=== PATIENT | male | born 1960 | race Caucasian/White ===

== ENCOUNTER → 2022-06-22 13:51 | Outpatient (BNVA) | payer MEDICARE, SELFPAY | PROVIDERS: Visit Provider Physician Assistant | DX: G95.89 Other specified diseases of spinal cord (principal) | CPT/HCPCS: 99212; Q3014 ==

== ENCOUNTER 2024-06-12 12:44 | Outpatient (AMB) | payer MEDICARE, SELFPAY ==
--- NOTE | 2024-06-12 12:54 | A.SPINEOV_ITS ---
Vital Signs 06/12/24 13:06 Height 5 ft 7 in Weight 160 lb BMI 25.1 Intake Visit Reasons: possible herniated disc Intake Note: Mr. Hermosillo is here today c/o possible disc herniation. Communications Assistant Required: No Allergies No Known Allergies Allergy (Verified 06/12/24 13:06) Physical Exam Vital Signs: BMI result Body Mass Index 25.1 Assessment & Plan Assessment & Plan (1) Lumbar disc herniation: Code(s): M51.26 - Other intervertebral disc displacement, lumbar region Category: Medical Plan Mr Hermosillo came in to the office to see us today in follow-up. He is a gentleman known to us from anterior cervical fusion as well as L3-4, L4-[address] decomp[address] done back at [facility] few years back. He had excellent results from the surgery and was otherwise doing okay until March of this year when he awoke we had spontaneous onset of severe left back pain radiating into the anterior thigh region into his knee. The pain was crippling and incapacitating. He saw his primary doctor was placed on steroid pack, reassured that it should go away with time but unfortunately nothing helped. The pain has been agonizing and he has been slowly getting worse. He ultimately bags for an MRI from an orthopedic doctor that he was seeing and was able to get a study done at [facility] showing a large left L3-4 disc herniation. He came back in to see us because of his previous connection. He does report numbness of the leg as well as weakness. He reports a sense of feeling like he is going to fall when he stands up. He is unable to sleep, constantly tossing and turning in bed. He has been taking ibuprofen/leave despite being on Eliquis for AFib because he just can not take the pain anymore. He also tried Tylenol as well as [id number] medications etc.. He has not yet done any physical therapy. He was tentatively planned to have a cortisone shot at some point but the consultation is until the end of the month but he feels like he just can not wait any longer. No cauda equina symptoms. On my exam, he is awake alert oriented but very uncomfortable, he has an antalgic gait, positive straight leg raise at 15 degrees. I was almost unable to examine his leg because he is so uncomfortable. He has weakness of his left quadriceps which I would rate as 3/5. Also has a diminished patellar reflex and Achilles reflex on the left side. Strength on the right side is full, reflexes are normal. His imaging done at [facility] shows that he has a hyperintense T2 fluid-filled piece of disc material which appears to be floating upwards from the disc space compressing the descending L3 nerve root. It is almost completely obliterated by the piece of disc herniation. I am concerned given the weakness, numbness in the feeling of his leg giving out on him is a sign that he is having real nerve damage here from this disc herniation. I am going to submit for surgery for left L3-4 diskectomy. I will review the case with Dr. Couch to confirm the plan but I think we should try to move this along. I understand he has not done physical therapy and or injections, but the loss of neurological function I believe over rides this need for further conservative management. Pt was given risk and benefits of surgery including but not limited to infection, hematoma , nerve injury,durotomy, weakness,bowel/bladder injury, persistent pain, recurrent disc hernia as well as the option to continue with conservative treatment and patient wishes to proceed with surgery. Pt is aware they should stop their motrin, 7 days prior to surgery, and he will stop his Eliquis 3 days prior to surgery. He recently saw his curer acid drum in February for his atrial fibrillation and was told everything looks okay and he is stable without shortness breath or chest pain. He understands there is a slight risk of stroke coming off the Eliquis but given the amount of pain he is in he is arturo ling to accept this risk.. All questions were answered to the best of our ability. If there is anything about this patients medical history that we have overlooked or concerns you have about us proceeding with surgery we would appreciate any input you can offer. Total amount of time spent in this visit was 20 minutes in discussion of symptoms, lumbar imaging results and subsequent plan of care Sergio Couch MD,PhD [facility] Coding Level of Care Code Est Pt Level 3 (47562) Diagnoses Lumbar disc herniation M51.26
[2024-06-12 13:06] VITALS: BMI 25.1
--- OUTSIDE RECORDS SUMMARY | 2024-06-12 14:35 | XMS_ITS | Encounter Summary ---
Author Organization [facility] Address [address] [place] [address] Care Team Providers Care Instructor Psychiatric Aide Name Role Phone Carlton De Jesus MD Primary Care Provider [phone] Riaz Seals MD Primary Care Provider [phone] Neri Fonseca MD Primary Care Provider Riaz Seals MD Primary Care Provider Encounter Details Date Type Department Care Team (Late st Contact Info) Description 04/11/2016 Orders Only 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 Not on file Not on file Not on file documented as of this encounter Plan of Treatment Upcoming Encounters Date Type Department Care Team (Latest Contact Info) Description 07/08/2024 8:20 AM EDT Consult (Initial) [facility] Orthopedic Surgery [address] [facility] [address] [place] [phone] Ann Mcarthur MD [address] [place] [address] lumbar spinal stenosis 07/13/2024 8:45 AM EDT Consult (Initial) [facility] Orthopedic Surgery Suite [facility] [address] [phone] Riaz Mendiola MD [address] [place] [address] lumbar spinal stenosis 07/17/2024 9:15 AM EDT Consult (Initial) [facility] Orthopedic Surgery Suite [facility] [address] [phone] David Ji MD [address] [place] [address] lumbar spinal stenosis documented as of this encounter Procedures * Due to [place] law, this organization might not be sharing negative HIV tests. Procedure Name Priority Date/Time Associated Diagnosis Comments ALANINE AMINOTRANSFERASE (ALT), SERUM Routine 04/11/2016 4:01 PM EST High cholesterol ASPARTATE AMINOTRANSFERASE (AST), SERUM Routine 04/11/2016 4:01 PM EST High cholesterol LIPID PANEL WITH REFLEX TO DIRECT LDL Routine 04/11/2016 4:01 PM EST High cholesterol BASIC METABOLIC PANEL WITH (GFR) Routine 04/11/2016 4:01 PM EST Elevated blood sugar documented in this encounter Results * Due to [place] law, this organization might not be sharing negative HIV tests. * ASPARTATE AMINOTRANSFERASE (AST), SERUM (04/11/2016 4:01 PM EST) AST (SGOT) 25 <45 U/L [facility] 04/11/2016 4:01 PM EST 04/11/2016 4:01 PM EST Narrative [facility] - 04/11/2016 5:32 PM EST not fasting Patient's primary care provider is: ??N/A Testing performed at: [facility], [address] [place] [address], [id number], Stock Unloader: Marlin Son M.D. Carlton De Jesus MD LAB SAME DAY RESULT Final Resu lt Performing Organization Address [facility] de Phone Number [address] [address] DIRECTOR MARLIN SON M.D. * ALANINE AMINOTRANSFERASE (ALT), SERUM (04/11/2016 4:01 PM EST) ALT (SGPT) 28 <67 U/L [facility] 04/11/2016 4:01 PM EST 04/11/2016 4:01 PM EST Narrative [facility] - 04/11/2016 5:32 PM EST not fasting Patient's primary care provider is: ??N/A Testing performed at: [facility], [address] [place] [address], [id number], Stock Unloader: Marlin Son M.D. Carlton De Jesus MD LAB SAME DAY RESULT Final Resu lt Performing Organization Address [facility] de Phone Number [address] [address] DIRECTOR MARLIN SON M.D. * (ABNORMAL) LIPID PANEL WITH REFLEX TO DIRECT LDL (04/11/2016 4:01 PM EST) Cholesterol 249(H) <200 mg/dL [facility] Triglyceride 87 <150 mg/dL [facility] HDL Cholesterol 101 >40 mg/dL [facility] Comment: NCEP GUIDELINES Desireable >60 mg/dL Borderline 40-59 mg/dL ?? Undesirable <40 mg/dL LDL Cholesterol 131(H) <130 mg/dL [facility] CHOL/HDL Ratio 2 0 - 5 CALC [facility] 04/11/2016 4:01 PM EST 04/11/2016 4:01 PM EST Narrative [facility] - 04/11/2016 5:32 PM EST not fasting Patient's primary care provider is: ??N/A Testing performed at: [facility], [address] [place] [address], [id number], Stock Unloader: Marlin Son M.D. Carlton De Jesus MD LABORATORY Final Result [address] [address] DIRECTOR MARLIN SON M.D. * BASIC METABOLIC PANEL WITH (GFR) (04/11/2016 4:01 PM EST) Glucose 96 65 - 99 mg/dl [facility] Urea Nitrogen Blood (BUN) 16 7 - 25 mg/dL [facility] Creatinine 0.86 0.50 - 1.20 mg/dL [facility] Sodium 142 136 - 145 mmo/L [facility] Potassium 4.3 3.5 - 5.3 mmol/L [facility] Chloride 102 98 - 107 mmo/L [facility] Carbon dioxide 28 23 - 33 mmol/L [facility] Calcium 9.7 8.5 - 10.4 mg/dL [facility] GFR 97 >60 ml/min [facility] Comment:If the patient is Af rican Barbadian, please multiply result by 1.210 04/11/2016 4:01 PM EST 04/11/2016 4:01 PM EST Narrative [facility] - 04/11/2016 5:32 PM EST not fasting Patient's primary care provider is: ??N/A Testing performed at: [facility], [address] [place] [address], [id number], Stock Unloader: Marlin Son M.D. Carlton De Jesus MD LABORATORY Final Result [facility] [address] [place] [address] DIRECTOR MARLIN SON M.D. documented in this encounter Visit Diagnoses Diagnosis Elevated blood sugar Other abnormal glucose High cholesterol Pure hypercholesterolemia documented in this encounter Additional Health Concerns Infection Onset Date Last Indicated Resolved Time COVID-19 Rule-Out 08/23/2020 08/23/2020 08/23/2020 9:26 PM EDT COVID-19 Rule-Out 10/25/2020 10/25/2020 10/25/2020 11:43 PM EDT documented as of this encounter Care Teams Instructor Psychiatric Aide Relationship Specialty Start Date End Date Carlton De Jesus MD PCP - General 02/26/14 11/08/16 Riaz Seals MD [address] [place] [phone] PCP - General Internal Medicine 11/09/16 04/10/19 Neri Fonseca MD [address] [place] [address] PCP - General Internal Medicine 04/11/19 07/13/19 Riaz Seals MD [address] [place] [phone] PCP - General Internal Medicine 07/14/19 documented as of this encounter
--- OUTSIDE RECORDS SUMMARY | 2024-06-12 14:35 | XMS_ITS | Encounter Summary ---
Author Organization [facility] Address [address] [place] [address] Care Team Providers Care Lasting Machine Operator Bed Name Role Phone Carlton De Jesus MD Primary Care Provider [phone] Riaz Seals MD Primary Care Provider Neri Fonseca MD Primary Care Provider Riaz Seals MD Primary Care Provider Encounter Details Date Type Department Care Team (Late st Contact Info) Description 11/18/2015 Orders Only [facility] Adult Medicine [address] [place] [phone] Carlton De Jesus MD [address] [phone] Social History Tobacco Use Types Packs/Day Years [...] 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 Not on file Not on file Not on file documented as of this encounter Plan of Treatment Upcoming Encounters Date Type Department Care Team (Latest Contact Info) Description 07/08/2024 8:20 AM EDT Consult (Initial) [facility] Orthopedic Surgery [address] [facility] [address] [place] [phone] Ann Mcarthur MD [address] [place] [address] lumbar spinal stenosis 07/13/2024 8:45 AM EDT Consult (Initial) [facility] Orthopedic Surgery [address] [phone] Riaz Mendiola MD [address] [place] [address] lumbar spinal stenosis 07/17/2024 9:15 AM EDT Consult (Initial) [facility] Orthopedic Surgery [address] [place] [phone] David Ji MD [address] [place] [address] lumbar spinal stenosis documented as of this encounter Results * Due to [place] state law, this organization might not be sharing negative HIV tests. * (ABNORMAL) BASIC METABOLIC PANEL WITH (GFR) (12/01/2015 9:39 AM EDT) Glucose 111(H) 65 - 99 mg/dl [facility] Urea Nitrogen Blood (BUN) 13 7 - 25 mg/dL [facility] Creatinine 0.86 0.50 - 1.20 mg/dL [facility] Sodium 141 136 - 145 mmo/L [facility] Potassium 4.7 3.5 - 5.3 mmol/L [facility] Chloride 103 98 - 107 mmo/L [facility] Carbon dioxide 24 23 - 33 mmol/L [facility] Calcium 9.4 8.5 - 10.4 mg/dL [facility] GFR 97 >60 ml/min [facility] Comment:If the patient is Af rican Congolese, please multiply result by 1.210 12/01/2015 9:39 AM EDT 12/01/2015 9:39 AM EDT [facility] - 12/01/2015 3:35 PM EDT fasting Patient's primary care provider is: ??N/A Testing performed at: [facility], [address] [place] [address], [id number], Theater Set Production Designer: Marlin Son M.D. Carlton De Jesus MD LABORATORY Final Result Performing Organization Address [facility] Co de Phone Number [address] [address] DIRECTOR MARLIN SON M.D. * VITAMIN D, 25-HYDROXY, TOTAL, IMMUNOASSAY (12/01/2015 9:39 AM EDT) VIT D, 25-OH, TOTAL 37 >29 ng/mL [facility] Comment: Vitamin D Status ??25-OH Vitamin D: Deficiency: ? <20 ng/mL Insufficiency: ? 20-29 ng/mL Optimal: ?> or = 30 ng/mL 12/01/2015 9:39 AM EDT 12/01/2015 9:39 AM EDT [facility] - 12/01/2015 3:35 PM EDT fasting Patient's primary care provider is: ??N/A Testing performed at: [facility], [address] [place] [address], [phone], Theater Set Production Designer: Marlin Son M.D. Carlton De Jesus MD LABORATORY Final Result Performing Organization Address [facility] Co de Phone Number [address] [address] DIRECTOR MARLIN SON M.D. * (ABNORMAL) LIPID PANEL WITH REFLEX TO DIRECT LDL (12/01/2015 9:39 AM EDT) Cholesterol 277(H) <200 mg/dL [facility] Triglyceride 77 <150 mg/dL [facility] HDL Cholesterol 85 >40 mg/dL [facility] Comment: NCEP GUIDELINES Desireable >60 mg/dL Borderline 40-59 mg/dL ?? Undesirable <40 mg/dL LDL Cholesterol 177(H) <130 mg/dL [facility] CHOL/HDL Ratio 3 0 - 5 CALC [facility] 12/01/2015 9:39 AM EDT 12/01/2015 9:39 AM EDT Narrative [facility] - 12/01/2015 3:35 PM EDT fasting Patient's primary care provider is: ??N/A Testing performed at: [facility], [address] [place] [address], [phone], Theater Set Production Designer: Marlin Son M.D. Carlton De Jesus MD LABORATORY Final Result Performing Organization Address [facility] de Phone Number [address] [address] DIRECTOR MARLIN SON M.D. * ALANINE AMINOTRANSFERASE (ALT), SERUM (12/01/2015 9:39 AM EDT) ALT (SGPT) 41 <67 U/L [facility] 12/01/2015 9:39 AM EDT 12/01/2015 9:39 AM EDT Narrative [facility] - 12/01/2015 3:35 PM EDT fasting Patient's primary care provider is: ??N/A Testing performed at: [facility], [address] [place] [address], [phone], Theater Set Production Designer: Marlin Son M.D. Carlton De Jesus MD LAB SAME DAY RESULT Final Resu lt Performing Organization Address [facility] Co de Phone Number [address] [address] DIRECTOR MARLIN SON M.D. * ASPARTATE AMINOTRANSFERASE (AST), SERUM (12/01/2015 9:39 AM EDT) AST (SGOT) 36 <45 U/L [facility] 12/01/2015 9:39 AM EDT 12/01/2015 9:39 AM EDT Narrative [facility] - 12/01/2015 3:35 PM EDT fasting Patient's primary care provider is: ??N/A Testing performed at: [facility], [address] [place] [address], [phone], Theater Set Production Designer: Marlin Son M.D. us Carlton De Jesus MD LAB SAME DAY RESULT Final Resu lt [address] [address] DIRECTOR MARLIN SON M.D. * CBC (H/H, RBC, INDICES,WBC, PLT) (12/01/2015 9:39 AM EDT) WBC 7.0 3.8 - 10.8 K/uL [facility] RBC 4.89 4.20 - 5.80 M/uL [facility] Hemoglobin 16.0 13.2 - 17.1 g/dL [facility] Hematocrit 47.9 38.5 - 50.0 % [facility] MCV 98.0 80.0 - 100.0 fl [facility] MCH 32.7 27.0 - 33.0 pg [facility] MCHC 33.4 32.0 - 36.0 g/dL [facility] RDW 13.4 11.0 - 15.0 % [facility] PLT 308 140 - 400 K/uL [facility] 12/01/2015 9:39 AM EDT 12/01/2015 9:39 AM EDT Narrative [facility] - 12/01/2015 10:34 AM EDT fasting Patient's primary care provider is: ??N/A Testing performed at: [facility], [address] [place] [address], [id number], Theater Set Production Designer: Marlin Son M.D. Carlton De Jesus MD LAB SAME DAY RESULT Final Resu lt [address] [address] DIRECTOR MARLIN SON M.D. documented in this encounter Visit Diagnoses Diagnosis Encounter for vitamin deficiency screening- Primary Screening for other and unspecified endocrine, nutritional, metabolic, and immunity disorders Elevated BP Elevated blood pressure reading without diagnosis of hypertension Screening for cholesterol level Screening for lipoid disorders Encounter for vitamin deficiency screening- Primary Screening for other and unspecified endocrine, nutritional, metabolic, and immunity disorders Elevated BP Elevated blood pressure reading without diagnosis of hypertension Screening for cholesterol level Screening for lipoid disorders Elevated blood sugar Other abnormal glucose documented in this encounter Additional Health Concerns Infection Onset Date Last Indicated Resolved Time COVID-19 Rule-Out 08/23/2020 08/23/2020 08/23/2020 9:26 PM EDT COVID-19 Rule-Out 10/25/2020 10/25/2020 10/25/2020 11:43 PM EDT documented as of this encounter Care Teams Lasting Machine Operator Bed Relationship Specialty Start Date End Date Carlton De Jesus MD PCP - General 02/26/14 11/08/16 Riaz Seals MD [address] [place] [phone] PCP - General Internal Medicine 11/09/16 04/10/19 Neri Fonseca MD [address] [place] [phone] PCP - General Internal Medicine 04/11/19 07/13/19 Riaz Seals MD [address] [place] [phone] PCP - General Internal Medicine 07/14/19 documented as of this encounter
--- OUTSIDE RECORDS SUMMARY | 2024-06-12 14:35 | XMS_ITS | Encounter Summary ---
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 Orthopedic Surgery [address] [facility] [address] [place] [phone] Ann Mcarthur MD [address] [place] [address] lumbar spinal stenosis 07/13/2024 8:45 AM EDT Consult (Initial) [facility] Orthopedic Surgery [address] [place] [phone] Riaz Mendiola MD [address] [place] [address] lumbar spinal stenosis 07/17/2024 9:15 AM EDT Consult (Initial) [facility] Orthopedic Surgery [address] [place] [phone] David Ji MD [address] [place] [address] lumbar spinal stenosis documented as of this encounter Procedures * Due to [employer] [place] [employer] law, this organization might not be sharing negative HIV tests. Procedure Name Priority Date/Time Associated Diagnosis Comments PAIN MANAGEMENT PROFILE, URINE (PAINM2) Routine 04/11/2016 4:00 PM EST Chronic right shoulder pain Back pain, unspecified back location, unspecified back pain laterality, unspecified chronicity Neck pain HEPATITIS C AB WITH REFLEX TO RNA PCR, SERUM Routine 04/11/2016 4:00 PM EST Need for hepatitis C screening test documented in this encounter Results * Due to [place] [employer] law, this organization might not be sharing negative HIV tests. * PAIN MANAGEMENT PROFILE, URINE (PAINM2) (04/11/2016 4:00 PM EST) Creatinine (Urine) 107.5 > or = 20.0 mg/dL [facility] pH (Urine) 6.9 4.5 - 9.0 [facility] OXIDANT NEGATIVE <200 mcg/mL [facility] Amphetamines (Screen) NEGATIVE <500 ng/mL [facility] Barbiturates (Urine) NEGATIVE <300 ng/mL [facility] Benzodiazepine And Metabolites, Urine NEGATIVE <100 ng/mL [facility] Buprenorphine (Suboxone) (Urine) NEGATIVE <5 ng/mL [facility] Benzoylecgonine (Cocaine Metabolite) (Urine) NEGATIVE <150 ng/mL [facility] 6-Monoacetylmorphine (Heroin Metabolite) (Urine) NEGATIVE <10 ng/mL [facility] Tetrahydrocannabinol (Urine) NEGATIVE <20 ng/mL [facility] MDMA/MDA NEGATIVE <500 ng/mL [facility] EDDP ( Methadone Metabolite) NEGATIVE <100 ng/mL [facility] Opiates (Urine) NEGATIVE <100 ng/mL [facility] Oxycodone (Urine) NEGATIVE <100 ng/mL [facility] Phencyclidine (Urine) NEGATIVE <25 ng/mL [facility] 04/11/2016 4:0 0 PM EST 04/11/2016 11:59 PM EST Narrative Resulting Agency Comment [id number] Carlton De Jesus MD LABORATORY Final Result [facility] [address] [place] [address] * HEPATITIS C AB WITH REFLEX TO RNA PCR, SERUM (04/11/2016 4:00 PM EST) Hepatitis C virus Ab NON-REACTI VE NON-REACT GALEN [facility] Hepatitis C virus Ab Signal/Cutoff 0.01 <1.00 [facility] 04/11/2016 4:00 PM EST 04/11/2016 11:59 PM EST Narrative Resulting Agency Comment [id number] Carlton De Jesus MD LABORATORY Final Result [facility] [address] [place] [address] documented in this encounter Visit Diagnoses Diagnosis Need for hepatitis C screening test Special screening examination for other specified viral diseases Chronic right shoulder pain Pain in joint, shoulder region Back pain, unspecified back location, unspecified back pain laterality, unspecified chronicity Neck pain Cervicalgia documented in this encounter Additional Health Concerns Infection Onset Date Last Indicated Resolved Time COVID-19 Rule-Out 08/23/2020 08/23/2020 08/23/2020 9:26 PM EDT COVID-19 Rule-Out 10/25/2020 10/25/2020 10/25/2020 11:43 PM EDT documented as of this encounter Care Teams Asset Management Analyst Relationship Specialty Start Date End Date Carlton De Jesus MD PCP - General 02/26/14 11/08/16 Riaz Seals MD [address] [place] [address] PCP - General Internal Medicine 11/09/16 04/10/19 Neri Fonseca MD [address] [place] [address] PCP - General Internal Medicine 04/11/19 07/13/19 Riaz Seals MD [address] [place] [address] PCP - General Internal Medicine 07/14/19 documented as of this encounter
--- OUTSIDE RECORDS SUMMARY | 2024-06-12 14:35 | XMS_ITS | Encounter Summary ---
Author Organization [facility] Address [address] [place] [address] Care Team Providers Care Perl Developer Name Role Phone Carlton De Jesus MD Primary Care Provider [phone] Riaz Seals MD Primary Care Provider Neri Fonseac MD Primary Care Provider Riaz Seals MD Primary Care Provider Encounter Details Date Type Department Care Team (Late st Contact Info) Description 12/02/2015 Orders Only [facility] Adult Medicine [address] [place] [phone] Carlton De Jesus MD [address] [phone] Social History Tobacco Use Types Packs/Day Years [...] 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 Not on file Not on file Not on file documented as of this encounter Plan of Treatment Upcoming Encounters Date Type Department Care Team (Latest Contact Info) Description 07/08/2024 8:20 AM EDT Consult (Initial) [facility] Orthopedic Surgery [address] [facility] [address] [place] [phone] Ann Mcarthur MD [address] [place] [address] lumbar spinal stenosis 07/13/2024 8:45 AM EDT Consult (Initial) [facility] Orthopedic Surgery [address] [facility] [address] [place] [phone] Riaz Mendiola MD [address] [place] [address] lumbar spinal stenosis 07/17/2024 9:15 AM EDT Consult (Initial) [facility] Orthopedic Surgery [address] [place] [phone] David Ji MD [address] [place] [address] lumbar spinal stenosis documented as of this encounter Procedures * Due to [facility] law, this organization might not be sharing negative HIV tests. Procedure Name Priority Date/Time Associated Diagnosis Comments HEMOGLOBIN A1C Routine 12/01/2015 9:39 AM EDT Elevated blood sugar documented in this encounter Results * Due to [facility] law, this organization might not be sharing negative HIV tests. * HEMOGLOBIN A1C (12/01/2015 9:39 AM EDT) Hemoglobin A1C 5.5 <5.7 % Total [facility] Comment: For diagnostic purposes: <5.7 ?Decreased risk of diabetes 5.7 - 6.4 ?Increased risk of diabetes >6.5 ? Consistent with diabetes Diagnosis of diabetes should be confirmed by repeat testing. 12/01/2015 9:39 AM EDT 12/01/2015 9:39 AM EDT Narrative [facility] - 12/02/2015 2:20 PM EDT fasting Lab test HA1C added on by Provider Dr. Carlton De Jesus on 12/02/2015 1:13 PM by LISSETTE Patient's primary care provider is: ??N/A Testing performed at: [facility], [address] [place] [address], [id number], Manager Rail: Marlin Son M.D. Carlton De Jesus MD LABORATORY Final Result [address] [address] DIRECTOR MARLIN SON M.D. documented in this encounter Visit Diagnoses Diagnosis Elevated blood sugar Other abnormal glucose documented in this encounter Additional Health Concerns Infection Onset Date Last Indicated Resolved Time COVID-19 Rule-Out 08/23/2020 08/23/2020 08/23/2020 9:26 PM EDT COVID-19 Rule-Out 10/25/2020 10/25/2020 10/25/2020 11:43 PM EDT documented as of this encounter Care Teams Perl Developer Relationship Specialty Start Date End Date Carlton De Jesus MD PCP - General 02/26/14 11/08/16 Riaz Seals MD [address] [place] [phone] PCP - General Internal Medicine 11/09/16 04/10/19 Neri Fonseca MD [address] [place] [address] PCP - General Internal Medicine 04/11/19 07/13/19 Riaz Seals MD [address] [place] [phone] PCP - General Internal Medicine 07/14/19 documented as of this encounter
--- OUTSIDE RECORDS SUMMARY | 2024-06-12 14:36 | XMS_ITS | Encounter Summary ---
Author Organization [facility] Address [address] [place] [address] [address] Care Team Providers Care Head Greenskeeper Name Role Phone Junito De Jesus Md Primary Care Provider [phone] Junito De Jesus Md Unavailable [phone] Reason for Visit * Reason Comments RX Renewal [facility] Encounter Details Date Type Department Care Team (Late st Contact Info) Description 07/05/2014 Telephone [facility] Adult Medicine [address] [place] [phone] Junito De Jesus MD [facility] 24 [facility] [address] [place] [address] RX RENEWAL Social History Tobacco Use Types Packs/Day Years Used Date Smoking Tobacco: Never Smokeless Tobacco: Never Alcohol Use Standard Drinks/Week Comments Yes 0 (1 standard drink = 0.6 oz pur e alcohol) soc Sex and Gender Information Value Date Recorded Sex Assigned at Not on file Legal Sex Male 12:18 AM EDT Gender Identity Not on file Sexual Orientation Not on file 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 Last refilled: ofloxacin 0.3 % Otic Drops 10 mL 0 02/06/2013 02/16/2013 -- Sig - Route: Place 10 drops into affected ear once daily for 7 days; warm bottle in hand for 1-2 minutes before instillation - Otic Class: Normal Last PCP Visit with JUNITO DE JESUS MD: 08/25/2013 Future Physical Appointments Date Time Provider Department Center 08/26/2014 1:00 PM [id number] DE JESUS MD [facility] * Telephone Encounter - Jess Wiggins - 07/05/2014 3:08 PM EDT [facility] Ofloxacin 0.3% ear drops Medication not on reorder list documented in this encounter Plan of Treatment Not on file documented as of this encounter Visit Diagnoses Not on filedocumented in this encounter Care Teams Head Greenskeeper Relationship Specialty Start Date End Date Junito De Jesus MD PCP - General Internal Medicine 05/07/13 Junito De Jesus MD PCP - Payer 05/29/13 documented as of this encounter
--- OUTSIDE RECORDS SUMMARY | 2024-06-12 14:36 | XMS_ITS | Encounter Summary ---
Author Organization [facility] Address [address] [place] [address] Care Team Providers Care Machine Tool Operator Name Role Phone Riaz Seals MD Primary Care Provider [phone] Reason for Visit * Reason Comments Return Call Encounter Details Date Type Department Care Team (Late st Contact Info) Description 07/05/2022 Telephone [facility] Orthopedic Surgery [address] [facility] [address] [place] [phone] Bertin Lima MD 123 [facility] [address] [place] [phone] Return Call Social History Tobacco Use Types Packs/Day Years Used Date Smoking Tobacco: Never Smokeless Tobacco: Never Alcohol Use Standard Drinks/Week Comments Yes 0 (1 standard drink = 0.6 oz pur e alcohol) soc PHQ-2 Answer Date Recorded PHQ-2 Score 0 12/06/2018 Sex and Gender Information Value Date Recorded Sex Assigned at Not on file Legal Sex Male 4:35 AM EDT Gender Identity Not on file Sexual Orientation Not on file 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 please assist callback is [phone] documented in this encounter Plan of Treatment Upcoming Encounters Date Type Department Care Team (Latest Contact Info) Description 07/08/2024 8:20 AM EDT Consult (Initial) [facility] Orthopedic Surgery [address] [phone] Ann Mcarthur MD [address] [place] [address] lumbar spinal stenosis 07/13/2024 8:45 AM EDT Consult (Initial) [facility] Orthopedic Surgery Suite [facility][note 2] [address] [phone] Riaz Mendiola MD [address] [place] [address] lumbar spinal stenosis 07/17/2024 9:15 AM EDT Consult (Initial) [facility] Orthopedic Surgery Suite [facility][note 2] [address] [phone] David Ji MD [address] [place] [address] lumbar spinal stenosis documented as of this encounter Goals Goal Patient Goal Type Associated Problems Recent Progress Patient-Stated? Author Blood Pressure < 140/90 Blood Pressure 138/70(2024 11:24 AM EDT) Ramon Li Note: Above is your goal for blood pressure control. You may be able to prevent, reduce or eliminate the medication required for your blood pressure by regular measurement of your blood pressure at home, since home readings are often more reliable than measurements at the doctor? s office. You can also improve your blood pressure by getting regular exercise, keeping a normal weight, reducing your sodium/salt intake to 2000 mg/day, reducing caffeine and by limiting your alcohol intake. Men should limit consumption to no more than 2 drinks per day (beer, wine, or mixed drinks) and women should limit to one drink per day. Follow the DASH diet, a diet low in fat, cholesterol, red meat, and sweets. It emphasizes fruits, vegetables, and low-fat dairy foods. The DASH diet also includes whole-grain products, fish, poultry, and nuts. documented as of this encounter Visit Diagnoses Not on filedocumented in this encounter Care Teams Machine Tool Operator Relationship Specialty Start Date End Date Riaz Seals MD [address] [place] [address] PCP - General Internal Medicine 07/14/19 documented as of this encounter
--- OUTSIDE RECORDS SUMMARY | 2024-06-12 14:36 | XMS_ITS | Encounter Summary ---
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 No / Unsure 07/04/2019 12:30 PM EDT documented as of this encounter Miscellaneous Notes * Telephone Encounter - Laila Diane - 07/20/2019 3:24 PM EDT Spoke with Aaron to reschedule his surgery with Dr. Tavarez for R myringotomy with tube. He stateshe does not want to be tested for COVID prior to surgery and is declining to reschedule at this time. Sending as an FYI. documented in this encounter Plan of Treatment Upcoming Encounters Date Type Department Care Team (Latest Contact Info) Description 07/08/2024 8:20 AM EDT Consult (Initial) [facility] Orthopedic Surgery [address] [phone] Ann Mcarthur MD [address] [place] [address] lumbar spinal stenosis 07/13/2024 8:45 AM EDT Consult (Initial) [facility] Orthopedic Surgery Suite [facility] [address] [phone] Riaz Mendiola MD [address] [place] [address] lumbar spinal stenosis 07/17/2024 9:15 AM EDT Consult (Initial) [facility] Orthopedic Surgery [address] [phone] David Ji MD [address] [place] [address] lumbar spinal stenosis documented as of this [...] Diagnoses Not on filedocumented in this encounter Additional Health Concerns Infection Onset Date Last Indicated Resolved Time COVID-19 Rule-Out 08/23/2020 08/23/2020 08/23/2020 9:26 PM EDT COVID-19 Rule-Out 10/25/2020 10/25/2020 10/25/2020 11:43 PM EDT documented as of this encounter Care Teams Business Solutions Consultant Relationship Specialty Start Date End Date Riaz Seals MD [address] [place] [address] PCP - General Internal Medicine 07/14/19 documented as of this encounter
--- OUTSIDE RECORDS SUMMARY | 2024-06-12 14:36 | XMS_ITS | Encounter Summary ---
Author Organization [facility] Address [address] [place] [address] Care Team Providers Care [facility] Consultant Name Role Phone Riaz Seals MD Primary Care Provider [phone] Encounter Details Date Type Department Care Team ( Contact Info) Description 06/25/2022 Orders Only 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 Orthopedic Surgery [address] [facility] [address] [place] [address] Ann Mcarthur MD [address] [place], [place] [phone] lumbar spinal stenosis 07/13/2024 8:45 AM EDT Consult (Initial) [facility] Orthopedic Surgery [address] [phone] Riaz Mendiola MD [address] [place] [address] lumbar spinal stenosis 07/17/2024 9:15 AM EDT Consult (Initial) [facility] Orthopedic Surgery [address] [address] David Ji MD [address] [place] [address] lumbar spinal stenosis documented as of this [...] and nuts. documented as of this encounter Results * Due to [place] state law, this organization might not be sharing negative HIV tests. * CBC INCLUDES DIFFERENTIAL AND PLATELET COUNT (06/27/2022 4:07 PM EDT) WBC 6.5 3.8 - 10.8 K/uL [facility] Neutrophils # 3.7 1.5 - 7.8 K/uL [facility] Lymphocytes # 1.6 0.9 - 3.9 K/uL [facility] Monocytes # 0.8 0.2 - 1.0 K/uL [facility] Eosinophils # 0.3 0.0 - 0.5 K/uL [facility] Basophils # 0.0 0.0 - 0.2 K/uL [facility] Immature Granulocytes # 0.0 0.0 - 0.1 K/uL [facility] Neutrophils % 56.6 % [facility] Lymphocytes % 24.9 % [facility] Monocytes % 12.6 % [facility] Eosinophils % 5.1 % [facility] Basophils % 0.6 % [facility] Immature Granulocytes % 0.20 % [facility] RBC 4.87 4.20 - 5.80 M/uL [facility] Hemoglobin 15.9 13.2 - 17.1 g/dL [facility] Hematocrit 48.2 38.5 - 50.0 % [facility] MCV 99.0 80.0 - 100.0 fl [facility] MCH 32.6 27.0 - 33.0 pg [facility] MCHC 33.0 32.0 - 36.0 g/dL [facility] RDW 12.8 11.0 - 15.0 % [facility] PLT 258 140 - 400 K/uL [facility] 06/27/2022 4:07 PM EDT 06/27/2022 4:07 PM EDT Narrative [facility] - 06/27/2022 4:38 PM EDT Patient's primary care provider is: ??N/A Testing performed at: [facility], [address] [place] [address], [id number], Seismograph Chief: Sergio Le MD us Katiuska Berg HAND FORMER LAB SAME DAY RESULT Final Resul t [address] [address] DIRECTOR Sergio Le MD documented in this encounter Visit Diagnoses Diagnosis Preoperative examination Preoperative examination, unspecified Primary osteoarthritis of left hip Primary localized osteoarthrosis, pelvic region and thigh Essential hypertension Preoperative examination Preoperative examination, unspecified Primary osteoarthritis of left hip Primary localized osteoarthrosis, pelvic region and thigh Essential hypertension documented in this encounter Care Teams Healthcare Network Consultant Relationship Specialty Start Date End Date Riaz Seals MD [address] [place] [address] PCP - General Internal Medicine 07/14/19 documented as of this encounter
--- OUTSIDE RECORDS SUMMARY | 2024-06-12 14:36 | XMS_ITS | Encounter Summary ---
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 [employer] message sent. documented in this encounter Plan of Treatment Upcoming Encounters Date Type Department Care Team (Latest Contact Info) Description 07/08/2024 8:20 AM EDT Consult (Initial) [facility] Orthopedic Surgery [address] [address] Ann Mcarthur MD [address] [place] [address] lumbar spinal stenosis 07/13/2024 8:45 AM EDT Consult (Initial) [facility] Orthopedic Surgery [address] [place] [phone] Riaz Mendiola MD [address] [place] [address] lumbar spinal stenosis 07/17/2024 9:15 AM EDT Consult (Initial) [facility] Orthopedic Surgery [address] [address] David Ji MD [address] [place] [address] lumbar spinal stenosis documented as of this [...] and nuts. documented as of this encounter Procedures * Due to [facility] law, this organization might not be sharing negative HIV tests. Procedure Name Priority Date/Time Associated Diagnosis Comments PROSTATE SPECIFIC ANTIGEN (PSA) TOTAL, SERUM Routine 10/09/2022 12:00 PM EDT Screening for prostate cancer LIPID PANEL WITH REFLEX TO DIRECT LDL Routine 10/09/2022 12:00 PM EDT Hyperlipidemia LDL goal <100 documented in this encounter Results * Due to [place] [employer] law, this organization might not be sharing negative HIV tests. * (ABNORMAL) LIPID PANEL WITH REFLEX TO DIRECT LDL (10/09/2022 12:00 PM EDT) Cholesterol 194 <200 mg/dL [facility] Triglyceride 163(H) <150 mg/dL [facility] HDL Cholesterol 53 >40 mg/dL [facility] Comment: NCEP GUIDELINES Desirable >60 mg/dL Borderline 40-59 mg/dL ?? Undesirable <40 mg/dL LDL Cholesterol 109 <130 mg/dL [facility] CHOL/HDL Ratio 4 0 - 5 [facility] 10/09/2022 12:0 0 PM EDT 10/09/2022 12:00 PM EDT Narrative [facility] - 10/09/2022 1:49 PM EDT Patient's primary care provider is: ??N/A Testing performed at: [facility], [address] [place] [address], [id number], Pipe Line Repairer: Sergio Le MD us Riaz Seals MD LABORATORY Final Result [address] [address] DIRECTOR Sergio Le MD * PROSTATE SPECIFIC ANTIGEN (PSA) TOTAL, SERUM (10/09/2022 12:00 PM EDT) PSA 1.54 0.00 - 4.00 ng/mL [facility] Comment: PSA was performed using the Kailyn Jace Immunoassay method. Values obtained from different assay methods cannot be used interchangeably. PSA levels, regardless of value, should not be interpreted as absolute evidence of the presence or absence of disease. 10/09/2022 12:0 0 PM EDT 10/09/2022 12:00 PM EDT Narrative [facility] - 10/09/2022 1:49 PM EDT Patient's primary care provider is: ??N/A Testing performed at: [facility], [address] [place] [address], [id number], Pipe Line Repairer: Sergio Le MD Riaz Seals MD LABORATORY Final Result [address] [address] DIRECTOR Sergio Le MD documented in this encounter Visit Diagnoses Diagnosis Screening for prostate cancer Special screening for malignant neoplasm of prostate Hyperlipidemia LDL goal <100 Other and unspecified hyperlipidemia documented in this encounter Care Teams Waterproofing Mixer Relationship Specialty Start Date End Date Riaz Seals MD [address] [place] [phone] PCP - General Internal Medicine 07/14/19 documented as of this encounter
--- OUTSIDE RECORDS SUMMARY | 2024-06-12 14:36 | XMS_ITS | Clinical Summary ---
Author Organization [facility] Address [address] [place] [address] Care Team Providers Care Seasoning Mixer Name Role Phone Riaz Seals MD Primary Care Provider [phone] Allergies Active Allergy Reactions Criticality Noted Date Comments Cat Dander Anaphylaxis High 07/05/2022 Medications budesonide-form oteroL (SYMBICORT) 80-4.5 mcg inhaler Inhale 2 puffs by mouth 2 times a day. Active apixaban (ELIQUIS) 5 mg tablet Take 1 tablet (5 mg total) by mouth every 12 hours. 60 tablet 2 3 Active metoprolol succinate XL (TOPROL XL) 50 mg tablet Take 1 tablet (50 mg total) by mouth once a day. 90 tablet 3 3 Active furosemide (LASIX) 20 mg tablet Take 20 mg by mouth daily. 3 Active losartan (COZAAR) 25 mg tablet Take 25 mg by mouth daily. 4 Active ibuprofen (MOTRIN) 800 mg tablet SMARTSI Tablet(s) By Mouth 3 Times Daily PRN 4 Active polyethylene glycol (GoLYTELY) solutionIndicat ions:Screen for colon cancer Take according to instructions provided by physician. 4000 mL 5 Active Active Problems Problem Noted Date Diagnosed Date HFrEF (heart failure with reduced ejection fract ion) 10/25/2022 Assessment & Plan (10/25/2022 2:10 PM EDT): Patient presented with acute HFrEF, TTE shows EF 35% Cardiomyopathy 10/23/2022 Assessment & Plan (10/26/2022 2:44 PM EDT): A-fib 10/21/2022 Assessment & Plan (10/26/2022 3:31 PM EDT): No known history of arrhythmia. Found to be in Afib with RVR in ED after ambulating. HR with fair response to diltiazem. Asymptomatic from Afib so unclear if this was occurring outpatient. Hemodynamically stable, electrolytes WNL, TSH normal. This may be due to cardiac stress from underlying infection, but unknown if he has any structural heart disease. BNP elevated at 285 and possible small effusions but not volume overloaded on exam. CHADS2-VASc 1 for hypertension Overnight 10/22-10/23, remained in A-fib with RVR despite increasing doses of Lopressor, up to 50mg TID. Patient reported dizziness and anxiety while on Lopressor and therefore opted not to continue with medication. At that time, decision was made to transition to diltiazem. TTE returned with reduced ejection fraction at 35% concerning for tachycardia mediated cardiomyopathy. Cardiology recommended diltiazem drip with initial bolus for rate control at this time and potential cardioversion tomorrow. Patient started on Eliquis 5 mg twice daily with co-pay $10 Plan was for ALBERTO cardioversion today however unable to pass probe iso stricture CT A-fib without clot burden Will undergo Cardioverion, plan for d.c thereafter Toprol 50mg daily Eliquis 5mg BID Lasix 20mg daily Losartan 25mg daily Follow up cardiology s.p discharge, referral sent Atrial fibrillation 10/21/2022 Assessment & Plan (10/26/2022 2:44 PM EDT): Cervical disc disorder with myelopathy of mid-cervical region 04/06/2020 Resolved Problems Problem Noted Date Diagnosed Date Resolved Date Recurrent otitis media of right ear 10/21/2022 10/26/2022 Assessment & Plan (10/22/2022 3:30 PM EDT): Recurrent right-sided otitis media since cleft palate surgery in 2014. Requires nearly monthly antibiotic courses. Symptoms of right ear congestion on admission with ear exam consistent with OM. Received a dose of amoxicillin in ED. -Change amoxicillin to Augmentin for at least 5 days -No clear indication for inpatient ENT involvement but consider based on clinical course Subacute cough 10/21/2022 10/26/2022 Assessment & Plan (10/23/2022 11:25 AM EDT): Presenting symptom is subacute cough with minimal sputum production with associated dyspnea. CXR with subtle LLL infiltrate vs. Atypical edema. Given the duration of symptoms and radiographic finding, we will treat for CAP. -Azithromycin x3 days and Augmentin (chosen given otitis media) for at least 5 days -Standing Tessalon Pearls and prn Robitussin for cough Encounters Date Type Department Care Team Description 05/19/2024 Refill CC [facility] [address] [place] [address] Mckinley Tan MD Screen for colon cancer (Primary Dx) from Last 3 Months Family History Medical History Relation Name Comments Lung cancer Brother Melanoma Father COPD Mother Relation Name Status Comments Brother Father Mother Social History Tobacco Use Types Packs/Day Years Used Date Smoking Tobacco: Never Smokeless Tobacco: Never Tobacco Cessation:Counseling Given: Not Answered Alcohol Use Standard Drinks/Week Comments Never 0 (1 standard drink = 0.6 oz pur e alcohol) Sex and Gender Information Value Date Recorded Sex Assigned at Male 01/24/2023 5:25 PM EST Legal Sex Male 9:13 AM EDT Gender Identity Male 01/24/2023 5:25 PM EST Sexual Orientation Straight 01/24/2023 5: 25 PM EST Last Filed Vital Signs Vital Sign Reading Time Taken Comments Blood Pressure 161/99 03/10/2024 4:18 PM EST Pulse 73 03/10/2024 4:18 PM EST Temperature 36.3 ??C (97.3 ??F) 10/26/2022 3:35 PM ED T Respiratory Rate 18 03/10/2024 4:18 PM EST Oxygen Saturation 97% 03/10/2024 4:18 PM EST Inhaled Oxygen Concentration - - Weight 79 kg (174 lb 2.6 oz) 03/10/2024 4:18 PM EST Height 170.2 cm (5' 7 ) 03/10/2024 4:18 PM EST Body Mass Index 27.28 03/10/2024 4:18 PM EST Plan of Treatment Upcoming Encounters Date Type Department Care Team (Latest Contact Info) Description 08/19/2024 12:15 PM EDT Hospital Encounter [facility] Endoscopy [address] [place] [address] Mckinley Tan MD [address] [place] [address] 08/19/2024 12:15 PM EDT - 08/19/2024 12:45 PM EDT Surgery [facility] Endoscopy [address] [place] [address] Mckinley Tan MD [address] [place] [address] COLONOSCOPY SCREENING, LOW RISK WITH POSSIBLE MODERATE SEDATION 09/02/2024 1:00 PM EDT Appointment [facility] Cardiac Ultrasound [address] [place] [address] Leandro Kent MD [address] [place] [address] 09/02/2024 2:00 PM EDT Follow-Up [facility] 4th floor Cardiology Medicine [address] [place] [address] Reference Test Clerk: Leandro Spear MD [address] [place] [address] Scheduled Procedures Name Priority Associated Diagnoses Date/Ti me COLONOSCOPY SCREENING, LOW RISK WITH POSSIBLE MODERATE SEDATION Screen for colon cancer 08/19/2024 12:15 PM EDT Health Maintenance Due Date Last Done Comments Pneumococcal Vaccine: 50+ Years (1 of 1 - PCV) 2008 Colonoscopy 06/18/2017 06/18/2012 RSV Vaccine (60+ years old and patients) (1 - Risk 60-74 years 1-dose series) 2018 COVID-19 Vaccine ( - season) 2023 Alcohol/Substance Use Screening 03/11/2024 Depression Screening and Follow-Up 03/11/2024 Health Care Proxy Review 03/11/2024 Social Drivers of Health Annual Screening 03/11/2024 Influenza Vaccine (Season Ended) 2024 11/22/2018, 11/22/2018, 12/06/2017, Additional history exists DTaP,Tdap,and Td Vaccines (3 - Td or Tdap) 02/27/2031 02/27/2021, 08/15/2010, 03/11/2000 Zoster Vaccines Completed 02/12/2019, 12/03/2018 Hepatitis C Screening Completed 10/21/2022 Hepatitis B Vaccines Aged Out No long er eligible based on patient's age to complete this topic Procedures * Due to [place] [employer] law, this organization might not be sharing negative HIV tests. Procedure Name Priority Date/Time Associated Diagnosis Comments HEPATITIS C ANTIBODY W/REFLEX TO HCV RNA, QUANTITATIVE PCR STAT 10/21/2022 4:15 PM EDT COLONOSCOPY 06/18/2012 11:38 AM EDT from Last 3 Months or Most Recently Relevant to Health Maintenance Results * Due to [place] [employer] law, this organization might not be sharing negative HIV tests. * Hepatitis C Antibody w/Reflex to HCV RNA, Quantitative PCR (10/21/2022 4:15 PM EDT) Hepatitis C Antibody NON-REACT GALEN NON-REACT GALEN 10/22/2022 7:53 PM EDT [employer] [facility] Comment: HCV antibody was non-reactive. There is no laboratory evidence of HCV infection. In most cases, no further action is required. However, if recent HCV exposure is suspected, a test for HCV RNA (test code 58395) is suggested. For additional information please refer to http://education.[employer]/faq/XCP82g6 (This link is being provided for informational/ educational purposes only.) Blood Structure of peripheral vein / Unknown Venipuncture / Unknown 10/21/2022 4:15 PM EDT 10/21/2022 4:28 PM EDT Narrative [facility] - 10/22/2022 7:53 PM EDT [facility] Received Date:[id number] Yary Palmer MD LAB BLOOD ORDERABLES Final Result [facility] [address] [facility] 3rd Floor, [place] [address], [employer] [facility] [address], [place] [address], * COLONOSCOPY (06/18/2012 11:38 AM EDT) Narrative Procedure Note Mckinley Tan - 06/18/2012 11:38 AM EDT Patient Name: Aaron Hermosillo Procedure Date: 06/18/2012 11:38 AM Date of : 1960 Admit Type: Outpatient Age: 52 Room: [place] room 3 Gender: Male Note Status: Finalized Attending MD: Mckinley Tan MD Procedure: Colonoscopy Indications: Screening for colorectal malignant neoplasm, This is the patient'sfirst colonoscopy Providers: Mckinley Tan MD Referring MD: Kaitlin Franklin MD (Referring MD) Requesting Provider: Medicines: Fentanyl IV 75 mcgs, Versed IV 3 mgs Complications: No immediate complications. Procedure: After I obtained informed consent, the scope was passed under direct vision. Throughout the procedure, the patient's blood pressure, pulse, and oxygen saturations were monitored continuously. The Colonoscope was introduced through the anus and advanced to the cecum, identified by appendiceal orifice & ileocecal valve.The colonoscopy was performed without difficulty. Thepatient tolerated the procedure well. The quality of the bowel preparation was good. Findings: The perianal and digital rectal examinations were normal. A sessile polyp was found in the cecum. The polyp was 7 mm in size.The polyp was removed with a hot snare. Resection and retrieval were complete. Estimated blood loss was minimal. Multiple small and large-mouthed diverticula were found in the entire colon. Non-bleeding internal hemorrhoids were found during retroflexion and were medium-sized. Impression: - One 7 mm polyp in the cecum. Resected andretrieved. - Diverticulosis in the entire examined colon. - Non-bleeding internal hemorrhoids. Recommendation: - Use fiber, for example Citrucel, Fibercon, Konsyl or Metamucil. - Repeat colonoscopy in 5-10 years for surveillancebased on pathology results. - Repeat colonoscopy in 5 years if there is adenomatous tissue and in 10 if the polyp is hyperplastic. Mckinley Tan MD 06/18/2012 12:26:26 PM This report has been signed electronically. Number of Addenda: 0 Note Initiated On: 06/18/2012 11:38 AM Mckinley Tan MD PROVATION PROCEDURES Final Result from Last 3 Months or Most Recently Relevant to Health Maintenance Insurance [employer] [facility] Advance Directives * Full Code (Latest Code Status on File) Date Activated Date Inactivated Comments 10/26/2022 4:30 PM 10/26/2022 9:50 PM * Full Code Date Activated Date Inactivated Comments 10/21/2022 6:44 PM 10/26/2022 4:30 PM Healthcare Agents on File Name Relationship Healthcare Agent Relationship Communication Nancy Jaimee Spouse Alternate Health Care Agent Raj Jaimee Brother Health Care Agent Care Teams Seasoning Mixer Relationship Specialty Start Date End Date Riaz Seals MD PCP - General Internal Medicine 02/12/20
--- OUTSIDE RECORDS SUMMARY | 2024-06-12 14:36 | XMS_ITS | Encounter Summary ---
Author Organization [facility] Address [address] [place] [address] Care Team Providers Care Fitting Room Operator Name Role Phone Riaz Seals MD Primary Care Provider [phone] Encounter Details Date Type Department Care Team (Late st Contact Info) Description 11/05/2022 Orders Only [facility] Nuclear Medicine [address] [place], [place] [phone] Maxim Horn MD [address] [place], [place] [phone] Social History Tobacco Use Types Packs/Day Years Used Date Smoking Tobacco: Never Smokeless Tobacco: Never Alcohol Use Standard Drinks/Week Comments Never 0 (1 standard drink = 0.6 oz pur e alcohol) Sex and Gender Information Value Date Recorded Sex Assigned at Male 01/24/2023 5:25 PM EST Legal Sex Male 9:13 AM EDT Gender Identity Male 01/24/2023 5:25 PM EST Sexual Orientation Straight 01/24/2023 5: 25 PM EST documented as of this encounter Plan of Treatment Upcoming Encounters Date Type Department Care Team (Latest Contact Info) Description 08/19/2024 12:15 PM EDT Hospital Encounter [facility] Endoscopy [address] [place] [address] Mckinley Tan MD [address] [place] [address] 08/19/2024 12:15 PM EDT - 08/19/2024 12:45 PM EDT Surgery [facility] Endoscopy [address] [place] [address] Mckinley Tan MD [address] [place] [address] COLONOSCOPY SCREENING, LOW RISK WITH POSSIBLE MODERATE SEDATION 09/02/2024 1:00 PM EDT Appointment [facility] Cardiac Ultrasound [address] [place] [address] Leandro Kent MD [address] [place] [address] 09/02/2024 2:00 PM EDT Follow-Up [facility] 4th floor Cardiology Medicine [address] [place] [address] General Dentist: Leandro Spear MD [address] [place] [address] Scheduled Procedures Name Priority Associated Diagnoses Date/Ti me COLONOSCOPY SCREENING, LOW RISK WITH POSSIBLE MODERATE SEDATION Screen for colon cancer 08/19/2024 12:15 PM EDT documented as of this encounter Visit Diagnoses Not on filedocumented in this encounter Care Teams Fitting Room Operator Relationship Specialty Start Date End Date Riaz Seals MD PCP - General Internal Medicine 02/12/20 documented as of this encounter
--- OUTSIDE RECORDS SUMMARY | 2024-06-12 14:36 | XMS_ITS | Encounter Summary ---
Author Organization [facility] Address [address] [place] [address] Care Team Providers Care Rock Contractor Name Role Phone Carlton De Jesus MD Primary Care Provider [phone] Riaz Seals MD Primary Care Provider [phone] Neri Fonseca MD Primary Care Provider [phone] Riaz Seals MD Primary Care Provider Encounter Details Date Type Department Care Team (Late st Contact Info) Description 12/27/2015 Orders Only [facility] Otolaryngology [address] [address] Laureano Tavarez MD [address] [place] [address] Social History Tobacco Use Types Packs/Day Years [...] 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 Not on file Not on file Not on file documented as of this encounter Plan of Treatment Upcoming Encounters Date Type Department Care Team (Latest Contact Info) Description 07/08/2024 8:20 AM EDT Consult (Initial) [facility] Orthopedic Surgery [address] [facility] [address] [place] [phone] Ann Mcarthur MD [address] [place] [address] lumbar spinal stenosis 07/13/2024 8:45 AM EDT Consult (Initial) [facility] Orthopedic Surgery [address] [facility] [address] [place] [phone] Riaz Mendiola MD [address] [place] [address] lumbar spinal stenosis 07/17/2024 9:15 AM EDT Consult (Initial) [facility] Orthopedic Surgery [address] [phone] David Ji MD [address] [place] [address] lumbar spinal stenosis documented as of this encounter Procedures * Due to [place] [employer] law, this organization might not be sharing negative HIV tests. 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 * EAR CULTURE (RIGHT) (12/27/2015 11:27 AM EDT) Bacteria identified (Ear) SEE NOTE [facility] Comment: {CULTURE, EAR, EXTERNAL, RIGHT {[id number]) ??CULTURE, EAR, EXTERNAL, RIGHT ??MICRO NUMBER: ?[id number] ??TEST STATUS: ? FINAL ??SPECIMEN SOURCE: ?RIGHT EAR ??SPECIMEN QUALITY: ??ADEQUATE ??RESULT: ?Heavy growth of ? Yeast isolated. Please contact the laboratory ? within 3 days if further identification is ? desired. ??COMMENT: ? Skin gavi also present. 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 documented in this encounter Additional Health Concerns Infection Onset Date Last Indicated Resolved Time COVID-19 Rule-Out 08/23/2020 08/23/2020 08/23/2020 9:26 PM EDT COVID-19 Rule-Out 10/25/2020 10/25/2020 10/25/2020 11:43 PM EDT documented as of this encounter Care Teams Rock Contractor Relationship Specialty Start Date End Date Carlton De Jesus MD PCP - General 02/26/14 11/08/16 Riaz Seals MD [address] [place] [phone] PCP - General Internal Medicine 11/09/16 04/10/19 Neri Fonseca MD [address] [place] [address] PCP - General Internal Medicine 04/11/19 07/13/19 Riaz Seals MD [address] [place] [address] PCP - General Internal Medicine 07/14/19 documented as of this encounter
--- OUTSIDE RECORDS SUMMARY | 2024-06-12 14:36 | XMS_ITS | Encounter Summary ---
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 file Not on file Not on file documented as of this encounter Plan of Treatment Upcoming Encounters Date Type Department Care Team (Latest Contact Info) Description 07/08/2024 8:20 AM EDT Consult (Initial) [facility] Orthopedic Surgery [address] [phone] Ann Mcarthur MD [address] [place] [address] lumbar spinal stenosis 07/13/2024 8:45 AM EDT Consult (Initial) [facility] Orthopedic Surgery [address] [phone] Riaz Mendiola MD [address] [place] [address] lumbar spinal stenosis 07/17/2024 9:15 AM EDT Consult (Initial) [facility] Orthopedic Surgery [address] [address] David Ji MD [address] [place] [address] lumbar spinal stenosis documented as of this [...] of this encounter Results * Due to [place] state law, this organization might not be sharing negative HIV tests. * XRAY SHOULDER COMPLETE MIN 2 VWS - LEFT (DX: SHOULDER PAIN *NO INJURY* M25.512/ 719.41) FC (03/09/2021 2:35 PM EST) Anatomical Region Laterality Modality UPPER EXTREMITY Radiographic Cira ging 03/09/2021 5:20 PM EST Narrative 03/09/2021 5:20 PM EST CONTRAST: 5 views left shoulder Comparison: None Findings: No acute fracture or dislocation. Mild joint space narrowing of glenohumeral joint and acromioclavicular joint. ?? No erosion. Increased periarticular density of the left AC joint. Normal visualized left chest. Soft tissue is unremarkable. Impression: 1. No acute finding. 2. ??Mild degenerative changes of the left shoulder. 3. ??Small joint effusion or capsular thickening of the left AC joint. Procedure Note Gilda Maxwell MD - 03/09/2021 CONTRAST: 5 views left shoulder Comparison: None Findings: No acute fracture or dislocation. Mild joint space narrowing of glenohumeral joint and acromioclavicularjoint. No erosion. Increased periarticular density of the left AC joint. Normal visualized left chest. Soft tissue is unremarkable. Impression: 1. No acute finding. 2. Mild degenerative changes of the left shoulder. 3. Small joint effusion or capsular thickening of the left AC joint. Raul Reynolds MD IMG XRAY NO CONTRAST ORDERABLES Final Result documented in this encounter Visit Diagnoses Not on filedocumented in this encounter Additional Health Concerns Infection Onset Date Last Indicated Resolved Time COVID-19 Rule-Out 08/23/2020 08/23/2020 08/23/2020 9:26 PM EDT COVID-19 Rule-Out 10/25/2020 10/25/2020 10/25/2020 11:43 PM EDT documented as of this encounter Care Teams Liquid Loader Relationship Specialty Start Date End Date Neri Fonseca MD [address] [place] [id number] PCP - General Internal Medicine 04/11/19 07/13/19 Riaz Seals MD [address] [place] [address] PCP - General Internal Medicine 07/14/19 documented as of this encounter
--- OUTSIDE RECORDS SUMMARY | 2024-06-12 14:36 | XMS_ITS | Encounter Summary ---
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 Not on file Not on file Not on file documented as of this encounter Plan of Treatment Upcoming Encounters Date Type Department Care Team (Latest Contact Info) Description 07/08/2024 8:20 AM EDT Consult (Initial) [facility] Orthopedic Surgery [address] [facility] [address] [place] [address] Ann Mcarthur MD [address] [place] [address] lumbar spinal stenosis 07/13/2024 8:45 AM EDT Consult (Initial) [facility] Orthopedic Surgery [address] [phone] Riaz Mendiola MD [address] [place] [address] lumbar spinal stenosis 07/17/2024 9:15 AM EDT Consult (Initial) [facility] Orthopedic Surgery [address] [phone] David iJ MD [address] [place] [address] lumbar spinal stenosis documented as of this [...] documented as of this encounter Visit Diagnoses Diagnosis Primary osteoarthritis of left hip Primary localized osteoarthrosis, pelvic region and thigh documented in this encounter Care Teams A P Manager Relationship Specialty Start Date End Date Riaz Seals MD [address] [place] [phone] PCP - General Internal Medicine 07/14/19 documented as of this encounter
--- OUTSIDE RECORDS SUMMARY | 2024-06-12 14:36 | XMS_ITS | Encounter Summary ---
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 Not on file Not on file documented as of this encounter Plan of Treatment Upcoming Encounters Date Type Department Care Team (Latest Contact Info) Description 07/08/2024 8:20 AM EDT Consult (Initial) [facility] Orthopedic Surgery [address] [facility] [address] [place] [phone] Ann Mcarthur MD [address] [place] [address] lumbar spinal stenosis 07/13/2024 8:45 AM EDT Consult (Initial) [facility] Orthopedic Surgery [address] [phone] Riaz Mendiola MD [address] [place] [address] lumbar spinal stenosis 07/17/2024 9:15 AM EDT Consult (Initial) [facility] Orthopedic Surgery [address] [phone] David Ji MD [address] [place] [address] lumbar spinal stenosis documented as of this [...] on filedocumented in this encounter Care Teams Partner Marketing Intern Relationship Specialty Start Date End Date Riaz Seals MD [address] [place] [address] PCP - General Internal Medicine 07/14/19 documented as of this encounter
--- OUTSIDE RECORDS SUMMARY | 2024-06-12 14:36 | XMS_ITS | Encounter Summary ---
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 Not on file Not on file Not on file documented as of this encounter Miscellaneous Notes * Result Encounter Note - Katiuska Berg NP - 07/03/2022 10:12 AM EDT Reviewed and result sent to OR documented in this encounter Plan of Treatment Upcoming Encounters Date Type Department Care Team (Latest Contact Info) Description 07/08/2024 8:20 AM EDT Consult (Initial) [facility] Orthopedic Surgery [address] [phone] Ann Mcarthur MD [address] [place] [address] lumbar spinal stenosis 07/13/2024 8:45 AM EDT Consult (Initial) [facility] Orthopedic Surgery [address] [address] Riaz Mendiola MD [address] [place] [address] lumbar spinal stenosis 07/17/2024 9:15 AM EDT Consult (Initial) [facility] Orthopedic Surgery [address] [place] [phone] David Ji MD [address] [place] [address] lumbar spinal stenosis documented as of this [...] of this encounter Procedures * Due to [place] [employer] law, this organization might not be sharing negative HIV tests. Procedure Name Priority Date/Time Associated Diagnosis Comments EKG-TO BE READ & BILLED BY ADULT OR PEDIATRIC CARDIOLOGY Same Day Results 07/03/2022 10:46 AM EDT Essential hypertension Gastroesophageal reflux disease without esophagitis Primary osteoarthritis of left hip Hyperlipidemia LDL goal <100 documented in this encounter Results * Due to [place] [employer] law, this organization might not be sharing negative HIV tests. * EKG-TO BE READ & BILLED BY ADULT OR PEDIATRIC CARDIOLOGY (07/03/2022 10:46 AM EDT) VENTRICULAR RATE 76 BPM MUS E EKG SYSTEM ATRIAL RATE 76 BPM MUSE EKG SYSTEM P-R INTERVAL 146 ms MUSE EK G SYSTEM QRS DURATION 100 ms MUSE EK G SYSTEM QT 382 ms MUSE EKG SYSTEM QTC 429 ms MUSE EKG SYSTEM P AXIS 62 degrees MUSE EKG SYSTEM R AXIS 23 degrees MUSE EKG SYSTEM T AXIS 17 degrees MUSE EKG SYSTEM EKG INTERPRETATION Normal sinus rhythm Normal ECG When compared with ECG of 13-JUL-2021 10:20, No significant change was found Confirmed by LUCIANO MENDOSA ([id number]), assistant editor LENIN FUNK ([id number]) on 07/04/2022 9:52:14 AM MUSE EKG SYSTEM 07/03/2022 10:4 6 AM EDT 07/04/2022 9:52 AM EDT us Katiuska Berg TEST CASE DEVELOPER CARDIOVASCULAR-WITH INBSKT RTG Final Result MUSE EKG SYSTEM documented in this encounter Visit Diagnoses Diagnosis Essential hypertension Preoperative examination Preoperative examination, unspecified Gastroesophageal reflux disease without esophagitis Esophageal reflux Primary osteoarthritis of left hip Primary localized osteoarthrosis, pelvic region and thigh Hyperlipidemia LDL goal <100 Other and unspecified hyperlipidemia documented in this encounter Care Teams Power Switchboard Operator Relationship Specialty Start Date End Date Riaz Seals MD [address] [place] [address] PCP - General Internal Medicine 07/14/19 documented as of this encounter
--- OUTSIDE RECORDS SUMMARY | 2024-06-12 14:36 | XMS_ITS | Encounter Summary ---
Author Organization [facility] Address [address] [place] [address] Care Team Providers Care Magistrate Assistant Name Role Phone Riaz Seals MD Primary Care Provider [phone] Neri Fonseca MD Primary Care Provider [phone] Riaz Seals MD Primary Care Provider [phone] Reason for Visit * Reason Comments E-prescribing Refill Request Encounter Details Date Type Department Care Team (Late st Contact Info) Description 09/17/2017 Refill [facility] Adult Medicine [address] [place] [phone] Riaz Seals MD [address] [place] [phone] E-prescribing Refill Request Social History Tobacco Use Types Packs/Day Years [...] 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 Medication was last filled on Disp Refills Start End Ibuprofen 800 MG Tab 90 Tab 05/1105/22/2017 Sig: TAKE 1 TABLET BY MOUTH 3 TIMES A DAY AFTER MEALS NEEDED Order: [id number] . Faxed/E-prescribed medication renewal request(s) for Aaron Hermosillo 57 y.o. male received from pharmacy. Verified and Confirmed pharmacy for patient. Last CPE with this specialty: 02/14/2017 Last OV with this specialty: 07/26/2017 Next OV: Future Appointments Date Time Provider Department Phone 10/01/17 11:30 AM Laureano Tavarez MD [facility] Otolaryngology [phone] 10/16/17 9:00 AM David Ji MD [facility] Orthopedic Surgery [phone] 03/18/18 10:00 AM Laureano Tavarez MD [facility] Otolaryngology [phone] Pertinent lab results: No labs suggested for any medication orders signed or pended in this encounter. Refresh if any orders changed. Allergies: Cat; Environmental; and Maple flavor BP Readings from Last 1 Encounters: 08/22/17 131/77 Patient Active Problem List Diagnosis Date Noted ??? Spinal stenosis in cervical region 07/25/2010 Priority: High ??? Back pain 02/14/2009 Priority: High ??? Colon polyp, hyperplastic 07/08/2012 Priority: Medium ??? Hearing loss on left Priority: Medium left ear ??? Cleft palate Priority: Medium ??? Gastroesophageal reflux disease without esophagitis 08/22/2017 ??? Facet arthritis of lumbar region (HCC) 06/21/2017 ??? Chronic right shoulder pain 04/11/2016 ??? Complete rotator cuff tear of left shoulder 04/11/2016 ??? Neck pain 04/11/2016 ??? Mastoid disorder 01/11/2015 Left side at 11 years old and CHOB ??? Chronic seromucinous otitis media of right ear 01/11/2015 Current Outpatient Prescriptions on File Prior to Visit Medication Sig Dispense Refill ??? Chlorthalidone 25 MG Tab TAKE HALF TABLET BY MOUTH DAILY 45 Tab 3 ??? Ibuprofen 800 MG Tab TAKE 1 TABLET BY MOUTH 3 TIMES A DAY AFTER MEALS NEEDED 90 Tab 3 ??? FLUTICASONE PROPIONATE, NASAL, 50 MCG/ACT Suspension USE 2 SPRAYS EACH NOSTRIL DAILY 1 Bottle 11 ??? Gabapentin 100 MG Cap TAKE 3 CAPSULES BY MOUTH AT BEDTIME 270 Cap 3 documented in this encounter Plan of Treatment Upcoming Encounters Date Type Department Care Team (Latest Contact Info) Description 07/08/2024 8:20 AM EDT Consult (Initial) [facility] Orthopedic Surgery [address] [place] [phone] Ann Mcarthur MD [address] [place] [address] lumbar spinal stenosis 07/13/2024 8:45 AM EDT Consult (Initial) [facility] Orthopedic Surgery [address] [place] [phone] Riaz Mendiola MD [address] [place] [address] lumbar spinal stenosis 07/17/2024 9:15 AM EDT Consult (Initial) [facility] Orthopedic Surgery [address] [place] [phone] David Ji MD [address] [place] [address] lumbar spinal stenosis documented as of this encounter Visit Diagnoses Not on filedocumented in this encounter Additional Health Concerns Infection Onset Date Last Indicated Resolved Time COVID-19 Rule-Out 08/23/2020 08/23/2020 08/23/2020 9:26 PM EDT COVID-19 Rule-Out 10/25/2020 10/25/2020 10/25/2020 11:43 PM EDT documented as of this encounter Care Teams Magistrate Assistant Relationship Specialty Start Date End Date Riaz Seals MD [address] [place] [phone] PCP - General Internal Medicine 11/09/16 04/10/19 Neri Fonseca MD [address] [place] [address] PCP - General Internal Medicine 04/11/19 07/13/19 Riaz Seals MD [address] [place] [address] PCP - General Internal Medicine 07/14/19 documented as of this encounter
--- OUTSIDE RECORDS SUMMARY | 2024-06-12 14:36 | XMS_ITS | Encounter Summary ---
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 file Not on file Not on file documented as of this encounter Plan of Treatment Upcoming Encounters Date Type Department Care Team (Latest Contact Info) Description 07/08/2024 8:20 AM EDT Consult (Initial) [facility] Orthopedic Surgery [address] [place] [address] [address] [place] [address] Ann Mcarthur MD [address] [place] [address] lumbar spinal stenosis 07/13/2024 8:45 AM EDT Consult (Initial) [facility] Orthopedic Surgery [address] [place] [phone] Riaz Mendiola MD [address] [place] [address] lumbar spinal stenosis 07/17/2024 9:15 AM EDT Consult (Initial) [facility] Orthopedic Surgery [address] [place] [phone] David Ji MD [address] [place] [address] lumbar spinal stenosis documented as of this [...] on filedocumented in this encounter Care Teams Temporary Data Entry Clerk Relationship Specialty Start Date End Date Riaz Seals MD [address] [place] [address] PCP - General Internal Medicine 07/14/19 documented as of this encounter
--- OUTSIDE RECORDS SUMMARY | 2024-06-12 14:36 | XMS_ITS | Encounter Summary ---
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 Reviewed Bactroban, asked him to apply for 5 days leading up to surgery, twice a day, including the morning of surgery. documented in this encounter Plan of Treatment Upcoming Encounters Date Type Department Care Team (Latest Contact Info) Description 07/08/2024 8:20 AM EDT Consult (Initial) [facility] Orthopedic Surgery [address] [place] [phone] Ann Mcarthur MD [address] [place] [phone] lumbar spinal stenosis 07/13/2024 8:45 AM EDT Consult (Initial) [facility] Orthopedic Surgery [address] [place] [phone] Riaz Mendiola MD [address] [place] [address] lumbar spinal stenosis 07/17/2024 9:15 AM EDT Consult (Initial) [facility] Orthopedic Surgery [address] [place] [phone] David Ji MD [address] [place] [address] lumbar spinal stenosis documented as of this [...] of this encounter Procedures * Due to [place] S[place] law, this organization might not be sharing negative HIV tests. Procedure Name Priority Date/Time Associated Diagnosis Comments ACTIVATED PARTIAL THROMBOPLASTIN TIME (APTT), PLASMA Routine 06/22/2022 11:42 AM EDT Preoperative examination Primary osteoarthritis of left hip Essential hypertension Hyperlipidemia LDL goal <100 Gastroesophageal reflux disease without esophagitis Chronic bilateral low back pain with sciatica, sciatica laterality unspecified Myelomalacia Cervical disc disorder with myelopathy of mid-cervical region Disorder of mastoid, unspecified laterality Chronic seromucinous otitis media of right ear PROTHROMBIN TIME (PT) (INR), BLOOD Routine 06/22/2022 11:42 AM EDT Preoperative examination Primary osteoarthritis of left hip Essential hypertension Hyperlipidemia LDL goal <100 Gastroesophageal reflux disease without esophagitis Chronic bilateral low back pain with sciatica, sciatica laterality unspecified Myelomalacia Cervical disc disorder with myelopathy of mid-cervical region Disorder of mastoid, unspecified laterality Chronic seromucinous otitis media of right ear COMPREHENSIVE METABOLIC PANEL WITH GFR Routine 06/22/2022 11:42 AM EDT Preoperative examination Primary osteoarthritis of left hip Essential hypertension Hyperlipidemia LDL goal <100 Gastroesophageal reflux disease without esophagitis Chronic bilateral low back pain with sciatica, sciatica laterality unspecified Myelomalacia Cervical disc disorder with myelopathy of mid-cervical region Disorder of mastoid, unspecified laterality Chronic seromucinous otitis media of right ear MRSA CULTURE SCREEN, NASAL ONLY Routine 06/22/2022 11:26 AM EDT Preoperative examination documented in this encounter Results * Due to [place] law, this organization might not be sharing negative HIV tests. * PROTHROMBIN TIME (PT) (INR), BLOOD (06/22/2022 11:42 AM EDT) INR 1.0 [facility] Comment: Reference Range ? 0.9-1.1 Moderate-intensity Warfarin Therapy 2.0-3.0 Higher-intensity Warfarin Therapy ?? 3.0-4.0 PT 9.8 9.0 - 11.5 sec [facility] Comment: For additional information, please refer to http://MobSmith.[employer]faq/OGY096 (This link is being provided for informational/ educational purposes only.) 06/22/2022 11:4 2 AM EDT 06/22/2022 4:39 PM EDT Narrative Resulting Agency Comment [id number] Katiuska Berg NP LAB SAME DAY RESULT Final Resul t Performing Organization Address [facility] de Phone Number [facility] [address] [place] [address] * ACTIVATED PARTIAL THROMBOPLASTIN TIME (APTT), PLASMA (06/22/2022 11:42 AM EDT) Thromboplastin Time 25 23 - 32 sec [facility] Comment: This test has not been validated for monitoring unfractionated heparin therapy. For testing that is validated for this type of therapy, please refer to the Heparin Anti-Xa assay (test code 79351). For additional information, please refer to http://MobSmith.Fleksy/faq/QXJ109 (This link is being provided for informational/educational purposes only.) 06/22/2022 11:4 2 AM EDT 06/22/2022 4:39 PM EDT Narrative Resulting Agency Comment [id number] Katiuska Berg NP LAB SAME DAY RESULT Final Resul t Performing Organization Address [facility] de Phone Number [facility] [address] [place] [address] * (ABNORMAL) COMPREHENSIVE METABOLIC PANEL WITH GFR (06/22/2022 11:42 AM EDT) Pathologist [facility] Glucose 109(H) 65 - 99 mg/dL [facility] Comment: ? Fasting reference interval For someone without known diabetes, a glucose value between 100 and 125 mg/dL is consistent with prediabetes and should be confirmed with a follow-up test. Urea Nitrogen Blood (BUN) 12 7 - 25 mg/dL [facility] Creatinine 0.83 0.70 - 1.35 mg/dL [facility] EGFR 98 > OR = 60 mL/min/1 .73m2 [facility] Comment: The eGFR is based on the CKD-EPI 2020 equation. To calculate the new eGFR from a previous Creatinine or Cystatin C result, go to https://www.kidney.org/professionals/ kdoqi/gfr%5Fcalculator BUN/Creatinine Ratio NOT APPLICABLE 6 - 22 (calc) [facility] Sodium 135 135 - 146 mmol/L [facility] Potassium 4.2 3.5 - 5.3 mmol/L [facility] Chloride 102 98 - 110 mmol/L [facility] Carbon dioxide 24 20 - 32 mmol/L [facility] Calcium 9.8 8.6 - 10.3 mg/dL [facility] Protein Total (Serum) 7.2 6.1 - 8.1 g/dL [facility] Albumin 4.3 3.6 - 5.1 g/dL [facility] Globulin 2.9 1.9 - 3.7 g/dL (calc) [facility] Albumin/Globuli n 1.5 1.0 - 2.5 (calc) [facility] Bilirubin Total 0.9 0.2 - 1.2 mg/dL [facility] Alkaline phosphatase 84 35 - 144 U/L [facility] AST (SGOT) 30 10 - 35 U/L [facility] ALT (SGPT) 52(H) 9 - 46 U/L [facility] 06/22/2022 11:4 2 AM EDT 06/22/2022 4:39 PM EDT Narrative [facility] - 06/22/2022 7:43 PM EDT Please note that this estimated GFR does not include an adjustment for the patient's height or weight, and can therefore, be viewed as reliable only for patients with heights between 60 and 72 . More precise quantification using a 24-hour urine sample or height-based algorithm is recommended for patients outside of this range of height and for those individuals with more precise needs for GFR calculation. Resulting Agency Comment [id number] Katiuska Berg NP LABORATORY Final Result [facility] [address] [place] [address] * (ABNORMAL) MRSA CULTURE SCREEN, NASAL ONLY (06/22/2022 11:26 AM EDT) Methicillin Resistant Staphylococcus Aureus Screen SEE NOTE(A) [facility] Comment: ??MRSA CULTURE SCREEN ??Micro Number: ?[id number] ??Test Status: ? Final ??Specimen Source: ?? Not given ??Specimen Quality: ??Adequate ??Result: ?Methicillin resistant Staphylococcus aureus (MRSA) ? isolated. ?MRSA ?INT ?? MAGALI ?? CIPROFLOXACIN ?S ? <=0.5 ?? CLINDAMYCIN ?S ? <=0.25 ?? ERYTHROMYCIN ? S ? <=0.25 ?? GENTAMICIN ? S ? <=0.5 ?? LEVOFLOXACIN ? S ? 0.25 ?? OXACILLIN ?R ? >=4 ?? TETRACYCLINE ? S ? <=1 ?? TRIMETHOPRIM/SULFA ? S ? <=10 ?? VANCOMYCIN ? S ? <=0.5 S=Susceptible ??I=Intermediate ??R=Resistant ??* = Not Tested NR = Not Reported ??NN = See Therapy Comments 06/22/2022 11:2 6 AM EDT 06/22/2022 9:18 PM EDT Narrative Resulting Agency Comment [id number] Katiuska Berg NP LABORATORY Final Result Performing Organization Address City/State/[facility] Co de Phone Number [facility] [address] [place] [address] documented in this encounter Visit Diagnoses Diagnosis Preoperative examination Preoperative examination, unspecified Primary osteoarthritis of left hip Primary localized osteoarthrosis, pelvic region and thigh Essential hypertension Hyperlipidemia LDL goal <100 Other and unspecified hyperlipidemia Gastroesophageal reflux disease without esophagitis Esophageal reflux Chronic bilateral low back pain with sciatica, sciatica laterality unspecified Myelomalacia (HCC) Other myelopathy 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
--- OUTSIDE RECORDS SUMMARY | 2024-06-12 14:36 | XMS_ITS | Encounter Summary ---
Author Organization [facility] Address [address] [place] [address] Care Team Providers Care Front Desk Administrator Name Role Phone Carlton De Jesus MD Primary Care Provider Riaz Seals MD Primary Care Provider [phone] Neri Fonseca MD Primary Care Provider Riaz Seals MD Primary Care Provider Reason for Visit * Reason Comments E-prescribing Refill Request Encounter Details Date Type Department Care Team (Late st Contact Info) Description 07/09/[address] 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 none Medication was last filled on Gabapentin 100 MG Cap (Discontinued) 90 Cap 2/2 04/11/2016 05/03/2016 ?? Sig - Route: 3 at bedtime - Oral ?? Order: [id number] ?? E-Prescribing Status: Receipt confirmed by pharmacy (04/11/2016 ??3:49 PM EST) Faxed/E-prescribed medication renewal request(s) for Aaron Hermosillo 56 y.o. male received from pharmacy. Last CPE with this specialty: 08/26/2014 Last OV with this specialty: 05/18/2016 Next OV: Future Appointments Date Time Provider Department Center 07/31/2016 8:45 AM Laureano Tavarez MD [facility] Pertinent lab results: No labs suggested for any medication orders signed or pended in this encounter. Refresh if any orders changed. Allergies: Cat BP Readings from Last 1 Encounters: 05/18/16 (!) 140/78 Patient Active Problem List Diagnosis Date Noted ??? Spinal stenosis in cervical region 07/25/2010 Priority: High ??? Back pain 02/14/2009 Priority: High ??? Colon polyp, hyperplastic 07/08/2012 Priority: Medium ??? Hearing loss on left Priority: Medium left ear ??? Cleft palate Priority: Medium ??? Chronic right shoulder pain 04/11/2016 ??? Complete rotator cuff tear of left shoulder 04/11/2016 ??? Neck pain 04/11/2016 ??? Mastoid disorder 01/11/2015 ??? Chronic seromucinous otitis media of right ear 01/11/2015 Current Outpatient Prescriptions on File Prior to Visit Medication Sig Dispense Refill ??? PredniSONE 20 MG Tab 2 by mouth daily for 5 days 10 Tab 0 ??? Doxycycline Hyclate 100 MG Cap 1 by mouth twice a day for 10 days 20 Cap 0 ??? Ibuprofen 800 MG Tab TAKE 1 TABLET BY MOUTH 3 TIMES A DAY AFTER MEALS NEEDED 90 Tab 1 ??? FLUTICASONE PROPIONATE, NASAL, (FLONASE) 50 MCG/ACT Suspension 2 sprays each nostril daily 1 Inhaler 11 ??? OFLOXACIN, OPHTH, 0.3 % Solution APPLY 5 DROPS TWICE A DAY FOR 5 DAYS DIRECTED 0 documented in this encounter Plan of Treatment Upcoming Encounters Date Type Department Care Team (Latest Contact Info) Description 07/08/2024 8:20 AM EDT Consult (Initial) [facility] Orthopedic Surgery [address] [place] [phone] Ann Mcarthur MD [address] [place] [phone] lumbar spinal stenosis 07/13/2024 8:45 AM EDT Consult (Initial) [facility] Orthopedic Surgery [address] [place] [phone] Riaz Mendiola MD [address] [place] [phone] lumbar spinal stenosis 07/17/2024 9:15 AM EDT Consult (Initial) [facility] Orthopedic Surgery [address] [place] [phone] David Ji MD [address] [place] [address] lumbar spinal stenosis documented as of this encounter Visit Diagnoses Diagnosis Back pain, unspecified back location, unspecified back pain laterality, unspecified chronicity Neck pain Cervicalgia documented in this encounter Additional Health Concerns Infection Onset Date Last Indicated Resolved Time COVID-19 Rule-Out 08/23/2020 08/23/2020 08/23/2020 9:26 PM EDT COVID-19 Rule-Out 10/25/2020 10/25/2020 10/25/2020 11:43 PM EDT documented as of this encounter Care Teams Front Desk Administrator Relationship Specialty Start Date End Date Carlton De Jesus MD PCP - General 02/26/14 11/08/16 Riaz Seals MD [address] [place] [address] PCP - General Internal Medicine 11/09/16 04/10/19 Neri Fonseca MD [address] [place] [address] PCP - General Internal Medicine 04/11/19 07/13/19 Riaz Seals MD [address] [place] [address] PCP - General Internal Medicine 07/14/19 documented as of this encounter
--- OUTSIDE RECORDS SUMMARY | 2024-06-12 14:36 | XMS_ITS | Encounter Summary ---
Author Organization [facility] Address [address] [place] [address] Care Team Providers Care Public Health Outreach Worker Name Role Phone Riaz Seals MD Primary Care Provider [phone] Encounter Details Date Type Department Care Team (Late st Contact Info) Description 10/25/2020 Orders Only [facility] Lab [address] [place] [address] Riaz Seals MD [address] [place] [address] Pre-procedure lab exam (Primary Dx) Social History Tobacco Use Types Packs/Day Years Used Date Smoking Tobacco: Never Assessed Sex and Gender Information Value Date Recorded Sex Assigned at Male 01/24/2023 5:25 PM EST Legal Sex Male 9:13 AM EDT Gender Identity Male 01/24/2023 5:25 PM EST Sexual Orientation Straight 01/24/2023 5: 25 PM EST documented as of this encounter Plan of Treatment Upcoming Encounters Date Type Department Care Team (Latest Contact Info) Description 08/19/2024 12:15 PM EDT Hospital Encounter [facility] Endoscopy [address] [place] [address] Mckinley Tan MD [address] [place] [address] 08/19/2024 12:15 PM EDT - 08/19/2024 12:[address] [facility] Endoscopy [address] [place] [address] Mckinley Tan MD [address] [place] [address] COLONOSCOPY SCREENING, LOW RISK WITH POSSIBLE MODERATE SEDATION 09/02/2024 1:00 PM EDT Appointment [facility] Cardiac Ultrasound [address] [place] [address] Leandro Kent MD [address] [place] [address] 09/02/2024 2:00 PM EDT Follow-Up [facility] 4th floor Cardiology Medicine [address] [place] [address] Steam Plant Operator: Leandro Spear MD [address] [place] [address] Scheduled Procedures Name Priority Associated Diagnoses Date/Ti me COLONOSCOPY SCREENING, LOW RISK WITH POSSIBLE MODERATE SEDATION Screen for colon cancer 08/19/2024 12:15 PM EDT documented as of this encounter Results * Due to [place] state law, this organization might not be sharing negative HIV tests. * COVID-19 PCR, Pre-Procedure (Asymptomatic), DRAPERY MAKER/OP/Saliva (10/25/2020 10:05 AM EDT) SARS CoV 2 RNA, RT PCR Not Detected Not Detected DAVE CRUZ STUDIO 10/25/2020 11:43 PM EDT [facility] Comment:A Not Detected (Nega tive) test result is indicative of the absence of SARS-CoV-2 RNA at the level of LoD (Limit of Detection). A negative result does not rule out the possibility of COVID-19 and should not be used as the sole basis for treatment or patient management decisions. If COVID-19 is still suspected, based on exposure history together with other clinical findings, re-testing should be considered. Saliva Mouth region structure / Unknown Non-Blood Collection / Unknown 10/25/2020 10:05 AM EDT 10/25/2020 10:05 AM EDT Narrative [facility] - 10/25/2020 11:43 PM EDT These tests were developed, validated, and their performance characteristics determined by the [facility] Laboratory at [facility] under CLIA [id number]. They have not been cleared or approved by the U.S. Food and Drug Administration (FDA). FDA Policy for Diagnostic Tests for Coronavirus Disease-2019 during the Public Health Emergency issued May 25, 2019, is followed. us Riaz Seals MD LAB BODY FLUIDS AND STOOLS ORDER DODIE Final Result [facility] [address] [place] [address], documented in this encounter Visit Diagnoses Diagnosis Pre-procedure lab exam- Primary Pre-procedural laboratory examination Screen for colon cancer Special screening for malignant neoplasms, colon documented in this encounter Additional Health Concerns Infection Onset Date Last Indicated Resolved Time COVID-19 - Suspected infection 10/21/2022 10/21/2022 10/21/2022 12:21 PM EDT documented as of this encounter Care Teams Public Health Outreach Worker Relationship Specialty Start Date End Date Riaz Seals MD PCP - General Internal Medicine 02/12/20 documented as of this encounter
--- OUTSIDE RECORDS SUMMARY | 2024-06-12 14:36 | XMS_ITS | Encounter Summary ---
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 I booked an appointment that opened up for this afternoon. PSS when he calls back ask him if he wants appointment, cancel if he does not. Future Appointments Date Time Provider Department Phone 08/21/19 4:40 PM Adalgisa Lemus NP [facility] Adult Medicine [phone] * Telephone Encounter - Carine Avendano - 08/21/2019 1:47 PM EDT Pt calling to follow up on this * Telephone Encounter - Ana Hernandez - 08/21/2019 11:20 AM EDT Pt states that he does not want to use the ear drops States they do not work States inner ear issue States pain down to his jaw States that Dr. Tavarez wants to put tubes in his ear - states has been postponed due to COVID-[address] Seals Pt's eardrum is very unique Last 3 ear infections given drops Wants pt to try drops Wants pt to follow up with Dr. Tavarez Spoke with pt again States drops are not working States that he has gotten oral ABX last 3 times Seen here in OV - 07/04/2019, Advised pt to call Dr. Tavarez - states he will do the same thing Pt is upset - states last few times he Dr. Seals was not happy with the result Pt was requesting OV with another provider Did offer [facility] Please advise Perhaps a call from PCP would be more encouraging for pt * Telephone Encounter - Riaz Seals MD - 08/21/2019 10:54 AM EDT Ast antibiotics were Ciprodex drops. I would suggest trying them again and then following with ENT? * Telephone Encounter - Ana Hernandez - 08/21/2019 10:45 AM EDT Plan/disposition: Pt seen on 08/10/2019 Ear is worse Pt requesting ABX for the ear pain Please advise Chief complaint: Patient, Aaron Hermosillo male 59 y.o. calling with complaint of ear pain. Onset: 2 day(s) ago . Associated symptoms/ROS: right, ear pain- Mild (does not interfere with normal activities) and ear drainage- pale yellow. Fever: not elevated. Pertinent history: recurrent ear infections. Allergies: Cat; Environmental; and Maple flavor Current home treatment: use ear drops . * Telephone Encounter - Nichole Conley - 08/21/2019 10:11 AM EDT Pt c/o right ear pain x 4 days documented in this encounter Plan of Treatment Upcoming Encounters Date Type Department Care Team (Latest Contact Info) Description 07/08/2024 8:20 AM EDT Consult (Initial) [facility] Orthopedic Surgery [address] [place] [phone] Ann Mcarthur MD [address] [place] [phone] lumbar spinal stenosis 07/13/2024 8:45 AM EDT Consult (Initial) [facility] Orthopedic Surgery [address] [place] [phone] Riaz Mendiola MD [address] [place] [address] lumbar spinal stenosis 07/17/2024 9:15 AM EDT Consult (Initial) [facility] Orthopedic Surgery [address] [facility] [address] [place] [address] David Ji MD [address] [place] [address] lumbar spinal stenosis documented as of this [...] documented as of this encounter Care Teams Rivet Spinner Relationship Specialty Start Date End Date Riaz Seals MD [address] [place] [phone] PCP - General Internal Medicine 07/14/19 documented as of this encounter
--- OUTSIDE RECORDS SUMMARY | 2024-06-12 14:36 | XMS_ITS | Referral Summary ---
Author Organization [facility] Address [address] [place] [address] Care Team Providers Care Real Estate Lawyer Name Role Phone Riaz Seals MD Primary Care Provider [phone] Encounters Date Type Department Care Team Description 05/19/2024 Refill CC [facility] [address] [place] [address] Mckinley Tan MD Screen for colon cancer (Primary Dx) from Last 3 Months Allergies Active Allergy Reactions Criticality Noted Date [...] to instructions provided by physician. 4000 mL 03/11/202 5 Active Active Problems Problem Noted Date [...] Tessalon Pearls and prn Robitussin for cough Social History Tobacco Use Types Packs/Day Years [...] Description 08/19/2024 12:15 PM EDT Hospital Encounter [facility] [address] [place] [address] Mckinley Tan MD [address] [place] [address] 08/19/2024 12:15 PM EDT - 08/19/2024 12:45 PM EDT Surgery [facility] [address] [place] [address] Mckinley Tan MD [address] [place] [address] COLONOSCOPY SCREENING, LOW RISK WITH POSSIBLE MODERATE SEDATION 09/02/2024 1:00 PM EDT Appointment [facility] Cardiac Ultrasound [address] [place] [address] Leandor Kent MD [address] [place] [address] 09/02/2024 2:00 PM EDT Follow-Up [facility] 4th floor Cardiology Medicine [address] [place] [address] Auto Radiator Mechanic: Leandro Spear MD [address] [place] [address] Scheduled Procedures Name Priority Associated Diagnoses Date/Ti me COLONOSCOPY SCREENING, LOW RISK WITH POSSIBLE MODERATE SEDATION Screen for colon cancer 08/19/2024 12:15 PM EDT Procedures * Due to [place] state law, this organization might not be sharing negative HIV tests. Procedure Name Priority Date/Time Associated Diagnosis Comments HEPATITIS C ANTIBODY W/REFLEX TO HCV RNA, QUANTITATIVE PCR STAT 10/21/2022 4:15 PM EDT COLONOSCOPY 06/18/2012 11:38 AM EDT from Last 3 Months or Most Recently Relevant to Health Maintenance Results * Due to [place] state law, this organization might not be sharing negative HIV tests. * Hepatitis C Antibody w/Reflex to HCV RNA, Quantitative PCR (10/21/2022 4:15 PM EDT) Hepatitis C Antibody NON-REACT GALEN NON-REACT GALEN 10/22/2022 7:53 PM EDT [place] Comment: HCV antibody was non-reactive. There is no laboratory evidence of HCV infection. In most cases, no further action is required. However, if recent HCV exposure is suspected, a test for HCV RNA (test code 94268) is suggested. For additional information please refer to http://education.[employer]/faq/JMQ43u3 (This link is being provided for informational/ educational purposes only.) Blood Structure of peripheral vein / Unknown Venipuncture / Unknown 10/21/2022 4:15 PM EDT 10/21/2022 4:28 PM EDT Narrative [facility] - 10/22/2022 7:53 PM EDT [facility] Received Date:[id number] Yary Palmer MD LAB BLOOD ORDERABLES Final Result Performing Organization Address City/State/[facility] Co de Phone Number [facility] [address] [facility] [address], [place] [address], [place] [phone] [facility] [address] [facility] [address], [place] [address], [place] [phone] * COLONOSCOPY (06/18/2012 11:38 AM EDT) Narrative Procedure Note Mckinley Tan - 06/18/2012 11:38 AM EDT Patient Name: Aaron Hermosillo Procedure Date: 06/18/2012 11:38 AM Date of : 1960 Admit Type: Outpatient Age: 52 Room: [place] room 3 Gender: Male Note Status: Finalized [...] Relevant to Health Maintenance Insurance [employer] Advance Directives * Full Code (Latest Code Status on File) Date Activated Date Inactivated Comments 10/26/2022 4:30 PM 10/26/2022 9:50 PM * Full Code Date Activated Date Inactivated Comments 10/21/2022 6:44 PM 10/26/2022 4:30 PM Healthcare Agents on File Name Relationship Healthcare Agent Relationship Communication Nancy Hermosillo Spouse Alternate Health Care Agent Raj Hermosillo Brother Health Care Agent Care Teams Real Estate Lawyer Relationship Specialty Start Date End Date Riaz Seals MD PCP - General Internal Medicine 02/12/20
--- OUTSIDE RECORDS SUMMARY | 2024-06-12 14:36 | XMS_ITS | Clinical Summary ---
Author Organization [facility] Address [address] [place] [address] Care Team Providers Care Professor Of Astronomy Name Role Phone Carlton De Jesus Md Primary Care Provider [phone] Carlton De Jesus Md Unavailable [phone] Allergies Active Allergy Reactions Criticality Noted Date Comments Cats 07/24/2012 Medications No known medications Active Problems Problem Noted Date Diagnosed Date Colon polyp, hyperplastic 07/08/2012 Spinal stenosis in cervical region 07/25/2010 Back pain 02/14/2009 Cleft palate Hearing loss Overview (12/12/2005): left ear Immunizations Name Administration Dates Next Due Influenza H1N1 Vaccine IM 12/09/2009 Influenza Vaccine (Unspecified Formulation) 12/09,03/21/2007 TD Vaccine (Adult) 03/11/2000 TdaP 08/15/2010 Surgical History Surgery Date Site/Laterality Comments ANESTH,CLEFT PALATE REPAIR MASTOIDECTOMY left COLONOSCOPY 4.10.13 Dr Tan right perforated eardrum repair 05/2013 deviated septum 03/2013 Medical History Medical History Date Comments Cleft palate Hearing loss left ear Family History Medical History Relation Comments Cancer Brother LUNG Cancer Father melanoma Cancer Mother lung Relation Status Comments Brother Father (Age 79) Mother (Age 65) Social History Tobacco Use Types Packs/Day Years [...] 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 Not on file Not on file Not on file Obstetrics History Last Filed Vital Signs Vital Sign Reading Time Taken Comments Blood Pressure 143/83 07/05/2014 2:35 PM EDT Pulse 86 07/05/2014 2:35 PM EDT Temperature 36.8 ??C (98.2 ??F) 03/02/2014 11:[address] Respiratory Rate 16 08/25/2013 7:56 PM EDT Oxygen Saturation - - Inhaled Oxygen Concentration - - Weight 72.2 kg (159 lb 3.2 oz) 07/05/2014 2:35 P M EDT Height 167.6 cm (5' 6 ) 05/27/2012 1:26 PM EDT Body Mass Index 25.7 05/27/2012 1:26 PM EDT Plan of Treatment Health Maintenance Due Date Last Done Comments HEP B INITIAL SCREENING 1976 PSA SCREEN DECISION: UPDATE W EDIT MODIFIERS 1978 HEP C SCREENING 1994 ZOSTER VACCINE (1 of 2) 2008 * GLUCOSE OR A1C SCREENING - Q3YR 03/21/2010 03/21/2007, 09/17/2006, 08/02/2004 PERIODIC HEALTH REVIEW 08/16/2011 08/15/2010 LIPID SCREENING 03/21/2012 03/21/2007, 11/26/2005 DTAP/TDAP/TD VACCINE (2 - Td or Tdap) 08/15/2020 08/15/2010, 03/11/2000 COLORECTAL SCREENING : COLONOSCOPY 10 YEAR 06/18/2022 06/18/2012 COMPLETE EYE EXAM (65+YRS) 05/06/202307/24, 06/06/2010, 06/06/2010, Additional history exists PNEUMOCOCCAL VACCINE(S) 50+ (1 of 1 - PCV) 2023 COVID-19 Vaccine (1 - 2023- season) 2023 FLU SEASONAL (#1) 11/10/2023 12/22/2012, 8 HAEMOPHILUS INFLUENZA VACCINE Aged Out No longer eligible based on patient's age to complete this topic HEPATITIS A VACCINE Aged Out No longe r eligible based on patient's age to complete this topic HEPATITIS B VACCINE Aged Out No longe r eligible based on patient's age to complete this topic POLIO VACCINE Aged Out No longer elig ible based on patient's age to complete this topic RSV Vaccine Infant//toddler Aged Out No longer eligible based on patient's age to complete this topic Procedures Procedure Name Priority Date/Time Associated Diagnosis Comments COMPREHENSIVE METABOLIC PROFILE Routine 09/17/2006 3:43 PM EDT from Last 3 Months or Most Recently Relevant to Health Maintenance Results * COMPREHENSIVE METABOLIC PANEL (09/17/2006 3:43 PM EDT) GLUCOSE FASTING 97 65 - 99 mg/dL [facility] BUN 15 7 - 25 MG/DL [facility] CREATININE 1.0 0.5 - 1.2 MG/DL [facility] BUN/CREATININE RATIO 15 6 - 25 RATIO [facility] SODIUM 142 135 - 146 MEQ/L [facility] POTASSIUM 4.9 3.5 - 5.3 MEQ/L [facility] CHLORIDE 104 98 - 110 MEQ/L [facility] CALCIUM 9.5 8.5 - 10.4 MG/DL [facility] TOTAL PROTEIN SERUM 7.1 6.0 - 8.3 G/DL [facility] ALBUMIN 3.9 3.5 - 4.9 G/DL [facility] GLOBULIN 3 2 - 4 G/DL [facility] A/G RATIO (PREL) 1.2 0.8 - 2.0 (CALC) [facility] BILIRUBIN TOTAL 0.7 0.2 - 1.5 MG/DL [facility] ALKALINE PHOSPHATASE 74 20 - 125 U/L [facility] SGOT (AST) 42 3 - 50 U/L [facility] CARBON DIOXIDE 27 21 - 33 MEQ/L [facility] SGPT (ALT) 48 3 - 60 U/L [facility] 09/17/2006 3:43 PM EDT 09/17/2006 3:43 PM EDT [facility] Final Result [facility] [address] [place] [address] from Last 3 Months or Most Recently Relevant to Health Maintenance Care Teams Professor Of Astronomy Relationship Specialty Start Date End Date Carlton De Jesus MD PCP - General Internal Medicine 05/07/13 Carlton De Jesus MD PCP - Payer 05/29/13
--- OUTSIDE RECORDS SUMMARY | 2024-06-12 14:36 | XMS_ITS | Encounter Summary ---
Author Organization [facility] Address [address] [place] [address] [address] [place] [address] Care Team Providers Care Brush Finisher Name Role Phone Carlton De Jesus Md Primary Care Provider [phone] Carlton De Jesus Md Unavailable [phone] Reason for Visit * Reason Comments RX Renewal [facility] Encounter Details Date Type Department Care Team (Late st Contact Info) Description 07/06/2014 Telephone [facility] Adult Medicine [address] [place] [phone] Carlton De Jesus MD [facility] [address] [facility] [address] [place] [address] RX RENEWAL Social History Tobacco [...] encounter Miscellaneous Notes * Telephone Encounter - Eva Merida NP - 07/07/2014 7:39 AM EDT I did not refill because he needs to see the ENT who did his surgery to determine the problem * Telephone Encounter - Ashia Nelson RN - 07/06/2014 4:57 PM EDT Eva, please advise. Should pt be using med, or should it come from ENT? * Telephone Encounter - Jenny Bolden RN - 07/06/2014 4:54 PM EDT Please call [facility] who requested, pt has not used these since 02/06/13. * Telephone Encounter - Jess Wiggins - 07/06/2014 4:30 PM EDT [facility] Ofloxacin 0.3% ear drops documented in this encounter Plan of Treatment Not on file documented as of this encounter Visit Diagnoses Not on filedocumented in this encounter Care Teams Brush Finisher Relationship Specialty Start Date End Date Carlton De Jesus MD PCP - General Internal Medicine 05/07/13 Carlton De Jesus MD PCP - Payer 05/29/13 documented as of this encounter
--- OUTSIDE RECORDS SUMMARY | 2024-06-12 14:36 | XMS_ITS | Encounter Summary ---
Author Organization [facility] Address [address] [place] [address] Care Team Providers Care Machine Operator Hop Picker Name Role Phone Riaz Seals MD Primary Care Provider [phone] Neri Fonseca MD Primary Care Provider [phone] Riaz Seals MD Primary Care Provider [phone] Encounter Details Date Type Department Care Team (Late st Contact Info) Description 01/28/2019 Orders Only [facility] [address] [place] [phone] Claudia Armando MD MPH Social History Tobacco Use Types Packs/Day Years [...] 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 Seems he may need additional cardiac eval. Also, I do not see that he has scheduled f/u appt w Claudia Muhammad documented in this encounter Plan of Treatment Upcoming Encounters Date Type Department Care Team (Latest Contact Info) Description 07/08/2024 8:20 AM EDT Consult (Initial) [facility] Orthopedic Surgery [address] [address] Ann Mcarthur MD [address] [place] [address] lumbar spinal stenosis 07/13/2024 8:45 AM EDT Consult (Initial) [facility] Orthopedic Surgery [address] [place] [address] Riaz Mendiola MD [address] [place] [address] lumbar spinal stenosis 07/17/2024 9:15 AM EDT Consult (Initial) [facility] Orthopedic Surgery [address] [place] [phone] David Ji MD [address] [place] [address] lumbar spinal stenosis documented as of this [...] of this encounter Procedures * Due to [place] [employer] law, this organization might not be sharing negative HIV tests. Procedure Name Priority Date/Time Associated Diagnosis Comments EKG-TO BE READ & BILLED BY ADULT OR PEDIATRIC CARDIOLOGY Routine 01/28/2019 7:26 PM EST Hypertension, unspecified type documented in this encounter Results * Due to [place] [employer] law, this organization might not be sharing negative HIV tests. * EKG-TO BE READ & BILLED BY ADULT OR PEDIATRIC CARDIOLOGY (01/28/2019 7:26 PM EST) VENTRICULAR RATE 78 BPM MUS E EKG SYSTEM ATRIAL RATE 78 BPM MUSE EKG SYSTEM P-R INTERVAL 134 ms MUSE EK G SYSTEM QRS DURATION 84 ms MUSE EK G SYSTEM QT 366 ms MUSE EKG SYSTEM QTC 417 ms MUSE EKG SYSTEM P AXIS 55 degrees MUSE EKG SYSTEM R AXIS 4 degrees MUSE EKG SYSTEM T AXIS 19 degrees MUSE EKG SYSTEM EKG INTERPRETATION Normal sinus rhythm Possible Inferior infarct , age undetermined Poor R wave progression Abnormal ECG When compared with ECG of 03-21-2007 Q waves in lead III and aVf are present Confirmed by Carla Mcginnis ([id number]), editor index ANABELLE ARZATE ([id number]) on 02/03/2019 8:19:42 AM MUSE EKG SYSTEM 01/28/2019 7:26 PM EST 02/03/2019 8:19 AM EST us Claudia Armando MD MPH CARDIOVASCULAR-WITH INBSKT RTG Final Result MUSE EKG SYSTEM documented in this encounter Visit Diagnoses Diagnosis Hypertension, unspecified type documented in this encounter Additional Health Concerns Infection Onset Date Last Indicated Resolved Time COVID-19 Rule-Out 08/23/2020 08/23/2020 08/23/2020 9:26 PM EDT COVID-19 Rule-Out 10/25/2020 10/25/2020 10/25/2020 11:43 PM EDT documented as of this encounter Care Teams Machine Operator Hop Picker Relationship Specialty Start Date End Date Riaz Seals MD [address] [place] [address] PCP - General Internal Medicine 11/09/16 04/10/19 Neri Fonseca MD [address] [place] [address] PCP - General Internal Medicine 04/11/19 07/13/19 Riaz Seals MD [address] [place] [address] PCP - General Internal Medicine 07/14/19 documented as of this encounter
--- OUTSIDE RECORDS SUMMARY | 2024-06-12 14:36 | XMS_ITS | Encounter Summary ---
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 Not on file Not on file Not on file documented as of this encounter Plan of Treatment Upcoming Encounters Date Type Department Care Team (Latest Contact Info) Description 07/08/2024 8:20 AM EDT Consult (Initial) [facility] Orthopedic Surgery [address] [phone] Ann Mcarthur MD [address] [place] [address] lumbar spinal stenosis 07/13/2024 8:45 AM EDT Consult (Initial) [facility] Orthopedic Surgery [address] [address] Riaz Mendiola MD [address] [place] [address] lumbar spinal stenosis 07/17/2024 9:15 AM EDT Consult (Initial) [facility] Orthopedic Surgery [address] [place] [phone] David Ji MD [address] [place] [address] lumbar spinal stenosis documented as of this [...] SHOULDER PAIN *NO INJURY* M25.512/ 719.41) FC (07/26/2022 12:41 PM EDT) Anatomical Region Laterality Modality UPPER EXTREMITY Radiographic Cira ging 07/26/2022 1:08 PM EDT Narrative 07/26/2022 1:08 PM EDT CONTRAST: 4 views left shoulder Comparison: CR/WA - XRAY SHOULDER COMPLETE MIN 2 VWS - LEFT (DX: SHOULDER PAIN *NO I - 03/09/2021 02:45 PM EST Findings: No acute fracture or dislocation. Small osteophytes and mild joint space narrowing of glenohumeral joint and acromioclavicular joint. Mild AC joint space narrowing. No erosion. Normal visualized left chest. Soft tissue is unremarkable. Impression: 1. No acute finding. 2. ??Mild degenerative changes of the left shoulder. Procedure Note Gilda Maxwell MD - 07/26/2022 CONTRAST: 4 views left shoulder Comparison: CR/WA - XRAY SHOULDER COMPLETE MIN 2 VWS - LEFT (DX: SHOULDERPAIN *NO I - 03/09/2021 02:45 PM EST Findings: No acute fracture or dislocation. Small osteophytes and mild joint space narrowing of glenohumeral joint and acromioclavicular joint. Mild AC joint space narrowing. No erosion. Normal visualized left chest. Soft tissue is unremarkable. Impression: 1. No acute finding. 2. Mild degenerative changes of the left shoulder. Jarad Jane MD IMG XRAY NO CONTRAST ORDERABLES Final Result documented in this encounter Visit Diagnoses Diagnosis Left shoulder pain, unspecified chronicity Left shoulder pain, unspecified chronicity documented in this encounter Care Teams Clinical Sociologist Relationship Specialty Start Date End Date Riaz Seals MD [address] [place] [address] PCP - General Internal Medicine 07/14/19 documented as of this encounter
--- OUTSIDE RECORDS SUMMARY | 2024-06-12 14:36 | XMS_ITS | Encounter Summary ---
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 Not on file Not on file Not on file documented as of this encounter Plan of Treatment Upcoming Encounters Date Type Department Care Team (Latest Contact Info) Description 07/08/2024 8:20 AM EDT Consult (Initial) [facility] Orthopedic Surgery [address] [facility] [address] [place] [address] Ann Mcarthur MD [address] [place], [place] [phone] lumbar spinal stenosis 07/13/2024 8:45 AM EDT Consult (Initial) [facility] Orthopedic Surgery [address] [phone] Riaz Mendiola MD [address] [place] [address] lumbar spinal stenosis 07/17/2024 9:15 AM EDT Consult (Initial) [facility] Orthopedic Surgery [address] [address] David iJ MD [address] [place] [address] lumbar spinal stenosis documented as of this [...] this encounter Procedures * Due to [place] state law, this organization might not be sharing negative HIV tests. Procedure Name Priority Date/Time Associated Diagnosis Comments CBC INCLUDES DIFFERENTIAL AND PLATELET COUNT Routine 06/27/2022 4:07 PM EDT Preoperative examination Primary osteoarthritis of left hip Essential hypertension documented in this encounter Results * Due to [place] state law, this organization might not be [...] PM EDT 06/27/2022 4:07 PM EDT Narrative [facility] - 06/27/2022 4:38 PM EDT Patient's primary care provider is: ??N/A Testing performed at: [facility], [address] [place] [address], [address], Entry Level Lab Technician: Sergio Le MD us Katiuska Berg METAL ROASTER LAB SAME DAY RESULT Final Resul t [facility] [address] [place] [id number] DIRECTOR Sergio Le MD documented in this encounter Visit Diagnoses Diagnosis Preoperative examination Preoperative examination, unspecified Primary osteoarthritis of left hip Primary localized osteoarthrosis, pelvic region and thigh Essential hypertension documented in this encounter Care Teams Marine Cargo Specialist Relationship Specialty Start Date End Date Riaz Seals MD [address] [place] [phone] PCP - General Internal Medicine 07/14/19 documented as of this encounter
--- OUTSIDE RECORDS SUMMARY | 2024-06-12 14:36 | XMS_ITS | Clinical Summary ---
Author Organization [facility] Address [address] [place] [address] Phone Care Team Providers Care Pediatric Neuropsychologist Name Role Phone Riaz Seals MD Primary Care Provider [phone] Allergies No known active allergies Medications Medication Sig Dispensed Refills Start Date End Date Status GABAPENTIN ORAL Take by mouth. Activ e IBUPROFEN ORAL Take by mouth. Active fluticasone propionate (FLONASE) 50 mcg/actuation nasal spray 1 spray by Nasal route daily. Active ciprofloxacin-dexametha sone (CIPRODEX) otic suspension Place 4 drops into the right ear 2 (two) times a day. 7.5 mL 02/25/2019 Active Active Problems Problem Noted Date Diagnosed Date Chronic otitis media 02/08/2017 Uncoded rotator cuff repair 01/01/2009 Overview (05/01/2014): rotator cuff repair; Right; with Immunizations Name Administration Dates Next Due Influenza Trivalent Preservative Free IM 013 Family History Medical History Relation Comments Hearing loss Neg Hx Social History Tobacco Use Types Packs/Day Years Used Date Smoking Tobacco: Never Smokeless Tobacco: Never Alcohol Use Standard Drinks/Week Comments Yes 0 (1 standard drink = 0.6 oz pur e alcohol) Social Education Answer Date Recorded Are you interested in more education? Not on hemant e 07/22/2022 Are you concerned about learning? Not on file 07/22/2022 No 07/22/2022 No 07/22/2022 Digital Access Answer Date Recorded No 08/05/2022 No 08/05/2022 No 08/05/2022 Reliable internet access at home? Not on file 08/05/2022 Device with a working camera? Not on file Sex and Gender Information Value Date Recorded Sex Assigned at Not on file Gender Identity Not on file Sexual Orientation Not on file Last Filed Vital Signs Vital Sign Reading Time Taken Comments Blood Pressure - - Pulse - - Temperature - - Respiratory Rate - - Oxygen Saturation - - Inhaled Oxygen Concentration - - Weight 70.3 kg (155 lb) 02/08/2017 8:50 AM EST Height 172.7 cm (5' 8 ) 02/08/2017 8:50 AM EST Body Mass Index 23.57 02/08/2017 8:50 AM EST Plan of Treatment Health Maintenance Due Date Last Done Comments LIPID PANEL 1958 DEPRESSION SCREENING 1970 HEPATITIS C SCREENING 1976 COLOGUARD 2003 COLONOSCOPY 2003 COLORECTAL CANCER SCREENING 2003 FIT TEST 2003 FOBT 2003 SIGMOIDOSCOPY 2003 VIRTUAL COLONOSCOPY 2003 PNEUMOCOCCAL VACCINES (50+ years) (1 of 1 - PCV) 2008 INFLUENZA VACCINE (#1) 2023 9, 12/06/2017, 02/14/2017, Additional history exists COVID-19 VACCINE ( - season) 2023 Adult Td,Tdap Booster 02/27/2031 02/27/2021 , 08/15/2010, 03/11/2000 RSV VACCINE (1 - 1-dose 75+ series) 2033 ZOSTER VACCINES Completed 02/12/2019, 12/03/2018 SMOKING STATUS SCREENING (Once After 26 Yrs) Completed 02/25/2019 HEPATITIS A VACCINES Aged Out No long er eligible based on patient's age to complete this topic HIB VACCINES Aged Out No longer eligi ble based on patient's age to complete this topic MENINGOCOCCAL VACCINES (ACWY) Aged Out No longer eligible based on patient's age to complete this topic Medical Devices Not on file Aaron Hermosillo Personal/Family Self 1960 [phone] (Work) [address] [place] [address] Aaron Hermosillo Personal/Family Self 1960 [phone] (Work) [address] [place] [address] Aaron Hermosillo Personal/Family Self 1960 [phone] (Work) [address] [place] [address] Aaron Hermosillo Personal/Family Self 1960 [phone] (Work) [address] [place], [place] [phone] Aaron Hermosillo Personal/Family Self 1960 [phone] (Work) [address] [place] [address] Aaron Hermosillo Personal/Family Self 1960 [phone] (Work) [address] [place] [address] Aaron Hermosillo Personal/Family Self 1960 [phone] (Work) [address] [place] [address] Stanechewski, Aaron Personal/Family Self 1960 [address] [place] [address] Aaron Hermosillo Third Democrat Liability Self 1960 [address] [place] [address] Care Teams Pediatric Neuropsychologist Relationship Specialty Start Date End Date Riaz Seals MD [address] [place] [phone] PCP - General Internal Medicine 02/13/18 Additional Source Comments The information contained in this document represents components of the legal health record. It is not the complete legal health record.[facility]
--- OUTSIDE RECORDS SUMMARY | 2024-06-12 14:36 | XMS_ITS | Encounter Summary ---
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 Not on file Not on file documented as of this encounter Plan of Treatment Upcoming Encounters Date Type Department Care Team (Latest Contact Info) Description 07/08/2024 8:20 AM EDT Consult (Initial) [facility] Orthopedic Surgery [address] [facility] [address] [place] [address] Ann Mcarthur MD [address] [place] [address] lumbar spinal stenosis 07/13/2024 8:45 AM EDT Consult (Initial) [facility] Orthopedic Surgery [address] [phone] Riaz Mendiola MD [address] [place] [address] lumbar spinal stenosis 07/17/2024 9:15 AM EDT Consult (Initial) [facility] Orthopedic Surgery [address] [place] [phone] David Ji MD [address] [place] [address] lumbar spinal stenosis documented as of this [...] as of this encounter Visit Diagnoses Diagnosis Hyperlipidemia, unspecified hyperlipidemia type documented in this encounter Care Teams Stock Plan Administrator Relationship Specialty Start Date End Date Riaz Seals MD [address] [place] [address] PCP - General Internal Medicine 07/14/19 documented as of this encounter
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
--- OUTSIDE RECORDS SUMMARY | 2024-06-12 14:36 | XMS_ITS | Encounter Summary ---
Author Organization [facility] Address [address] [place] [address] Care Team Providers Care Drill Press Set Up Operator Radial Name Role Phone Riaz Seals MD Primary Care Provider [phone] Neri Fonseca MD Primary Care Provider Riaz Seals MD Primary Care Provider [phone] Encounter Details Date Type Department Care Team (Late st Contact Info) Description 12/29/2018 Orders Only [facility] Orthopedic Surgery [address] [place] [address] Chidi Kaufman, [address] [place] [address] Social History Tobacco Use Types Packs/Day Years [...] 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 Not on file Not on file Not on file documented as of this encounter Plan of Treatment Upcoming Encounters Date Type Department Care Team (Latest Contact Info) Description 07/08/2024 8:20 AM EDT Consult (Initial) [facility] Orthopedic Surgery [address] [facility] [address] [place] [phone] Ann Mcarthur MD [address] [place] [address] lumbar spinal stenosis 07/13/2024 8:45 AM EDT Consult (Initial) [facility] Orthopedic Surgery [address] [address] Riaz Mendiola MD [address] [place] [address] lumbar spinal stenosis 07/17/2024 9:15 AM EDT Consult (Initial) [facility] Orthopedic Surgery [address] [phone] David Ji MD [address] [place] [address] lumbar spinal stenosis Scheduled Orders Name Type Priority Associated Diagnoses Orde r Schedule XRAY SHOULDER COMPLETE MIN 2 VWS- BILAT (DX: SHOULDER PAIN *NO INJURY* M25.519/ 719.41) FC Imaging Routine Bilateral shoulder pain, unspecified chronicity Expected: 12/29/2018 (Approximate), Expires: 12/29/2021 documented as of this encounter Goals Goal [...] as of this encounter Visit Diagnoses Diagnosis Bilateral shoulder pain, unspecified chronicity documented in this encounter Additional Health Concerns Infection Onset Date Last Indicated Resolved Time COVID-19 Rule-Out 08/23/2020 08/23/2020 08/23/2020 9:26 PM EDT COVID-19 Rule-Out 10/25/2020 10/25/2020 10/25/2020 11:43 PM EDT documented as of this encounter Care Teams Drill Press Set Up Operator Radial Relationship Specialty Start Date End Date Riaz Seals MD [address] [place] [address] PCP - General Internal Medicine 11/09/16 04/10/19 Neri Fonseca MD [address] [place] [address] PCP - General Internal Medicine 04/11/19 07/13/19 Riaz Seals MD [address] [place] [address] PCP - General Internal Medicine 07/14/19 documented as of this encounter
--- OUTSIDE RECORDS SUMMARY | 2024-06-12 14:36 | XMS_ITS | Encounter Summary ---
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 * Telephone Encounter - Vidya Knox - 08/31/2019 12:59 PM EDT Any special requests or concerns? Medication was last filled on FLUTICASONE PROPIONATE, NASAL, (FLONASE) 50 MCG/ACT nasal spray 1 Bottle 0/0 07/31/2019 Sig - Route: Administer two sprays into each nostril 1 (one) time each day - Each Nostril Sent to pharmacy as: Fluticasone Propionate 50 MCG/ACT Nasal Suspension (FLONASE) Order: [id number] . Faxed/E-prescribed medication renewal request(s) for Aaron Tiny Hermosillo 59 y.o. male received from pharmacy. Verified and Confirmed pharmacy for patient. Last CPE with this specialty: 12/03/2018 Last OV with this specialty: 08/25/2019 Next OV: No future appointments. Pertinent lab results: No labs suggested for any medication orders signed or pended in this encounter. Refresh if any orders changed. Allergies: Cat; Environmental; and Maple flavor BP Readings from Last 1 Encounters: 08/25/19 (!) 137/91 Patient Active Problem List Diagnosis Date Noted [...] to Visit Medication Sig Dispense Refill ??? Ibuprofen (ADVIL,MOTRIN) 800 MG tablet Take one tablet (800 mg total) by mouth 3 (three) times a day if needed (after meals) 180 tablet 0 ??? FLUTICASONE PROPIONATE, NASAL, (FLONASE) 50 MCG/ACT nasal spray Administer two sprays into eachnostril 1 (one) time each day 1 Bottle 0 documented in this encounter Plan of Treatment Upcoming Encounters Date Type Department Care Team (Latest Contact Info) Description 07/08/2024 8:20 AM EDT Consult (Initial) [facility] Orthopedic Surgery [address] [address] Ann Mcarthur MD [address] [place] [address] lumbar spinal stenosis 07/13/2024 8:45 AM EDT Consult (Initial) [facility] Orthopedic Surgery [address] [address] Riaz Mendiola MD [address] [place] [address] lumbar spinal stenosis 07/17/2024 9:15 AM EDT Consult (Initial) [facility] Orthopedic Surgery [address] [facility] [address] [address] David Ji MD [address] [place] [address] lumbar spinal stenosis documented as of this [...] documented as of this encounter Care Teams Premises Technician Relationship Specialty Start Date End Date Riaz Seals MD [address] [place] [phone] PCP - General Internal Medicine 07/14/19 documented as of this encounter
--- OUTSIDE RECORDS SUMMARY | 2024-06-12 14:36 | XMS_ITS | Encounter Summary ---
Author Organization [facility] Address [address] [place] [address] Care Team Providers Care Monomer Recovery Operator Name Role Phone Riaz Seals MD Primary Care Provider [phone] Encounter Details Date Type Department Care Team (Late st Contact Info) Description 08/23/2020 Orders Only [facility] Lab [address] [place] [address] Riaz Seals MD [address] [place] [phone] Preop examination (Primary Dx) Social History Tobacco Use Types [...] Description 08/19/2024 12:15 PM EDT Hospital Encounter [facility] [address] [place] [address] Mckinley Tan MD [address] [place] [address] 08/19/2024 12:15 PM EDT - 08/19/2024 12:45 PM EDT Surgery [facility] [address] [place] [address] Mckinley Tan MD [address] [place] [address] COLONOSCOPY SCREENING, LOW RISK WITH POSSIBLE MODERATE SEDATION 09/02/2024 1:00 PM EDT Appointment [facility] Cardiac Ultrasound [address] [place] [address] Leandro Kent MD [address] [place], [place] [phone] 09/02/2024 2:00 PM EDT Follow-Up [facility] 4th floor Cardiology Medicine [address] [place] [address] Mergers And Acquisitions Manager: Leandro Spear MD [address] [place] [address] Scheduled Procedures Name Priority Associated Diagnoses Date/Ti me COLONOSCOPY SCREENING, LOW RISK WITH POSSIBLE MODERATE SEDATION Screen for colon cancer 08/19/2024 12:15 PM EDT documented as of this encounter Results * Due to [place] state law, this organization might not be sharing negative HIV tests. * COVID-19 PCR, Pre-Procedure (Asymptomatic), THREAD MILLING MACHINE SET UP OPERATOR/OP/Saliva (08/23/2020 12:32 PM EDT) SARS CoV 2 RNA, RT PCR Not Detected Not Detected LUC HER QUANT STUDIO 08/23/2020 9:25 PM EDT [facility] Comment:A Not Detected (Nega [...] structure / Unknown Non-Blood Collection / Unknown 08/23/2020 12:32 PM EDT 08/23/2020 12:32 PM EDT Narrative [facility] CLINICAL PATHOLOGY LABORATORY - 08/23/2020 9:25 PM EDT These tests were developed, validated, and their performance characteristics determined by the Molecular Virology Laboratory at [facility] under CLIA [id number]. They have not been cleared or approved by the U.S. Food and Drug Administration (FDA). FDA Policy for Diagnostic Tests for Coronavirus Disease-2019 during the Public Health Emergency issued May 25, 2019, is followed. us Riaz Seals MD LAB BODY FLUIDS AND STOOLS ORDER DODIE Final Result [facility] [address] [place] [address], documented in this encounter Visit Diagnoses Diagnosis Preop examination- Primary Unspecified pre-operative examination Screen for colon cancer Special screening for malignant neoplasms, colon documented in this encounter Additional Health Concerns Infection Onset Date Last Indicated Resolved Time COVID-19 - Suspected infection 10/21/2022 10/21/2022 10/21/2022 12:21 PM EDT documented as of this encounter Care Teams Monomer Recovery Operator Relationship Specialty Start Date End Date Riaz Seals MD PCP - General Internal Medicine 02/12/20 documented as of this encounter
--- OUTSIDE RECORDS SUMMARY | 2024-06-12 14:37 | XMS_ITS | Encounter Summary ---
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 Orthopedic Surgery [address] [phone] Ann Mcarthur MD [address] [place] [address] lumbar spinal stenosis 07/13/2024 8:45 AM EDT Consult (Initial) [facility] Orthopedic Surgery [address] [phone] Riaz Mendiola MD [address] [place] [address] lumbar spinal stenosis 07/17/2024 9:15 AM EDT Consult (Initial) [facility] Orthopedic Surgery [address] [phone] David Ji MD [address] [place] [address] lumbar spinal stenosis documented as of this encounter Procedures * Due to [place] [email or web address] law, this organization might not be sharing negative HIV tests. Procedure Name Priority Date/Time Associated Diagnosis Comments BASIC METABOLIC PANEL WITH (GFR) Routine 07/26/2017 9:08 AM EDT Essential hypertension documented in this encounter Results * Due to [place] [email or web address] law, this organization might not be sharing negative HIV tests. * (ABNORMAL) BASIC METABOLIC PANEL WITH (GFR) (07/26/2017 9:08 AM EDT) Glucose 113(H) 65 - 99 mg/dl [facility] Urea Nitrogen Blood (BUN) 13 7 - 25 mg/dL [facility] Creatinine 0.79 0.50 - 1.20 mg/dL [facility] Sodium 143 136 - 145 mmo/L [facility] Potassium 4.5 3.5 - 5.3 mmol/L [facility] Chloride 103 98 - 107 mmo/L [facility] Carbon dioxide 26 23 - 33 mmol/L [facility] Calcium 9.4 8.5 - 10.4 mg/dL [facility] GFR 107 >60 ml/min [facility] Comment:If the patient is Af rican Spanish, please multiply result by 1.210 07/26/2017 9:08 AM EDT 07/26/2017 9:08 AM EDT Narrative [facility] - 07/26/2017 10:31 AM EDT fasting Patient's primary care provider is: ??N/A Testing performed at: [facility], [address] [place] [address], [id number], Lavatory Attendant: Ama Walker, Ph.D Romy Banuelosarez MAIL PROCESSING MACHINE OPERATOR LABORATORY Final Result [address] [address] DIRECTOR Ama Walker, Ph.D documented in this encounter Visit Diagnoses Diagnosis Essential hypertension documented in this encounter Additional Health Concerns Infection Onset Date Last Indicated Resolved Time COVID-19 Rule-Out 08/23/2020 08/23/2020 08/23/2020 9:26 PM EDT COVID-19 Rule-Out 10/25/2020 10/25/2020 10/25/2020 11:43 PM EDT documented as of this encounter Care Teams Fiberglass Container Winding Operator Relationship Specialty Start Date End Date Riaz Seals MD [address] [place] [phone] PCP - General Internal Medicine 11/09/16 04/10/19 Neri Fonseca MD [address] [place] [phone] PCP - General Internal Medicine 04/11/19 07/13/19 Riaz Seals MD [address] [place] [phone] PCP - General Internal Medicine 07/14/19 documented as of this encounter
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
--- OUTSIDE RECORDS SUMMARY | 2024-06-12 14:37 | XMS_ITS | Encounter Summary ---
Author Organization [facility] Address [address] [place] [address] Care Team Providers Care Business Instructor Name Role Phone Riaz Seals MD Primary Care Provider [phone] Encounter Details Date Type Department Care Team (Late st Contact Info) Description 12/13/2023 Orders Only [facility] Adult Medicine [address] [place] [phone] Riaz Seals MD [address] [place] [phone] Social History Tobacco Use Types Packs/Day Years Used Date Smoking Tobacco: Never Smokeless Tobacco: Never Alcohol Use Standard Drinks/Week Comments Yes 0 (1 standard drink = 0.6 oz pur e alcohol) soc PHQ-2 Answer Date Recorded Patient Health Questionnaire-2 Score 0 12/13/2023 Intimate Partner Violence Answer Date R ecorded Fear of Current or Ex-Partner Not on file Emotionally Abused Not on file 10/21/2022 Physically Abused Not on file 10/21/2022 Sexually Abused Not on file 10/21/2022 Feel Safe at Home Not on file 10/21/2022 Sex and Gender Information Value Date Recorded Sex Assigned at Not on file Legal Sex Male 4:35 AM EDT Gender Identity Not on file Sexual Orientation Not on file 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 Informative message sent. documented in this encounter Plan of Treatment Upcoming Encounters Date Type Department Care Team (Latest Contact Info) Description 07/08/2024 8:20 AM EDT Consult (Initial) [facility] Orthopedic Surgery [address] [place] [phone] Ann Mcarthur MD [address] [place] [phone] lumbar spinal stenosis 07/13/2024 8:45 AM EDT Consult (Initial) [facility] Orthopedic Surgery [address] [place] [phone] Riaz Mendiola MD [address] [place] [phone] lumbar spinal stenosis 07/17/2024 9:15 AM EDT Consult (Initial) [facility] Orthopedic Surgery [address] [phone] David Ji MD [address] [place] [address] lumbar spinal stenosis documented as of this [...] this encounter Procedures * Due to [place] [employer] law, this organization might not be sharing negative HIV tests. Procedure Name Priority Date/Time Associated Diagnosis Comments PROSTATE SPECIFIC ANTIGEN (PSA) TOTAL, SERUM Routine 12/13/2023 1:52 PM EDT Screening for prostate cancer HEMOGLOBIN A1C Routine 12/13/2023 1:52 PM EDT Screening for endocrine disorder LIPID PANEL WITH REFLEX TO DIRECT LDL Routine 12/13/2023 1:52 PM EDT Hyperlipidemia LDL goal <100 BASIC METABOLIC PANEL WITH (GFR) Routine 12/13/2023 1:52 PM EDT Screening for endocrine disorder documented in this encounter Results * Due to [place] [employer] law, this organization might not be sharing negative HIV tests. * (ABNORMAL) LIPID PANEL WITH REFLEX TO DIRECT LDL (12/13/2023 1:52 PM EDT) Cholesterol 239(H) <200 mg/dL [facility] Triglyceride 183(H) <150 mg/dL [facility] HDL Cholesterol 67 >40 mg/dL [facility] Comment: NCEP GUIDELINES Desirable >60 mg/dL Borderline 40-59 mg/dL ?? Undesirable <40 mg/dL LDL Cholesterol 135(H) <130 mg/dL [facility] CHOL/HDL Ratio 4 0 - 5 CALC [facility] 12/13/2023 1:52 PM EDT 12/13/2023 1:52 PM EDT Narrative [facility] - 12/13/2023 3:25 PM EDT Patient's primary care provider is: ??N/A Testing performed at: [facility], [address] [place] [address], [id number], Photolithographic Stripper: Sergio Le MD Riaz Seals MD LABORATORY Final Result Performing Organization Address [facility] Co de Phone Number [address] [address] DIRECTOR Sergio Le MD * BASIC METABOLIC PANEL WITH (GFR) (12/13/2023 1:52 PM EDT) Glucose 84 65 - 99 mg/dl [facility] Urea Nitrogen Blood (BUN) 16 7 - 25 mg/dL [facility] Creatinine 0.92 0.50 - 1.20 mg/dL [facility] Sodium 141 135 - 146 mmo/L [facility] Potassium 4.4 3.5 - 5.3 mmol/L [facility] Chloride 102 98 - 107 mmo/L [facility] Carbon dioxide 29 23 - 33 mmol/L [facility] Calcium 9.7 8.5 - 10.4 mg/dL [facility] GFR 88 >60 ml/min [facility] 12/13/2023 1:52 PM EDT 12/13/2023 1:52 PM EDT Narrative [facility] - 12/13/2023 3:25 PM EDT Patient's primary care provider is: ??N/A Testing performed at: [facility], [address] [place] [address], [address], Photolithographic Stripper: Sergio Le MD Riaz Seals MD LABORATORY Final Result Performing Organization Address [facility] Co de Phone Number [address] [address] DIRECTOR Sergio Le MD * HEMOGLOBIN A1C (12/13/2023 1:52 PM EDT) Hemoglobin A1C 5.6 <5.7 % Total [facility] Comment: For diagnostic purposes: <5.7 ?Decreased risk of diabetes 5.7 - 6.4 ?Increased risk of diabetes >6.5 ? Consistent with diabetes Diagnosis of diabetes should be confirmed by repeat testing. Estimated Average Glucose 114 mg/dL(calc ) [facility] 12/13/2023 1:52 PM EDT 12/13/2023 1:52 PM EDT Narrative [facility] - 12/13/2023 2:46 PM EDT Patient's primary care provider is: ??N/A Testing performed at: [facility], [address] [place] [address], [address], Photolithographic Stripper: Sergio Le MD Riaz Seals MD LABORATORY Final Result Performing Organization Address [facility] de Phone Number [address] [address] DIRECTOR Sergio Le MD * PROSTATE SPECIFIC ANTIGEN (PSA) TOTAL, SERUM (12/13/2023 1:52 PM EDT) [facility] PSA 1.66 0.00 - 4.00 ng/mL [facility] Comment: PSA was performed using the Kailyn Jace Immunoassay method. Values obtained from different assay methods cannot be used interchangeably. PSA levels, regardless of value, should not be interpreted as absolute evidence of the presence or absence of disease. 12/13/2023 1:52 PM EDT 12/13/2023 1:52 PM EDT [facility] - 12/13/2023 3:25 PM EDT Patient's primary care provider is: ??N/A Testing performed at: [facility], [address] [place] [address], [address], Photolithographic Stripper: Sergio Le MD Riaz Seals MD LABORATORY Final Result [facility] [address] [place] [address] DIRECTOR Sergio Le MD documented in this encounter Visit Diagnoses Diagnosis Screening for prostate cancer Special screening for malignant neoplasm of prostate Screening for endocrine disorder Hyperlipidemia LDL goal <100 Other and unspecified hyperlipidemia documented in this encounter Care Teams Business Instructor Relationship Specialty Start Date End Date Riaz Seals MD [address] [place] [address] PCP - General Internal Medicine 07/14/19 documented as of this encounter
--- OUTSIDE RECORDS SUMMARY | 2024-06-12 14:37 | XMS_ITS | Encounter Summary ---
Author Organization [facility] Address [address] [place] [address] Care Team Providers Care Senior C Software Developer Name Role Phone Riaz Seals MD Primary Care Provider [phone] Neri Fonseca MD Primary Care Provider [phone] Riaz Seals MD Primary Care Provider Reason for Visit * Reason Onset Date Comments Referral Request 05/29/2017 Encounter Details Date Type Department Care Team (Late st Contact Info) Description 05/21/2017 Refill [facility] Adult Medicine [address] [place] [phone] Claudia Armando MD MPH Referral Request Social History Tobacco Use Types Packs/Day [...] 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 Medication was last filled on Disp Refills Start End Ibuprofen 800 MG Tab 90 Tab 0/0 04/15/2017 Sig: TAKE 1 TABLET BY MOUTH 3 TIMES A DAY AFTER MEALS NEEDED Order: [id number] . Faxed/E-prescribed medication renewal request(s) for Aaron Hermosillo 57 y.o. male received from pharmacy. Verified and Confirmed pharmacy for patient. Last CPE with this specialty: 02/14/2017 Last OV with this specialty: 05/13/2017 Next OV: Future Appointments Date Time Provider Department Phone 06/12/17 2:00 PM David Ji MD [facility] Orthopedic Surgery [phone] 07/30/17 8:30 AM Laureano Tavarez MD [facility] Otolaryngology [phone] Pertinent lab results: No labs suggested for any medication orders signed or pended in this encounter. Refresh if any orders changed. Allergies: Cat; Environmental; and Maple flavor BP Readings from Last 1 Encounters: 05/13/17 (!) 144/98 Patient Active Problem List Diagnosis Date Noted [...] Sig Dispense Refill ??? FLUTICASONE PROPIONATE, NASAL, 50 MCG/ACT Suspension USE 2 SPRAYS EACH NOSTRIL DAILY 1 Bottle 11 ??? Hydrocodone-Acetaminophen 5-325 MG Tab 1 every 6 hours as needed for moderate to severe pain 20Tab 0 ??? Ibuprofen 800 MG Tab TAKE 1 TABLET BY MOUTH 3 TIMES A DAY AFTER MEALS NEEDED 90 Tab 0 ??? Gabapentin 100 MG Cap TAKE 3 CAPSULES BY MOUTH AT BEDTIME 270 Cap 3 documented in this encounter Plan of Treatment Upcoming Encounters Date Type Department Care Team (Latest Contact Info) Description 07/08/2024 8:20 AM EDT Consult (Initial) [facility] Orthopedic Surgery [address] [facility] [address] [phone] Ann Mcarthur MD [address] [place] [address] lumbar spinal stenosis 07/13/2024 8:45 AM EDT Consult (Initial) [facility] Orthopedic Surgery [address] [facility] [address] [phone] Riaz Mendiola MD [address] [place] [address] lumbar spinal stenosis 07/17/2024 9:15 AM EDT Consult (Initial) [facility] Orthopedic Surgery [address] [facility] [address] [phone] David Ji MD [address] [place] [address] lumbar spinal stenosis documented as of this encounter Visit Diagnoses Not on filedocumented in this encounter Additional Health Concerns Infection Onset Date Last Indicated Resolved Time COVID-19 Rule-Out 08/23/2020 08/23/2020 08/23/2020 9:26 PM EDT COVID-19 Rule-Out 10/25/2020 10/25/2020 10/25/2020 11:43 PM EDT documented as of this encounter Care Teams Senior C Software Developer Relationship Specialty Start Date End Date Riaz Seals MD [address] [place] [phone] PCP - General Internal Medicine 11/09/16 04/10/19 Neri Fonseca MD [address] [place] [address] PCP - General Internal Medicine 04/11/19 07/13/19 Riaz Seals MD [address] [place] [phone] PCP - General Internal Medicine 07/14/19 documented as of this encounter
--- OUTSIDE RECORDS SUMMARY | 2024-06-12 14:37 | XMS_ITS | Encounter Summary ---
Author Organization [facility] Address [address] [place] [address] Care Team Providers Care Service Unit Operator Name Role Phone Riaz Seals MD Primary Care Provider [phone] Neri Fonseca MD Primary Care Provider [phone] Riaz Seals MD Primary Care Provider [phone] Reason for Visit * Reason Comments E-prescribing Refill Request Encounter Details Date Type Department Care Team (Late st Contact Info) Description 08/20/2017 Refill [facility] Adult Medicine [address] [place] [phone] Riaz Seals MD [address] [place] [address] [phone] E-prescribing Refill Request Social History Tobacco Use [...] 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 Medication was last filled on Disp Refills Start End Chlorthalidone 25 MG Tab 30 Tab 0/0 06/25/2017 08/24/2017 Sig - Route: Take half by mouth daily - Oral Order: [id number] . Faxed/E-prescribed medication renewal request(s) for Aaron Hermosillo 57 y.o. male received from pharmacy. Verified and Confirmed pharmacy for patient. Last CPE with this specialty: 02/14/2017 Last OV with this specialty: 07/26/2017 Next OV: Future Appointments Date Time Provider Department Phone 08/20/17 11:30 AM Krystyna Guy NP [facility] Pre-Admission Testing [address] 08/29/17 We will call Laureano Tavarez MD [facility] Otolaryngology [address] 10/01/17 11:30 AM Laureano Tavarez MD [facility] Otolaryngology [phone] Pertinent lab results: Lab Results Component Value Date SODIUM 143 07/26/2017 POTASSIUM 4.5 07/26/2017 CHLOR 103 07/26/2017 CO2 26 07/26/2017 BUN 13 07/26/2017 CREATININE 0.79 07/26/2017 GFR 107 07/26/2017 GLUCOSE 113 (H) 07/26/2017 NIMO 9.4 07/26/2017 An open order for Basic exists. Testing recommended a minimum of yearly for chronic therapy . Based on last lab testing intervals, 12 months supply suggested for potassium, diuretics, MAGY inhibitors, ARBs and bone density medications. Allergies: Cat; Environmental; and Maple flavor BP Readings from Last 1 Encounters: 08/10/17 120/82 Patient Active Problem List Diagnosis Date Noted ??? Spinal stenosis in cervical region 07/25/2010 Priority: High ??? Back pain 02/14/2009 Priority: High ??? Colon polyp, hyperplastic 07/08/2012 Priority: Medium ??? Hearing loss on left Priority: Medium left ear ??? Cleft palate Priority: Medium ??? Facet arthritis of lumbar region (HCC) 06/21/2017 ??? Chronic right shoulder pain 04/11/2016 ??? Complete rotator cuff tear of left shoulder 04/11/2016 ??? Neck pain 04/11/2016 ??? Mastoid disorder 01/11/2015 Left side at 11 years old and CHOB ??? Chronic seromucinous otitis media of right ear 01/11/2015 Current Outpatient Prescriptions on File Prior to Visit Medication Sig Dispense Refill ??? Hydrocodone-Acetaminophen 5-325 MG Tab 1 every 6 hours as needed for moderate to severe pain 30Tab 0 ??? Chlorthalidone 25 MG Tab Take half by mouth daily 30 Tab 0 ??? Ibuprofen 800 MG Tab TAKE [...] AM EDT Consult (Initial) [facility] Orthopedic Surgery [address] [place] [phone] Ann Mcarthur MD [address] [place] [address] lumbar spinal stenosis 07/13/2024 8:45 AM EDT Consult (Initial) [facility] Orthopedic Surgery [address] [place] [phone] Riaz Mendiola MD [address] [place] [phone] lumbar spinal stenosis 07/17/2024 9:15 AM EDT Consult (Initial) [facility] Orthopedic Surgery [address] [place] [phone] David Ji MD [address] [place] [address] lumbar spinal stenosis documented as of this encounter Visit Diagnoses Not on filedocumented in this encounter Additional Health Concerns Infection Onset Date Last Indicated Resolved Time COVID-19 Rule-Out 08/23/2020 08/23/2020 08/23/2020 9:26 PM EDT COVID-19 Rule-Out 10/25/2020 10/25/2020 10/25/2020 11:43 PM EDT documented as of this encounter Care Teams Service Unit Operator Relationship Specialty Start Date End Date Riaz Seals MD [address] [place] [phone] PCP - General Internal Medicine 11/09/16 04/10/19 Neri Fonseca MD [address] [place] [phone] PCP - General Internal Medicine 04/11/19 07/13/19 Riaz Seals MD [address] [place] [phone] PCP - General Internal Medicine 07/14/19 documented as of this encounter
--- OUTSIDE RECORDS SUMMARY | 2024-06-12 14:37 | XMS_ITS | Encounter Summary ---
Author Organization [facility] Address [address] [place] [address] Care Team Providers Care Teaching Associate Name Role Phone Riaz Seals MD Primary Care Provider [phone] Reason for Visit * Radiology Services (Routine) - ZZ Not Required Specialty Diagnoses / Procedures Referred By Oren dhaliwal Referred To Contact Magnetic Resonance Imaging Diagnoses Chronic pain of left lower extremity Procedures MRI LUMBAR SPINE W/O CONTRST(DX: BACK PAIN> 6 WKS, NO PRIOR LUMBAR SURGERY) (WITHIN 2 WKS) Bertin Lima MD [address] [place] [address] Phone: tel: fax: Referral ID Status Reason Start Date Expiration Date Visits Requested Visits Authorized [id number] ZZ Not Required Specialty Services Required 05/08/2024 08/04/2024 1 1 Encounter Details Date Type Department Care Team (Late st Contact Info) Description 06/09/2024 4:30 PM EDT Radiology [facility] Magnetic Resonance Imaging [address] [place] [phone] Chronic pain of left lower extremity Social History Tobacco Use Types Packs/Day Years [...] 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 Not on file Not on file Not on file documented as of this encounter Plan of Treatment Upcoming Encounters Date Type Department Care Team (Latest Contact Info) Description 07/08/2024 8:20 AM EDT Consult (Initial) [facility] Orthopedic Surgery [address] [phone] Ann Mcarthur MD [address] [place] [phone] lumbar spinal stenosis 07/13/2024 8:45 AM EDT Consult (Initial) [facility] Orthopedic Surgery [address] [phone] Riaz Mendiola MD [address] [place] [address] lumbar spinal stenosis 07/17/2024 9:15 AM EDT Consult (Initial) [facility] Orthopedic Surgery [address] [phone] David Ji MD [address] [place] [phone] lumbar spinal stenosis documented as of this [...] this encounter Procedures * Due to [place] [employer] law, this organization might not be sharing negative HIV tests. Procedure Name Priority Date/Time Associated Diagnosis Comments MRI LUMBAR SPINE W/O CONTRST(DX: BACK PAIN> 6 WKS, NO PRIOR LUMBAR SURGERY) (WITHIN 2 WKS) Routine 06/09/2024 5:12 PM EDT Chronic pain of left lower extremity documented in this encounter Results * Due to [place] [employer] law, this organization might not be sharing negative HIV tests. * MRI LUMBAR SPINE W/O CONTRST(DX: BACK PAIN> 6 WKS, NO PRIOR LUMBAR SURGERY) (WITHIN 2 WKS) (06/09/2024 5:12 PM EDT) Anatomical Region Laterality Modality Spine Magnetic Resonan ce Narrative 06/10/2024 11:11 AM EDT Patient History: Back pain, no lumbar surgery within 3 years CONTRAST: MR lumbar spine without gadolinium Comparison: ??MR/OT/MA - LUMBAR SPINE WO CONTRAST MRI - 02/10/20 17:18 EST ?? Findings: Lumbar alignment is normal. Vertebral heights are maintained. Marrow signal is normal. Spinal cord signal intensity is uniform. L1-L2: There is disc desiccation with nominal bulging. No significant stenosis. L2-L3: There is disc desiccation with disc height loss and flattening of the ventral margin of the thecal sac. There is facet hypertrophy. There is mzqadlft-il-oyowce spinal canal stenosis with pjpf-jy-swiwyilr left and mild right foraminal stenosis. L3-L4: Facet hypertrophy. There is some deficiency of the left lamina, question prior laminotomy. There is disc desiccation with disc bulging deforming the ventral thecal sac with tgcxdgpd-ay-czskvx spinal canal narrowing. There is a superimposed left subarticular disc extrusion which extends superiorly from the disc along the posterior margin of L3. This contributes to thecal sac effacement and mass effect upon the descending left L3. Severe left foraminal stenosis. Mild right foraminal stenosis. L4-L5: Facet hypertrophy. Disc desiccation with disc bulging eccentric to the right. Moderate to severe spinal canal stenosis. Severe right and hxnv-ww-uhnosiqs left foraminal stenosis. L5-S1: Facet hypertrophy. Disc desiccation with disc bulging eccentric towards the left. Partial effacement of the left lateral recess. Mild right and severe left foraminal stenosis. Paraspinal soft tissues are unremarkable. IMPRESSION: 1. L3-L4 left subarticular disc extrusion with superiorly migrating fragment causing thecal sac effacement and mass effect on the descending left L3 nerve root. 2. Multilevel degenerative changes with moderate to severe spinal canal stenosis at L2-L3, L3-L4, and L4-L5 levels. 3. Severe foraminal stenosis at multiple levels, on the left at L3-L4 and L5-S1 and on the right at L4-L5. 4. Overall the findings are similar to previous imaging although the disc extrusion at L3-L4 is new from prior exam. Procedure Note David Castelan MD - 06/10/2024 Patient History: Back pain, no lumbar surgery within 3 years CONTRAST: MR lumbar spine without gadolinium Comparison: MR/OT/MA - LUMBAR SPINE WO CONTRAST MRI - 02/10/20 17:18 EST Findings: Lumbar alignment is normal. Vertebral heights are maintained. Marrow signal is normal. Spinal cord signal intensity is uniform. L1-L2: There is disc desiccation with nominal bulging. No significantstenosis. L2-L3: There is disc desiccation with disc height loss and flattening ofthe ventral margin of the thecal sac. There is facet hypertrophy. There zywkvthfnd-gy-bpgpgu spinal canal stenosis with aeqf-xb-kyevsxya left andmild right foraminal stenosis. L3-L4: Facet hypertrophy. There is some deficiency of the left lamina,question prior laminotomy. There is disc desiccation with disc bulgingdeforming the ventral thecal sac with pqwzkjav-ft-nyiwgj spinal canalnarrowing. There is a superimposed left subarticular disc extrusion which extends superiorly from the disc alongthe posterior margin of L3. This contributes to thecal sac effacement andmass effect upon the descending left L3. Severe left foraminal stenosis.Mild right foraminal stenosis. L4-L5: Facet hypertrophy. Disc desiccation with disc bulging eccentric tothe right. Moderate to severe spinal canal stenosis. Severe right qwxnwgm-rf-vgrynekh left foraminal stenosis. L5-S1: Facet hypertrophy. Disc desiccation with disc bulging eccentrictowards the left. Partial effacement of the left lateral recess. Mildright and severe left foraminal stenosis. Paraspinal soft tissues are unremarkable. IMPRESSION: 1. L3-L4 left subarticular disc extrusion with superiorly migratingfragment causing thecal sac effacement and mass effect on the descendingleft L3 nerve root. 2. Multilevel degenerative changes with moderate to severe spinal canalstenosis at L2-L3, L3-L4, and L4-L5 levels. 3. Severe foraminal stenosis at multiple levels, on the left at L3-L4 andL5-S1 and on the right at L4-L5. 4. Overall the findings are similar to previous imaging although the discextrusion at L3-L4 is new from prior exam. Bertin Lima MD IMG MR NO CONTRAST ORDERABLES Final Result documented in this encounter Visit Diagnoses Diagnosis Chronic pain of left lower extremity documented in this encounter Care Teams Teaching Associate Relationship Specialty Start Date End Date Riaz Seals MD [address] [place] [phone] PCP - General Internal Medicine 07/14/19 documented as of this encounter
--- OUTSIDE RECORDS SUMMARY | 2024-06-12 14:37 | XMS_ITS | Encounter Summary ---
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 Not on file Not on file documented as of this encounter Plan of Treatment Upcoming Encounters Date Type Department Care Team (Latest Contact Info) Description 07/08/2024 8:20 AM EDT Consult (Initial) [facility] Orthopedic Surgery [address] [facility] [address] [place] [address] Ann Mcarthur MD [address] [place] [address] lumbar spinal stenosis 07/13/2024 8:45 AM EDT Consult (Initial) [facility] Orthopedic Surgery [address] [phone] Riaz Mendiola MD [address] [place] [address] lumbar spinal stenosis 07/17/2024 9:15 AM EDT Consult (Initial) [facility] Orthopedic Surgery [address] [phone] David Ji MD [address] [place] [address] lumbar spinal stenosis documented as of this [...] of this encounter Procedures * Due to [place] state law, this organization might not be sharing negative HIV tests. 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 Chronic seromucinous otitis media of right ear Hearing loss of left ear, unspecified hearing loss type VENIPUNCTURE Routine 07/13/2021 10:06 AM EDT Screening for endocrine disorder Preoperative examination Chronic right shoulder pain Complete tear of left rotator cuff, unspecified whether traumatic Essential hypertension Hyperlipidemia LDL goal <100 History of colon polyps Gastroesophageal reflux disease without esophagitis Chronic bilateral low back pain with sciatica, sciatica laterality unspecified Spinal stenosis in cervical region 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 * EKG-TO BE READ & BILLED BY ADULT OR PEDIATRIC CARDIOLOGY (07/13/2021 10:20 AM EDT) VENTRICULAR RATE 77 BPM MUS E EKG SYSTEM ATRIAL RATE 77 BPM MUSE EKG SYSTEM P-R INTERVAL 144 ms MUSE EK G SYSTEM QRS DURATION 88 ms MUSE EK G SYSTEM QT 370 ms MUSE EKG SYSTEM QTC 418 ms MUSE EKG SYSTEM P AXIS 58 degrees MUSE EKG SYSTEM R AXIS 8 degrees MUSE EKG SYSTEM T AXIS 11 degrees MUSE EKG SYSTEM EKG INTERPRETATION Sinus rhythm poor R wave progression When compared with ECG of 28-JAN-2019 19:26, No significant change was found Confirmed by LUCIANO MENDOSA ([id number]) on 07/13/2021 9:14:00 PM MUSE EKG SYSTEM 07/13/2021 10:2 0 AM EDT 07/13/2021 9:14 PM EDT Deyanira GIORDANO CARDIOVASCULAR-WITH INBSKT RTG Final Result Performing Organization Address City/[facility]/ZIP Co de Phone Number MUSE EKG SYSTEM * HEMOGLOBIN A1C (07/13/2021 10:06 AM EDT) Pathologist [facility] Hemoglobin A1C 5.4 <5.7 % of total Hgb [facility] Comment: For the purpose of screening for the presence of diabetes: <5.7% ? Consistent with the absence of diabetes 5.7-6.4% ?Consistent with increased risk for diabetes ?(prediabetes) > or =6.5% ??Consistent with diabetes This assay result is consistent with a decreased risk of diabetes. Currently, no consensus exists regarding use of hemoglobin A1c for diagnosis of diabetes in children. According to [place] Diabetes Association (ADA) guidelines, hemoglobin A1c <7.0% represents optimal control in non- diabetic patients. Different metrics may apply to specific patient populations. Standards of Medical Care in Diabetes(ADA). Estimated Average Glucose 115 mg/dL (calc) [facility] 07/13/2021 10:0 6 AM EDT 07/13/2021 10:48 PM EDT Narrative Resulting Agency Comment [id number] Deyanira GIORDANO [facility]ORAT[facility] Final Resul t Performing Organization Address City/[facility] Co de Phone Number [facility] [address] [place] [address] * (ABNORMAL) CBC INCLUDES DIFFERENTIAL AND PLATELET COUNT (07/13/2021 10:06 AM EDT) Pathologist [facility] WBC 5.4 3.8 - 10.8 Thousand/u L [facility] RBC 4.81 4.20 - 5.80 Million/uL [facility] Hemoglobin 16.2 13.2 - 17.1 g/dL [facility] Hematocrit 46.7 38.5 - 50.0 % [facility] MCV 97.1 80.0 - 100.0 fL [facility] MCH 33.7(H) 27.0 - 33.0 pg [facility] MCHC 34.7 32.0 - 36.0 g/dL [facility] RDW 12.6 11.0 - 15.0 % [facility] PLT 242 140 - 400 Thousand/u L [facility] MPV 11.0 7.5 - 12.5 fL [facility] Neutrophils # 3521 1500 - 7800 cells/uL [facility] Lymphocytes # 1058 850 - 3900 cells/uL [facility] Monocytes # 610 200 - 950 cells/uL [facility] Eosinophils # 151 15 - 500 cells/uL [facility] Basophils # 59 0 - 200 cells/uL [facility] Neutrophils % 65.2 % [facility] Lymphocytes % 19.6 % [facility] Monocytes % 11.3 % [facility] Eosinophils % 2.8 % [facility] Basophils % 1.1 % [facility] 07/13/2021 10:0 6 AM EDT 07/13/2021 10:48 PM EDT Narrative Resulting Agency Comment [id number] Deyanira GIORDANO LAB SAME DAY RESULT Final R esult Performing Organization Address City/State/[facility] Co de Phone Number [facility] [address] [place] [address] documented in this encounter Visit Diagnoses Diagnosis Screening for endocrine disorder Chronic right shoulder pain Pain in joint, shoulder region Complete tear of left rotator cuff, unspecified whether traumatic Essential hypertension Hyperlipidemia LDL goal <100 Other and unspecified hyperlipidemia History of colon polyps Personal history of colonic polyps Gastroesophageal reflux disease without esophagitis Esophageal reflux Chronic bilateral low back pain with sciatica, sciatica laterality unspecified Spinal stenosis in cervical region 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
--- OUTSIDE RECORDS SUMMARY | 2024-06-12 14:37 | XMS_ITS | Encounter Summary ---
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 documented in this encounter Plan of Treatment Upcoming Encounters Date Type Department Care Team (Latest Contact Info) Description 07/08/2024 8:20 AM EDT Consult (Initial) [facility] Orthopedic Surgery [address] [phone] Ann Mcarthur MD [address] [place] [address] lumbar spinal stenosis 07/13/2024 8:45 AM EDT Consult (Initial) [facility] Orthopedic Surgery [address] [place] [phone] Riaz Mendiola MD [address] [place] [address] lumbar spinal stenosis 07/17/2024 9:15 AM EDT Consult (Initial) [facility] Orthopedic Surgery [address] [phone] David Ji MD [address] [place] [address] lumbar spinal stenosis documented as of this [...] encounter Procedures * Due to [place] TNM Media law, this organization might not be sharing negative HIV tests. Procedure Name Priority Date/Time Associated Diagnosis Comments VENIPUNCTURE Routine 06/09/2021 10:36 AM EDT Hyperlipidemia LDL goal <100 BASIC METABOLIC PANEL WITH (GFR) Routine 06/09/2021 10:36 AM EDT Essential hypertension documented in this encounter Results * Due to [place] T[employer] Media law, this organization might not be sharing negative HIV tests. * (ABNORMAL) BASIC METABOLIC PANEL WITH (GFR) (06/09/2021 10:36 AM EDT) Glucose 127(H) 65 - 99 mg/dl [facility] Urea Nitrogen Blood (BUN) 16 7 - 25 mg/dL [facility] Creatinine 0.84 0.50 - 1.20 mg/dL [facility] Sodium 141 135 - 146 mmo/L [facility] Potassium 4.4 3.5 - 5.3 mmol/L [facility] Chloride 103 98 - 107 mmo/L [facility] Carbon dioxide 26 23 - 33 mmol/L [facility] Calcium 9.6 8.5 - 10.4 mg/dL [facility] GFR 98 >60 ml/min [facility] Comment:If the patient is Af rican [place], please multiply result by 1.210 06/09/2021 10:3 6 AM EDT 06/09/2021 10:36 AM EDT Narrative [facility] - 06/09/2021 12:32 PM EDT Patient's primary care provider is: ??N/A Testing performed at: [facility], [address] [place] [address], [id number], Beet Topper: Sergio Le MD us Riaz Seals MD LABORATORY Final Result [address] [address] DIRECTOR Sergio Le MD * (ABNORMAL) LIPID PANEL WITH REFLEX TO DIRECT LDL (06/09/2021 10:36 AM EDT) Cholesterol 274(H) <200 mg/dL [facility] Triglyceride 105 <150 mg/dL [facility] HDL Cholesterol 76 >40 mg/dL [facility] Comment: NCEP GUIDELINES Desirable >60 mg/dL Borderline 40-59 mg/dL ?? Undesirable <40 mg/dL LDL Cholesterol 177(H) <130 mg/dL [facility] CHOL/HDL Ratio 4 0 - 5 [facility] 06/09/2021 10:3 6 AM EDT 06/09/2021 10:36 AM EDT Narrative [facility] - 06/09/2021 12:32 PM EDT Patient's primary care provider is: ??N/A Testing performed at: [facility], [address] [place] [address], [id number], Beet Topper: Sergio Le MD Riaz Seals MD LABORATORY Final Result Performing Organization Address City/State/[facility] Co de Phone Number [address] [address] DIRECTOR Sergio Le MD documented in this encounter Visit Diagnoses Diagnosis Hyperlipidemia LDL goal <100 Other and unspecified hyperlipidemia Essential hypertension documented in this encounter Care Teams Relay Shop Supervisor Relationship Specialty Start Date End Date Riaz Seals MD [address] [place] [phone] PCP - General Internal Medicine 07/14/19 documented as of this encounter
--- OUTSIDE RECORDS SUMMARY | 2024-06-12 14:37 | XMS_ITS | Clinical Summary ---
Author Organization [facility] Address [address] [place] [address] Care Team Providers Care Adobe Maker Name Role Phone Unavailable Primary Care Provider Unavailabl e Social History Tobacco Use Types Packs/Day Years Used Date Smoking Tobacco: Never Assessed Sex and Gender Information Value Date Recorded Sex Assigned at Not on file Gender Identity Not on file Sexual Orientation Not on file Plan of Treatment Health Maintenance Due Date Last Done Comments Hepatitis C Screening 1960 COVID-19 Vaccine (#1) 1958 Depression Screening 1970 Preventative Health Evaluation 1976 Colon Cancer Screening (Colonoscopy) 2003 Shingrix-Zoster Vaccine (1 o f 2) 2008 DTap / Tdap / Td (2 - Td or Tdap) 08/15/2020 08/15/2010, 03/11/2000 Fall Risk Assessment 2023 Pneumococcal Vaccine (1 of 1 - PCV) 2023 Influenza Vaccine (#1) 2023 RSV Adult > 60+ Yrs or (1 - 1-dose 75+ series) 2033 Hepatitis B Vaccines Aged Out No long er eligible based on patient's age to complete this topic RSV Ped < 20 months Aged Out No longe r eligible based on patient's age to complete this topic
--- OUTSIDE RECORDS SUMMARY | 2024-06-12 14:37 | XMS_ITS | Encounter Summary ---
Author Organization [facility] Address [address] [place] [address] Care Team Providers Care Thermo Processor Name Role Phone Riaz Seals MD Primary Care Provider [phone] Encounter Details Date Type Department Care Team (Late st Contact Info) Description 04/06/2024 Orders Only [facility] Orthopedic Surgery [address] [facility] [address] [place] [address] Bertin Lima MD [address] [facility] [address] [place] [address] Social History Tobacco Use Types Packs/Day Years [...] 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 Not on file Not on file Not on file documented as of this encounter Plan of Treatment Upcoming Encounters Date Type Department Care Team (Latest Contact Info) Description 07/08/2024 8:20 AM EDT Consult (Initial) [facility] Orthopedic Surgery [address] [address] Ann Mcarthur MD [address] [place] [address] lumbar spinal stenosis 07/13/2024 8:45 AM EDT Consult (Initial) [facility] Orthopedic Surgery [address] [place] [phone] Riaz Mendiola MD [address] [place] [address] lumbar spinal stenosis 07/17/2024 9:15 AM EDT Consult (Initial) [facility] Orthopedic Surgery [address] [phone] David Ji MD [address] [place] [address] lumbar spinal stenosis documented as of this [...] of this encounter Procedures * Due to [place] [employer] law, this organization might not be sharing negative HIV tests. Procedure Name Priority Date/Time Associated Diagnosis Comments C-REACTIVE PROTEIN (CRP) - INFLAMMATION Routine 04/06/2024 8:59 AM EST Left hip pain ERYTHROCYTE SEDIMENTATION RATE (ESR) Routine 04/06/2024 8:59 AM EST Left hip pain documented in this encounter Results * Due to [place] state law, this organization might not be sharing negative HIV tests. * (ABNORMAL) ERYTHROCYTE SEDIMENTATION RATE (ESR) (04/06/2024 8:59 AM EST) Sedimentation Rate [place] (ESR) 33(H) < OR = 20 mm/h [facility] 04/06/2024 8:59 AM EST 04/06/2024 3:45 PM EST Narrative Resulting Agency Comment [id number] Bertin Lima MD LAB SAME DAY RESULT Final Res ult [facility] [address] [place] [address] * C-REACTIVE PROTEIN (CRP) - INFLAMMATION (04/06/2024 8:59 AM EST) C reactive protein 4.8 <8.0 mg/L [facility] 04/06/2024 8:59 AM EST 04/06/2024 3:45 PM EST Narrative Resulting Agency Comment [id number] Bertin Lima MD LABORATORY Final Result [facility] [address] [place] [address] documented in this encounter Visit Diagnoses Diagnosis Left hip pain Pain in joint, pelvic region and thigh documented in this encounter Care Teams Thermo Processor Relationship Specialty Start Date End Date Riaz Seals MD [address] [place] [address] PCP - General Internal Medicine 07/14/19 documented as of this encounter
--- OUTSIDE RECORDS SUMMARY | 2024-06-12 14:37 | XMS_ITS | Encounter Summary ---
Author Organization [facility] Address [address] [place] [address] Care Team Providers Care Boiler Water Tester Name Role Phone Riaz Seals MD Primary Care Provider [phone] Encounter Details Date Type Department Care Team (Late st Contact Info) Description 06/11/2024 11:40 AM EDT Office Visit [facility] Orthopedic Surgery [address] [facility] [address] [place] [phone] Bertin Lima MD [address] [facility] [address] [place] [address] Spinal stenosis of lumbar region, unspecified whether neurogenic claudication present (Primary Dx) Social History Tobacco Use Types [...] 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 This study shows areas of quite severe canal stenosis which likely explains his right lower extremity pain. He tells me that he is in quite severe pain. He recently completed a prednisone taper. He reports that while he was on the taper he felt quite good but since then the pain is returned. I have recommended that he see one of our enterprise project manager for consultation and possible lumbar spine injection. He has informed me that he has an appointment with Dr. Stephens's office (neurosurgery) in [place] tomorrow. It might be a few weeks before he can get into see one of our enterprise project manager. Potentially Dr. Stephens's office has access to a enterprise project manager that might be able to see him sooner. All questions were answered. Patient will followwith me as needed. documented in this encounter Plan of Treatment Upcoming Encounters Date Type Department Care Team (Latest Contact Info) Description 07/08/2024 8:20 AM EDT Consult (Initial) [facility] Orthopedic Surgery [address] [phone] Ann Mcarthur MD [address] [place] [address] lumbar spinal stenosis 07/13/2024 8:45 AM EDT Consult (Initial) [facility] Orthopedic Surgery [address] [phone] Riaz Mendiola MD [address] [place] [address] lumbar spinal stenosis 07/17/2024 9:15 AM EDT Consult (Initial) [facility] Orthopedic Surgery [address] [facility] [address] [place] [address] David Ji MD [address] [place] [address] lumbar spinal stenosis documented as of this [...] as of this encounter Visit Diagnoses Diagnosis Spinal stenosis of lumbar region, unspecified whether neurogenic claudication present- Primary documented in this encounter Care Teams Boiler Water Tester Relationship Specialty Start Date End Date Riaz Seals MD [address] [place] [phone] PCP - General Internal Medicine 07/14/19 documented as of this encounter
--- OUTSIDE RECORDS SUMMARY | 2024-06-12 14:37 | XMS_ITS | Continuity of Care Document ---
Author Organization [facility] Address [address] [facility] [address] [place] [address] Phone Care Team Providers Care Master Ocean Yacht Name Role Phone Jennifer Cheng Res Unavailable Unav ailable Allergies, Adverse Reactions, Alerts Substance Reaction Status Criticality No Known allergies Medications Medication Instructions Dosage Effective Dates (start - stop) Status Comments penicillin V potassium 500 mg tablet take 1 tablet (500MG) by oral route every 8 hours 500 MG - Active Tylenol-Codeine #3 300 mg-30 mg tablet take 1 tablet by oral route every 6 hours as needed - Active Procedures Procedure Date Resin-Based Composite-One Surface, Poste rior Resin-Based Composite-One Surface, Poste rior Resin-Based Composite-Three Surfaces, An terior Periodontal Probing Prophylaxis-Adult Periodic Oral Evaluation-Established Pat ient Intraoral-Complete Series (Including Bit ewings) NonSmoker Case Presentation, Detailed And Extensiv e Treatmen Periodic Oral Evaluation-Established Pat ient Comprehensive Periodontal Evaluation-New Or Establ Intraoral-Complete Series (Including Bit ewings) Prophylaxis-Adult Treatment Plan Complete Oral Hygiene Instructions MEDS LIST GIVEN Manuel-23-2018 NonSmoker Periodic Oral Evaluation-Established Pat ient Oral Hygiene Instructions Prophylaxis-Adult Treatment Plan Complete Maxillary Partial Denture-Resin Base (In cluding An MXACRYPARTIAL/TRY IN MXACRYLIC PARTIAL/WAX RIM/BITE 17 MX ACRYLPART/FINAL IMP & CUSTOM 017 MX ACRYPARTIAL IMP&DIAG CAST Resin-Based Composite-Four Or More Surfa sergo Or Inv Resin-Based Composite-Two Surfaces, Ante rior Resin-Based Composite-Three Surfaces, An terior Periodic Oral Evaluation-Established Pat ient Bitewings-Four Films Prophylaxis-Adult Oral Hygiene Instructions Periodontal Probing Resin-Based Composite-One Surface, Poste rior Resin-Based Composite-One Surface, Poste rior Resin-Based Composite-One Surface, Anter ior Resin-Based Composite-One Surface, Poste rior Resin-Based Composite-One Surface, Poste rior Resin-Based Composite-One Surface, Poste rior Resin-Based Composite-One Surface, Poste rior Resin-Based Composite-One Surface, Poste rior Resin-Based Composite-One Surface, Poste rior Resin-Based Composite-One Surface, Poste rior Resin-Based Composite-One Surface, Poste rior Periodontal Scaling And Root Planing-Fou r Or More Periodontal Scaling And Root Planing-Fou r Or More Oral Hygiene Instructions Periodontal Scaling And Root Planing-Fou r Or More Periodontal Scaling And Root Planing-Fou r Or More Oral Hygiene Instructions Comprehensive Oral Evaluation-New Or Est ablished P Intraoral-Complete Series (Including Bit ewings) Comprehensive Periodontal Evaluation-New Or Establ Extraction, Erupted Tooth Or Exposed Page t (Elevati Intraoral-Periapical First Film 013 Limited Oral Evaluation-Problem Focused Advance Directives Directive Yes / No Effective Date File Name No Information Encounters Encounter Description Practice Location Reason(s) For Visit Diagnoses Date Provider Providers Copied on Encounter [facility], [address] [place] [address],[address], [place], [place], [id number], tel:[phone] Encounter for dental exam and cleaning w/o abnormal findings 4 Annette Rodriguez. [address] [place], [address], [place]. tel:[phone] [facility], [address] [place] [address],[facility] [address], [place], [id number], tel:[phone] Encounter for dental exam and cleaning w/o abnormal findings 4 Abouali Kalarhrenate. [address] [place], [address], [place]. tel:[phone] [facility], [address] [place] [address],[address], [place], [place], [id number], [place] tel:[phone] [address] Encounter for dental exam and cleaning w/o abnormal findings 4 Yesenia Linn. [address] [place], [place], [id number], [place]. tel:[phone] [facility], [address] [place] [address],[address], [place], [id number], [place] tel:[phone] [address] Encounter for dental exam and cleaning w/o abnormal findings 4 Faisaluali Kalarhrenate. [address] [place], [address], [place]. tel:[phone] [facility], [address] [facility] [address], [place], [place], [id number], [place] tel:[phone] [address] [place] [facility] Encounter for dental exam and cleaning w/o abnormal findings 0 1- 9 Nannette Paul. [address] [place], [place], [id number]. tel:[phone] [facility], [address] [facility] [address], [place], [place], [id number], [place] tel:[phone] [address] [place] [facility] Encounter for dental exam and cleaning w/o abnormal findings 8 Nannette Paul. [address] [place], [place], [id number]. tel:[phone] [facility], [address] [facility],[address], [place], [place], [id number], [place] tel:[phone] [place] [facility] Encounter for dental exam and cleaning w/o abnormal findings 7 [facility] Sangeeta Villarreal. [address] [place], [place], [id number], [place]. tel:[phone] [facility], [address] [facility] [address], [place], [place], [id number], [place] tel:[phone] [address] [place] [facility] Encounter for dental exam and cleaning w/o abnormal findings 7 Peter Villarreal. [address] [place], [id number], [place]. tel:[phone] [facility], [address] [facility] [address], [place], [place], [id number], [place] tel:[phone] [address] [place] [facility] Encounter for dental exam and cleaning w/o abnormal findings 0- 7 Peter Villarreal. [address] [place], [place], [id number], [place]. tel:[phone] [facility], [address], [place], [place], [id number], [place] tel:[phone] [address] [place] [facility] Encounter for dental exam and cleaning w/o abnormal findings July-0 - 7 [facility] Villarreal. [address] [place], [place], [id number], [place]. tel:[phone] [facility], [address] [facility] [address], [place], [place], [id number], [place] tel:[phone] [address] [place] [facility] Encounter for dental exam and cleaning w/o abnormal findings Jun-2 7 [facility] Villarreal. [address] [place], [place], [id number], [place]. tel:[phone] [facility], [address] [place], [place] [address],[address], [place], [place], [id number], [place] tel:[phone] [address] [place] [facility] Encounter for dental exam and cleaning w/o abnormal findings Jun-03 13- 7 [facility] Villarreal. [address] [place], [place], [id number], [place]. tel:[phone] [facility], [address] [facility] [address], [place], [place], [id number], [place] tel:[phone] [address] [place] [facility] Encounter for dental exam and cleaning w/o abnormal findings Jun-03 12- 7 [facility] Villarreal. [address] [place], [place], [id number], [place]. tel:[phone] [facility], [address] [facility] [address], [place], [place], [id number], [place] tel:[phone] [address] [place] [facility] Encounter for dental exam and cleaning w/o abnormal findings Jun-0 - 7 [facility] Villarreal. [address] [place], [place], [id number], [place]. tel:[phone] [facility], [address] [facility] [address], [place], [place], [id number], [place] tel:[phone] [address] [place] [facility] Encounter for dental exam and cleaning w/o abnormal findings May-3 1-201 7 Aldarawcheh Firas. [address] [place], [place], [id number]. tel:[phone] [facility], [address] [facility] [address], [place], [place], [id number], [place] tel:[phone] [place] [facility] Dental examination July-2 0-201 4 No Information [facility], [address] [facility], [place], [place], [id number], [place] tel:[phone] [place] [facility] Dental examination Jun-0 9-201 4 No Information [facility], [address] [facility], [place], [place], [id number], [place] tel:[phone] [place] [facility] Dental examination May-0 4-201 4 No Information [facility], [address] [facility] [address], [place], [place], [id number], [place] tel:[phone] [place] [facility] Dental examination 2 2-201 4 No Information [facility], [address] [facility] [address], [place], [place], [id number], [place] tel:[phone] [place] [facility] Dental examination Nov-0 5-201 3 No Information [facility], [address] [facility] [address], [place], [place], [id number], [place] tel:[phone] [place] [facility] Dental examination Dec-0 2-201 3 Aldarawcheh Firas. [address] [place] , [place], [place], [id number]. tel:[phone] [facility], [address] [facility] [address], [place], [place], [id number], [place] tel:[phone] [place] [facility] Dental examination Dec-0 1-201 3 Aldarawcheh Firas. [address], [place], [place], [id number]. tel:[phone] [facility], [address] [facility] [address], [place], [place], [id number], [place] tel:[phone] [place] [facility] Dental examination Nov- 3 Nannette Paul. [address] [place], [place], [id number]. tel:[phone] [facility], [address] [facility], [place], [place], [id number], [place] tel:[phone] [place] [facility] Dental examination Nov- 3 No Information [facility], [address] [facility] [address], [place], [place], [id number], [place] tel:[phone] [place] [facility] Dental examination 3 No Information Family History Family Member Type Diagnosis Age At Onset No Information Payers Payer name Insurance type Covered libertarian ID Len thorpe(s) [facility] [id number] Social History Type Description Quantity Date Captured Comments Sex Male Smoking Status No Information Chief Complaint And Reason For Visit No Information Reason For Referral Reason For Referral No Information Plan Of Treatment Date Type Action Status Goal CT-Colonography. Due on due Goal FIT-DNA. Due on due Goal Unhealthy drug use screening . Due on due Goal Zoster vaccine (). Due on due Goal FOBT. Due on due Goal Hepatitis C Screening. Due o n due Goal Document SOGI Information. D ue on due Goal Zoster vaccine. Due on due Goal Diabetes Screening. Due on due Goal Td vaccine. Due on 19 due Goal Colonoscopy. Due on due Goal Tdap. Due on due Goal APE. Due on due Goal Influenza vaccine. Due on due Goal Lipid panel. Due on due Goal Lipid panel. Due on due Goal Td vaccine. Due on 14 due Goal Colonoscopy. Due on due Goal Influenza vaccine. Due on due Goal Tdap. Due on due Goal APE. Due on due Appointment Aaron Rosario BOOKED History Of Present Illness Encounter Date Complaint History Of Prese nt Illness No Information Functional Status Date Functional Assessmen t No Information Instructions Date Instruction Additional Infor mation No Information Assessments Type Assessment Date No Information Patient Care Teams Name Effective Dates (start - stop) Status Members No Information
--- OUTSIDE RECORDS SUMMARY | 2024-06-12 14:37 | XMS_ITS | Encounter Summary ---
Author Organization [facility] Address [address] [place] [address] Care Team Providers Care Supervisor Nuclear Medicine Name Role Phone Riaz Seals MD Primary Care Provider [phone] Neri Fonseca MD Primary Care Provider [phone] Riaz Seals MD Primary Care Provider Encounter Details Date Type Department Care Team (Late st Contact Info) Description 02/21/2017 Orders Only [facility] Orthopedic Surgery [address] [place] [address] Chidi Kaufman, [address] [place] [address] Social History Tobacco Use Types Packs/Day Years [...] 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 file Not on file Not on file documented as of this encounter Plan of Treatment Upcoming Encounters Date Type Department Care Team (Latest Contact Info) Description 07/08/2024 8:20 AM EDT Consult (Initial) [facility] Orthopedic Surgery [address] [place] [address] [place], [place] [phone] Ann Mcarthur MD [address] [place] [address] lumbar spinal stenosis 07/13/2024 8:45 AM EDT Consult (Initial) [facility] Orthopedic Surgery Suite [facility] [place] [address] [address] Riaz Mendiola MD [address] [place] [address] lumbar spinal stenosis 07/17/2024 9:15 AM EDT Consult (Initial) [facility] Orthopedic Surgery [address] [facility] [place] [place] [address] [address] David Ji MD [address] [place] [address] lumbar spinal stenosis documented as of this encounter Results * Due to [place] state law, this organization might not be sharing negative HIV tests. * XR KNEE ORTHO - LT (DX: KNEE PAIN *NO INJURY* M25.562/ 719.46)(AGE>=35, CAN WEIGHT-BEAR) (TODAY)FC (02/21/2017 8:31 AM EST) Anatomical Region Laterality Modality LOWER EXTREMITY Radiographic Cira ging 02/21/2017 9:37 AM EST Narrative 02/21/2017 9:37 AM EST EXAM: Bilateral knee radiographs. TECHNIQUE: Single standing frontal view of both knees. ??2 additional views of the left knee. COMPARISON: None FINDINGS: Left knee: Normal. ??Alignment is normal. ??No joint effusion. ??No fractures. ??No significant degenerative disease. Right knee: Unremarkable. IMPRESSION: Negative exam. Procedure Note Derek Weir MD - 02/21/2017 EXAM: Bilateral knee radiographs. TECHNIQUE: Single standing frontal view of both knees. 2 additional viewsof the left knee. COMPARISON: None FINDINGS: Left knee: Normal. Alignment is normal. No joint effusion. Nofractures. No significant degenerative disease. Right knee: Unremarkable. IMPRESSION: Negative exam. us Chidi Kaufman DO IMG XRAY NO CONTRAST ORDERAB LES Final Result documented in this encounter Visit Diagnoses Not on filedocumented in this encounter Additional Health Concerns Infection Onset Date Last Indicated Resolved Time COVID-19 Rule-Out 08/23/2020 08/23/2020 08/23/2020 9:26 PM EDT COVID-19 Rule-Out 10/25/2020 10/25/2020 10/25/2020 11:43 PM EDT documented as of this encounter Care Teams Supervisor Nuclear Medicine Relationship Specialty Start Date End Date Riaz Seals MD [address] [place] [address] PCP - General Internal Medicine 11/09/16 04/10/19 Neri Fonseca MD [address] [place] [address] PCP - General Internal Medicine 04/11/19 07/13/19 Riaz Seals MD [address] [place] [address] PCP - General Internal Medicine 07/14/19 documented as of this encounter
--- OUTSIDE RECORDS SUMMARY | 2024-06-12 14:37 | XMS_ITS | Encounter Summary ---
Author Organization [facility] Address [address] [place] [address] Care Team Providers Care Blend Technician Name Role Phone Riaz Seals MD Primary Care Provider [phone] Encounter Details Date Type Department Care Team (Late st Contact Info) Description 07/13/2021 Orders Only 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 file Not on file Not on file documented as of this encounter Plan of Treatment Upcoming Encounters Date Type Department Care Team (Latest Contact Info) Description 07/08/2024 8:20 AM EDT Consult (Initial) [facility] Orthopedic Surgery [address] [place] [address] [address] [place] [phone] Ann Mcarthur MD [address] [place] [address] lumbar spinal stenosis 07/13/2024 8:45 AM EDT Consult (Initial) [facility] Orthopedic Surgery [address] [address] Riaz Mendiola MD [address] [place] [address] lumbar spinal stenosis 07/17/2024 9:15 AM EDT Consult (Initial) [facility] Orthopedic Surgery [address] [place] [phone] David Ji MD [address] [place] [address] lumbar spinal stenosis documented as of this [...] on filedocumented in this encounter Care Teams Blend Technician Relationship Specialty Start Date End Date Riaz Seals MD [address] [place] [address] PCP - General Internal Medicine 07/14/19 documented as of this encounter
--- OUTSIDE RECORDS SUMMARY | 2024-06-12 14:38 | XMS_ITS | Encounter Summary ---
Author Organization [facility] Address [address] [place] [address] Care Team Providers Care Home Management Supervisor Name Role Phone Riaz Seals MD Primary Care Provider [phone] Reason for Visit * Reason Comments Labs/orders Encounter Details Date Type Department Care Team ([facility] st Contact Info) Description 04/08/2024 Telephone [facility] Orthopedic Surgery [address] 123 [facility] [address] [place] [phone] Bertin Lima MD 123 [facility] [address] [place] [address] Labs/orders Social History Tobacco Use Types Packs/Day Years [...] 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 * Telephone Encounter - Susi Riley - 04/08/2024 1:34 PM EST Pt requesting call back to discuss lab test results. Please assist documented in this encounter Plan of Treatment Upcoming Encounters Date Type Department Care Team (Latest Contact Info) Description 07/08/2024 8:20 AM EDT Consult (Initial) [facility] Orthopedic Surgery [address] [place] [phone] Ann Mcarthur MD [address] [place] [address] lumbar spinal stenosis 07/13/2024 8:45 AM EDT Consult (Initial) [facility] Orthopedic Surgery [address] [place] [phone] Riaz Mendiola MD [address] [place] [address] lumbar spinal stenosis 07/17/2024 9:15 AM EDT Consult (Initial) [facility] Orthopedic Surgery [address] [place] [phone] David Ji MD [address] [place] [address] lumbar spinal stenosis documented as of this [...] on filedocumented in this encounter Care Teams Home Management Supervisor Relationship Specialty Start Date End Date Riaz Seals MD [address] [place] [address] PCP - General Internal Medicine 07/14/19 documented as of this encounter
--- OUTSIDE RECORDS SUMMARY | 2024-06-12 14:38 | XMS_ITS | Encounter Summary ---
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 Not on file Not on file documented as of this encounter Plan of Treatment Upcoming Encounters Date Type Department Care Team (Latest Contact Info) Description 07/08/2024 8:20 AM EDT Consult (Initial) [facility] Orthopedic Surgery [address] [phone] Ann Mcarthur MD [address] [place] [address] lumbar spinal stenosis 07/13/2024 8:45 AM EDT Consult (Initial) [facility] Orthopedic Surgery [address] [phone] Riaz Mendiola MD [address] [place] [address] lumbar spinal stenosis 07/17/2024 9:15 AM EDT Consult (Initial) [facility] Orthopedic Surgery [address] [place] [phone] David Ji MD [address] [place] [address] lumbar spinal stenosis Scheduled Orders Name Type Priority Associated Diagnoses Orde r Schedule XRAY SHOULDER COMPLETE MIN 2 VWS - LEFT (DX: SHOULDER PAIN *NO INJURY* M25.512/ 719.41) FC Imaging Routine Left shoulder pain, unspecified chronicity Expected: 03/07/2021 (Approximate), Expires: 03/07/2024 documented as of this encounter Goals Goal [...] as of this encounter Visit Diagnoses Diagnosis Left shoulder pain, unspecified chronicity documented in this encounter Care Teams Hand Cell Tuber Relationship Specialty Start Date End Date Riaz Seals MD [address] [place] [address] PCP - General Internal Medicine 07/14/19 documented as of this encounter
--- OUTSIDE RECORDS SUMMARY | 2024-06-12 14:38 | XMS_ITS | Encounter Summary ---
Author Organization [facility] Address [address] [place] [address] Care Team Providers Care Trench Trimmer Fine Name Role Phone Riaz Seals MD Primary Care Provider [phone] Encounter Details Date Type Department Care Team (Late st Contact Info) Description 04/29/2023 Orders Only [facility] Orthopedic Surgery [address] [facility] [address] [place] [address] Bertin Lima MD [address] 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 Not on file Not on file documented as of this encounter Plan of Treatment Upcoming Encounters Date Type Department Care Team (Latest Contact Info) Description 07/08/2024 8:20 AM EDT Consult (Initial) [facility] Orthopedic Surgery [address] [phone] Ann Mcarthur MD [address] [place] [address] lumbar spinal stenosis 07/13/2024 8:45 AM EDT Consult (Initial) [facility] Orthopedic Surgery [address] [place] [phone] Riaz Mendiola MD [address] [place] [address] lumbar spinal stenosis 07/17/2024 9:15 AM EDT Consult (Initial) [facility] Orthopedic Surgery Suite [facility] [address] [phone] David Ji MD [address] [place] [address] lumbar spinal stenosis documented as of this [...] be sharing negative HIV tests. * XRAY HIP, UNILAT; COMPLETE, 2+ VIEWS - LEFT (DX: HIP PAIN *NO INJURY*) (04/29/2023 8:48 AM EST) Anatomical Region Laterality Modality LOWER EXTREMITY Radiographic Cira ging 04/30/2023 8:0 1 AM EST Narrative 04/30/2023 8:01 AM EST CONTRAST: 2 views left hip with AP pelvis Comparison: CR/MN - XRAY HIP UNILAT; COMPLETE 2+ VIEWS - LEFT (DX: HIP PAIN *NO INJU - 08/01/2022 10:13 AM EDT Findings: Pelvis: No pelvic fracture. ??Degenerative lumbosacral spinal changes are noted. Degenerative changes noted involving the right hip joint. Left hip: The left total hip arthroplasty is intact. No acute fracture or dislocation. There is spurring/enthesopathy in the region of the anterior inferior iliac spine. Findings are similar to the previous study. Impression: 1. Very similar to the previous study. ??No complication involving the left total hip arthroplasty. Procedure Note Michael Cruz MD - 04/30/2023 CONTRAST: 2 views left hip with AP pelvis Comparison: CR/MN - XRAY HIP UNILAT; COMPLETE 2+ VIEWS - LEFT (DX: HIPPAIN *NO INJU - 08/01/2022 10:13 AM EDT Findings: Pelvis: No pelvic fracture. Degenerative lumbosacral spinal changes arenoted. Degenerative changes noted involving the right hip joint. Left hip: The left total hip arthroplasty is intact. No acute fracture ordislocation. There is spurring/enthesopathy in the region of the anteriorinferior iliac spine. Findings are similar to the previous study. Impression: 1. Very similar to the previous study. No complication involving the lefttotal hip arthroplasty. us Bertin Lima MD IMG XRAY NO CONTRAST ORDERABL ES Final Result documented in this encounter Visit Diagnoses Diagnosis Hip pain, chronic, left Hip pain, chronic, left documented in this encounter Care Teams Trench Trimmer Fine Relationship Specialty Start Date End Date Riaz Seals MD [address] [place] [address] PCP - General Internal Medicine 07/14/19 documented as of this encounter
--- OUTSIDE RECORDS SUMMARY | 2024-06-12 14:38 | XMS_ITS | Encounter Summary ---
Author Organization [facility] Address [address] [place] [address] Care Team Providers Care Diamond Wheel Molder Name Role Phone Riaz Seals MD Primary Care Provider [phone] Encounter Details Date Type Department Care Team (Late st Contact Info) Description 06/18/[address] 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 Seals. * Telephone Encounter - Gilma Gomez - 06/18/2023 9:06 AM EDT This is to inform you that this patient cancelled his appointment. Your order was placed on April for a CT Scan to evaluate CT ABDOMEN AND PELVIS W & W/O CONTRAST We attempted to reschedule this appointment with him directly, but he states he is away at this time and will call back to reschedule when he returns. . We informed the patient to contact your officeif they like to have this exam performed at a later time. We will cancel your order in Epic on 08/10/2023 Please submit a new order if this exam is desired at a future date. Thank you The Radiology Scheduling Department documented in this encounter Plan of Treatment Upcoming Encounters Date Type Department Care Team (Latest Contact Info) Description 07/08/2024 8:20 AM EDT Consult (Initial) [facility] Orthopedic Surgery [address] [place] [phone] Ann Mcarthur MD [address] [place] [address] lumbar spinal stenosis 07/13/2024 8:45 AM EDT Consult (Initial) [facility] Orthopedic Surgery [address] [place] [phone] Riaz Mendiola MD [address] [place] [address] lumbar spinal stenosis 07/17/2024 9:15 AM EDT Consult (Initial) [facility] Orthopedic Surgery [address] [facility] [address] [place] [address] David Ji MD [address] [place] [address] lumbar spinal stenosis documented as of this [...] on filedocumented in this encounter Care Teams Diamond Wheel Molder Relationship Specialty Start Date End Date Riaz Seals MD [address] [place] [phone] PCP - General Internal Medicine 07/14/19 documented as of this encounter
--- OUTSIDE RECORDS SUMMARY | 2024-06-12 14:38 | XMS_ITS | Encounter Summary ---
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 file Not on file Not on file documented as of this encounter Plan of Treatment Upcoming Encounters Date Type Department Care Team (Latest Contact Info) Description 07/08/2024 8:20 AM EDT Consult (Initial) [facility] Orthopedic Surgery [address] [phone] Ann Mcarthur MD [address] [place] [address] lumbar spinal stenosis 07/13/2024 8:45 AM EDT Consult (Initial) [facility] Orthopedic Surgery [address] [phone] Riaz Mendiola MD [address] [place] [address] lumbar spinal stenosis 07/17/2024 9:15 AM EDT Consult (Initial) [facility] Orthopedic Surgery [address] [phone] David Ji MD [address] [place] [address] lumbar spinal stenosis documented as of this [...] of this encounter Procedures * Due to [place] [employer] law, this organization might not be sharing negative HIV tests. Procedure Name Priority Date/Time Associated Diagnosis Comments CULTURE, URINE, ROUTINE Routine 04/26/2023 10:01 AM EST URINALYSIS, COMPLETE INCLUDES DIPSTICK AND MICROSCOPIC Routine 04/26/2023 10:01 AM EST Hematuria, unspecified type CBC (H/H, RBC, INDICES,WBC, PLT) Routine 04/26/2023 9:45 AM EST Hematuria, unspecified type BASIC METABOLIC PANEL WITH (GFR) Routine 04/26/2023 9:45 AM EST Hematuria, unspecified type documented in this encounter Results * Due to [place] [employer] law, this organization might not be sharing negative HIV tests. * CULTURE, URINE, ROUTINE (04/26/2023 10:01 AM EST) Bacteria Identified (Urine) SEE NOTE [facility] Comment: ??CULTURE, URINE, ROUTINE Micro Number: ?[id number] Test Status: ? Final Specimen Source: ?? Urine Specimen Quality: ??Adequate ??Result: ?No Growth 04/26/2023 10:0 1 AM EST 04/26/2023 10:01 AM EST Narrative [facility] - 04/29/2023 10:11 AM EST Patient's primary care provider is: ??N/A Testing performed at: [email or web address], [address] [place] [address], [phone], Hydraulic Rock Drill Operator: BALWINDER BREEN MD us Ayesha Pina NP LABORATORY Final Resul t In [employer] [address] [place] [address] * (ABNORMAL) URINALYSIS, COMPLETE INCLUDES DIPSTICK AND MICROSCOPIC (04/26/2023 10:01 AM EST) Color (Urine) Yellow Yellow [facility] Clarity (Urine) Clear Clear [facility] Glucose (Urine) Negative Negative [facility] Bilirubin (Urine) Negative Negative [facility] Ketones (Urine) Negative Negative [facility] Specific gravity (Urine) 1.015 1.005 - 1.030 [facility] Erythrocytes (Urine) 3+(A) Negative [facility] pH (Urine) 7.0 5.0 - 8.0 [facility] Protein (Urine) Negative Negative [facility] Urobilinogen (Urine) 0.2 E.U./dL 0-1 E.U./dL [facility] Nitrite (Urine) Negative Negative [facility] Leukocyte esterase (Urine) Negative Negative [facility] WBC (Urine) NONE SEEN NONE SEEN /HPF [facility] RBC (Urine Sed) 30-40(A) NONE SEEN /HPF [facility] Epithelial cells (Urine sed) NONE SEEN NONE SEEN /LPF [facility] Casts (Urine sed) NONE SEEN NONE SEEN /LPF [facility] Crystals (Urine sed) NONE SEEN NONE SEEN /HPF [facility] Bacteria (Urine) NONE SEEN NONE SEEN /HPF [facility] 04/26/2023 10:0 1 AM EST 04/26/2023 10:01 AM EST Narrative [facility] - 04/26/2023 10:58 AM EST Patient's primary care provider is: ??N/A Testing performed at: [facility], [address] [place] [address], [id number], Hydraulic Rock Drill Operator: Sergio Le MD us Ayesha Pina NP LAB SAME DAY RESULT Final R esult [address] [address] DIRECTOR Sergio Le MD * (ABNORMAL) CBC (H/H, RBC, INDICES,WBC, PLT) (04/26/2023 9:45 AM EST) WBC 5.2 3.8 - 10.8 K/uL [facility] RBC 4.79 4.20 - 5.80 M/uL [facility] Hemoglobin 15.6 13.2 - 17.1 g/dL [facility] Hematocrit 48.4 38.5 - 50.0 % [facility] MCV 101.0(H) 80.0 - 100.0 fl [facility] MCH 32.6 27.0 - 33.0 pg [facility] MCHC 32.2 32.0 - 36.0 g/dL [facility] RDW 12.5 11.0 - 15.0 % [facility] PLT 197 140 - 400 K/uL [facility] 04/26/2023 9:45 AM EST 04/26/2023 9:45 AM EST Narrative [facility] - 04/26/2023 10:48 AM EST Patient's primary care provider is: ??N/A Testing performed at: [facility], [address] [place] [address], [id number], Hydraulic Rock Drill Operator: Sergio Le MD Ayesha Pina NP LAB SAME DAY RESULT Final R esult [address] [address] DIRECTOR Sergio Le MD * (ABNORMAL) BASIC METABOLIC PANEL WITH (GFR) (04/26/2023 9:45 AM EST) Glucose 144(H) 65 - 99 mg/dl [facility] Urea Nitrogen Blood (BUN) 14 7 - 25 mg/dL [facility] Creatinine 0.86 0.50 - 1.20 mg/dL [facility] Sodium 142 135 - 146 mmo/L [facility] Potassium 4.5 3.5 - 5.3 mmol/L [facility] Chloride 103 98 - 107 mmo/L [facility] Carbon dioxide 29 23 - 33 mmol/L [facility] Calcium 9.4 8.5 - 10.4 mg/dL [facility] GFR 95 >60 ml/min [facility] 04/26/2023 9:45 AM EST 04/26/2023 9:45 AM EST Narrative [facility] - 04/26/2023 11:49 AM EST Patient's primary care provider is: ??N/A Testing performed at: [facility], [address] [place] [address], [id number], Hydraulic Rock Drill Operator: Sergio Le MD Ayesha Pina OPTICAL SALES ASSOCIATE LABORATORY Final Resul t [address] [address] DIRECTOR Sergio Le MD documented in this encounter Visit Diagnoses Diagnosis Hematuria, unspecified type documented in this encounter Care Teams Rn Vascular Relationship Specialty Start Date End Date Riaz Seals MD [address] [place] [phone] PCP - General Internal Medicine 07/14/19 documented as of this encounter
--- OUTSIDE RECORDS SUMMARY | 2024-06-12 14:38 | XMS_ITS | Encounter Summary ---
Author Organization [facility] Address [address] [place] [address] Care Team Providers Care Accounting File Clerk Name Role Phone Riaz Seals MD Primary Care Provider [phone] Reason for Referral * CONSULT AND TREATMENT (Routine) - Authorized Specialty Diagnoses / Procedures Referred By Oren dhaliwal Referred To Contact Neurosurgery Diagnoses Bulging lumbar disc Riaz Seals MD [address] [place] [phone] Phone: tel: fax: Wisam Couch MD [address] [address] Phone: tel: fax: Referral ID Status Reason Start Date Expiration Date Visits Requested Visits Authorized [id number] Authorized Service Not Available at Clinic 06/11/2024 06/11/2025 6 6 Reason for Visit * Reason Comments Referral Request Encounter Details Date Type Department Care Team (Late st Contact Info) Description 06/11/2024 Telephone [facility] Adult Medicine [address] [place] [phone] Riaz Seals MD [address] [place] [phone] Referral Request Social History Tobacco Use Types [...] 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 male calling to request a referral. Have you seen your PCP for this problem/dx? N/A Have you seen a specialist for this problemdx? No Address and full name of specialist requesting to see: Dr. Cristiano Stephens, [address] [place] [address] [place] [address] Specialist Specialist Specialty: Neurosurgeon Diagnosis/medical reason for referral: Bulging disc Why patient/caller is requesting services outside of [facility]: patient request Date of appointment: 06/12/2024 Type of Insurance: Payor: [facility] / Plan: [facility] PREFERRED HMO / Product Type: HMO / Subscriber Number: [id number] Patient Informed: For Future Request- If you have not heard from us, please call us to check on the status of your referral before you go to the appointment. If the approval has not been confirmed before your appointment, you may be responsible for payment. documented in this encounter Plan of Treatment Upcoming Encounters Date Type Department Care Team (Latest Contact Info) Description 07/08/2024 8:20 AM EDT Consult (Initial) [facility] Orthopedic Surgery [address] [place] [phone] Ann Mcarthur MD [address] [place] [phone] lumbar spinal stenosis 07/13/2024 8:45 AM EDT Consult (Initial) [facility] Orth[facility] Surgery [address] [place] [phone] Riaz Mendiola MD [address] [place] [phone] lumbar spinal stenosis 07/17/2024 9:15 AM EDT Consult (Initial) [facility] Orth[facility] Surgery [address] [phone] David Ji MD [address] [place] [phone] lumbar spinal stenosis Scheduled Referrals Name Type Priority Associated Diagnoses Orde r Schedule CONSULT NEURO SURGERY Referral Routine (within 3 months) Bulging lumbar disc Ordered: 06/11/2024 documented as of this encounter Goals Goal [...] as of this encounter Visit Diagnoses Diagnosis Bulging lumbar disc Displacement of lumbar intervertebral disc without myelopathy documented in this encounter Care Teams Accounting File Clerk Relationship Specialty Start Date End Date Riaz Seals MD [address] [place] [phone] PCP - General Internal Medicine 07/14/19 documented as of this encounter
--- OUTSIDE RECORDS SUMMARY | 2024-06-12 14:38 | XMS_ITS | Encounter Summary ---
Author Organization [facility] Address [address] [place] [address] Care Team Providers Care Clinical Education Consultant Name Role Phone Riaz Seals MD Primary Care Provider [phone] Encounter Details Date Type Department Care Team (Late st Contact Info) Description 04/29/2023 Orders Only [facility] Orthopedic Surgery [address] [facility] [address] [place] [address] Bertin Lima MD [address] [facility] [address] [place] [address] Social History Tobacco Use Types Packs/Day Years [...] Description 07/08/2024 8:20 AM EDT Consult (Initial) [facility] Orthopedic Surgery [address] [facility] [address] [place] [phone] Ann Mcarthur MD [address] [place] [phone] lumbar spinal stenosis 07/13/2024 8:45 AM EDT Consult (Initial) [facility] Orthopedic Surgery [address] [place] [phone] Riaz Mendiola MD [address] [place] [phone] lumbar spinal stenosis 07/17/2024 9:15 AM EDT Consult (Initial) [facility] Orthopedic Surgery [address] [facility] [address] [phone] David Ji MD [address] [place] [phone] lumbar spinal stenosis Scheduled Orders Name Type Priority Associated Diagnoses Orde r Schedule XRAY HIP, UNILAT; COMPLETE, 2+ VIEWS - LEFT (DX: HIP PAIN *NO INJURY*) Imaging Routine Hip pain, chronic, left Expected: 04/29/2023 (Approximate), Expires: 04/28/2026 documented as of this encounter Goals Goal [...] as of this encounter Visit Diagnoses Diagnosis Hip pain, chronic, left documented in this encounter Care Teams Clinical Education Consultant Relationship Specialty Start Date End Date Riaz Seals MD [address] [place] [phone] PCP - General Internal Medicine 07/14/19 documented as of this encounter
--- OUTSIDE RECORDS SUMMARY | 2024-06-12 14:38 | XMS_ITS | Continuity of Care Document ---
Author Organization [facility] Address [address] [place] [address] Care Team Providers Care Pourer Metal Name Role Phone Riaz Seals MD Primary Care Provider [phone] Encounters Date Type Department Care Team Description 5 Telephone [facility] Adult Medicine [address] [place] [phone] Riaz Seals MD Referral Request 5 11:40 AM EDT Office Visit [facility] Orthopedic Surgery [address] [place] [phone] Bertin Lima MD Spinal stenosis of lumbar region, unspecified whether neurogenic claudication present (Primary Dx) 5 4:30 PM EDT Radiology [facility]. Magnetic Resonance Imaging [address] [place] [address] Chronic pain of left lower extremity 5 10:40 AM EDT Office Visit [facility] Adult Medicine [address] [place] [phone] Maria Guadalupe Prajapati NP Recurrent acute suppurative otitis media of right ear without spontaneous rupture of tympanic membrane (Primary Dx); Acute left-sided low back pain with left-sided sciatica 5 Telephone [facility] Orthopedic Surgery [address] [phone] Bertin Lima MD Patient Questions [address] [address] Riaz Seals MD Sciatica 5 Telephone [facility] [address] [place] [address] Bertin Lima MD Appointment 5 9:00 AM EST Radiology [facility] Xray 123 [facility] [address] [place] [address] Left hip pain 5 8:20 AM EST Office Visit [facility] Orthopedic Surgery [address] [address] Bertin Lima MD Left hip pain (Primary Dx); Chronic pain of left lower extremity [address] [address] Riaz Seals MD Med Change Request 5 Telephone [facility] Orthopedic Surgery [address] [address] Bertin Lima MD Appointment [address] [phone] Riaz Seals MD Pain 5 2:00 PM EST Office Visit [address] [address] Riaz Seals MD Left hip pain (Primary Dx); Essential hypertension; Dilated cardiomyopathy [address] [phone] Riaz Seals MD Muscle spasm; Back Pain 5 Telephone [facility] Orthopedic Surgery [address] [facility] [address] [place] [phone] Bertin Lima MD Labs/orders 5 Orders Only [facility] Orthopedic Surgery [address] [facility] [address] [place] [address] Bertin Lima MD 5 8:40 AM EST Consult (Initial) [facility] Orthopedic Surgery [address] [facility] [address] [place] [address] Bertin Lima MD Left hip pain (Primary Dx); H/O total hip arthroplasty, left [address] [address] Riaz Seals MD Refill Request 5 1:45 PM EST Radiology [facility] Xray [address] [place] [address] Pain of left hip 5 1:20 PM EST Consult (Initial) [facility] Orthopedic Surgery [address] [place] [address] Jarad Jane MD Pain of left hip (Primary Dx); Primary osteoarthritis of right hip; Status post left hip replacement [address] [address] Riaz Seals MD E-prescribing Refill Request 5 4:40 PM EST Office Visit [address] [phone] Riaz Seals MD Recurrent acute suppurative otitis media of right ear without spontaneous rupture of tympanic membrane (Primary Dx); Dilated cardiomyopathy; 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); Chronic seromucinous otitis media of right ear; Secondary hypercoagulable state (HHS); Myelomalacia; New onset atrial fibrillation; Chronic systolic CHF (congestive heart failure), NYHA class [address] [address] Riaz Seals MD Ear Problem (/) 4 Consult (Initial) [address] [address] Leandro Kent 4 Minor Procedure/Test [facility] [address] [place] [address] Leandro Kent [facility], Unknown Provider 4 2:15 PM EST Radiology [address] [address] Hip pain, chronic, right 4 1:30 PM EST Office Visit [address] [phone] Katie Kasper NP Hip pain, chronic, right (Primary Dx); Onychomycosis; Right otitis media, unspecified otitis media type; Essential hypertension [address] [phone] Riaz Seals MD Hip Pain [address] [address] Riaz Seals MD Referral Request (Referral to Dr. Leandro Kent, Cardiology, ) 4 Orders Only [address] [phone] Riaz Seals MD 4 1:00 PM EDT CPE - Comprehensive Physical Exam [address] [phone] Riaz Seals MD Routine general medical examination at a health care facility (Primary Dx); Screen for colon cancer; Screening for endocrine disorder; Screening for prostate cancer; Hyperlipidemia LDL goal <100; Chronic seromucinous otitis media of right ear; Dilated cardiomyopathy; Primary osteoarthritis of left hip; Chronic systolic CHF (congestive heart failure), NYHA class [address] [phone] Katie Kasper NP E-prescribing Refill Request [address] [phone] Riaz Seals MD E-prescribing Refill Request [address] [phone] Riaz Seals MD Letter/form Request (Clearance for dental form ) [address] [phone] Riaz Seals MD Refill Request [address] [phone] Riaz Seals MD E-prescribing Refill Request [address] [phone] Riaz Seals MD Referral Request [address] [facility] [address] Scan [address] [place] [address] Ayesha Pina NP 4 Consult (Initial) [facility] [address] [place] [address] Thi Blanco NP 4 Minor Procedure/Test [facility] [address] [place] [address] Thi Blanco NP [facility], Unknown Provider [address] [facility] [address] Scan [address] [place] [address] Ayesha Pina NP Labs/orders (Creatinine Order for Radiology with Contrast) [address] [phone] Ayesha Pina NP Hematuria (/) 4 E-Consult [facility] Urology [address] [facility] [address] [place] [address] Anegl Verdugo MD Gross hematuria 4 9:00 AM EST Radiology [facility] Xray 123 [facility] [address] [place] [address] Hip pain, chronic, left 4 Orders Only [facility] Orthopedic Surgery [address] [facility] [address] [place] [address] Bertin Lima MD 4 Orders Only [facility] Orthopedic Surgery [address] [facility] [address] [place] [address] Bertin Lima MD 4 8:20 AM EST Office Visit [facility] Orthopedic Surgery [address] [facility] [address] [place] [address] Bertin Lima MD Left hip pain (Primary Dx); H/O total hip arthroplasty, left [address] [phone] Ayesha Pina, MARQUES Hematuria 4 Orders Only [address] [phone] Ayesha Pina ASSISTANT CORPORATE SECRETARY 4 9:00 AM EST Office Visit [address] [phone] Ayesha Pina NP Hematuria, unspecified type (Primary Dx); Myelomalacia; Secondary hyperaldosteronism; New onset atrial fibrillation; Dilated cardiomyopathy; Chronic systolic CHF (congestive heart failure), NYHA class 1; Secondary hypercoagulable state (HCC) [address] [phone] Riaz Seals MD Urinary Problems (Discoloration) [address] [phone] Katie Kasper NP E-prescribing Refill Request [address] [address] Riaz Seals MD Refill Request [address] [phone] Riaz Seals MD Refill Request 3 Consult (Initial) [address] [address] Thi Blanco, ASSISTANT CORPORATE SECRETARY 3 Minor Procedure/Test [facility] [address] [place], [place] [phone] [place] [address], Unknown Provider [address] [phone] Riaz Seals MD Otitis Media (Right) 3 Minor Procedure/Test [address], Unknown Provider [address] [phone] Riaz Seals MD Prescription Assistance; Refill Request 3 1:40 PM EDT Office Visit [address] [phone] Riaz Seals MD New onset atrial fibrillation (Primary Dx); Chronic systolic CHF (congestive heart failure), NYHA class 1 [address] [phone] Riaz Seals MD Referral Request 3 Telephone [facility] [address] [place] [phone] Blanca Roman MA Care Coordination Communication ; Hospital F/U 3 Patient Outreach [facility] [address] [place] [phone] Blanca Roman MA Care Coordination Communication 3 Consult (Initial) [address] [address] Thi Blanco, MARQUES 3 Minor Procedure/Test [address] [address] Thi Blanco, ASSISTANT CORPORATE SECRETARY [facility], Unknown Provider 3 Hospital/Inpatient [facility] [address] [place] [address] [facility], Unknown Provider 3 Consult (Initial) [facility] [address] [place], [place] [phone] [place] [address], Unknown Provider 3 Consult (Initial) [facility] [address] [place], [place] [phone] [place] [address], Unknown Provider 3 Hospital/Inpatient [facility] [address] [place] [address] 3 ER [facility] [address] [place], [place] [phone] [place] [address], Unknown Provider 3 Orders Only [address] [phone] Riaz Seals MD 3 9:20 AM EDT Office Visit [address] [phone] Riaz Seals MD Hyperlipidemia LDL goal <100 (Primary Dx); Screening for prostate cancer; Olecranon bursitis of right elbow; Essential hypertension; Patient non adherence [address] [address] Riaz Seals MD Ear Problem 3 Orders Only [address] [phone] Katie Kasper NP Medications [address] [phone] Riaz Seals MD Ear Problem ; Cough 3 2:30 PM EDT Office Visit [address] [phone] Katie Kasper NP Recurrent acute suppurative otitis media of right ear without spontaneous rupture of tympanic membrane (Primary Dx) 3 10:20 AM EDT Radiology [facility] Xray 123 [facility] [address] [place] [address] S/P hip replacement, left 3 10:30 AM EDT Office Visit [facility] Orthopedic Surgery [address] [address] Bertin Lima MD Aftercare following left hip joint replacement surgery (Primary Dx) 3 10:45 AM EDT Minor Procedure/Test [address] [phone] Ai Richey, [employer] SENIOR SERGEANT Primary osteoarthritis of left hip PT (Primary Dx) 3 10:00 AM EDT Minor Procedure/Test [address] [address] Annia Morrison, PT Primary osteoarthritis of left hip PT (Primary Dx) 3 12:45 PM EDT Radiology [facility] Xray [address] [place] [address] Left shoulder pain, unspecified chronicity 3 Orders Only [facility] Orthopedic Surgery [address] [place] [address] Jarad Jane MD 3 1:00 PM EDT Office Visit [facility] Orthopedic Surgery [address] [place] [address] Jarad Jane MD Complete tear of left rotator cuff, unspecified whether traumatic (Primary Dx); Strain of long head of left biceps 3 Orders Only [facility] Orthopedic Surgery [address] [address] Bertin Lima MD 3 10:00 AM EDT Minor Procedure/Test [facility] [address] [place] [address] Ai Richey, [employer] SENIOR SERGEANT Primary osteoarthritis of left hip PT (Primary Dx) 3 10:00 AM EDT Minor Procedure/Test [address] [address] Ai Richey, [employer] SENIOR SERGEANT Primary osteoarthritis of left hip PT (Primary Dx) 3 Orders Only [address] [address] Annia Morrison, PT 3 10:45 AM EDT Minor Procedure/Test [address] [address] Anina Morrison, PT Primary osteoarthritis of left hip PT (Primary Dx) 3 10:00 AM EDT Consult (Initial) [address] [address] Annia Morrison, PT Primary osteoarthritis of left hip PT (Primary Dx) 3 10:45 AM EDT Office Visit [facility] Otolaryngology [address] [place] [address] Laureano Tavarez MD Disorder of left mastoid (Primary Dx); Bilateral hearing loss, unspecified hearing loss type 3 10:00 AM EDT Minor Procedure/Test [facility] Audiology [address] [place] [address] Sergio Farley, AuD CCCA Mixed conductive and sensorineural hearing loss of both ears (Primary Dx) 3 Telephone [facility] Adult Medicine [address] [place] [phone] Riaz Seals MD VNA Communication 3 Telephone [facility] Orthopedic Surgery [address] [place] [phone] Bertin Lima MD Return Call 3 Professional Billing [facility] Orthopedic Surgery [address] [place] [phone] Bertin Lima MD Primary osteoarthritis of left hip 3 Minor Procedure/Test [facility] Bertin Lima MD 3 Orders Only [facility] Orthopedic Surgery [address] [place] [phone] Laureano Rocha PA Medications 3 Telephone [facility] Pre-Admission Testing [address] [address] Katiuska Berg NP Follow Up 3 Orders Only [facility] [address] 123 [facility] [address] [place] [address] Brandon Bates DO 3 Orders Only NON FC [facility] [address] [place] [address] Bertin Lima MD 3 Orders Only [facility] Pre-Admission Testing [address] [address] Katiuska Berg NP 3 Telephone [facility] Pre[facility]Admission Testing [address] [address] Katiuska Berg NP Follow Up 3 Telephone [facility] Pre-Admission Testing [address] [address] Katiuska Berg NP Follow Up 3 Orders Only [facility] Pre-Admission Testing [address] [address] Katiuska Berg NP Medications 3 3:20 PM EDT Office Visit [facility] Adult Medicine [address] [place] [phone] Riaz Seals MD Spinal stenosis in cervical region (Primary Dx); Complete tear of left rotator cuff, unspecified whether traumatic; Disorder of mastoid, unspecified laterality; Chronic right shoulder pain PT; Chronic seromucinous otitis media of right ear 3 Telephone [facility] Pre-Admission Testing [address] [address] Katiuska Berg NP Labs/orders 3 Orders Only [facility] Pre-Admission Testing [address] [phone] Katiuska Berg NP 3 Telephone [facility] Adult Medicine [address] [place] [phone] Riaz Seals MD Follow Up 3 Telephone [facility] [address] [facility] [address] [place] [address] Katiuska Berg NP EKG 3 Orders Only [facility] Pre-Admission Testing [address] [address] Katiuska Berg NP 3 11:00 AM EDT Office Visit [facility] Pre-Admission Testing [address] [address] Katiuska Berg NP Preoperative examination (Primary Dx); Primary osteoarthritis of left hip; Essential hypertension; Hyperlipidemia LDL goal <100; Gastroesophageal reflux disease without esophagitis; Chronic bilateral low back pain with sciatica, sciatica laterality unspecified; Myelomalacia; Cervical disc disorder with myelopathy of mid-cervical region; Disorder of mastoid, unspecified laterality; Chronic seromucinous otitis media of right ear 3 ER [facility] [address] [place] [address] [facility], Unknown Provider [address] [phone] Riaz Seals MD Ear Pain 3 9:45 AM EDT Office Visit [facility] 123 [facility] [address] [place] [address] Tanner Foley MD Right shoulder pain, unspecified chronicity (Primary Dx); Complete tear of right rotator cuff, unspecified whether traumatic; S/P rotator cuff repair 3 Orders Only [facility] Pre-Admission Testing [address] [address] Bertin Lima MD 3 Orders Only [facility] Pre-Admission Testing [address] [address] Bertin Lima MD 3 9:55 AM EST Radiology [facility] Xray 123 [facility] [address] [place] [address] Left hip pain 3 2:20 PM EST Office Visit [address] [address] Riaz Seals MD Chronic seromucinous otitis media of right ear (Primary Dx); Spinal stenosis in cervical region; Disorder of left mastoid; Hearing loss of left ear, unspecified hearing loss type; Myelomalacia [address] [address] Riaz Seals MD Ear Pain 3 10:00 AM EST Consult (Initial) [facility] Orthopedic Surgery [address] [facility] [address] [place] [address] Bertin Lima MD Primary osteoarthritis of left hip (Primary Dx) 3 Orders Only [facility] Orthopedic Surgery [address] [facility] [address] [place] [address] Bertin Lima MD [address] [address] Riaz Seals MD E-prescribing Refill Request [address] [address] Riaz Seals MD E-prescribing Refill Request 3 11:15 AM EST Minor Procedure/Test [address] [address] Annia Morrison, PT Chronic right shoulder pain PT (Primary Dx) 3 10:00 AM EST Minor Procedure/Test [address] [address] Sylvie Aguayo, [employer] S[employer]IOR SERGEANT Chronic right shoulder pain PT (Primary Dx) 3 10:15 AM EST Minor Procedure/Test [address] [address] Sylvie Aguayo, [employer] SENIOR SERGEANT Chronic right shoulder pain PT (Primary Dx) 3 11:45 AM EST Minor Procedure/Test [address] [address] Sylvie Aguayo, [employer] SENIOR SERGEANT Chronic right shoulder pain PT (Primary Dx) [address] [address] Riaz Seals MD Ear Problem 3 Orders Only [address] [address] Annia Morrison, PT 3 11:00 AM EST Office Visit [facility] Orthopedics [address] [address] Tanner Foley MD Right shoulder pain, unspecified chronicity (Primary Dx); Complete tear of right rotator cuff, unspecified whether traumatic; S/P rotator cuff repair 3 11:15 AM EST Consult (Initial) [address] [address] Annia Morrison, PT Chronic right shoulder pain PT (Primary Dx) 2 10:40 AM EST Office Visit [address] [address] Riaz Seals MD Chronic seromucinous otitis media of right ear (Primary Dx); Screening for colon cancer; Hyperlipidemia LDL goal <100; Primary osteoarthritis of left hip; Essential hypertension [address] [address] Riaz Seals MD Ear Pain 2 3:30 PM EST Consult (Initial) [facility] Orthopedics [address] [address] Tanner Foley MD Right shoulder pain, unspecified chronicity (Primary Dx); Complete tear of right rotator cuff, unspecified whether traumatic; S/P rotator cuff repair 2 2:45 PM EST Office Visit [facility] Orthopedic Surgery [address] [place] [address] Jarad Jane MD Rotator cuff strain, right, subsequent encounter (Primary Dx); Biceps strain, right, subsequent encounter; Complete tear of left rotator cuff, unspecified whether traumatic 2 10:30 AM EST Office Visit [facility] Otolaryngology [address] [facility] [address] [place] [address] Laureano Tavarez MD Chronic seromucinous otitis media, bilateral (Primary Dx); Allergic rhinitis due to pollen, unspecified seasonality 2 Telephone [facility] Otolaryngology [address] [facility] [address] [place] [address] Laureano Tavarez MD Appointment 2 10:40 AM EST Office Visit [address] [phone] Katie Kasper NP Recurrent acute suppurative otitis media of right ear without spontaneous rupture of tympanic membrane (Primary Dx) 2 9:15 AM EST Minor Procedure/Test [facility] Orthopedic Surgery [address] [place] [address] David Ji MD Primary osteoarthritis of left hip (Primary Dx) 2 Telephone [facility] Adult Medicine [address] [place] [phone] Riaz Seals MD Ear Pain 2 7:30 AM EST Radiology [facility]. Magnetic Resonance Imaging [address] [place] [address] Right shoulder pain, unspecified chronicity 2 2:00 PM EST Radiology [facility] Xray [address] [place] [address] Rotator cuff strain, right, subsequent encounter 2 2:00 PM EST Office Visit [facility] Orthopedic Surgery [address] [place] [address] Jarad Jane MD Rotator cuff strain, right, subsequent encounter (Primary Dx); Complete tear of left rotator cuff, unspecified whether traumatic; Strain of long head of left biceps; Right shoulder pain, unspecified chronicity [address] [address] Riaz Seals MD E-prescribing Refill Request [address] [address] Riaz Seals MD Ear Pain 2 11:45 AM EDT Minor Procedure/Test [address] [address] Annia Morrison, PT Strain of tendon of left rotator cuff, subsequent encounter (Primary Dx) 2 9:45 AM EDT Minor Procedure/Test [address] [address] Sylvie Aguayo, [employer] S[employer]IOR SERGEANT Strain of tendon of left rotator cuff, subsequent encounter (Primary Dx) 2 10:30 AM EDT Minor Procedure/Test [address] [address] Sylvie Aguayo, [employer] SENIOR SERGEANT Strain of tendon of left rotator cuff, subsequent encounter (Primary Dx) 2 10:30 AM EDT Minor Procedure/Test [address] [address] Annia Morrison, PT Strain of tendon of left rotator cuff, subsequent encounter (Primary Dx) 2 2:00 PM EDT Minor Procedure/Test [address] [address] Annia Morrison, PT Strain of tendon of left rotator cuff, subsequent encounter (Primary Dx) 2 10:45 AM EDT Office Visit [address] [address] Jero Cesar MD Right otitis media, unspecified otitis media type (Primary Dx) 2 Telephone [facility] Medicine [address] [place] [phone] Riaz Seals MD Ear Problem 2 9:30 AM EDT Minor Procedure/Test [address] [address] Sylvie Aguayo, [employer] S[employer]IOR SERGEANT Strain of tendon of left rotator cuff, subsequent encounter (Primary Dx) 2 9:45 AM EDT Minor Procedure/Test [address] [address] Sylvie Aguayo, [employer] SENIOR SERGEANT Strain of tendon of left rotator cuff, subsequent encounter (Primary Dx) 2 9:00 AM EDT Minor Procedure/Test [address] [address] Sylvie Aguayo, [employer] SENIOR SERGEANT Strain of tendon of left rotator cuff, subsequent encounter (Primary Dx) 2 11:15 AM EDT Minor Procedure/Test [address] [address] Annia Morrison, PT Strain of tendon of left rotator cuff, subsequent encounter (Primary Dx) 2 4:15 PM EDT Minor Procedure/Test [address] [address] Sylvie Aguayo, [employer] SENIOR SERGEANT Strain of tendon of left rotator cuff, subsequent encounter (Primary Dx) 2 8:45 AM EDT Minor Procedure/Test [address] [address] Sylvie Aguayo, [employer] SENIOR SERGEANT Strain of tendon of left rotator cuff, subsequent encounter (Primary Dx) 2 11:15 AM EDT Minor Procedure/Test [address] [address] Annia Morrison, PT Strain of tendon of left rotator cuff, subsequent encounter (Primary Dx) 2 12:45 PM EDT Minor Procedure/Test [address] [address] Sylvie Aguayo, [employer] SENIOR SERGEANT Strain of tendon of left rotator cuff, subsequent encounter (Primary Dx) 2 1:45 PM EDT Office Visit [facility] Orthopedic Surgery [address] [place] [address] Jarad Jane MD Complete tear of left rotator cuff, unspecified whether traumatic (Primary Dx); Strain of long head of left biceps 2 9:30 AM EDT Minor Procedure/Test [address] [address] Sylvie Aguayo, [employer] SENIOR SERGEANT Strain of tendon of left rotator cuff, subsequent encounter (Primary Dx) 2 10:15 AM EDT Minor Procedure/Test [address] [address] Sylvie Aguayo, [employer] Strain of tendon of left rotator cuff, subsequent encounter (Primary Dx) 2 3:30 PM EDT Minor Procedure/Test [address] [address] Sylvie Aguayo, [employer] Strain of tendon of left rotator cuff, subsequent encounter (Primary Dx) 2 Refill [facility] Adult Medicine [address] [place] [phone] Katie Kasper NP E-prescribing Refill Request 2 10:45 AM EDT Minor Procedure/Test [address] [address] Annia Morrison, PT Strain of tendon of left rotator cuff, subsequent encounter (Primary Dx) 2 10:30 AM EDT Minor Procedure/Test [address] [address] Sylvie Aguayo, [employer] Strain of tendon of left rotator cuff, subsequent encounter (Primary Dx) 2 10:30 AM EDT Minor Procedure/Test [address] [address] Sylvie Aguayo, [employer] Strain of tendon of left rotator cuff, subsequent encounter (Primary Dx) 2 10:30 AM EDT Minor Procedure/Test [address] [address] Sylvie Aguayo, [employer] Strain of tendon of left rotator cuff, subsequent encounter (Primary Dx) 2 11:15 AM EDT Minor Procedure/Test [address] [address] Sylvie Aguayo, [employer] Strain of tendon of left rotator cuff, subsequent encounter (Primary Dx) 2 Refill [facility] Adult Medicine [address] [place] [phone] Riaz Seals MD E-prescribing Refill Request 2 10:30 AM EDT Minor Procedure/Test [address] [address] Sylvie Aguayo, [employer] Strain of tendon of left rotator cuff, subsequent encounter (Primary Dx) 2 10:30 AM EDT Minor Procedure/Test [address] [address] Annia Morrison, PT Strain of tendon of left rotator cuff, subsequent encounter (Primary Dx) 2 1:30 PM EDT Office Visit [facility] Orthopedic Surgery [address] [place] [address] Jarad Jane MD Complete tear of left rotator cuff, unspecified whether traumatic (Primary Dx); Strain of long head of left biceps 2 10:30 AM EDT Minor Procedure/Test [address] [address] Sylvie Aguayo, [employer] Strain of tendon of left rotator cuff, subsequent encounter (Primary Dx) 2 10:30 AM EDT Minor Procedure/Test [address] [address] Aguayo, Sylvie, [employer] Strain of tendon of left rotator cuff, subsequent encounter (Primary Dx) 2 10:30 AM EDT Minor Procedure/Test [address] [address] Annia Morrison, PT Strain of tendon of left rotator cuff, subsequent encounter (Primary Dx) 2 10:30 AM EDT Minor Procedure/Test [address] [address] Sylvie Aguayo, [employer] Strain of tendon of left rotator cuff, subsequent encounter (Primary Dx) 2 10:30 AM EDT Minor Procedure/Test [address] [address] Sylvie Aguayo, [employer] Strain of tendon of left rotator cuff, subsequent encounter (Primary Dx) 2 10:15 AM EDT Office Visit [facility] Visual Services [address] [place] [phone] Rina Beaver, OD Encounter for examination of eyes and vision with abnormal findings (Primary Dx); Presbyopia of both eyes; Regular astigmatism, bilateral; Hyperopia of both eyes 2 Orders Only [address] [address] Annia Morrison, PT 2 10:30 AM EDT Minor Procedure/Test [address] [address] Annia Morrison, PT Strain of tendon of left rotator cuff, subsequent encounter (Primary Dx) 2 10:30 AM EDT Consult (Initial) [address] [address] Annia Morrison, PT Strain of tendon of left rotator cuff, subsequent encounter (Primary Dx) 2 1:30 PM EDT Office Visit [facility] Orthopedic Surgery [address] [place] [address] Jarad Jane MD Complete tear of left rotator cuff, unspecified whether traumatic (Primary Dx); Strain of long head of left biceps 2 Refill [facility] Adult Medicine [address] [place] [phone] Riaz Seals MD E-prescribing Refill Request 2 Professional Billing [facility] Orthopedic Surgery [address] [facility] [address] [place] [address] Jarad Jane MD Complete tear of left rotator cuff, unspecified whether traumatic; Strain of long head of left biceps 2 Minor Procedure/Test [facility] Jarad Jane MD 2 Orders Only [facility] Orthopedic Surgery [address] [facility] [address] [place] [address] Jacobo Velazquez PA Medications 2 Orders Only [facility] [address] [facility] [address] [place] [address] Brandon Bates DO 2 Orders Only [facility] Adult Medicine [address] [place] [address] Riaz Seals MD 2 Telephone [facility] [address] [facility] [address] [place] [address] Deyanira Mccray PA EKG 2 Orders Only [facility] Pre-Admission Testing [address] [address] Deyanira Mccray PA 2 9:20 AM EDT Office Visit [facility] Pre-Admission Testing [address] [address] Deyanira Mccray PA Preoperative examination (Primary Dx); Screening for endocrine disorder; Chronic right shoulder pain; Complete tear of left rotator cuff, unspecified whether traumatic; Essential hypertension; Hyperlipidemia LDL goal <100; History of colon polyps; Gastroesophageal reflux disease without esophagitis; Chronic bilateral low back pain with sciatica, sciatica laterality unspecified; Spinal stenosis in cervical region; Disorder of left mastoid; Primary osteoarthritis of left hip; Chronic seromucinous otitis media of right ear; Hearing loss of left ear, unspecified hearing loss type 2 Telephone [facility] Pre-Admission Testing 123 [facility] [address] [place] [address] Tayler Sherwood NP Pre Op Exam 2 Refill [facility] Medicine [address] [place] [phone] Riaz Seals MD E-prescribing Refill Request [address] [phone] Riaz Seals MD Tick bite 2 8:45 AM EDT Consult (Initial) [facility] Orthopedic Surgery [address] [place] [address] Marcello Costa MD Primary osteoarthritis of left hip (Primary Dx); Lumbar spondylosis 2 Orders Only [address] [phone] Riaz Seals MD 2 11:00 AM EDT Office Visit [address] [phone] Riaz Seals MD Right ear pain (Primary Dx); Myelomalacia; Hypertension, unspecified type 2 9:45 AM EDT Office Visit [facility] Orthopedic Surgery [address] [place] [address] David Ji MD Primary osteoarthritis of left hip (Primary Dx) 2 Orders Only [facility] Orthopedic Surgery [address] [facility] [address] [place] [address] Jarad Jane MD [address] [phone] Riaz Seals MD E-prescribing Refill Request [address] [address] Riaz Seals MD E-prescribing Refill Request 2 12:15 PM EST Minor Procedure/Test [address] [address] Annia Morrison, PT Chronic pain of left knee PT (Primary Dx) 2 11:45 AM EST Minor Procedure/Test [address] [address] Annia Morrison, PT Chronic pain of left knee PT (Primary Dx) 2 Orders Only [facility] Orthopedic Surgery [address] [address] Jarad Jane MD 2 Orders Only [facility] Orthopedic Surgery [address] [address] Jarad Jane MD 2 3:00 PM EST Office Visit [facility] Orthopedic Surgery [address] [place] [address] Jarad Jane MD Rotator cuff strain, left, subsequent encounter (Primary Dx); Rotator cuff strain, right, subsequent encounter 2 10:30 AM EST Minor Procedure/Test [address] [address] Sylvie Aguayo, [employer] Chronic pain of left knee PT (Primary Dx) 2 11:45 AM EST Radiology [facility]. Magnetic Resonance Imaging [address] [place] [address] Rotator cuff strain, left, initial encounter; Left shoulder pain, unspecified chronicity 2 12:30 PM EST Minor Procedure/Test [address] [address] Sylvie Aguayo, [employer] Chronic pain of left knee PT (Primary Dx) 2 Orders Only [address] [address] Annia Morrison, PT [address] [phone] Mumta[facility] Walker [employer] [facility] 2 2:15 PM EST Consult (Initial) [address] [address] Annia Morrison, PT Chronic pain of left knee PT (Primary Dx) 1 2:15 PM EST Radiology [facility] Xray [address] [place] [address] Left shoulder pain, unspecified chronicity [address] [phone] Riaz Seals MD Labs/orders (Physical therapy for left knee); Knee Pain 1 2:30 PM EST Consult (Initial) [facility] Orthopedic Surgery [address] [place] [address] Jarad Jane MD Rotator cuff strain, left, initial encounter (Primary Dx); Rotator cuff strain, right, initial encounter; Left shoulder pain, unspecified chronicity 1 11:15 AM EST Minor Procedure/Test [address] [phone] Annia Morrison, PT Left hip pain (Primary Dx) 1 Orders Only [facility] Orthopedic Surgery [address] [place] [address] Jarad Jane MD 1 10:00 AM EST Minor Procedure/Test [address] [phone] Richey, Ai, [employer] Left hip pain (Primary Dx) 1 9:15 AM EST Radiology [facility] Xray [address] [place] [address] 1 8:40 AM EST Office Visit [address] [address] Riaz Seals MD Acute pain of left knee (Primary Dx); Need for vaccination 1 2:45 PM EST Minor Procedure/Test [facility] Orthopedic Surgery [address] [place] [address] David Ji MD Primary osteoarthritis of left hip (Primary Dx) 1 3:45 PM EST Consult (Initial) [facility] Orthopedic Surgery [address] [place] [address] Derek Duncan PA Arthritis of left hip (Primary Dx) 1 10:45 AM EST Radiology [facility] Xray [address] [place] [address] Left hip pain 1 10:15 AM EST Minor Procedure/Test [facility] Rehabilitation [address] [place] [phone] Richey, Ai, [employer] Left hip pain (Primary Dx) 1 Orders Only [facility] Orthopedic Surgery [address] [place] [address] [place] [phone] Marcello Costa MD 1 Orders Only [facility] Adult Medicine [address] [place] [phone] Riaz Seals MD 1 9:30 AM EST Minor Procedure/Test [facility] Rehabilitation [address] [place] [phone] Annia Morrison, PT Left hip pain (Primary Dx) 1 10:30 AM EST Minor Procedure/Test [facility] Rehabilitation [address] [place] [phone] Richey, Ai, [employer] Left hip pain (Primary Dx) 1 10:15 AM EST Minor Procedure/Test [facility] Rehabilitation [address] [place] [phone] RicheyAna MariaAi, [employer] Left hip pain (Primary Dx) 1 10:00 AM EST Minor Procedure/Test [address] [address] Annia Morrison, PT Left hip pain (Primary Dx) 1 8:45 AM EST Consult (Initial) [address] [address] Annia Morrison, PT Left hip pain PT (Primary Dx) 1 8:20 AM EDT Office Visit [address] [address] Riaz Seals MD Hyperlipidemia LDL goal <100 (Primary Dx); Neck pain; Essential hypertension; Chronic bilateral low back pain with sciatica, sciatica laterality unspecified; Disorder of left mastoid; Cervical disc disorder with myelopathy of mid-cervical region 1 Minor Procedure/Test NON FC SA NON FC UNK Provider, Unknown 1 3:00 PM EDT Office Visit [address] [address] Manuel Newton NP OM (otitis media), recurrent, right (Primary Dx) 1 Surgery/Major Procedure NEUROSURGERY UNSPEC Wisam Couch MD 1 Orders Only [address] [address] Riaz Seals MD 1 Minor Procedure/Test [address] [address] [facility], Unknown Provider [address] [address] Riaz Seals MD Labs/orders [address] [address] Riaz Seals MD E-prescribing Refill Request 1 11:00 AM EDT Office Visit [address] [address] Yvon Tolentino, MARQUES Muscle spasm (Primary Dx); Essential hypertension 1 Erroneous Encounter [address] [address] Riaz Seals MD 1 Surgery/Major Procedure NEPHRO UNSPECIFIED Wisam Couch MD [address] [address] Riaz Seals MD Tick bite 1 Minor Procedure/Test [facility] [address] [place] [address] [facility], Unknown Provider [address] [address] Riaz Seals MD Labs/orders 1 Travel 1 9:20 AM EDT Office Visit [address] [address] Riaz Seals MD Spinal stenosis in cervical region (Primary Dx); Hearing loss of left ear, unspecified hearing loss type; Disorder of left mastoid; Hyperlipidemia LDL goal <100; Neck pain; Essential hypertension; Vaccine refused by parent 1 Telephone CALL [address] [address] Raul Reynolds MD Return Call 1 Telephone CALL [address] [address] Raul Reynolds MD Letter/form Request ; Return Call 1 Consult (Initial) NEUROLOGY UNSPECIFIED Wisam Couch MD [address] [address] Riaz Seals MD Knee Pain [address] [address] Riaz Seals MD Referral Request 1 Consult (Initial) NEUROSURGERY UNSPEC Wisam Couch MD 1 Travel 1 9:15 AM EDT Consult (Initial) [facility] Orthopedic Surgery [address] [facility] [address] [place] [address] Raul Reynolds MD Traumatic complete tear of left rotator cuff, subsequent encounter (Primary Dx) [address] [address] Riaz Seals MD E-prescribing Refill Request [address] [address] Riaz Seals MD E-prescribing Refill Request 1 Travel 1 Orders Only [address] [address] Riaz Seals MD 1 11:00 AM EST Office Visit [address] [address] Riaz Seals MD Chronic seromucinous otitis media of right ear (Primary Dx); Essential hypertension; Myelomalacia; Hyperlipidemia LDL goal <[address] [address] Riaz Seals MD Ear Pain 1 Minor Procedure/Test [place] [address], Unknown Provider 1 Consult (Initial) [address], Unknown Provider 1 Minor Procedure/[place] [address] Sergio Grullon MD [facility], Unknown Provider [address] [address] Riaz Seals MD E-prescribing Refill Request 0 Travel 0 12:10 PM EST Office Visit [address] [address] Riaz Seals MD Bursitis of right knee, unspecified bursa (Primary Dx); Elevated blood-pressure reading without diagnosis of hypertension; Hyperlipidemia LDL goal <100; Disorder of left mastoid 0 12:00 PM EST Radiology [facility] Xray 123 [facility] [address] [place] [address] Cervical myelopathy; Myelomalacia; Chronic neck pain 0 Travel 0 11:20 AM EST Office Visit [facility] Orthopedic Surgery [address] [facility] [address] [place] [address] Eron Flynn MD Cervical myelopathy (Primary Dx); Myelomalacia; Foraminal stenosis of cervical region; Neck pain; Chronic neck pain; Chronic midline low back pain with bilateral sciatica; Lumbosacral stenosis with neurogenic claudication (HCC); Facet arthritis of lumbar region; Foraminal stenosis of lumbar region [address] [phone] Riaz Seals MD Appointment [address] [address] Riaz Seals MD Bruising 0 9:10 AM EST Office Visit [address] [address] Riaz Seals MD Bruising (Primary Dx) 0 Travel [address] [address] Riaz Seals MD Hospital F/U ; Appointment 0 ER [facility] [address] [place] [address] Lena Botello. [facility], Unknown Provider 0 Orders Only [facility] [address] [place] [address] Lena Botello 0 Travel 0 5:45 PM EST Radiology [facility]. Magnetic Resonance Imaging [address] [place] [address] Chronic midline low back pain with bilateral sciatica 0 5:00 PM EST Radiology [facility]. Magnetic Resonance Imaging [address] [place] [address] Chronic neck pain 0 Travel 0 3:15 PM EST Radiology [facility] Xray [address] [place] [address] Neck pain; Chronic midline low back pain with bilateral sciatica 0 Travel 0 1:40 PM EST Office Visit [address] [address] Riaz Seals MD Otalgia, unspecified laterality (Primary Dx); Need for immunization against influenza; Hyperlipidemia LDL goal <130 [address] [phone] Riaz Seals MD Ear Pain 0 3:00 PM EST Office Visit [facility] Orthopedic Surgery [address] [place] [address] Eron Flynn MD Neck pain (Primary Dx); Chronic neck pain; Chronic midline low back pain with bilateral sciatica; Myelomalacia; Foraminal stenosis of cervical region; Kyphosis, unspecified kyphosis type, unspecified spinal region; Foraminal stenosis of lumbar region; Hyperreflexia; Low back pain of over 3 months duration; Stenosis of lateral recess of lumbar spine; Lumbosacral stenosis with neurogenic claudication (HCC) [address] [phone] Riaz Seals MD E-prescribing Refill Request [address] [phone] Riaz Seals MD E-prescribing Refill Request [address] [phone] Riaz Seals MD E-prescribing Refill Request [address] [address] Riaz Seals MD E-prescribing Refill Request 0 9:15 AM EDT Office Visit [address] [address] Nava Akbar MD Otalgia, right ear (Primary Dx); Eustachian tube dysfunction, right; Elevated BP without diagnosis of hypertension [address] [address] Riaz Seals MD Ear Ache 0 9:30 AM EDT Office Visit [address] [address] Riaz Seals MD Chronic seromucinous otitis media of right ear [address] [address] Jasvir Turner MD E-prescribing Refill Request [address] [address] Yvon Tolentino NP E-prescribing Refill Request; Refill Request 0 Telephone [facility] Otolaryngology [address] [place] [address] [place] [address] Laureano Tavarez MD FYI [address] [address] Jasvir Turner MD E-prescribing Refill Request [address] [phone] Jasvir Turner MD E-prescribing Refill Request 0 12:45 PM EDT Office Visit [address] [place] [phone] Susi Barrett PA Non-recurrent acute suppurative otitis media of right ear without spontaneous rupture of tympanic membrane (Primary Dx) 0 Travel 0 Telephone [facility] Urgent Care [address] [place] [phone] Neri Fonseca MD Ear Pain 0 2:30 PM EDT Office Visit [address] [phone] Jero Cesar MD Right otitis media, unspecified otitis media type 0 Travel [address] [phone] Neri Fonseca MD Ear Pain [address] [phone] Riaz Seals MD E-prescribing Refill Request 0 11:00 AM EST Office Visit [facility] Family Practice [address] [place] [address] Yvon Tolentino NP Right otitis media, unspecified otitis media type (Primary Dx); Cough 0 4:30 PM EST Office Visit [facility] Otolaryngology [address] [place] [address] [place] [phone] Laureano Tavarez MD Chronic seromucinous otitis media, bilateral 0 2:00 PM EST Office Visit [address] [phone] Maxim Casas MD Acute right otitis media (Primary Dx) [address] [phone] Neri Fonseca MD Ear Pain; Follow Up 0 Orders Only [facility] Orthopedic Surgery [address] [place] [address] Raul Reynolds MD 0 2:00 PM EST Office Visit [facility] Urgent Care [address] [place] [phone] Ana Morin NP Non-recurrent acute suppurative otitis media of right ear without spontaneous rupture of tympanic membrane (Primary Dx) [address] [phone] Riaz Seals MD Ear Pain 0 2:15 PM EST Office Visit [facility] [address] [facility] [address] [place] [phone] Graciela Chen NP Chronic mucoid otitis media of right ear (Primary Dx) 9 2:30 PM EST Consult (Initial) [facility] Orthopedic Surgery [address] [place] [address] Raul Reynolds MD Traumatic complete tear of left rotator cuff, initial encounter (Primary Dx) 9 Consult (Initial) OTOLARYNG UNSPECIFIED Ganga Mondragon MD [address] [phone] Riaz Seals MD E-prescribing Refill Request 9 10:30 AM EST Office Visit [address] [phone] Riaz Seals MD Primary osteoarthritis of left hip (Primary Dx); Need for vaccination; Back pain, unspecified back location, unspecified back pain laterality, unspecified chronicity; Neck pain; Essential hypertension [address] [phone] Claudia Armando MD MPH Results ; Appointment 9 Orders Only [facility] [address] [place] [phone] Carla Mcginnis DO 9 Orders Only [facility] Urgent Care [address] [place] [phone] Claudia Armando MD MPH 9 6:45 PM EST Office Visit [facility] Urgent Care [address] [place] [phone] Claudia Armando MD MPH Bronchitis (Primary Dx); Uncontrolled hypertension; Right otitis media, unspecified otitis media type 9 Telephone [place] [phone] Riaz Seals MD Cough 9 3:15 PM EST Minor Procedure/Test [facility] Orthopedic Surgery [address] [place] [address] David Ji MD Chronic left hip pain (Primary Dx) 9 Telephone [facility] Orthopedic Surgery [address] [place] [address] Chidi Kaufman DO Results 9 10:15 AM EDT Radiology [facility] Magnetic Resonance Imaging [address] [place] [address] Left shoulder pain, unspecified chronicity 9 1:10 PM EDT Office Visit [facility] Orthopedic Surgery [address] [place] [address] Eron Flynn MD Pain of left hip joint (Primary Dx); Lumbar back pain with radiculopathy affecting left lower extremity; Spondylolisthesis of lumbar region; Left shoulder pain, unspecified chronicity; Hyperreflexia; Myelomalacia; Foraminal stenosis of cervical region; Kyphosis, unspecified kyphosis type, unspecified spinal region; Foraminal stenosis of lumbar region 9 Orders Only [facility] Orthopedic Surgery [address] [place] [address] Chidi Kaufman DO 9 8:30 AM EDT Consult (Initial) [facility] Orthopedic Surgery [address] [place] [address] Chidi Kaufman DO Left shoulder pain, unspecified chronicity (Primary Dx); Traumatic tear of left rotator cuff, unspecified tear extent, initial encounter 9 Telephone [facility] [address] [phone] Riaz Seals MD Labs/orders 9 Orders Only [address] [address] Riaz Seals MD 9 3:40 PM EDT CPE - Comprehensive Physical Exam [address] [phone] Riaz Seals MD Need for vaccination (Primary Dx); Routine history and physical examination of adult; Screening for prostate cancer; Primary osteoarthritis of left hip; Chronic bilateral low back pain with sciatica, sciatica laterality unspecified; Spinal stenosis in cervical region; Essential hypertension; Back pain, unspecified back location, unspecified back pain laterality, unspecified chronicity; Neck pain; Complete tear of left rotator cuff, unspecified whether traumatic; Myelomalacia [address] [phone] Riaz Seals MD E-prescribing Refill Request [address] [address] Riaz Seals MD Refill Request 9 10:15 AM EDT Office Visit [facility] Otolaryngology [address] [place] [address] Laureano Tavarez MD Chronic seromucinous otitis media, bilateral (Primary Dx) 9 12:45 PM EDT Office Visit [address] [address] Blanca Cuellar PA Acute right otitis media (Primary Dx); Acute swimmer's ear of right side 9 11:15 AM EDT Office Visit [address] [address] Quin Daniels PA Right acute otitis media (Primary Dx); Acute swimmer's ear of right side [address] [address] Riaz Seals MD Ear Problem 9 2:30 PM EDT Minor Procedure/Test [facility] Orthopedic Surgery [address] [place] [address] David Ji MD Lumbar back pain with radiculopathy affecting left lower extremity (Primary Dx) [address] [phone] Riaz Seals MD Referrals [address] [phone] Riaz Seals MD BP Monitoring 9 10:30 AM EDT Office Visit [address] [address] Riaz Seals MD Chronic seromucinous otitis media of right ear (Primary Dx); Back pain, unspecified back location, unspecified back pain laterality, unspecified chronicity; Neck pain; Otitis externa, unspecified chronicity, unspecified laterality, unspecified type; Essential hypertension 9 11:15 AM EDT Office Visit [address] [place] [address] Vicky Kiser PA Acute swimmer's ear of right side (Primary Dx) [address] [address] Riaz Seals MD Ear Problem [address] [address] Riaz Seals MD E-prescribing Refill Request; Appointment 9 2:00 PM EDT Office Visit [facility] Orthopedic Surgery [address] [place] [address] Eron Flynn MD Cervical spinal stenosis (Primary Dx); Hyperreflexia; Myelomalacia; Foraminal stenosis of cervical region; Kyphosis, unspecified kyphosis type, unspecified spinal region 9 Letter/Form [address] [address] Riaz Seals MD [address] [address] Riaz Seals MD E-prescribing Refill Request; Appointment [address] [phone] Riaz Seals MD Tick bite 9 10:30 AM EDT Office Visit [facility] Otolaryngology [address] [place] [address] [place] [phone] Laureano Tavarez MD Chronic seromucinous otitis media of right ear (Primary Dx) 9 1:30 PM EDT Minor Procedure/Test [facility] Orthopedic Surgery [address] [place] [address] David Ji MD Lumbar back pain with radiculopathy affecting left lower extremity (Primary Dx) [address] [address] Riaz Seals MD E-prescribing Refill Request [address] [address] Riaz Seals MD Refill Request 9 8:00 AM EDT Office Visit [address] [phone] Adalgisa Lemus NP Right acute otitis media (Primary Dx) [address] [phone] Riaz Seals MD Ear Pain 9 2:30 PM EST Office Visit [address] [address] Riaz Seals MD Essential hypertension (Primary Dx); Back pain, unspecified back location, unspecified back pain laterality, unspecified chronicity; Neck pain; Chronic bilateral low back pain with sciatica, sciatica laterality unspecified; Chronic seromucinous otitis media of right ear; Disorder of left mastoid [address] [address] Riaz Seals MD Letter/form Request (social security forms sent to medical records for completion) 9 9:00 AM EST Office Visit [address] [address] Romy Lai NP Right otitis media, unspecified otitis media type (Primary Dx); Hypertension, unspecified type 9 3:30 PM EST Office Visit [facility] Otolaryngology [address] [place] [phone] Laureano Tavarez MD Chronic seromucinous otitis media of right ear (Primary Dx) 9 3:00 PM EST Office Visit [address] [phone] Romy Lai NP Chronic ear infection, right (Primary Dx); Back pain, unspecified back location, unspecified back pain laterality, unspecified chronicity; Neck pain 9 Telephone [facility] Orthopedic Surgery [address] [place] [address] David Ji MD Prior Authorization Request 9 2:00 PM EST Minor Procedure/Test [facility] Orthopedic Surgery [address] [place] [address] David Ji MD Lumbar back pain with radiculopathy affecting left lower extremity (Primary Dx) 9 10:00 AM EST Office Visit [facility] Otolaryngology [address] [place] [address] Laureano Tavarez MD Disorder of left mastoid (Primary Dx); Chronic seromucinous otitis media of right ear; Hearing loss of right ear, unspecified hearing loss type 8 Consult (Initial) OTOLARYNG UNSPECIFIED Ganga Mondragon MD [address] [phone] Riaz Seals MD E-prescribing Refill Request [address] [phone] Riaz Seals MD E-prescribing Refill Request 8 7:15 AM EDT Radiology [facility]. [facility] [address] [place] [address] Hyperreflexia; Myelomalacia; Cervical spinal stenosis; Spondylolisthesis of lumbar region; Stenosis of lateral recess of lumbar spine; Facet arthritis of lumbar region (HCC); Lumbar disc herniation 8 2:20 PM EDT Office Visit [facility] Orthopedic Surgery [address] [place] [address] [place] [phone] Eron Flynn MD Hyperreflexia (Primary Dx); Myelomalacia; Cervical spinal stenosis; Spondylolisthesis of lumbar region; Foraminal stenosis of lumbar region; Lumbar back pain with radiculopathy affecting left lower extremity; Facet arthritis of lumbar region (HCC) 8 4:15 PM EDT Nurse Visit [address] [phone] Blanca Reeves RN Need for vaccination (Primary Dx) 8 11:45 AM EDT Office Visit [address] [phone] Riaz Seals MD Back pain, unspecified back location, unspecified back pain laterality, unspecified chronicity (Primary Dx); Chronic right shoulder pain; Neck pain 8 2:45 PM EDT Minor Procedure/Test [facility] Orthopedic Surgery [address] [place] [address] David Ji MD Lumbar back pain with radiculopathy affecting left lower extremity (Primary Dx) 8 3:45 PM EDT Radiology [facility] Xray [address] [place] [address] Hyperreflexia; Myelomalacia; Cervical spinal stenosis; Spondylolisthesis of lumbar region; Stenosis of lateral recess of lumbar spine; Facet arthritis of lumbar region (HCC); Lumbar disc herniation 8 2:30 PM EDT Office Visit [facility] Orthopedic Surgery [address] [address] Eron Flynn MD Hyperreflexia (Primary Dx); Myelomalacia; Cervical spinal stenosis; Spondylolisthesis of lumbar region; Stenosis of lateral recess of lumbar spine; Facet arthritis of lumbar region (HCC); Lumbar disc herniation 8 2:00 PM EDT Minor Procedure/Test [facility] Orthopedic Surgery [address] [place] [address] David Ji MD Primary osteoarthritis of left hip (Primary Dx) 8 12:00 PM EDT Office Visit [facility] Otolaryngology [address] [place] [address] Laureano Tavarez MD Chronic seromucinous otitis media, right (Primary Dx) 8 Telephone [facility] Otolaryngology [address] [address] Laureano Tavarez MD Patient Questions 8 10:45 AM EDT Office Visit [facility] Adult Medicine [address] [place] [phone] Riaz Seals MD Foreign body in forearm, right, initial encounter (Primary Dx); Other recurrent acute nonsuppurative otitis media of right ear 8 Telephone [facility] Otolaryngology [address] [address] Laureano Tavarez MD Patient Questions 8 4:15 PM EDT Office Visit [facility] Medicine [address] [place] [phone] Riaz Seals MD OM (otitis media), recurrent, right (Primary Dx); Chronic right shoulder pain; Back pain, unspecified back location, unspecified back pain laterality, unspecified chronicity; Neck pain [address] [phone] Raiz Seals MD Ear Problem [address] [phone] Riaz Seals MD E-prescribing Refill Request 8 Telephone [facility] Orthopedic Surgery [address] [facility] [address] [place] [address] David Ji MD Appointment 8 3:20 PM EDT Office Visit [facility] Orthopedic Surgery [address] [facility] [address] [place] [address] Eron Flynn MD Stenosis of lateral recess of lumbar spine (Primary Dx); Facet arthritis of lumbar region (HCC); Spondylolisthesis of lumbar region; Foraminal stenosis of lumbar region; Lumbar back pain with radiculopathy affecting left lower extremity 8 2:30 PM EDT Office Visit [facility] Otolaryngology [address] [facility] [address] [place] [address] Laureano Tavarez MD Chronic seromucinous otitis media of right ear (Primary Dx) 8 Telephone [facility] Otolaryngology [address] [facility] [address] [place] [address] Laureano Tavarez MD Patient Questions 8 Surgery/Major Procedure OTOLARYNG UNSPECIFIED Laureano Tavarez MD 8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 right and ncgl-ib-cyedqgbo left foraminal stenosis. L5-S1: Facet hypertrophy. Disc [...] CONTRAST: MR lumbar spine without gadolinium Comparison: MR/OT/MO - LUMBAR SPINE WO CONTRAST MRI - 02/10/20 17:18 EST Findings: Lumbar alignment is normal. Vertebral heights are maintained. Marrow signal is normal. Spinal cord signal intensity is uniform. L1-L2: There is disc desiccation with nominal bulging. No significantstenosis. L2-L3: There is disc desiccation with disc height loss and flattening ofthe ventral margin of the thecal sac. There is facet hypertrophy. There mdiaaxsexw-iu-kujwqe spinal canal stenosis with snkq-vz-vjmzvovz left andmild right foraminal stenosis. L3-L4: Facet hypertrophy. There is some deficiency of the left lamina,question prior laminotomy. There is disc desiccation with disc bulgingdeforming the ventral thecal sac with ecmfmvfg-sn-vllogh spinal canalnarrowing. There is a superimposed left subarticular disc extrusion which extends superiorly from the disc alongthe posterior margin of L3. This contributes to thecal sac effacement andmass effect upon the descending left L3. Severe left foraminal stenosis.Mild right foraminal stenosis. L4-L5: Facet hypertrophy. Disc desiccation with disc bulging eccentric tothe right. Moderate to severe spinal canal stenosis. Severe right yjyzuus-uy-pecuahgi left foraminal stenosis. L5-S1: Facet hypertrophy. Disc [...] IMG MR NO CONTRAST ORDERABLES Final Result * XRAY SPINE, LUMBOSACRAL; 2 OR 3 VIEWS (05/07/2024 8:53 AM EST) Anatomical Region Laterality Modality Spine Computed Radiogr aphy Narrative 05/07/2024 12:17 PM EST Patient History: CONTRAST: 2 ??views lumbar spine Comparison: ??MR/OT/MO - LUMBAR SPINE WO CONTRAST MRI - 02/10/20 17:18 EST CR/MO - LS SPINE COMPL W/BEND - 01/22/20 15:41 EST ?? Findings: Normal alignment. No acute fractures or dislocation. There is multilevel disc degeneration with disc space narrowing and endplate osteophytosis appearing most advanced at L4-L5 and L2-L3. There is multilevel facet hypertrophy greater in the lower lumbar spine. No destructive appearing bone lesion. IMPRESSION: 1. Multilevel degenerative disc disease and facet arthropathy, most pronounced at L4-L5 and L2-L3. 2. No acute osseous injury. Procedure Note David Castelan MD - 05/07/2024 Patient History: CONTRAST: 2 views lumbar spine Comparison: MR/OT/MO - LUMBAR SPINE WO CONTRAST MRI - 02/10/20 17:18 EST CR/MO - LS SPINE COMPL W/BEND - 01/22/20 15:41 EST Findings: Normal alignment. No acute fractures or dislocation. There is multilevel disc degeneration with disc space narrowing andendplate osteophytosis appearing most advanced at L4-L5 and L2-L3. Thereis multilevel facet hypertrophy greater in the lower lumbar spine. No destructive appearing bone lesion. IMPRESSION: 1. Multilevel degenerative disc disease and facet arthropathy, mostpronounced at L4-L5 and L2-L3. 2. No acute osseous injury. Bertin Lima MD IMG XRAY NO CONTRAST ORDERABL ES Final Result * C-REACTIVE PROTEIN (CRP) - INFLAMMATION (04/06/2024 8:59 AM EST) C reactive protein 4.8 <8.0 mg/L [facility] 04/06/2024 8:59 AM EST 04/06/2024 3:45 PM EST Narrative Resulting Agency Comment [id number] Bertin Lima MD LABORATORY Final Result Performing Organization Address [facility] Co de Phone Number [facility] [address] [place] [address] * (ABNORMAL) ERYTHROCYTE SEDIMENTATION RATE (ESR) (04/06/2024 8:59 AM EST) Sedimentation Rate [place] (ESR) 33(H) < OR = 20 mm/h [facility] 04/06/2024 8:59 AM EST 04/06/2024 3:45 PM EST Narrative Resulting Agency Comment [id number] Bertin Lima MD LAB SAME DAY RESULT Final Res ult Performing Organization Address [facility] Co de Phone Number [facility] [address] [place] [address] * XRAY HIP, UNILAT; COMPLETE, 2 OR 3 VIEWS - LEFT (04/02/2024 1:28 PM EST) Anatomical Region Laterality Modality LOWER EXTREMITY Computed Radiogr aphy Narrative 04/06/2024 12:53 PM EST Patient History: pain CONTRAST: 3 ??view, pelvis and left hip Comparison: ??CR - XRAY HIP, UNILAT; COMPLETE, 2+ VIEWS - RIGHT (DX: HIP PAIN *NO INJURY*) - 02/13/24 14:40 EST ?? Findings: The bones are intact. There is a left hip prosthesis which demonstrates normal alignment. There is no indication of prosthesis loosening. No destructive osseous lesion. Moderate degenerative changes of the right hip noted. IMPRESSION: No acute findings. Unremarkable left hip prosthesis. Procedure Note David Castelan MD - 04/06/2024 Patient History: pain CONTRAST: 3 view, pelvis and left hip Comparison: CR - XRAY HIP, UNILAT; COMPLETE, 2+ VIEWS - RIGHT (DX: HIPPAIN *NO INJURY*) - 02/13/24 14:40 EST Findings: The bones are intact. There is a left hip prosthesis which demonstrates normal alignment. Thereis no indication of prosthesis loosening. No destructive osseous lesion.Moderate degenerative changes of the right hip noted. IMPRESSION: No acute findings. Unremarkable left hip prosthesis. Jarad Jane MD IMG XRAY NO CONTRAST ORDERABLES Final Result * XRAY HIP, UNILAT; COMPLETE, 2+ VIEWS - RIGHT (DX: HIP PAIN *NO INJURY*) (02/13/2024 2:42 PM EST) Anatomical Region Laterality Modality LOWER EXTREMITY Computed Radiogr aphy Narrative 02/14/2024 8:18 AM EST Patient History: Hip Pain *No Injury* CONTRAST: 3 view, pelvis and right hip Comparison: CR/MO - XRAY HIP UNILAT; COMPLETE 2+ VIEWS - LEFT (DX: HIP PAIN *NO INJU - 04/29/2023 08:41 AM EST Findings: No acute fracture or dislocation. There is left hip prosthesis present which appears unremarkable. There are moderate degenerative changes of the right hip with narrowing of the joint space and minimal marginal osteophyte at the femoral head and acetabulum. No erosive or destructive bone lesions. IMPRESSION: No acute findings. Moderate degenerative changes of the right hip. Procedure Note David Castelan MD - 02/14/2024 Patient History: Hip Pain *No Injury* CONTRAST: 3 view, pelvis and right hip Comparison: CR/MO - XRAY HIP UNILAT; COMPLETE 2+ VIEWS - LEFT (DX: HIPPAIN *NO INJU - 04/29/2023 08:41 AM EST Findings: No acute fracture or dislocation. There is left hip prosthesis present which appears unremarkable. There are moderate degenerative changes of the right hip with narrowing ofthe joint space and minimal marginal osteophyte at the femoral head andacetabulum. No erosive or destructive bone lesions. IMPRESSION: No acute findings. Moderate degenerative changes of the right hip. us Katie Kasper ASSIST[employer]PORATE SECRETARY IMG XRAY NO CONTRAST ORDERABLES Final Result * PROSTATE SPECIFIC ANTIGEN (PSA) TOTAL, SERUM (12/13/2023 1:52 PM EDT) Only the most recent of3 resultswithin the time period is included. PSA 1.66 0.00 - 4.00 ng/mL [facility] Comment: PSA was performed using the Kailyn Jace Immunoassay method. Values obtained from different assay methods cannot be used interchangeably. PSA levels, regardless of value, should not be interpreted as absolute evidence of the presence or absence of disease. 12/13/2023 1:52 PM EDT 12/13/2023 1:52 PM EDT Narrative [facility] - 12/13/2023 3:25 PM EDT Patient's primary care provider is: ??N/A Testing performed at: [facility], [address] [place] [address], [id number], Progressive Care Nurse: Sergio Le MD Riaz Seals MD LABORATORY Final Result Performing Organization Address [facility] [place] de Phone Number [address] [address] DIRECTOR Sergio Le MD * HEMOGLOBIN A1C (12/13/2023 1:52 PM EDT) Only the most recent of3 resultswithin the time period is included. Hemoglobin A1C 5.6 <5.7 % Total [facility] Comment: For diagnostic purposes: <5.7 ?Decreased risk of diabetes 5.7 - 6.4 ?Increased risk of diabetes >6.5 ? Consistent with diabetes Diagnosis of diabetes should be confirmed by repeat testing. Estimated Average Glucose 114 mg/dL(calc ) [facility] 12/13/2023 1:52 PM EDT 12/13/2023 1:52 PM EDT Narrative [facility] - 12/13/2023 2:46 PM EDT Patient's primary care provider is: ??N/A Testing performed at: [facility], [address] [place] [address], [id number], Progressive Care Nurse: Sergio Le MD Riaz Seals MD LABORATORY Final Result Performing Organization Address [facility] [place] de Phone Number [address] [address] DIRECTOR Sergio Le MD * (ABNORMAL) LIPID PANEL WITH REFLEX TO DIRECT LDL (12/13/2023 1:52 PM EDT) Only the most recent of7 resultswithin the time period is included. Cholesterol 239(H) <200 mg/dL [facility] Triglyceride 183(H) <150 mg/dL [facility] HDL Cholesterol 67 >40 mg/dL [facility] Comment: NCEP GUIDELINES Desirable >60 mg/dL Borderline 40-59 mg/dL ?? Undesirable <40 mg/dL LDL Cholesterol 135(H) <130 mg/dL [facility] CHOL/HDL Ratio 4 0 - 5 CALC [facility] 12/13/2023 1:52 PM EDT 12/13/2023 1:52 PM EDT Narrative [facility] - 12/13/2023 3:25 PM EDT Patient's primary care provider is: ??N/A Testing performed at: [facility], [address] [place] [address], [id number], Progressive Care Nurse: Sergio Le MD Riaz Seals MD LABORATORY Final Result [address] [address] DIRECTOR Sergio Le MD * BASIC METABOLIC PANEL WITH (GFR) (12/13/2023 1:52 PM EDT) Only the most recent of8 resultswithin the time period is included. Glucose 84 65 - 99 mg/dl [facility] Urea Nitrogen Blood (BUN) 16 7 - 25 mg/dL [facility] Creatinine 0.92 0.50 - 1.20 mg/dL [facility] Sodium 141 135 - 146 mmo/L [facility] Potassium 4.4 3.5 - 5.3 mmol/L [facility] Chloride 102 98 - 107 mmo/L [facility] Carbon dioxide 29 23 - 33 mmol/L [facility] Calcium 9.7 8.5 - 10.4 mg/dL [facility] GFR 88 >60 ml/min [facility] 12/13/2023 1:52 PM EDT 12/13/2023 1:52 PM EDT Narrative [facility] - 12/13/2023 3:25 PM EDT Patient's primary care provider is: ??N/A Testing performed at: [facility], [address] [place], [address], Progressive Care Nurse: Sergio Le MD us Riaz Seals MD LABORATORY Final Result [address] [address] DIRECTOR Sergio Le MD * XRAY HIP, UNILAT; COMPLETE, 2+ VIEWS - LEFT (DX: HIP PAIN *NO INJURY*) (04/29/2023 8:48 AM EST) Only the most recent of4 resultswithin the time period is included. Anatomical Region Laterality Modality LOWER EXTREMITY Radiographic Cira ging 04/30/2023 8:01 AM EST Narrative 04/30/2023 8:01 AM EST CONTRAST: 2 views left hip with AP pelvis Comparison: CR/MO - XRAY HIP UNILAT; COMPLETE 2+ VIEWS [...] views left hip with AP pelvis Comparison: CR/MO - XRAY HIP UNILAT; COMPLETE 2+ VIEWS [...] No complication involving the lefttotal hip arthroplasty. Bertin Lima MD IMG XRAY NO CONTRAST ORDERABL ES Final Result * CULTURE, URINE, ROUTINE (04/26/2023 10:01 AM EST) Bacteria Identified (Urine) SEE NOTE [facility] Comment: ??CULTURE, URINE, ROUTINE Micro Number: ?[id number] Test Status: ? Final Specimen Source: ?? Urine Specimen Quality: ??Adequate ??Result: ?No Growth 04/26/2023 10:0 1 AM EST 04/26/2023 10:01 AM EST Narrative [facility] - 04/29/2023 10:11 AM EST Patient's primary care provider is: ??N/A Testing performed at: [facility], [address] [place] [address], [place], [address], Progressive Care Nurse: BALWINDER BREEN MD Ayesha Pina NP LABORATORY Final Resul t Performing Organization Address City/State/[facility] Co de Phone Number [facility] [address] [place] [address] * (ABNORMAL) URINALYSIS, COMPLETE INCLUDES DIPSTICK AND [...] AM EST 04/26/2023 10:01 AM EST Narrative [facility] - 04/26/2023 10:58 AM EST Patient's primary care provider is: ??N/A Testing performed at: [facility], [address] [place] [address], [address], Progressive Care Nurse: Sergio Le MD Ayesha Pina NP LAB SAME DAY RESULT Final R esult [address] [address] DIRECTOR Sergio Le MD * (ABNORMAL) CBC (H/H, RBC, INDICES,WBC, PLT) (04/26/2023 9:45 AM EST) Only the most recent of2 resultswithin the time period is included. WBC 5.2 3.8 - 10.8 K/uL [facility] RBC 4.79 4.20 - 5.80 M/uL [facility] Hemoglobin 15.6 13.2 - 17.1 g/dL [facility] Hematocrit 48.4 38.5 - 50.0 % [facility] MCV 101.0(H) 80.0 - 100.0 fl [facility] MCH 32.6 27.0 - 33.0 pg [facility] MCHC 32.2 32.0 - 36.0 g/dL [facility] RDW 12.5 11.0 - 15.0 % [facility] PLT 197 140 - 400 K/uL [facility] 04/26/2023 9:45 AM EST 04/26/2023 9:45 AM EST Narrative [facility] - 04/26/2023 10:48 AM EST Patient's primary care provider is: ??N/A Testing performed at: [facility], [address] [place] [address], [address], Progressive Care Nurse: Sergio Le MD Ayesha Pina NP LAB SAME DAY RESULT Final R esult [address] [address] DIRECTOR Sergio Le MD * TRANSTHORACIC ECHO (TTE) COMPLETE (02/25/2023 10:51 AM EST) 02/25/2023 10:5 1 AM EST Narrative [facility] - 02/25/2023 10:51 AM EST - ??Mildy reduced left ventricular systolic function. Estimated LVEF 45%. Mild global hypokinesis. - ??Normal right ventricular size. Low normal RV systolic function. - ??Mild aortic regurgitation. - ??Mild tricuspid regurgitation. Comparison was made with the prior echocardiogram done on October 23, 2022. Biventricular systolic function has improved. The right ventricle and atria are no longer dilated. Table formatting from the original result was not included. Images from the original result were not included. ? [facility] Cardiac Ultrasound [address] [facility] [address] [address] Performing Provider: ?? Interpreting Load Tester: Mary Foster MD Technologist: Nette Ramos RDCS Supporting Staff: ?? Referring Provider: Thi Blanco Reading Fellow: ?? Patient: Aaron Rosario :1960 Study:Transthoracic Echo (TTE) Complete Date: 02/25/2023 Patient Class: Outpatient Patient Information ?? Name MRN Description Aaron Rosario [id number] 62 y.o. male Procedures Performed ?? Code Procedure Name [id number] Transthoracic echo (TTE) complete Reason for Exam ?? Dx: Atrial fibrillation, unspecified type (HCC) [I48.91 (ICD-10-CM)]; Dilated cardiomyopathy (HCC) [I42.0 (ICD-10-CM)] Vitals ?? Height Weight BSA (Calculated - sq m) BP Patient Position Set FiO2 (O2%) O2 Flow Rate (L/min) 1.702 m (5' 7 ) 73.5 kg (162 lb) 1.86 sq meters 173/94 ? Interpretation Summary ?? - ??Mildy reduced left ventricular systolic function. Estimated LVEF 45%. Mild global hypokinesis. - ??Normal right ventricular size. Low normal RV systolic function. - ??Mild aortic regurgitation. - ??Mild tricuspid regurgitation. Comparison was made with the prior echocardiogram done on October 23, 2022. Biventricular systolic function has improved. The right ventricle and atria are no longer dilated. Study Findings ?? Left Ventricle Normal LV size, wall thickness and mass index. Left ventricular ejection fraction is 45 %, measured by 3D echocardiography. Mildly decreased systolic function. Mild global hypokinesis. Abnormal left ventricular diastolic function consistent with impaired relaxation. Aorta The aortic root and ascending aorta diameters are normal for age, sex, and BSA. Left Atrium Left atrial size is normal. Atrial Septum No interatrial shunt detected by color flow Doppler. Right Ventricle Normal size. Global systolic function is low normal. ??TAPSE is normal (>=1.7 cm). TDI systolic excursion is normal. Pulmonary Artery Estimated pulmonary artery systolic pressure is 24.0 mm Hg. Right Atrium Right atrial size is normal. IVC/SVC IVC size and behavior consistent with normal central venous pressure (0- 5 mm Hg). Aortic Valve There is a trileaflet valve. No stenosis. Mild regurgitation. Mitral Valve There is non-specific thickening of the mitral valve. No stenosis. Trace mitral valve regurgitation. Tricuspid Valve The tricuspid valve is normal. Mild regurgitation. Pulmonic Valve The pulmonic valve was not well visualized. No ??stenosis. Trace regurgitation. Pericardium No pericardial effusion is present. Study Details A complete echo was performed using 2D imaging, color flow Doppler and complete spectral Doppler. During the study the apical, parasternal, subcostal and suprasternal view was captured. Overall the study quality was adequate. Pediatric/Congenital Measurements ?? Measurement Z-score Normal Range Aortic Valve Diam 2.6 cm ?(cm) Ascending aorta 3.8 cm ?(cm) LV ED Dimension 4.80 ? LV ED Post Wall 1.00 ? LV ES Dimension 3.00 ? Left Ventricular End Diastolic Volume 11.1 mL ?(mL) Left Ventricular End Systolic Volume 6.4 mL ?(mL) EF 42.34 % ?(%) ?? Data set: [place] Z-score normal range: +/-2 BSA formula: [facility] 2D Measurements ?? Dimensions LVIDD 4.8 cm LVIDS 3 cm IVS 0.9 cm PW 1 cm EF 2D 43 % BSA 1.86 m2 LV Diastolic Volume 111.2 mL LV Diastolic Volume Index 59.7 mL/m2 LV Systolic Volume 63.5 mL LV Systolic Volume Index 34.1 mL/m2 LA volume 39.8 cm3 LA Volume Index 21.3 mL/m2 LA Volume Index 21.3 mL/m2 LV Mass Index 86.3 g/m2 Relative Wall Thickness 0.4 ?? Aortic Root - End Diastolic Sinus 4 cm Aortic Root Z-score 1.71 ?? Ascending aorta 3.8 cm Ao-asc Z score 1.8 ?? Inferior Vena Cava RIGHT ATRIAL PRESSURE 3 mmHg ?? Doppler Measurements - Aortic Valve ?? Stenosis LVOT diameter 2.6 cm LVOT area 5.31 cm2 LVOT peak hernesto 0.9 m/s LVOT peak VTI 18.89 cm Ao peak hernesto 1 m/s Ao VTI 23.26 cm AV valve area 4.2 cm2 AV mean gradient 2 mmHg AV peak gradient 4 mmHg AV Velocity Ratio 0.81 ? Doppler Measurements - Mitral Valve ?? PISA-MS MV Peak E Hernesto 0.51 m/s ? Doppler Measurements - Tricuspid Valve ?? Stenosis TR PEAK GRAD 21 mmHg Stress Evaluation TV est pulmonary artery pressure 24 mmHg ?? Doppler Measurements - Diastolic Filling ?? Diastolic Filling E/A ratio 0.8 ?? Septal e' 0.09 cm/s TDI 0.12 ?? E/E' ratio 4.86 ?? E wave deceleration time 268.1 msec MV Peak A Hernesto 0.61 m/s Doppler Measurements - Shunt Ratio ?? Shunt Ratio LVOT stroke volume 98 cm3 ?? Signed ?? at 1114 EST Linked Charges ?? Charge Code Link Type Charge Type Modifiers Echo Heart Xthoracic,Complete W Doppler 92017 Automatic Professional 26 HC Echo 2d W/Doppler/Color Flow [[id number]] 67273 Automatic Technical ?? Echo Heart Xthoracic,Complete W Doppler 00016 Automatic Global ?? [place] Myocardial Strain Img Using Speckle Trck-Drvd Ass Myocrd Mechanics 25747 Context Professional ?? 3d Rendering W/Interp ??T ??Postprocess Supervision 21048 Context Professional 26 Procedure Note [facility], Unknown Provider - 02/25/2023 - Mildy reduced left ventricular systolic function. Estimated LVEF 45%.Mild global hypokinesis. - Normal right ventricular size. Low normal RV systolic function. - Mild aortic regurgitation. - Mild tricuspid regurgitation. Comparison was made with the prior echocardiogram done on October. Biventricular systolic function has improved. The right ventricleand atria are no longer dilated. Table formatting from the original result was not included. Images from the original result were not included. [facility] CardiacUltrasound [address] [place] [address] Performing Provider: Interpreting Load Tester: Mary Foster MD Technologist: Nette Ramos RDCS Supporting Staff: Referring Provider: Thi Blanco Reading Fellow: [facility]: [facility] :1960 [id number] Study:Transthoracic Echo (TTE) Complete Date: 02/25/2023 Patient Class: Outpatient Patient Information Name MRN Description Aaron Rosario [id number] 62 y.o. male Procedures Performed Code Procedure Name [id number] Transthoracic echo (TTE) complete Reason for Exam Dx: Atrial fibrillation, unspecified type (HCC) [I48.91 (ICD-10-CM)];Dilated cardiomyopathy (HCC) [I42.0 (ICD-10-CM)] Vitals Height Weight BSA (Calculated - sq m) BP Patient Position Set FiO2 (O2%)O2 Flow Rate (L/min) 1.702 m (5' 7 ) 73.5 kg (162 lb) 1.86 sq meters 173/94 Interpretation Summary - Mildy reduced left ventricular systolic function. Estimated LVEF 45%.Mild global hypokinesis. - Normal right ventricular size. Low normal RV systolic function. - Mild aortic regurgitation. - Mild tricuspid regurgitation. Comparison was made with the prior echocardiogram done on October. Biventricular systolic function has improved. The right ventricleand atria are no longer dilated. Study Findings Left Ventricle Normal LV size, wall thickness and mass index. Leftventricular ejection fraction is 45 %, measured by 3D echocardiography.Mildly decreased systolic function. Mild global hypokinesis. Abnormal leftventricular diastolic function consistent with impaired relaxation. Aorta The aortic root and ascending aorta diameters are normal for age,sex, and BSA. Left Atrium Left atrial size is normal. Atrial Septum No interatrial shunt detected by color flow Doppler. Right Ventricle Normal size. Global systolic function is low normal.TAPSE is normal (>=1.7 cm). TDI systolic excursion is normal. Pulmonary Artery Estimated pulmonary artery systolic pressure is 24.0 mmHg. Right Atrium Right atrial size is normal. IVC/SVC IVC size and behavior consistent with normal central venouspressure (0-5 mm Hg). Aortic Valve There is a trileaflet valve. No stenosis. Mildregurgitation. Mitral Valve There is non-specific thickening of the mitral valve. Nostenosis. Trace mitral valve regurgitation. Tricuspid Valve The tricuspid valve is normal. Mild regurgitation. Pulmonic Valve The pulmonic valve was not well visualized. No stenosis.Trace regurgitation. Pericardium No pericardial effusion is present. Study Details A complete echo was performed using 2D imaging, color flowDoppler and complete spectral Doppler. During the study the apical,parasternal, subcostal and suprasternal view was captured. Overall thestudy quality was adequate. Pediatric/Congenital Measurements Measurement Z-score Normal Range Aortic Valve Diam 2.6 cm (cm) Ascending aorta 3.8 cm (cm) LV ED Dimension 4.80 LV ED Post Wall 1.00 LV ES Dimension 3.00 Left Ventricular End Diastolic Volume 11.1 mL (mL) Left Ventricular End Systolic Volume 6.4 mL (mL) EF 42.34 % (%) Data set: [place] Z-score normal range: +/-2 BSA formula: [facility] 2D Measurements Dimensions LVIDD 4.8 cm LVIDS 3 cm IVS 0.9 cm PW 1 cm EF 2D 43 % BSA 1.86 m2 LV Diastolic Volume 111.2 mL LV Diastolic Volume Index 59.7 mL/m2 LV Systolic Volume 63.5 mL LV Systolic Volume Index 34.1 mL/m2 LA volume 39.8 cm3 LA Volume Index 21.3 mL/m2 LA Volume Index 21.3 mL/m2 LV Mass Index 86.3 g/m2 Relative Wall Thickness 0.4 Aortic Root - End Diastolic Sinus 4 cm Aortic Root Z-score 1.71 Ascending aorta 3.8 cm Ao-asc Z score 1.8 Inferior Vena Cava RIGHT ATRIAL PRESSURE 3 mmHg Doppler Measurements - Aortic Valve Stenosis LVOT diameter 2.6 cm LVOT area 5.31 cm2 LVOT peak hernesto 0.9 m/s LVOT peak VTI 18.89 cm Ao peak hernesto 1 m/s Ao VTI 23.26 cm AV valve area 4.2 cm2 AV mean gradient 2 mmHg AV peak gradient 4 mmHg AV Velocity Ratio 0.81 Doppler Measurements - Mitral Valve PISA-MS MV Peak E Hernesto 0.51 m/s Doppler Measurements - Tricuspid Valve Stenosis TR PEAK GRAD 21 mmHg Stress Evaluation TV est pulmonary artery pressure 24 mmHg Doppler Measurements - Diastolic Filling Diastolic Filling E/A ratio 0.8 Septal e' 0.09 cm/s TDI 0.12 E/E' ratio 4.86 E wave deceleration time 268.1 msec MV Peak A Hernesto 0.61 m/s Doppler Measurements - Shunt Ratio Shunt Ratio LVOT stroke volume 98 cm3 Signed at 1114 EST Linked Charges Charge Code Link Type Charge Type Modifiers Echo Heart Xthoracic,Complete W Doppler 28841 Automatic Professional 26 HC Echo 2d W/Doppler/Color Flow [[id number]] 86872 Automatic Technical Echo Heart Xthoracic,Complete W Doppler 72511 Automatic Global [place] Myocardial Strain Img Using Speckle Trck-Drvd Ass Myocrd Wxbfswath19660 Context Professional 3d Rendering W/Interp T Postprocess Supervision 86645 ContextProfessional 26 us Thi Blanco ASSISTANT CORPORATE SECRETARY CARDIOVASCULAR-NO INBASKET RTG Final Result [facility] [address] [place] [address] * NM EXERCISE MYOCARDIAL PERFUSION SPECT (STRESS AND REST) (01/25/2023 2:29 PM EST) 01/25/2023 2:29 PM EST Narrative [facility] - 01/25/2023 2:29 PM EST EXAMINATION: Exercise myocardial perfusion imaging. INDICATION: Symptoms/History: A. Fib, dilated cardiomyopathy. TECHNIQUE: The patient completed 6 minutes and 42 seconds of a standard Prince protocol, representing 6.2 METs, stopping secondary to knee pain. The patient achieved a maximal heart rate of 141 bpm, representing 90% of the maximum predicted for age. ??10.4 mCi Tc-99m sestamibi were injected IV at rest. 31.7 mCi Tc-99m sestamibi were injected at peak exercise. A cardiac rest SPECT study was collected for tomographic reconstruction and computer processing. ??A cardiac stress SPECT study was collected for tomographic reconstruction and computer processing later in the day. Gated perfusion images were also collected. Resting ECG: ??Normal sinus rhythm, right axis deviation, poor R-wave progression, nonspecific ST-T wave abnormality. Resting Heart Rate: ??69 Resting Blood Pressure: ??144/109 mmHg Peak Blood Pressure: ??165/105 mmHg Cardiac Symptoms: ??None. Other Symptoms: ?? None. ST Changes: ??Equivocal EKG changes inferior leads in the setting of baseline ST and T wave abnormalities. Arrhythmias: ??Patient went into A. fib during stress portion of the exam. Dr. Kirk was immediately available for assistance and direction during the stress test. STRESS TEST FINDINGS: A diagnostic level of stress was achieved, with appropriate heart rate response and appropriate blood pressure response. This stress test is ??negative for angina, equivocal for ischemic ECG changes and notable for atrial fibrillation during stress with spontaneous conversion to normal sinus rhythm and early recovery. Physical working capacity for patient's age is average. MYOCARDIAL PERFUSION IMAGING FINDINGS: The immediate post-stress, attenuation corrected myocardial images show uniform distribution of the tracer in the myocardium aside from mild reduction in tracer activity in the LV apex. ??Resting images are grossly unchanged. Given normal wall motion in this territory suspect this reduction in tracer uptake is secondary to normal variant apical thinning rather than prior infarct. ECG-gated myocardial images acquired post-stress demonstrate normal LV wall motion and normal wall thickening. ??The calculated LVEF = 58%. ??The LV chamber size is normal. ??The right ventricle shows normal size and systolic function. IMPRESSION: In summary, this is an asymptomatic exercise test with no convincing scan evidence of prior OR or myocardium at risk for ischemia despite equivocal EKG changes. Exercise capacity is average for the patient's age. Patient went into atrial fibrillation during peak stress and spontaneously converted into normal sinus rhythm and early recovery. COMMUNICATION: Per this written report. If this radiology report contains a blank impression section, it is an incomplete radiology report. ??Please contact the interpreting radiologist or applicable radiology division as soon as possible to obtain the completed interpretation. ? Workstation ID: [id number]' [id number] Procedure Note [facility], Unknown Provider - 01/25/2023 EXAMINATION: Exercise myocardial perfusion imaging. INDICATION: Symptoms/History: A. Fib, dilated cardiomyopathy. TECHNIQUE: The patient completed 6 minutes and 42 seconds of a standard Bruceprotocol, representing 6.2 METs, stopping secondary to knee pain. Thepatient achieved a maximal heart rate of 141 bpm, representing 90% of themaximum predicted for age. 10.4 mCi Tc-99m sestamibi were injected IV at rest. 31.7 mCi Tc-99m sestamibi wereinjected at peak exercise. A cardiac rest SPECT study was collected fortomographic reconstruction and computer processing. A cardiac stressSPECT study was collected for tomographic reconstruction and computer processing later in the day. Gatedperfusion images were also collected. Resting ECG: Normal sinus rhythm, right axis deviation, poor R-waveprogression, nonspecific ST-T wave abnormality. Resting Heart Rate: 69 Resting Blood Pressure: 144/109 mmHg Peak Blood Pressure: 165/105 mmHg Cardiac Symptoms: None. Other Symptoms: None. ST Changes: Equivocal EKG changes inferior leads in the setting ofbaseline ST and T wave abnormalities. Arrhythmias: Patient went into A. fib during stress portion of theexam. Dr. Kirk was immediately available for assistance and directionduring the stress test. STRESS TEST FINDINGS: A diagnostic level of stress was achieved, with appropriate heart rateresponse and appropriate blood pressure response. This stress test isnegative for angina, equivocal for ischemic ECG changes and notable foratrial fibrillation during stress with spontaneous conversion to normal sinus rhythm and early recovery. Physicalworking capacity for patient's age is average. MYOCARDIAL PERFUSION IMAGING FINDINGS: The immediate post-stress,attenuation corrected myocardial images show uniform distribution of thetracer in the myocardium aside from mild reduction in tracer activity inthe LV apex. Resting images are grossly unchanged. Given normal wall motion in this territory suspect thisreduction in tracer uptake is secondary to normal variant apical thinningrather than prior infarct. ECG-gated myocardial images acquiredpost-stress demonstrate normal LV wall motion and normal wall thickening. The calculated LVEF = 58%. The LV chambersize is normal. The right ventricle shows normal size and systolicfunction. IMPRESSION: In summary, this is an asymptomatic exercise test with no convincing scanevidence of prior OR or myocardium at risk for ischemia despite equivocalEKG changes. Exercise capacity is average for the patient's age. Patientwent into atrial fibrillation during peak stress and spontaneously converted into normal sinus rhythmand early recovery. COMMUNICATION: Per this written report. If this radiology report contains a blank impression section, it is anincomplete radiology report. Please contact the interpreting radiologistor applicable radiology division as soon as possible to obtain thecompleted interpretation. Workstation ID: [id number] 5' 7 162 us Unknown Provider [facility] CARDIOVASCULAR IMAGING-RASHIDA SS Final Result [facility] [address] [place] [id number] * ELECTROPHYSIOLOGY PROCEDURE STUDY (10/26/2022 4:50 PM EDT) Only the most recent of3 resultswithin the time period is included. 10/26/2022 4:50 PM EDT Narrative [facility] - 10/26/2022 4:50 PM EDT [facility] Electrophysiology Procedure Report Patient Information: Name: Aaron Rosario : 1960 Age: 62 y.o. Gender: male Study Date: 10/26/2022 Staff: Surgeon(s): Steven Lal MD PhD GIULIANA Reeder X-Ray Technologist: Chidi Guthrie RT(R) Documenter: Annia Gutiérrez RN Patient History: The patient is a 62 y.o. male with a history of new symptomatic atrial fibrillation . The patient presents for an elective cardioversion. Conclusion: Successful external direct current cardioversion with resultant sinus rhythm. Recommendation: Continue uninterrupted therapeutic anticoagulation. Methods: The patient was transported to the Electrophysiology Lab in a post-absorptive, non-sedated state. Informed consent was obtained prior to the procedure. Two peripheral IVs were inserted prior to the case. ??External defibrillator patches were applied in the Anterior/Posterior position. ??Patient hemodynamics were monitored throughout the procedure and Deep sedation was administered per the anesthesiology team. The baseline rhythm was atrial fibrillation with ventricular rate in the 120s. ?? Once adequate sedation was achieved cardioversion was performed using 200 joules and then 360 joules. The resulting rhythm was normal sinus rhythm in the 70s. ?? The total number of cardioversion attempts was 2. ??The final rhythm achieved was normal sinus rhythm. ??The patient tolerated the procedure well and was transferred to cardiac short stay in stable condition. The attending physician was present during the entire case. Table formatting from the original result was not included. Images from the original result were not included. ?? [facility]ventional [facility] [address] [place] [address] Phone: ?? Ordering Provider: Scott Castle Reading Provider: GIULIANA Reeder MD PhD Technologist: ?? Patient: Aaron Rosario :1960 Study:Electrophysiology Procedure Date: 10/26/2022 Patient Class: Inpatient Physicians ?? Panel Physicians Referring Physician Case Authorizing Physician Steven Lal MD PhD (Primary) ??MD Massimo Hdez PA (Assisting) ?? Procedures ?? Cardioversion Indications ?? Atrial fibrillation (CMS/HCC) (HCC) [I48.91 (ICD-10-CM)] Conclusion ?? [facility] Electrophysiology Procedure Report Patient Information: Name: Aaron VALDERRAMAN: [id number] : 1960 Age: 62 y.o. Gender: male Study Date: 10/26/2022 Staff: Surgeon(s): Steven Lal MD PhD GIULIANA Reeder HV X-Ray Technologist: RT Catrina(R) HV Documenter: Annia Gutiérrez RN Patient History: The patient is a 62 y.o. male with a history of new symptomatic atrial fibrillation . The patient presents for an elective cardioversion. Conclusion: Successful external direct current cardioversion with resultant sinus rhythm. Recommendation: Continue uninterrupted therapeutic anticoagulation. Methods: The patient was transported to the Electrophysiology Lab in a post-absorptive, non-sedated state. Informed consent was obtained prior to the procedure. Two peripheral IVs were inserted prior to the case. ??External defibrillator patches were applied in the Anterior/Posterior position. ??Patient hemodynamics were monitored throughout the procedure and Deep sedation was administered per the anesthesiology team. The baseline rhythm was atrial fibrillation with ventricular rate in the 120s. ?? Once adequate sedation was achieved cardioversion was performed using 200 joules and then 360 joules. The resulting rhythm was normal sinus rhythm in the 70s. ?? The total number of cardioversion attempts was 2. ??The final rhythm achieved was normal sinus rhythm. ??The patient tolerated the procedure well and was transferred to cardiac short stay in stable condition. The attending physician was present during the entire case. Implants ?? No implant documentation for this case. Signed ?? at 1650 EDT Procedure Note [facility], Unknown Provider - 10/26/2022 [facility] In[facility] Laboratory Electrophysiology ProcedureReport Patient Information: Name: Aaron Rosario : 1960 Age: 62 y.o. Gender: male Study Date: 10/26/2022 Staff: Surgeon(s): Steven Lal MD PhD GIULIANA Reeder HV X-Ray Technologist: RT Catrina(R) HV Documenter: Annia Gutiérrez RN Patient History: The patient is a 62 y.o. male with a history of new symptomatic atrialfibrillation . The patient presents for an elective cardioversion. Conclusion: Successful external direct current cardioversion with resultant sinusrhythm. Recommendation: Continue uninterrupted therapeutic anticoagulation. Methods: The patient was transported to the Electrophysiology Lab in apost-absorptive, non-sedated state. Informed consent was obtained prior tothe procedure. Two peripheral IVs were inserted prior to the case.External defibrillator patches were applied in the Anterior/Posterior position. Patient hemodynamics were monitoredthroughout the procedure and Deep sedation was administered per theanesthesiology team. The baseline rhythm was atrial fibrillation with ventricular rate in ant720h. Once adequate sedation was achieved cardioversion was performed using 200joules and then 360 joules. The resulting rhythm was normal sinus rhythmin the 70s. The total number of cardioversion attempts was 2. The final rhythmachieved was normal sinus rhythm. The patient tolerated the procedurewell and was transferred to cardiac short stay in stable condition. Theattending physician was present during the entire case. Table formatting from the original result was not included. Images from the original result were not included. [facility] [address] [place] [id number] Phone: Ordering Provider: Scott Castle Reading Provider: GIULIANA Reeder MD PhD Technologist: Patient: Aaron Rosario :1960 Study:Electrophysiology Procedure Date: 10/26/2022 Patient Class: Inpatient Physicians Panel Physicians Referring Physician Case Authorizing Physician Steven Lal MD PhD (Primary) MD Massimo Hdez PA (Assisting) Procedures Cardioversion Indications Atrial fibrillation (CMS/HCC) (HCC) [I48.91 (ICD-10-CM)] Conclusion [facility] In[facility] Laboratory Electrophysiology ProcedureReport Patient Information: Name: Aaron Rosario : 1960 Age: 62 y.o. Gender: male Study Date: 10/26/2022 Staff: Surgeon(s): Steven Lal MD PhD GIULIANA Reeder X-Ray Technologist: RT Catrina(R) Documenter: Annia Gutiérrez RN Patient History: The patient is a 62 y.o. male with a history of new symptomatic atrialfibrillation . The patient presents for an elective cardioversion. Conclusion: Successful external direct current cardioversion with resultant sinusrhythm. Recommendation: Continue uninterrupted therapeutic anticoagulation. Methods: The patient was transported to the Electrophysiology Lab in apost-absorptive, non-sedated state. Informed consent was obtained prior tothe procedure. Two peripheral IVs were inserted prior to the case.External defibrillator patches were applied in the Anterior/Posterior position. Patient hemodynamics were monitoredthroughout the procedure and Deep sedation was administered per theanesthesiology team. The baseline rhythm was atrial fibrillation with ventricular rate in sub083r. Once adequate sedation was achieved cardioversion was performed using 200joules and then 360 joules. The resulting rhythm was normal sinus rhythmin the 70s. The total number of cardioversion attempts was 2. The final rhythmachieved was normal sinus rhythm. The patient tolerated the procedurewell and was transferred to cardiac short stay in stable condition. Theattending physician was present during the entire case. Implants No implant documentation for this case. Signed [id number] EDT us Unknown Provider [facility] CARDIOVASCULAR-NO INBASK RTG Final Result Performing Organization Address City/State/[facility] Co de Phone Number [facility] [address] [place] [phone] * CT CARDIAC A-FIB (10/26/2022 2:42 PM EDT) 10/26/2022 2:42 PM EDT Narrative [facility] - 10/26/2022 2:[address] CARDIAC A-FIB Exam: CT Heart with contrast for Cardiac Structure and Morphology- Left Atrium / Pulmonary Vein Protocol Indication: evaluate atrial appendage for cardioversion Technique: ECG-gated helical CT of the chest was obtained using intravenous contrast. 3D and volume rendered reconstructions of the heart and pulmonary veins were rendered on an independent, advanced post processing workstation and reviewed to further define anatomy and possible pathology. Delayed images were obtained. For radiation dose control at least one of the following techniques was used in this procedure (1) Automated exposure control (2) Adjustment of the mA and/or kV according to patient size (3) Use of iterative reconstruction technique. Comparison: 2 views chest x-ray 10/22/2019 Findings: PULMONARY VEINS: Left superior and inferior pulmonary veins joining to form a short common trunk. ??Ostial branch of right superior pulmonary vein. ATRIA: Left atrium is enlarged measuring up to 39 mm anteroposteriorly. No intracavity thrombus within left atrium or left atrial appendage Pulmonary vein diameters: Right inferior: 21 x 13 mm Right superior: 23 x 17 mm Left common: 27 x 16 mm Left inferior: 9 x 9 mm Left superior: 13 x 10 mm OTHER CARDIAC FINDINGS: Cardiac size Mild cardiomegaly with biatrial enlargement. Coronary arteries Mild coronary calcifications. Valves Mild aortic valve calcifications. ??Mild aortic annulus calcification. Pericardium No abnormality. EXTRA-CARDIAC FINDINGS: ?? Limited visualization of the thorax secondary to limited z-axis collimation. Included portion of the mediastinum and large vessels: ? Aorta Normal aortic diameter. ??Mild atherosclerotic wall. Pulmonary arteries Pulmonary artery is not dilated. Esophagus Patulous distal esophagus. ??Small hiatal hernia. ?? Other mediastinal findings No other abnormal mediastinal findings are present. LYMPH NODES: Mildly enlarged right paratracheal lymph node measuring up to 13 mm (6:2), indeterminate clinical significance. INCLUDED LUNG PARENCHYMA: Evaluation is limited by respiratory motion. ?? Bibasilar dependent atelectasis. ??Linear atelectasis/scarring in the right middle lobe (6:58). Included airways: Unremarkable. Included pleura: Trace right pleural effusion. ??No left pleural effusion. ??No pneumothorax. UPPER ABDOMEN: No abnormality in the visualized upper abdominal structures, within the limitations of examination technique. Included portion of the chest wall and bones: Unremarkable chest wall. ??Mild multilevel disc degeneration, normal thoracic vertebral body heights. IMPRESSION: Impression: 1. ??Common trunk pulmonary vein on the left and ostial branch of right superior pulmonary vein. 2. ??No intracavity thrombus in the left atrium or left atrial appendage. 3. ??Mild cardiomegaly with biatrial enlargement. I, Nahomi Wing, have reviewed the examination and concur with the findings as reported or so edited. Resident/Fellow:Charlotte Thomas If this radiology report contains a blank impression section, it is an incomplete radiology report. ??Please contact the interpreting radiologist or applicable radiology division as soon as possible to obtain the completed interpretation. ? Workstation ID: [id number] Up-to-date CT equipment and radiation dose reduction techniques were employed. CTDIvol: 1.9 - 51.9 mGy. DLP: 1788 mGy-cm. Procedure Note [facility], Unknown Provider - 10/26/2022 CT CARDIAC A-FIB Exam: CT Heart with contrast for Cardiac Structure and Morphology- LeftAtrium / Pulmonary Vein Protocol Indication: evaluate atrial appendage for cardioversion Technique: ECG-gated helical CT of the chest was obtained usingintravenous contrast. 3D and volume rendered reconstructions of the heartand pulmonary veins were rendered on an independent, advanced postprocessing workstation and reviewed to further define anatomy and possible pathology. Delayed images were obtained. For radiation dose control at least one of the following techniques wasused in this procedure (1) Automated exposure control (2) Adjustment ofthe mA and/or kV according to patient size (3) Use of iterativereconstruction technique. Comparison: 2 views chest x-ray 10/22/2019 Findings: PULMONARY VEINS: Left superior and inferior pulmonary veins joining to form a short commontrunk. Ostial branch of right superior pulmonary vein. ATRIA: Left atrium is enlarged measuring up to 39 mm anteroposteriorly. Nointracavity thrombus within left atrium or left atrial appendage Pulmonary vein diameters: Right inferior: 21 x 13 mm Right superior: 23 x 17 mm Left common: 27 x 16 mm Left inferior: 9 x 9 mm Left superior: 13 x 10 mm OTHER CARDIAC FINDINGS: Cardiac size Mild cardiomegaly with biatrial enlargement. Coronary arteries Mild coronary calcifications. Valves Mild aortic valve calcifications. Mild aortic annulus calcification. Pericardium No abnormality. EXTRA-CARDIAC FINDINGS: Limited visualization of the thorax secondary to limited z-axiscollimation. Included portion of the mediastinum and large vessels: Aorta Normal aortic diameter. Mild atherosclerotic wall. Pulmonary arteries Pulmonary artery is not dilated. Esophagus Patulous distal esophagus. Small hiatal hernia. Other mediastinal findings No other abnormal mediastinal findings are present. LYMPH NODES: Mildly enlarged right paratracheal lymph node measuring up to 13 mm (6:2),indeterminate clinical significance. INCLUDED LUNG PARENCHYMA: Evaluation is limited by respiratory motion. Bibasilar dependentatelectasis. Linear atelectasis/scarring in the right middle lobe(6:58). Included airways: Unremarkable. Included pleura: Trace right pleural effusion. No left pleural effusion. Nopneumothorax. UPPER ABDOMEN: No abnormality in the visualized upper abdominal structures, within thelimitations of examination technique. Included portion of the chest wall and bones: Unremarkable chest wall. Mild multilevel disc degeneration, normalthoracic vertebral body heights. IMPRESSION: Impression: 1. Common trunk pulmonary vein on the left and ostial branch of rightsuperior pulmonary vein. 2. No intracavity thrombus in the left atrium or left atrial appendage. 3. Mild cardiomegaly with biatrial enlargement. INahomi, have reviewed the examination and concur with thefindings as reported or so edited. Resident/Fellow:Charlotte Thomas If this radiology report contains a blank impression section, it is anincomplete radiology report. Please contact the interpreting radiologistor applicable radiology division as soon as possible to obtain thecompleted interpretation. Workstation ID: [id number] Up-to-date CT equipment and radiation dose reduction techniques wereemployed. CTDIvol: 1.9 - 51.9 mGy. DLP: 1788 mGy-cm. us Unknown Provider [facility] CARDIOVASCULAR IMAGING-RASHIDA SS Final Result [facility] [employer] [address] [place] [address] * MAGNESIUM (10/24/2022 6:08 AM EDT) Only the most recent of4 resultswithin the time period is included. Magnesium 2.0 1.6 - 2.4 mg/dL [facility] 10/24/2022 6:08 AM EDT us Unknown Provider [facility] LABORATORY Final Resu lt [facility] [employer] [address] [place] [address] * (ABNORMAL) HEPATIC FUNCTION PANEL (10/24/2022 6:08 AM EDT) Only the most recent of2 resultswithin the time period is included. Pathologist [facility] Protein Total (Serum) 6.2 6.0 - 8.0 g/dL [facility] Albumin 3.5 3.5 - 4.8 g/dL [facility] Bilirubin Total 1.1 0.3 - 1.2 mg/dL [facility] Bilirubin Direct 0.2 <=0.4 mg/dL [facility] Alkaline phosphatase 72 30 - 115 U/L [facility] AST (SGOT) 33 10 - 40 U/L [facility] ALT (SGPT) 53(H) 10 - 40 U/L [facility] 10/24/2022 6:08 AM EDT us Unknown Provider [facility] LABORATORY Final Resu lt [facility] [employer] [address] [place] [address] * (ABNORMAL) BASIC METABOLIC PANEL (10/24/2022 6:08 AM EDT) Only the most recent of5 resultswithin the time period is included. [facility] Sodium 139 135 - 145 mmol/L [facility] Potassium 4.1 3.5 - 5.3 mmol/L [facility] Chloride 107 97 - 110 mmol/L [facility] Bicarbonate 24 24 - 32 mmol/L [facility] Urea Nitrogen Blood (BUN) 18 7 - 23 mg/dL [facility] Creatinine 0.85 0.60 - 1.30 mg/dL [facility] Glucose 102(H) 70 - 99 mg/dL [facility] Calcium 8.6(L) 8.7 - 10.7 mg/dL [facility] Anion gap 8 5 - 15 [facility] EGFR >90 >=60 mL/min/1.7 3m2 [facility] Comment: The estimated glomerular filtration rate (eGFR) is calculated using a new formula developed by the NKF-ASN task force to eliminate race-based correction factors. The new formula uses serum/plasma creatinine, age, and gender to determine eGFR. A value below 60mls/min might indicate kidney disease and will be flagged. For additional information, see Jay weinberg al, Am J Kidney Dis. 2021;79(2):268-288, A Unifying Approach for GFR estimation: Recommendations of the NKF-ASN Task Force on Reassessing the Inclusion of Race in Diagnosing Kidney Disease . 10/24/2022 6:08 AM EDT us Unknown Provider [facility] LABORATORY Final Resu lt [facility] [employer] [address] [place] [address] * TRANSTHORACIC ECHO (TTE) (10/23/2022 9:24 AM EDT) 10/23/2022 9:24 AM EDT Narrative [facility] - 10/23/2022 9:24 AM EDT - ??Moderately reduced left ventricular systolic function. ??Estimated LVEF 35%. ??Diffuse hypokinesis with regional variations. - ??Dilated right ventricle with reduced systolic function. - ??Biatrial enlargement. - ??Mild mitral and tricuspid regurgitation. A prior echocardiogram was not available for direct comparison. Table formatting from the original result was not included. Images from the original result were not included. ? [facility] [address] Performing Provider: ?? Interpreting Load Tester: Maurice Calabrese II, MD Technologist: Ayesha Valdez Supporting Staff: ?? Referring Provider: Alisia Ortiz Reading Fellow: Izzy Briceño MD Patient: Aaron Rosario :1960 Study:Transthoracic echo (TTE) Date: 10/23/2022 Patient Class: Inpatient Patient Information ?? Name MRN Description Aaron Rosario [id number] 62 y.o. male Procedures Performed ?? Code Procedure Name [id number] Transthoracic echo (TTE) complete Reason for Exam ?? Atrial fibrillation/flutter Vitals ?? Height Weight BSA (Calculated - sq m) BP Patient Position Set FiO2 (O2%) O2 Flow Rate (L/min) 1.702 m (5' 7 ) 73.9 kg (163 lb) 1.87 sq meters 142/91 Sitting ??2 L/min Interpretation Summary ?? - ??Moderately reduced left ventricular systolic function. ??Estimated LVEF 35%. ??Diffuse hypokinesis with regional variations. - ??Dilated right ventricle with reduced systolic function. - ??Biatrial enlargement. - ??Mild mitral and tricuspid regurgitation. A prior echocardiogram was not available for direct comparison. Study Findings ?? Left Ventricle Normal LV size, wall thickness and mass index. Left ventricular ejection fraction is 35 %, by visual estimate. Moderately decreased systolic function. There is diffuse hypokinesis with regional variations. Diastolic function could not be assessed, because of atrial fibrillation. Aorta The sinuses of Valsalva is normal. The ascending aorta is normal. Left Atrium Left atrium is moderately dilated. Ventricular Septum No ventricular septal defect present. Atrial Septum No interatrial shunt detected by color flow Doppler. Right Ventricle The right ventricle is dilated. Global systolic function is reduced. ??TAPSE is abnormal (<1.7 cm). TDI systolic excursion is abnormal. Pulmonary Artery Systolic pressure was normal. Estimated pulmonary artery systolic pressure is 29.0 mm Hg. Right Atrium Right atrium is dilated. IVC/SVC IVC size and behavior consistent with mildly elevated central venous pressure (6-10 mm Hg). Aortic Valve There is a trileaflet valve. No stenosis. Trace regurgitation. Mitral Valve There is mild valve leaflet thickening. No stenosis. Mild mitral valve regurgitation. Tricuspid Valve Tricuspid valve not well visualized. No stenosis. Mild regurgitation. Pulmonic Valve The pulmonic valve was not well visualized. No ??stenosis. Trace regurgitation. Pericardium No pericardial effusion is present. Study Details A complete echo was performed using 2D imaging, color flow Doppler and complete spectral Doppler. During the study the apical, parasternal, subcostal and suprasternal view was captured. Overall the study quality was adequate. Pediatric/Congenital Measurements ?? Measurement Z-score Normal Range Aortic Valve Diam 2.2 cm ?(cm) Ascending aorta 3.6 cm ?(cm) LV ED Dimension 4.80 ? LV ED Post Wall 1.00 ? LV ES Dimension 4.10 ? Left Ventricular End Diastolic Volume 7.4 mL ?(mL) Left Ventricular End Systolic Volume 4.8 mL ?(mL) EF 35.14 % ?(%) LV mass 167 ? Data set: [place] Z-score normal range: +/-2 BSA formula: [facility] 2D Measurements ?? Dimensions LVIDD 4.8 cm LVIDS 4.1 cm IVS 0.9 cm PW 1 cm EF 2D 35 % BSA 1.87 m2 LV Diastolic Volume 74.1 mL LV Diastolic Volume Index 39.6 mL/m2 LV Systolic Volume 47.9 mL LV Systolic Volume Index 25.6 mL/m2 LA size 4 cm LA volume 84.9 cm3 LA Volume Index 45.4 mL/m2 LA Volume Index 45.4 mL/m2 LV mass 167 ?? LV Mass Index 89.1 g/m2 Relative Wall Thickness 0.43 ?? Aortic Root - End Diastolic Sinus 3.8 cm Aortic Root Z-score 1.13 ?? Ascending aorta 3.6 cm Ao-asc Z score 1.26 ?? Inferior Vena Cava RIGHT ATRIAL PRESSURE 8 mmHg ?? Doppler Measurements - Aortic Valve ?? Stenosis LVOT diameter 2.2 cm LVOT area 3.8 cm2 LVOT peak hernesto 0.52 m/s LVOT peak VTI 8.02 cm Ao peak hernesto 0.6 m/s AV peak gradient 1 mmHg ? Doppler Measurements - Tricuspid Valve ?? Stenosis TR PEAK GRAD 21 mmHg Stress Evaluation TV est pulmonary artery pressure 29 mmHg ?? Doppler Measurements - Shunt Ratio ?? Shunt Ratio LVOT stroke volume 30.7 cm3 ?? Signed ?? at 0941 EDT Linked Charges ?? Charge Code Link Type Charge Type Modifiers Echo Heart Xthoracic,Complete W Doppler 37416 Automatic Professional 26 Echo 2d W/Doppler/Color Flow [[id number]] 98363 Automatic Technical ?? Echo Heart Xthoracic,Complete W Doppler 68830 Automatic Global ?? [place] Myocardial Strain Img Using Speckle Trck-Drvd Ass Myocrd Mechanics 53894 Context Professional ?? 3d Rendering W/Interp ??T ??Postprocess Supervision 24568 Context Professional 26 Procedure Note [facility], Unknown Provider - 10/23/2022 - Moderately reduced left ventricular systolic function. Estimated LVEF35%. Diffuse hypokinesis with regional variations. - Dilated right ventricle with reduced systolic function. - Biatrial enlargement. - Mild mitral and tricuspid regurgitation. A prior echocardiogram was not available for direct comparison. Table formatting from the original result was not included. Images from the original result were not included. [facility] [address] Performing Provider: Interpreting Load Tester: Maurice Calabrese II, MD Technologist: Ayesha Valdez Supporting Staff: Referring Provider: Alisia Ortiz Reading Fellow: Izzy Briceño MD [facility]: [facility] :1960 [id number] Study:Transthoracic echo (TTE) Date: 10/23/2022 Patient Class: Inpatient Patient Information Name MRN Description Aaron Rosario [id number] 62 y.o. male Procedures Performed Code Procedure Name [id number] Transthoracic echo (TTE) complete Reason for Exam Atrial fibrillation/flutter Vitals Height Weight BSA (Calculated - sq m) BP Patient Position Set FiO2 (O2%)O2 Flow Rate (L/min) 1.702 m (5' 7 ) 73.9 kg (163 lb) 1.87 sq meters 142/91 Sitting 2 L/min Interpretation Summary - Moderately reduced left ventricular systolic function. Estimated LVEF35%. Diffuse hypokinesis with regional variations. - Dilated right ventricle with reduced systolic function. - Biatrial enlargement. - Mild mitral and tricuspid regurgitation. A prior echocardiogram was not available for direct comparison. Study Findings Left Ventricle Normal LV size, wall thickness and mass index. Leftventricular ejection fraction is 35 %, by visual estimate. Moderatelydecreased systolic function. There is diffuse hypokinesis with regionalvariations. Diastolic function could not be assessed, because of atrial fibrillation. Aorta The sinuses of Valsalva is normal. The ascending aorta is normal. Left Atrium Left atrium is moderately dilated. Ventricular Septum No ventricular septal defect present. Atrial Septum No interatrial shunt detected by color flow Doppler. Right Ventricle The right ventricle is dilated. Global systolic functionis reduced. TAPSE is abnormal (<1.7 cm). TDI systolic excursion isabnormal. Pulmonary Artery Systolic pressure was normal. Estimated pulmonary arterysystolic pressure is 29.0 mm Hg. Right Atrium Right atrium is dilated. IVC/SVC IVC size and behavior consistent with mildly elevated centralvenous pressure (6-10 mm Hg). Aortic Valve There is a trileaflet valve. No stenosis. Traceregurgitation. Mitral Valve There is mild valve leaflet thickening. No stenosis. Mildmitral valve regurgitation. Tricuspid Valve Tricuspid valve not well visualized. No stenosis. Mildregurgitation. Pulmonic Valve The pulmonic valve was not well visualized. No stenosis.Trace regurgitation. Pericardium No pericardial effusion is present. Study Details A complete echo was performed using 2D imaging, color flowDoppler and complete spectral Doppler. During the study the apical,parasternal, subcostal and suprasternal view was captured. Overall thestudy quality was adequate. Pediatric/Congenital Measurements Measurement Z-score Normal Range Aortic Valve Diam 2.2 cm (cm) Ascending aorta 3.6 cm (cm) LV ED Dimension 4.80 LV ED Post Wall 1.00 LV ES Dimension 4.10 Left Ventricular End Diastolic Volume 7.4 mL (mL) Left Ventricular End Systolic Volume 4.8 mL (mL) EF 35.14 % (%) LV mass 167 Data set: [place] Z-score normal range: +/-2 BSA formula: [employer] 2D Measurements Dimensions LVIDD 4.8 cm LVIDS 4.1 cm IVS 0.9 cm PW 1 cm EF 2D 35 % BSA 1.87 m2 LV Diastolic Volume 74.1 mL LV Diastolic Volume Index 39.6 mL/m2 LV Systolic Volume 47.9 mL LV Systolic Volume Index 25.6 mL/m2 LA size 4 cm LA volume 84.9 cm3 LA Volume Index 45.4 mL/m2 LA Volume Index 45.4 mL/m2 LV mass 167 LV Mass Index 89.1 g/m2 Relative Wall Thickness 0.43 Aortic Root - End Diastolic Sinus 3.8 cm Aortic Root Z-score 1.13 Ascending aorta 3.6 cm Ao-asc Z score 1.26 Inferior Vena Cava RIGHT ATRIAL PRESSURE 8 mmHg Doppler Measurements - Aortic Valve Stenosis LVOT diameter 2.2 cm LVOT area 3.8 cm2 LVOT peak hernesto 0.52 m/s LVOT peak VTI 8.02 cm Ao peak hernesto 0.6 m/s AV peak gradient 1 mmHg Doppler Measurements - Tricuspid Valve Stenosis TR PEAK GRAD 21 mmHg Stress Evaluation TV est pulmonary artery pressure 29 mmHg Doppler Measurements - Shunt Ratio Shunt Ratio LVOT stroke volume 30.7 cm3 Signed at 0941 EDT Linked Charges Charge Code Link Type Charge Type Modifiers Echo Heart Xthoracic,Complete W Doppler 81512 Automatic Professional 26 HC Echo 2d W/Doppler/Color Flow [[id number]] 68009 Automatic Technical Echo Heart Xthoracic,Complete W Doppler 10004 Automatic Global MO Myocardial Strain Img Using Speckle Trck-Drvd Ass Myocrd [id number] Context Professional 3d Rendering W/Interp T Postprocess Supervision 28314 ContextProfessional 26 Alisia Ortiz CARDIOVASCULAR-NO INBASKET RTG F inal Result Performing Organization Address [facility] Co de Phone Number [facility] [employer] [address] [place] [address] * TSH REFLEX FREE T4 (10/21/2022 5:39 PM EDT) Pathologist [facility] TSH 1.474 0.280 - 3.890 uIU/mL [facility] 10/21/2022 5:39 PM EDT Alisia Ortiz LABORATORY Final Result Performing Organization Address [facility] de Phone Number [facility] [employer] ONE [address] [place] [address] * HEPATITIS C ANTIBODY W/REFLEX TO HCV RNA, QUANTITATIVE PCR (10/21/2022 4:15 PM EDT) Pathologist [facility] Hepatitis C virus Ab NON-REACTI VE NON-REACT GALEN [facility] Comment: HCV antibody was non-reactive. There is no laboratory evidence of HCV infection. In most cases, no further action is required. However, if recent HCV exposure is suspected, a test for HCV RNA (test code 40245) is suggested. For additional information please refer to http://education.[employer]/faq/FHT95m0 (This link is being provided for informational/ educational purposes only.) 10/21/2022 4:15 PM EDT Narrative [facility] - 10/22/2022 7:53 PM EDT [facility] Received Date: us Unknown Provider [facility] LABORATORY Final Resu lt [facility] [employer] [address] [place] [address] * CBC AUTO DIFFERENTIAL (10/21/2022 4:15 PM EDT) Only the most recent of2 resultswithin the time period is included. WBC 6.2 4.3 - 10.8 10*3/uL [facility] RBC 5.08 4.20 - 5.80 10*6/uL [facility] Hemoglobin 17.1 13.2 - 17.1 g/dL [facility] Hematocrit 49.5 39.0 - 52.0 % [facility] MCV 97.6 80.0 - 100.0 fL [facility] MCH 33.7 27.0 - 34.0 pg [facility] MCHC 34.5 29.0 - 36.0 g/dL [facility] RDW 14.7 11.0 - 15.0 % [facility] PLT 193 140 - 440 10*3/uL [facility] Platelet mean volume 10.3 7.6 - 11.6 fL [facility] Neutrophils % 63.3 % [facility] Lymphocytes % 19.4 % [facility] Monocytes % 13.4 % [facility] Eosinophils % 2.8 % [facility] Basophils % 1.1 % [facility] Neutrophils # 3.93 1.60 - 7.50 10*3/uL [facility] Lymphocytes # 1.2 0.9 - 3.4 10*3/uL [facility] Monocytes # 0.8 0.0 - 1.2 10*3/uL [facility] Eosinophils # 0.2 0.0 - 0.6 10*3/uL [facility] Basophils # 0.1 0.0 - 0.3 10*3/uL [facility] SMEAR REVIEW NEEDED No [facility] 10/21/2022 4:15 PM EDT us Unknown Provider [facility] LABORATORY Final Resu lt Performing Organization Address [facility]/ZIP Co de Phone Number [facility] [employer] [address] [place] [address] * TROPONIN I (10/21/2022 4:15 PM EDT) Troponin I 0.01 0.01 - 0.04 ng/mL [facility] 10/21/2022 4:15 PM EDT us Unknown Provider [facility] LABORATORY Final Resu lt Performing Organization Address [facility] Co de Phone Number [facility] [employer] [address] [place] [address] * (ABNORMAL) BRAIN NATRIURETIC PEPTIDE (10/21/2022 4:15 PM EDT) Pathologist [facility] Natriuretic peptide.B 285(H) <100 pg/mL [facility] Comment:BNP concentrations c an vary with age and sex. Results >100 pg/mL are suggestive of CHF. 10/21/2022 4:15 PM EDT us Unknown Provider [facility] LABORATORY Final Resu lt Performing Organization Address [facility] de Phone Number [facility] [employer] [address] [place] [address] * XR CHEST PA AND LAT (10/21/2022 3:58 PM EDT) Anatomical Region Laterality Modality Other 10/21/2022 3:58 PM EDT Narrative 10/21/2022 3:58 PM EDT COMPARISON: None available. FINDINGS: There is interstitial opacity with curly B-lines predominantly at the left lung base. ??The cardiac silhouette and mediastinal contours are unremarkable. ??Probable small bilateral pleural effusions. ??There is no pneumothorax. ?? IMPRESSION: Focal interstitial opacity at the left lung base could represent atypical pneumonia versus asymmetric interstitial edema. Small bilateral pleural effusions. If this radiology report contains a blank impression section, it is an incomplete radiology report. ??Please contact the interpreting radiologist or applicable radiology division as soon as possible to obtain the completed interpretation. ? Workstation ID: [id number] Procedure Note [facility], Unknown Provider - 10/21/2022 COMPARISON: None available. FINDINGS: There is interstitial opacity with curly B-lines predominantly at the leftlung base. The cardiac silhouette and mediastinal contours areunremarkable. Probable small bilateral pleural effusions. There is nopneumothorax. IMPRESSION: Focal interstitial opacity at the left lung base could represent atypicalpneumonia versus asymmetric interstitial edema. Small bilateral pleural effusions. If this radiology report contains a blank impression section, it is anincomplete radiology report. Please contact the interpreting radiologistor applicable radiology division as soon as possible to obtain thecompleted interpretation. Workstation ID: [id number] us Unknown Provider [facility] Final Resu lt * RAPID??COVID-19??GONZALO??(ED) (10/21/2022 11:28 AM EDT) SARS-COV-2 RNA Not Detected Not Detected [facility] Comment: A Not Detected (Negative) test result is indicative of the absence of SARS-CoV-2 RNA at the level of LoD (Limit of Detection). A negative result does not rule out the possibility of COVID-19 and should not be used as the sole basis for treatment or patient management decisions. If COVID-19 is still suspected, based on exposure history together with other clinical findings, re-testing should be considered. 10/21/2022 11:2 8 AM EDT Narrative [facility] - 10/21/2022 12:21 PM EDT This test was developed, validated and its performance characteristics determined by [facility]. This test has not been cleared or approved by the U.S. Food and Drug Administration (FDA). FDA Policy for Diagnostic Tests for Coronavirus Disease-2019 during the Public Health Emergency issued May 25, 2019, is followed. us Unknown Provider [facility] LABORATORY Final Resu lt [facility] [employer] [address] [place] [address] * XRAY SHOULDER COMPLETE MIN 2 VWS - LEFT (DX: SHOULDER PAIN *NO INJURY* M25.512/ 719.41) FC (07/26/2022 12:41 PM EDT) Only the most recent of2 resultswithin the time period is included. Anatomical Region Laterality Modality UPPER EXTREMITY Radiographic Cira ging 07/26/2022 1:08 PM EDT Narrative 07/26/2022 1:08 PM EDT CONTRAST: 4 views left shoulder Comparison: CR/MO - XRAY SHOULDER COMPLETE MIN 2 VWS [...] 07/26/2022 CONTRAST: 4 views left shoulder Comparison: CR/MO - XRAY SHOULDER COMPLETE MIN 2 VWS [...] Mild degenerative changes of the left shoulder. us Jarad Jane MD IMG XRAY NO CONTRAST ORDERABLES Final Result * ENT OTORHINOLARYNGOLOGICAL TEST/PROCEDURE, UNSPECIFIED (07/10/2022) us Sergio Cornejo [facility] PROCEDURES Final R esult * OPERATIVE REPORT (07/04/2022 8:30 AM EDT) Narrative Procedure Note Bertin Lima MD - 07/04/2022 11:00 AM EDT [facility] [address] [place] [id number] [id number] 1960 (62yr) DOS: 07/04/2022 External Address: [address] [place] [id number] DATE OF PROCEDURE: 07/04/2022 PRE-OPERATIVE DIAGNOSIS: Degenerative disease, left hip POST-OPERATIVE DIAGNOSIS: Degenerative disease, left hip PROCEDURE: Left total hip arthroplasty SURGEON: Bertin Lima MD VENEER GLUER: GIULIANA Perry ANESTHESIA: general ESTIMATED BLOOD LOSS: 250 ml IV FLUIDS: 1600 ml URINE OUTPUT: no haskins COMPLICATIONS: none IMPLANTS: 1. Mac-Biomet 52 mm G7 acetabular shell. 2. [employer]-Biomet M/L Taper femoral stem, size 9 with standard offset /reduced neck length. 3. [employer]omet Vivacit-E Vitamin E highly cross-linked polyethyleneneutral acetabular liner with 36mm inner diameter. 4. Mac-Biomet Bioloxceramic femoral head with 36mm outer diameter and -3.5 mm neck length. 5. 6.5 mm bone screw x two. INDICATIONS: The patient is a 62-year-old male who has developedsignificant left hip pain with weightbearing and activity. X-rays havedemonstrated advanced degenerative disease of the left hip. The patienthas been attempting to manage their symptoms by conservative means, butfeels that this is no longer providing meaningful relief. I discussed withthe patient potential treatment options including continued attempts atconservative management versus total hip arthroplasty. I explained to thepatient the nature of the procedure as well as the anticipated recoveryand the associated risks. I explained in detail the risk of bleeding,infection, DVT/PE, hip instability, leg length discrepancy, persistentpain, implant failure/loosening, medical complications, and need foradditional surgery. The patient understood all of this and has elected toproceed. Informed consent was obtained. DESCRIPTION OF THE PROCEDURE: The patient was met in the preoperativeholding area. I had the opportunity to answer questions from the patient.The informed consent was reviewed and the left hip was marked. The patientwas then transported to the operating room and transferred to theoperating room table. After adequate induction of general anesthesia, thepatient was positioned into the lateral decubitus position with the lefthip facing up. The pegboard and anterior portion of the Stulberg hippositioner were used to support the patient in this position. A Venodyneboot was placed on the contralateral lower leg. The left lower extremitywas prepped and draped in the usual sterile fashion. A safety timeout wasperformed where the correct patient, planned operative procedure, andcorrect operative site were reviewed and agreed upon by all operating roomstaff. It was also confirmed that the patient had received a dose ofcefazolin and vancomycin. Op NoteGenerated by: Bertin Lima - 07/04/2022 10:59 A mini-posterior approach was used for this procedure. A skin incision wasmade over the left greater trochanter and curved slightly towards thebuttock region. The subcutaneous tissues were dissected through with theelectrocautery. The underlying fascia layer was incised in-line with theoverlying incision and the gluteus meet musculature was split in-linewith its fibers. The hip was internally rotated and a cobra retractor wasplaced under the abductor musculature. The piriformis tendon wasidentified, resected off its insertion into the greater trochanter, andtagged with an Ethibond suture. The remainder of the short externalrotators were released with the exception of the quadratus which was leftintact. The underlying posterior capsular tissue was reflected off theposterior femoral neck and tagged with an Ethibond suture. The left lower extremity was placed into a neutral position. A temporaryVicryl suture was placed in the skin proximal to the incision. A Boviemark was made on the greater trochanter. The suture was cut to the lengthof the Bovie josy. These were used to assess intraoperative leg lengths. Idid note preoperatively that the left lower extremity was [id number] shorter than the contralateral lower extremity. The hip wasdislocated and a femoral neck cut was made 5mm proximal to the lessertrochanter in accordance with the preoperative plan. The femoral head wasremoved. The femoral head showed signs of advanced degenerative diseasewith full-thickness cartilage loss and peripheral osteophytes. The acetabulum was exposed. The labrum was excised. The medial wall wasidentified. I started reaming with a 48mm reamer and sequentially reamedup to 51mm. At this point, there was good contact between the periphery ofthe reamer and the rim of the acetabulum. There was bleeding bonethroughout the acetabulum. The acetabulum was thoroughly irrigated. Iselected a 52 mm Mac-Biomet G7 acetabular shell. This was impacted intothe acetabulum in 45 degrees of inclination and with 25 degrees ofanteversion. The shell became firmly engaged with the underlying bone. Theshell was then secured with two 6.5mm bone screws into the ilium. Allscrews had good bony purchase. A trial acetabular liner was then securedinto the acetabular shell. The femur was exposed. The box osteotome was used to enter the femoralcanal. The canal finder was placed down the femoral canal. I startedbroaching with a size 4 broach. The rat tail rasp was used to clear outthe lateral aspect of the proximal femoral metaphysis. I then sequentiallybroached up to a size 9. This broach reached a solid endpoint and wasfirmly stable within the canal. I then performed a trial reduction with atrial neck with a 36mm +0mm femoral head. The hip was reduced. Leg length,range of motion, and stability were assessed. Modifications to the trailneck and neck length were made in order to achieve appropriate leg lengthwhile not jeopardizing the stability of the hip. With a standard offset /reduced neck length trial neck and 36mm -3.5mm trial femoral head in placeI noted that the leg had been lengthened approximately 9 mm. The hip couldbe fully extended and externally rotated without signs of posteriorimpingement or anterior instability. The hip was stable in the position ofsleep. With the hip flexed to 45 degrees in neutral abduction, it could beinternally rotated to 60 degrees without hip instability. With the hipflexed to 90 degrees in neutral abduction, it could be internally rotatedto 40 degrees without hip instability. The hip was also stable to 90degrees of flexion and 30 degrees of adduction as well as [id number] degrees of pure flexion. The hip was dislocated and the trial implants were removed. The acetabularshell was thoroughly irrigated. A Mac-Biomet Vivacit-E Vitamin Ehighly-crosslinked polyethylene neutral acetabular liner was impacted intothe acetabular shell. I confirmed that the liner was fully engaged withthe shell. The femur was again exposed and stability of the size 9 broachwas confirmed. The broach was removed and the canal was thoroughlyirrigated. A Mac-Biomet M/L Taper femoral stem, size 9 with standardoffset / reduced neck length was impacted into the prepared canal. Thestem reached a solid endpoint and sat at the same level as was the broach.I confirmed the stem was firmly stable within the canal. A 36 mm, -3.5 mmceramic femoral head was impacted onto a clean and dry trunnion and thehip was again reduced. The hip was then thoroughly irrigated with 1 liter of normal saline mixedwith 30 mL of Betadine. This was followed by 1 additional liter of LRirrigation. The posterior capsular tissue was reapproximated to thesuperior capsular tissue and the posterior aspect of the greatertrochanter with Ethibond suture through drill holes in the posteriorgreater trochanter. The piriformis tendon was then reapproximated to theposterior aspect of the abductor tendon with Ethibond suture. With the hipslightly abducted, the fascial layer was closed with #1 Vicryl. The hipwas then infiltrated with a solution of ropivacaine, Duramorph, tranexamicacid. The subcutaneous tissues were thoroughly irrigated. The subcutaneoustissues were closed with a deep #1 Vicryl and a more superficial 2-0Vicryl. The skin was closed with 3-0 Monocryl in a subcuticular fashion.All counts were correct at the completion of the case. Dermabond wasapplied to the incision. A dry sterile dressing was applied. The patienttolerated the procedure well and was transported to the Recovery Room instable condition. I Op NoteGenerated by: Bertin Lima - 07/04/2022 10:59 contacted the patient???s at the completion of the case. Electronically Signed By: Bertin Lima MD 07/04/2022 10:59 Op NoteGenerated by: Bertin Lima - 07/04/2022 10:59 us Bertin Lima MD SURGICAL Final Result * EKG-TO BE READ & BILLED BY ADULT OR PEDIATRIC CARDIOLOGY (07/03/2022 10:46 AM EDT) Only the most recent of3 resultswithin the time period is included. VENTRICULAR RATE 76 BPM MUS E EKG [...] No significant change was found Confirmed by BRANDON BATES ([id number]), senior technical editor LENIN FUNK ([id number]) on 07/04/2022 9:52:14 AM [facility] E[facility] SYSTEM 07/03/2022 10:4 6 AM EDT 07/04/2022 9:52 AM EDT Katiuska Berg NP CARDIOVASCULAR-WITH INBSKT RTG Final Result [facility] * BLOOD TYPE AND ANTIBODY SCREEN (07/03/2022 10:30 AM EDT) Pathologist [facility] BLOOD GROUP ABO A [facility] RH-(D) Positive [facility] ANTIBODY SCREEN Negative Negative [facility] 07/03/2022 10:3 0 AM EDT 07/03/2022 10:30 AM EDT Bertin Lima MD LABORATORY Final Result [facility] [address] [place] [address] * CBC INCLUDES DIFFERENTIAL AND PLATELET COUNT (06/27/2022 4:07 PM EDT) Only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 After adequate tension was placed on the suture the4.75 swivel lock anchor was then secured into the punch hole. Excesssuture was cut. The remaining suture from the anterior???medial anchor andthe posterior???medial anchor were then placed through the eyelet ofanother 4.75 swivel lock anchor. A punch was used to create a punch holein the posterior???lateral aspect of the greater tuberosity. Afteradequate tension was placed on the suture the 4.75 swivel lock anchor wasthen secured into the punch hole. Excess suture was cut. I observed anadequate repair of the supraspinatus tendon tear. A shaver was used toremove any residual debris. All of the instruments were removed from theshoulder. The portal sites were closed using 2-0 Vicryl And 4-0 Monocryl. Dressingsof Steri-Strips, fluffs, ABD, and foam tape were placed on the left upperextremity. The left upper extremity was removed from the arm garcia andplaced into a sling. The patient was placed in the supine position. Theleft upper extremity was warm well perfused with a brisk capillary refillfollowing the procedure. The patient tolerated the procedure well and wasstable throughout. The patient was transferred to the PACU under the careof anesthesia in a stable condition. The patient should remain in thesling at all times except for passive range of motion exercises andhygiene. The patient will follow-up in the office in 2 weeks. Signed By: Jarad Jane MD 07/21/2021 09:48 Op NoteGenerated by: Jarad Jane - 07/21/2021 09:48 us Jarad Jane MD SURGICAL Final Result * DIAGNOSTIC PHOTOGRAPH (07/21/2021) us Jarad Jane MD PROCEDURES Final Result * MRI SHOULDER W/O CONTRAST - LEFT FC (04/06/2021 12:31 PM EST) Only the most recent of2 resultswithin the time period is included. Anatomical Region Laterality Modality UPPER EXTREMITY Magnetic Resonan ce 04/06/2021 5:08 PM EST Narrative 04/06/2021 5:08 PM EST CONTRAST: Exam: MRI of the left shoulder without contrast Comparison: 03/09/2021 Clinical history: Left shoulder pain Findings: Mild acromioclavicular joint arthritis. ??Acromion is downsloping. ??Moderate subacromial and subdeltoid bursitis No glenohumeral arthritis. ??Moderate glenohumeral effusion with mild synovitis. No labral tear. Complete, full-thickness tear of the distal supraspinatus tendon at its insertion with retraction to the level of the lateral acromion.. ??Volume loss of the supraspinatus muscle without fatty infiltration. Infraspinatus tendon demonstrate severe tendinosis. ??Small high-grade partial-thickness, bursal sided tear is seen at the anterior insertion of the supraspinatus measuring approximately 4 mm in AP dimension on sagittal image 5 and axial image 8. Teres minor tendon is not torn. ??There is diffuse fatty infiltration of the teres minor muscle, which can be seen in the setting of quadrilateral space syndrome. Subscapularis tendon does not demonstrate tendinosis or tear. Long head biceps tendon is not torn or dislocated. ??There is moderate tendinosis of the tendon in its intra-articular portion. Impression: 1. ??Complete full-thickness tear of the supraspinatus tendon at its insertion with retraction to the lateral acromion. ??Volume loss but no fatty infiltration of the muscle. 2. ??Severe infraspinatus tendinosis with small 4 mm high-grade partial-thickness tear. ??No full-thickness tear of the infraspinatus tendon. 3. ??Teres minor does not straight tendinosis or tear however there is fatty infiltration of the teres minor muscle which can be seen in the setting of quadrilateral space syndrome. 4. ??Moderate tendinosis of the long head biceps tendon without tear or dislocation. 5. ??Mild AC joint arthritis with moderate subacromial and subdeltoid bursitis. 6. ??Moderate glenohumeral effusion with synovitis Procedure Note Rina Robbins MD - 04/06/2021 CONTRAST: Exam: MRI of the left shoulder without contrast Comparison: 03/09/2021 Clinical history: Left shoulder pain Findings: Mild acromioclavicular joint arthritis. Acromion is downsloping.Moderate subacromial and subdeltoid bursitis No glenohumeral arthritis. Moderate glenohumeral effusion with mildsynovitis. No labral tear. Complete, full-thickness tear of the distal supraspinatus tendon at its insertion with retraction to the level of the lateral acromion.. Volumeloss of the supraspinatus muscle without fatty infiltration. Infraspinatus tendon demonstrate severe tendinosis. Small high-grade partial-thickness, bursal sided tear is seen at the anterior insertion ofthe supraspinatus measuring approximately 4 mm in AP dimension on sagittalimage 5 and axial image 8. Teres minor tendon is not torn. There is diffuse fatty infiltration ofthe teres minor muscle, which can be seen in the setting of quadrilateralspace syndrome. Subscapularis tendon does not demonstrate tendinosis or tear. Long head biceps tendon is not torn or dislocated. There is moderate tendinosis of the tendon in its intra-articular portion. Impression: 1. Complete full-thickness tear of the supraspinatus tendon at itsinsertion with retraction to the lateral acromion. Volume loss but no fattyinfiltration of the muscle. 2. Severe infraspinatus tendinosis with small 4 mm high-grade partial-thickness tear. No full-thickness tear of the infraspinatustendon. 3. Teres minor does not straight tendinosis or tear however there isfatty infiltration of the teres minor muscle which can be seen in the setting of quadrilateral space syndrome. 4. Moderate tendinosis of the long head biceps tendon without tear or dislocation. 5. Mild AC joint arthritis with moderate subacromial and subdeltoidbursitis. 6. Moderate glenohumeral effusion with synovitis Jarad Jane MD IM MR NO CONTRAST OR DERABLES Final Result * XR KNEE ORTHO - LT (DX: KNEE PAIN *NO INJURY* M25.562/ 719.46)(AGE>=35, CAN WEIGHT-BEAR) FC (02/27/2021 9:18 AM EST) Only the most recent of2 resultswithin the time period is included. Anatomical Region Laterality Modality LOWER EXTREMITY Radiographic Cira ging 02/27/2021 9:38 AM EST Narrative 02/27/2021 9:38 AM EST CONTRAST: AP standing bilateral knees, 2 views left knee Comparison: None Findings: Left knee: No acute fracture or dislocation. ??Alignment is unremarkable. ??Soft tissues are within normal limits. Right knee: No acute fracture or dislocation. ??Alignment is unremarkable. Impression: 1. ??No significant bony abnormality. Procedure Note Michael Cruz MD - 02/27/2021 CONTRAST: AP standing bilateral knees, 2 views left knee Comparison: None Findings: Left knee: No acute fracture or dislocation. Alignment is unremarkable.Soft tissues are within normal limits. Right knee: No acute fracture or dislocation. Alignment is unremarkable. Impression: 1. No significant bony abnormality. us Riaz Seals MD IMG XRAY NO CONTRAST ORDERABLES Final Result * XRAY SPINE (11/18/2020) Only the most recent of3 resultswithin the time period is included. 11/18/2020 Narrative 11/18/2020 Ordered by an unspecified provider. us Unknown Provider GENERAL IMAGING- OTHER Final Re sult * UNSPECIFIED MAJOR PROCEDURE (10/28/2020) us Wisam Couch MD PROCEDURES Final Res ult * COVID-19 PCR, PRE-SURGICAL ONLY (ASYMPTOMATIC) (10/25/2020 10:05 AM EDT) Only the most recent of2 resultswithin the time period is included. SARS-COV-2 RNA Not Detected Not Detected [facility] Comment: A Not Detected (Negative) test result is indicative of the absence of SARS-CoV-2 RNA at the level of LoD (Limit of Detection). A negative result does not rule out the possibility of COVID-19 and should not be used as the sole basis for treatment or patient management decisions. If COVID-19 is still suspected, based on exposure history together with other clinical findings, re-testing should be considered. 10/25/2020 10:0 5 AM EDT Narrative [facility] - 10/25/2020 11:43 PM EDT These tests were developed, validated, and their performance characteristics determined by the Molecular Virology Laboratory at [facility] under CLIA [id number]. They have not been cleared or approved by the U.S. Food and Drug Administration (FDA). FDA Policy for Diagnostic Tests for Coronavirus Disease- 2019 during the Public Health Emergency issued May 25, 2019, is followed. Riaz Seals MD LABORATORY Final Result [facility] [address] [place] [address] * UNSPECIFIED MAJOR PROCEDURE (08/26/2020) Wisam Couch MD PROCEDURES Final Res ult * XRAY SPINE, CERVICAL; 3 VIEWS OR LESS FC (02/19/2020 12:00 PM EST) Only the most recent of2 resultswithin the time period is included. Anatomical Region Laterality Modality Spine Radiographic Cira ging 02/22/2020 7:05 AM EST Narrative 02/22/2020 7:05 AM EST 2 view cervical spine Comparison: ??CR MO ??- SPINE CERVICAL-AP / LAT XRAY ??- 01/22/2020 03:36 PM EST Findings: Flexion and extension lateral images are obtained. There is reversal of upper cervical lordosis. No abnormal translational motion on flexion or extension. Moderate to severe multilevel degenerative change. Prevertebral soft tissues normal. Impression: 1. No abnormal translational motion. Procedure Note Lilly Bustillo MD - 02/22/2020 2 view cervical spine Comparison: CR MO - SPINE CERVICAL-AP / LAT XRAY - 01/22/2020 03:36 PMEST Findings: Flexion and extension lateral images are obtained. There is reversal of upper cervical lordosis. No abnormal translationalmotion on flexion or extension. Moderate to severe multilevel degenerative change. Prevertebral soft tissues normal. Impression: 1. No abnormal translational motion. 07:05:01 Eron Flynn MD IMG XRAY NO CONTRAST ORDERABLES Final Result * XR KNEE 3 VWS, RIGHT (02/12/2020 10:46 AM EST) Anatomical Region Laterality Modality Other 02/12/2020 10:4 6 AM EST Narrative 02/12/2020 10:46 AM EST COMPARISON:None available FINDINGS AND IMPRESSION: No acute fracture or dislocation. No joint effusion. Mild prepatellar soft tissue swelling. Small density anterior to the inferior patellar pole, may represent soft tissue calcification or other etiology. The underlying patellar cortex is smooth and intact. Cortical thickening of the proximal fibular metaphysis, likely chronic. [id number] Procedure Note [facility], Unknown Provider - 02/12/2020 COMPARISON:None available FINDINGS AND IMPRESSION: No acute fracture or dislocation. No joint effusion. Mild prepatellar softtissue swelling. Small density anterior to the inferior patellar pole, mayrepresent soft tissue calcification or other etiology. The underlyingpatellar cortex is smooth and intact. Cortical thickening of the proximal fibular metaphysis, likelychronic. [id number] us Unknown Provider [facility] IM[facility] Final Resu lt * US RIGHT LOWER DOPPLER VEINS (02/12/2020 10:18 AM EST) 02/12/2020 10:1 8 AM EST Narrative [facility] - 02/12/2020 10:18 AM EST COMPARISON: None available FINDINGS: Greyscale and spectral duplex Doppler waveform imaging of right lower extremity deep venous system was performed. The common femoral, superficial femoral and popliteal veins demonstrate compressibility and spontaneous color flow with normal respiratory variation and normal response to distal augmentation, compatible with patency. ?? The proximal greater saphenous and proximal profunda femoral veins demonstrate spontaneous color flow without evidence of thrombus. ?? The posterior tibial and peroneal calf veins also demonstrate spontaneous color flow without evidence of thrombus. ?? No abnormal fluid collections are identified. IMPRESSION: No evidence of deep venous thrombosis in the right lower extremity. [id number] Procedure Note [facility], Unknown Provider - 02/12/2020 COMPARISON: None available FINDINGS: Greyscale and spectral duplex Doppler waveform imaging of right lowerextremity deep venous system was performed. The common femoral, superficial femoral and popliteal veins demonstratecompressibility and spontaneous color flow with normal respiratoryvariation and normal response to distal augmentation, compatible withpatency. The proximal greater saphenous and proximal profunda femoral veinsdemonstrate spontaneous color flow without evidence of thrombus. The posterior tibial and peroneal calf veins also demonstrate spontaneouscolor flow without evidence of thrombus. No abnormal fluid collections are identified. IMPRESSION: No evidence of deep venous thrombosis in the right lower extremity. [id number] us Unknown Provider [facility] CARDIOVASCULAR IM[facility]ING-[facility] Final Result [facility] [employer] [address] [place] [id number] * (ABNORMAL) SMEAR REVIEW (02/12/2020 8:59 AM EST) Platelet morphology finding Adequate Adequate [facility] LARGE PLATELETS Present(A) Not Present [facility] Platelet clump 1+(A) Not Present [facility] Erythrocyte morphology finding Present(A) Normal [facility] Anisocytosis 1+(A) Not Present [facility] 02/12/2020 8:59 AM EST us Lena Botello LABORATORY Final Result [facility] [employer] [address] [place] [address] * MRI LUMBAR SPINE W/O CONTRAST FC (02/10/2020 5:37 PM EST) Anatomical Region Laterality Modality Spine Magnetic Resonan ce 02/11/2020 9:09 AM EST Narrative 02/11/2020 9:09 AM EST MRI lumbar spine without contrast. Technique: Sagittal T1, T2 with and without fat saturation. Axial T1 and T2-weighted images. Comparison: 01/22/20 lumbar radiographs. Findings: Normal alignment with normal vertebral body heights. No fracture or listhesis. Disc desiccation L1-L5. Schmorl's node superior endplate of L2. Conus terminates at T12-L1 and is normal. L1-L2: Minimal broad-based disc bulge. No central or neural foraminal narrowing. L2-L3: 4 mm broad-based posterior disc bulge. Bilateral facet arthropathy with ligamentum flavum thickening. Moderate central canal narrowing without neural foraminal narrowing. L3-L4: 5 mm broad-based posterior disc bulge paracentral to the left. Moderate bilateral facet arthropathy with ligamentum flavum thickening. Moderate central canal narrowing. Moderate to severe narrowing left lateral recess, however the nerve has already exited. Mild left neural foraminal narrowing. L4-L5: Moderate disc space narrowing. Right posterior paracentral 5 mm disc bulge. Moderate bilateral facet arthropathy with ligamentum flavum thickening. Moderate to severe central canal narrowing. Severe narrowing of the right lateral recess. Moderate right neural foraminal narrowing. Mild left neural foraminal narrowing. L5-S1: Minimal broad-based posterior disc bulge. Mild bilateral facet arthropathy. No central canal narrowing. Moderate left neural foraminal narrowing. Incidental findings: None. Impression: 1. Degenerative change most notable at L3-L4 with moderate to severe central canal narrowing and severe narrowing of the right lateral recess. 2. Moderate L4-L5 disc space narrowing. 3. L2-L5 facet arthropathy. Procedure Note Neri Diego MD - 02/11/2020 MRI lumbar spine without contrast. Technique: Sagittal T1, T2 with and without fat saturation. Axial T1 and T2-weighted images. Comparison: 01/22/20 lumbar radiographs. Findings: Normal alignment with normal vertebral body heights. No fracture or listhesis. Disc desiccation L1-L5. Schmorl's node superior endplate of L2. Conus terminates at T12-L1 and is normal. L1-L2: Minimal broad-based disc bulge. No central or neural foraminal narrowing. L2-L3: 4 mm broad-based posterior disc bulge. Bilateral facet arthropathywith ligamentum flavum thickening. Moderate central canal narrowing withoutneural foraminal narrowing. L3-L4: 5 mm broad-based posterior disc bulge paracentral to the left.Moderate bilateral facet arthropathy with ligamentum flavum thickening. Moderatecentral canal narrowing. Moderate to severe narrowing left lateral recess, howeverthe nerve has already exited. Mild left neural foraminal narrowing. L4-L5: Moderate disc space narrowing. Right posterior paracentral 5 mmdisc bulge. Moderate bilateral facet arthropathy with ligamentum flavumthickening. Moderate to severe central canal narrowing. Severe narrowing of the right lateral recess. Moderate right neural foraminal narrowing. Mild leftneural foraminal narrowing. L5-S1: Minimal broad-based posterior disc bulge. Mild bilateral facet arthropathy. No central canal narrowing. Moderate left neural foraminal narrowing. Incidental findings: None. Impression: 1. Degenerative change most notable at L3-L4 with moderate to severecentral canal narrowing and severe narrowing of the right lateral recess. 2. Moderate L4-L5 disc space narrowing. 3. L2-L5 facet arthropathy. Eron Flynn MD IMG MR NO CONTRAST ORDERABLES F inal Result * MRI CERVICAL SPINE W/O CONTRAST FC (02/10/2020 5:15 PM EST) Only the most recent of2 resultswithin the time period is included. Anatomical Region Laterality Modality Spine Magnetic Resonan ce 02/11/2020 11:2 4 AM EST Narrative 02/11/2020 11:24 AM EST EXAM: ??MRI CERVICAL SPINE WITHOUT CONTRAST: COMPARISON: MR OT MO ??- CERVICAL SPINE WO CONTRAST MRI ??- 12/10/2017 07:24 AM EDT TECHNIQUE: ??Sagittal T1, STIR and FSE T2, axial T2, GRE images. FINDINGS: The craniocervical junction is unremarkable. ??No odontoid abnormality is appreciated. Reversal of cervical lordosis is chronic and unchanged. C2-3: Slight anterolisthesis with facet arthropathy on the left. ??Moderate left foraminal narrowing. C3-4: Minimal anterolisthesis. ??Left facet arthropathy. ??Severe left foraminal stenosis, mild to moderate right. C4-5: Posterior disc osteophyte complex results in canal narrowing and chronic effect on the anterior cord surface. ??AP canal diameter approximately 6 mm, not changed. ??Moderate right greater than left foraminal narrowing. C5-6: Retrolisthesis and degenerative disc changes with marked central canal stenosis, similar to the previous study. ??AP canal diameter approximately 5 mm. 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 ??There is left greater than right lateral recess stenosis, severe left and moderate right foraminal narrowing, unchanged. C6-7: Posterior disc osteophyte complex with mild canal narrowing and no additional cord compression. ??Severe right foraminal stenosis, not significantly progressed. C7-T1: Moderate right foraminal narrowing No cord signal abnormality with the exception of the C5-6 level. Paraspinous soft tissues are unremarkable. IMPRESSION: ?? Degenerative changes are similar to the 2018 study, with particularly significant canal stenosis and myelomalacia at C5-6 and multiple significant appearing foraminal stenoses bilaterally, as detailed above, similar to the previous study also. Procedure Note Valentino Mccurdy MD - 02/11/2020 EXAM: MRI CERVICAL SPINE WITHOUT CONTRAST: COMPARISON: MR OT MO - CERVICAL SPINE WO CONTRAST MRI - 12/10/2017 07:24 AM EDT TECHNIQUE: Sagittal T1, STIR and FSE T2, axial T2, GRE images. FINDINGS: The craniocervical junction is unremarkable. No odontoid abnormality is appreciated. Reversal of cervical lordosis is chronic and unchanged. C2-3: Slight anterolisthesis with facet arthropathy on the left. Moderateleft foraminal narrowing. C3-4: Minimal anterolisthesis. Left facet arthropathy. Severe leftforaminal stenosis, mild to moderate right. C4-5: Posterior disc osteophyte complex results in canal narrowing andchronic effect on the anterior cord surface. AP canal diameter approximately 6mm, not changed. Moderate right greater than left foraminal narrowing. C5-6: Retrolisthesis and degenerative disc changes with marked centralcanal stenosis, similar to the previous study. AP canal diameter approximately5 mm. 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 There is left greater than right lateral recess stenosis, severe left and moderate right foraminalnarrowing, unchanged. C6-7: Posterior disc osteophyte complex with mild canal narrowing and no additional cord compression. Severe right foraminal stenosis, not significantly progressed. C7-T1: Moderate right foraminal narrowing No cord signal abnormality with the exception of the C5-6 level. Paraspinous soft tissues are unremarkable. IMPRESSION: Degenerative changes are similar to the 2018 study, with particularly significant canal stenosis and myelomalacia at C5-6 and multiplesignificant appearing foraminal stenoses bilaterally, as detailed above, similar tothe previous study also. Eron Flynn MD IMG MR NO CONTRAST ORDERABLES F inal Result * XRAY SPINE, LUMBOSACRAL; COMPLETE, INCLUDING BENDING VIEWS FC (01/22/2020 3:40 PM EST) Anatomical Region Laterality Modality Spine Radiographic Cira ging 01/22/2020 4:18 PM EST Narrative 01/22/2020 4:18 PM EST 4 views lumbar spine Comparison: None Findings: No fractures or dislocations. Normal vertebral body alignment, maintained throughout flexion and extension.. Diffuse moderate visualized spurring is compatible diffuse degenerative disc disease. ??There is some disc space narrowing, more significant at L4-5. ?? Diffuse bilateral facet arthropathy is present, more significant L3-4 S1.. Sacroiliac joints unremarkable. Impression: 1. ??Lumbar degenerative changes described above. Procedure Note Shemar Fong MD - 01/22/2020 4 views lumbar spine Comparison: None Findings: No fractures or dislocations. Normal vertebral body alignment, maintained throughout flexion and extension.. Diffuse moderate visualized spurring is compatible diffuse degenerativedisc disease. There is some disc space narrowing, more significant at L4-5. Diffuse bilateral facet arthropathy is present, more significant L3-4 S1.. Sacroiliac joints unremarkable. Impression: 1. Lumbar degenerative changes described above. us Eron Flynn MD IMG XRAY NO CONTRAST ORDERABLES Final Result * XRAY SPINE, CERVICAL; 4 OR 5 VIEWS FC (12/02/2017 3:51 PM EDT) Anatomical Region Laterality Modality Spine Radiographic Cira ging 12/02/2017 5:36 PM EDT Addenda This result is currently undergoing an addendum. Addendum by Hilton Bo MD on 12/04/2017 1:36 PM EDT ADDENDUM: Addendum: 4 views cervical spine 4 views lumbosacral spine Comparison: None Findings: Normal lumbar vertebral bodies. ??No fractures. ??Reversal of normal cervical lordosis. ??This is stable in flexion and extension. ??Posterior subluxation C5 on C6 measuring 3.5 mm, stable in flexion and extension. ?? Mild degenerative disc disease C3-C4. ??Moderate degenerative disc C4-C5. ?? Advanced degenerative disease C5-C6 and C6-C7. Impression: Mild degenerative disc disease C3-C4. ??Moderate degenerative disc C4-C5. ?? Advanced degenerative disease C5-C6 and C6-C7. Prominent reversal of normal cervical lordosis. Narrative 12/02/2017 5:36 PM EDT 4 views lumbosacral spine Comparison: None Findings: Normal lumbar vertebral bodies. ??No fractures. ??Reversal of normal cervical lordosis. ??This is stable in flexion and extension. ??Posterior subluxation C5 on C6 measuring 3.5 mm, stable in flexion and extension. ??Mild degenerative disc disease C3-C4. ??Moderate degenerative disc C4-C5. ??Advanced degenerative disease C5-C6 and C6-C7. Impression: Mild degenerative disc disease C3-C4. ??Moderate degenerative disc C4-C5. ?? Advanced degenerative disease C5-C6 and C6-C7. Prominent reversal of normal cervical lordosis. Procedure Note Hilton Bo MD - 12/02/2017 4 views lumbosacral spine Comparison: None Findings: Normal lumbar vertebral bodies. No fractures. Reversal ofnormal cervical lordosis. This is stable in flexion and extension. Posterior subluxation C5 on C6 measuring 3.5 mm, stable in flexion and extension.Mild degenerative disc disease C3-C4. Moderate degenerative disc C4-C5.Advanced degenerative disease C5-C6 and C6-C7. Impression: Mild degenerative disc disease C3-C4. Moderate degenerative disc C4-C5. Advanced degenerative disease C5-C6 and C6-C7. Prominent reversal of normal cervical lordosis. us Eron Flynn MD IMG XRAY NO CONTRAST ORDERABLES Edited * UNSPECIFIED MAJOR PROCEDURE (08/29/2017) us Laureano Tavarez MD PROCEDURES Final Result * NEEDLE ELECTROMYOGRAPHY (EMG) EACH EXTREM, W/WO PARASPINAL AREAS, COMPLETE, W/ PRIM PROC (08/06/2017) us Ganga Menchaca MD PROCEDURES Final Result * MRI SPINE (04/22/2017) Only the most recent of2 resultswithin the time period is included. 04/22/2017 us David Ji MD CONTRAST STUDY- OTHER Final Resu lt * ALANINE AMINOTRANSFERASE (ALT), SERUM (04/11/2016 4:01 PM EST) Only the most recent of2 resultswithin the time period is included. ALT (SGPT) 28 <67 U/L [facility] 04/11/2016 4:01 PM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 Cervicalgia 08/17/2020 Essential hypertension 08/17/2020 Vaccine refused by parent Vaccination not carried out because of caregiver refusal 08/17/2020 Spinal stenosis in cervical region 08/23/2020 Pre-op testing Preoperative examination, unspecified 08/23/2020 Muscle spasm Spasm of muscle 09/01/2020 Essential hypertension 09/01/2020 Preoperative examination, unspecified 09/22/2020 OM (otitis media), recurrent, right 11/10/2020 Hyperlipidemia LDL goal <100 Other and unspecified hyperlipidemia 12/01/2020 Neck pain Cervicalgia 12/01/2020 Essential hypertension 12/01/2020 Chronic bilateral low back pain with sciatica, sciatica laterality unspecified 12/01/2020 Disorder of left mastoid 12/01/2020 Cervical disc disorder with myelopathy 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, cervical region 12/01/2020 Left hip pain PT Pain in joint, pelvic region and thigh 01/20/2021 Left hip pain Pain in joint, pelvic region and thigh 01/23/2021 Left hip pain Pain in joint, pelvic region and thigh 01/25/2021 Left hip pain Pain in joint, pelvic region and thigh 01/30/2021 Left hip pain Pain in joint, pelvic region and thigh 02/01/2021 Left hip pain Pain in joint, pelvic region and thigh 02/10/2021 Left hip pain Pain in joint, pelvic region and thigh 02/15/2021 Left hip pain Pain in joint, pelvic region and thigh 02/17/2021 Arthritis of left hip 02/20/2021 Primary osteoarthritis of left hip Primary localized osteoarthrosis, pelvic region and thigh 02/22/2021 Need for vaccination Need for prophylactic vaccination and inoculation against unspecified single disease 02/27/2021 Acute pain of left knee 02/27/2021 Left hip pain Pain in joint, pelvic region and thigh 03/01/2021 Left shoulder pain, unspecified chronicity 03/07/2021 Left shoulder pain, unspecified chronicity 03/09/2021 Left knee pain, unspecified chronicity 03/09/2021 Rotator cuff strain, left, initial encounter 03/09/2021 Rotator cuff strain, right, initial encounter 03/09/2021 Left shoulder pain, unspecified chronicity 03/09/2021 Left hip pain Pain in joint, pelvic region and thigh 03/09/2021 Chronic pain of left knee PT Pain in joint, lower leg 03/29/2021 Chronic pain of left knee Pain in joint, lower leg 04/03/2021 Chronic pain of left knee PT Pain in joint, lower leg 04/05/2021 Rotator cuff strain, left, initial encounter 04/06/2021 Left shoulder pain, unspecified chronicity 04/06/2021 Chronic pain of left knee PT Pain in joint, lower leg 04/12/2021 Rotator cuff strain, left, subsequent encounter 04/13/2021 Rotator cuff strain, right, subsequent encounter 04/13/2021 Strain of tendon of left rotator cuff, initial encounter 04/14/2021 Strain of tendon of left rotator cuff, initial encounter 04/14/2021 Chronic pain of left knee PT Pain in joint, lower leg 04/19/2021 Chronic pain of left knee PT Pain in joint, lower leg 04/26/2021 Strain of tendon of left rotator cuff, initial encounter 05/22/2021 Primary osteoarthritis of left hip Primary localized osteoarthrosis, pelvic region and thigh 05/31/2021 Hyperlipidemia LDL goal <100 Other and unspecified hyperlipidemia 06/09/2021 Essential hypertension 06/09/2021 Myelomalacia (HCC) Other myelopathy 06/09/2021 Right ear pain Otalgia, unspecified 06/09/2021 Hypertension, unspecified type 06/09/2021 Primary osteoarthritis of left hip Primary localized osteoarthrosis, pelvic region and thigh 07/04/2021 Lumbar spondylosis Lumbosacral spondylosis without myelopathy 07/04/2021 Spinal stenosis in cervical region 07/13/2021 Screening for endocrine disorder 07/13/2021 Chronic right shoulder pain Pain in joint, shoulder region 07/13/2021 Complete tear of left rotator cuff, unspecified whether traumatic 07/13/2021 Essential hypertension 07/13/2021 Hyperlipidemia LDL goal <100 Other and unspecified hyperlipidemia 07/13/2021 History of colon polyps Personal history of colonic polyps 07/13/2021 Gastroesophageal reflux disease without esophagitis Esophageal reflux 07/13/2021 Chronic bilateral low back pain with sciatica, sciatica laterality unspecified 07/13/2021 Spinal stenosis in cervical region 07/13/2021 Disorder of left mastoid 07/13/2021 Primary osteoarthritis of left hip Primary localized osteoarthrosis, pelvic region and thigh 07/13/2021 Chronic seromucinous otitis media of right ear 07/13/2021 Hearing loss of left ear, unspecified hearing loss type 07/13/2021 Preoperative examination Preoperative examination, unspecified 07/13/2021 Preoperative examination Preoperative examination, unspecified 07/13/2021 Screening for endocrine disorder 07/13/2021 Chronic right shoulder pain Pain in joint, shoulder region 07/13/2021 Complete tear of left rotator cuff, unspecified whether traumatic 07/13/2021 Essential hypertension 07/13/2021 Hyperlipidemia LDL goal <100 Other and unspecified hyperlipidemia 07/13/2021 History of colon polyps Personal history of colonic polyps 07/13/2021 Gastroesophageal reflux disease without esophagitis Esophageal reflux 07/13/2021 Chronic bilateral low back pain with sciatica, sciatica laterality unspecified 07/13/2021 Spinal stenosis in cervical region 07/13/2021 Disorder of left mastoid 07/13/2021 Primary osteoarthritis of left hip Primary localized osteoarthrosis, pelvic region and thigh 07/13/2021 Chronic seromucinous otitis media of right ear 07/13/2021 Hearing loss of left ear, unspecified hearing loss type 07/13/2021 Complete tear of left rotator cuff, unspecified whether traumatic 07/21/2021 Strain of long head of left biceps 07/21/2021 Complete tear of left rotator cuff, unspecified whether traumatic 08/03/2021 Strain of long head of left biceps 08/03/2021 Strain of tendon of left rotator cuff, subsequent encounter 08/08/2021 Strain of tendon of left rotator cuff, subsequent encounter 08/10/2021 Strain of tendon of left rotator cuff, subsequent encounter 08/10/2021 Encounter for examination of eyes and vision with abnormal findings 08/11/2021 Presbyopia of both eyes 08/11/2021 Regular astigmatism, bilateral 08/11/2021 Hyperopia of both eyes 08/11/2021 Strain of tendon of left rotator cuff, subsequent encounter 08/14/2021 Strain of tendon of left rotator cuff, subsequent encounter 08/17/2021 Strain of tendon of left rotator cuff, subsequent encounter 08/24/2021 Strain of tendon of left rotator cuff, subsequent encounter 08/28/2021 Complete tear of left rotator cuff, unspecified whether traumatic 08/31/2021 Strain of long head of left biceps 08/31/2021 Strain of tendon of left rotator cuff, subsequent encounter 08/31/2021 Strain of tendon of left rotator cuff, subsequent encounter 09/04/2021 Strain of tendon of left rotator cuff, subsequent encounter 09/07/2021 Strain of tendon of left rotator cuff, subsequent encounter 09/12/2021 Strain of tendon of left rotator cuff, subsequent encounter 09/14/2021 Strain of tendon of left rotator cuff, subsequent encounter 09/18/2021 Strain of tendon of left rotator cuff, subsequent encounter 09/21/2021 Strain of tendon of left rotator cuff, subsequent encounter 09/27/2021 Strain of tendon of left rotator cuff, subsequent encounter 10/02/2021 Strain of tendon of left rotator cuff, subsequent encounter 10/05/2021 Strain of tendon of left rotator cuff, subsequent encounter 10/09/2021 Strain of tendon of left rotator cuff, subsequent encounter 10/12/2021 Complete tear of left rotator cuff, unspecified whether traumatic 10/12/2021 Strain of long head of left biceps 10/12/2021 Strain of tendon of left rotator cuff, subsequent encounter 10/16/2021 Strain of tendon of left rotator cuff, subsequent encounter 10/20/2021 Strain of tendon of left rotator cuff, subsequent encounter 10/24/2021 Strain of tendon of left rotator cuff, subsequent encounter 10/26/2021 Strain of tendon of left rotator cuff, subsequent encounter 10/30/2021 Strain of tendon of left rotator cuff, subsequent encounter 11/02/2021 Right otitis media, unspecified otitis media type 11/06/2021 Strain of tendon of left rotator cuff, subsequent encounter 11/06/2021 Strain of tendon of left rotator cuff, subsequent encounter 11/08/2021 Strain of tendon of left rotator cuff, subsequent encounter 11/14/2021 Strain of tendon of left rotator cuff, subsequent encounter 11/21/2021 Strain of tendon of left rotator cuff, subsequent encounter 11/28/2021 Strain of tendon of left rotator cuff, subsequent encounter 12/13/2021 Rotator cuff strain, right, subsequent encounter 01/25/2022 Rotator cuff strain, right, subsequent encounter 01/25/2022 Complete tear of left rotator cuff, unspecified whether traumatic 01/25/2022 Strain of long head of left biceps 01/25/2022 Right shoulder pain, unspecified chronicity 01/25/2022 Right shoulder pain, unspecified chronicity 01/31/2022 Primary osteoarthritis of left hip Primary localized osteoarthrosis, pelvic region and thigh 02/14/2022 Recurrent acute suppurative otitis media of right ear without spontaneous rupture of tympanic membrane 02/16/2022 Chronic seromucinous otitis media, bilateral 02/21/2022 Allergic rhinitis due to pollen, unspecified seasonality 02/21/2022 Rotator cuff strain, right, subsequent encounter 02/22/2022 Biceps strain, right, subsequent encounter 02/22/2022 Complete tear of left rotator cuff, unspecified whether traumatic 02/22/2022 Right shoulder pain, unspecified chronicity 02/23/2022 Complete tear of right rotator cuff, unspecified whether traumatic 02/23/2022 S/P rotator cuff repair Other postprocedural status 02/23/2022 Screening for colon cancer Special screening for malignant neoplasms, colon 03/07/2022 Chronic seromucinous otitis media of right ear 03/07/2022 Hyperlipidemia LDL goal <100 Other and unspecified hyperlipidemia 03/07/2022 Primary osteoarthritis of left hip Primary localized osteoarthrosis, pelvic region and thigh 03/07/2022 Essential hypertension 03/07/2022 Chronic right shoulder pain PT Pain in joint, shoulder region 03/29/2022 Chronic right shoulder pain Pain in joint, shoulder region 04/03/2022 Right shoulder pain, unspecified chronicity 04/03/2022 Complete tear of right rotator cuff, unspecified whether traumatic 04/03/2022 S/P rotator cuff repair Other postprocedural status 04/03/2022 Chronic right shoulder pain PT Pain in joint, shoulder region 04/12/2022 Chronic right shoulder pain PT Pain in joint, shoulder region 04/16/2022 Chronic right shoulder pain PT Pain in joint, shoulder region 04/23/2022 Chronic right shoulder pain PT Pain in joint, shoulder region 04/30/2022 Left hip pain Pain in joint, pelvic region and thigh 05/04/2022 Left hip pain Pain in joint, pelvic region and thigh 05/07/2022 Spinal stenosis in cervical region 05/07/2022 Disorder of left mastoid 05/07/2022 Chronic seromucinous otitis media of right ear 05/07/2022 Hearing loss of left ear, unspecified hearing loss type 05/07/2022 Myelomalacia (HCC) Other myelopathy 05/07/2022 Primary osteoarthritis of left hip Primary localized osteoarthrosis, pelvic region and thigh 05/07/2022 Primary osteoarthritis of left hip Primary localized osteoarthrosis, pelvic region and thigh 05/09/2022 Primary osteoarthritis of left hip Primary localized osteoarthrosis, pelvic region and thigh 05/09/2022 Right shoulder pain, unspecified chronicity 05/25/2022 Complete tear of right rotator cuff, unspecified whether traumatic 05/25/2022 S/P rotator cuff repair Other postprocedural status 05/25/2022 Preoperative examination Preoperative examination, unspecified 06/22/2022 Primary osteoarthritis of left hip Primary localized osteoarthrosis, pelvic region and thigh 06/22/2022 Essential hypertension 06/22/2022 Hyperlipidemia LDL goal <100 Other and unspecified hyperlipidemia 06/22/2022 Gastroesophageal reflux disease without esophagitis Esophageal reflux 06/22/2022 Chronic bilateral low back pain with sciatica, sciatica laterality unspecified 06/22/2022 Myelomalacia (HCC) Other myelopathy 06/22/2022 Cervical disc disorder with myelopathy 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, cervical region 06/22/2022 Disorder of mastoid, unspecified laterality 06/22/2022 Chronic seromucinous otitis media of right ear 06/22/2022 Preoperative examination Preoperative examination, unspecified 06/22/2022 Primary osteoarthritis of left hip Primary localized osteoarthrosis, pelvic region and thigh 06/22/2022 Essential hypertension 06/22/2022 Hyperlipidemia LDL goal <100 Other and unspecified hyperlipidemia 06/22/2022 Gastroesophageal reflux disease without esophagitis Esophageal reflux 06/22/2022 Chronic bilateral low back pain with sciatica, sciatica laterality unspecified 06/22/2022 Myelomalacia (HCC) Other myelopathy 06/22/2022 Cervical disc disorder with myelopathy 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, cervical region 06/22/2022 Disorder of mastoid, unspecified laterality 06/22/2022 Chronic seromucinous otitis media of right ear 06/22/2022 Preoperative examination Preoperative examination, unspecified 06/25/2022 Primary osteoarthritis of left hip Primary localized osteoarthrosis, pelvic region and thigh 06/25/2022 Essential hypertension 06/25/2022 Preoperative examination Preoperative examination, unspecified 06/27/2022 Primary osteoarthritis of left hip Primary localized osteoarthrosis, pelvic region and thigh 06/27/2022 Essential hypertension 06/27/2022 Spinal stenosis in cervical region 06/27/2022 Complete tear of left rotator cuff, unspecified whether traumatic 06/27/2022 Disorder of mastoid, unspecified laterality 06/27/2022 Chronic right shoulder pain PT Pain in joint, shoulder region 06/27/2022 Chronic seromucinous otitis media of right ear 06/27/2022 Hyperlipidemia, unspecified hyperlipidemia type 07/03/2022 Essential hypertension 07/03/2022 Preoperative examination Preoperative examination, unspecified 07/03/2022 Gastroesophageal reflux disease without esophagitis Esophageal reflux 07/03/2022 Primary osteoarthritis of left hip Primary localized osteoarthrosis, pelvic region and thigh 07/03/2022 Hyperlipidemia LDL goal <100 Other and unspecified hyperlipidemia 07/03/2022 Primary osteoarthritis of left hip Primary localized osteoarthrosis, pelvic region and thigh 07/04/2022 Disorder of left mastoid 07/10/2022 Bilateral hearing loss, unspecified hearing loss type 07/10/2022 Mixed conductive and sensorineural hearing loss of both ears Mixed hearing loss, bilateral 07/10/2022 Primary osteoarthritis of left hip PT Primary localized osteoarthrosis, pelvic region and thigh 07/11/2022 Primary osteoarthritis of left hip PT Primary localized osteoarthrosis, pelvic region and thigh 07/13/2022 Primary osteoarthritis of left hip Primary localized osteoarthrosis, pelvic region and thigh 07/16/2022 Primary osteoarthritis of left hip PT Primary localized osteoarthrosis, pelvic region and thigh 07/20/2022 S/P hip replacement, left 07/25/2022 Primary osteoarthritis of left hip PT Primary localized osteoarthrosis, pelvic region and thigh 07/25/2022 Left shoulder pain, unspecified chronicity 07/26/2022 Left shoulder pain, unspecified chronicity 07/26/2022 Complete tear of left rotator cuff, unspecified whether traumatic 07/26/2022 Strain of long head of left biceps 07/26/2022 Primary osteoarthritis of left hip PT Primary localized osteoarthrosis, pelvic region and thigh 07/27/2022 Primary osteoarthritis of left hip PT Primary localized osteoarthrosis, pelvic region and thigh 07/31/2022 S/P hip replacement, left 08/01/2022 Aftercare following left hip joint replacement surgery 08/01/2022 Recurrent acute suppurative otitis media of right ear without spontaneous rupture of tympanic membrane 08/02/2022 Screening for prostate cancer Special screening for malignant neoplasm of prostate 10/09/2022 Hyperlipidemia LDL goal <100 Other and unspecified hyperlipidemia 10/09/2022 Hyperlipidemia LDL goal <100 Other and unspecified hyperlipidemia 10/09/2022 Screening for prostate cancer Special screening for malignant neoplasm of prostate 10/09/2022 Olecranon bursitis of right elbow Olecranon bursitis 10/09/2022 Essential hypertension 10/09/2022 Patient non adherence Personal history of noncompliance with medical treatment, presenting hazards to health 10/09/2022 Atrial fibrillation, unspecified type ([facility]) 11/08/2022 HFrEF (heart failure with reduced ejection fraction) ([facility]) 11/08/2022 Cardiomyopathy, unspecified type ([facility]) 11/08/2022 New onset atrial fibrillation (HCC) Atrial fibrillation 11/14/2022 Chronic systolic CHF (congestive heart failure), NYHA class 1 ([facility]) Chronic systolic heart failure 11/14/2022 Gross hematuria 04/26/2023 Hematuria, unspecified type 04/26/2023 Hematuria, unspecified type 04/26/2023 Myelomalacia (HCC) Other myelopathy 04/26/2023 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) Other secondary aldosteronism 04/26/2023 New onset atrial fibrillation (HCC) Atrial fibrillation 04/26/2023 Dilated cardiomyopathy (HCC) Other primary cardiomyopathies 04/26/2023 Chronic systolic CHF (congestive heart failure), NYHA class 1 (HCC) Chronic systolic heart failure 04/26/2023 Secondary hypercoagulable state ([facility]HS) Secondary hypercoagulable state 04/26/2023 Gross hematuria 04/29/2023 Hip pain, chronic, left 04/29/2023 Hip pain, chronic, left 04/29/2023 Hip pain, chronic, left 04/29/2023 Left hip pain Pain in joint, pelvic region and thigh 04/29/2023 H/O total hip arthroplasty, left 04/29/2023 Gross hematuria 05/01/2023 Hematuria of undiagnosed cause Hematuria, unspecified 05/01/2023 Hematuria of undiagnosed cause Hematuria, unspecified 05/22/2023 History of allergy to radiographic contrast media 05/22/2023 Screening for prostate cancer Special screening for malignant neoplasm of prostate 12/13/2023 Screening for endocrine disorder 12/13/2023 Hyperlipidemia LDL goal <100 Other and unspecified hyperlipidemia 12/13/2023 Screen for colon cancer Special screening for malignant neoplasms, colon 12/13/2023 Screening for endocrine disorder 12/13/2023 Screening for prostate cancer Special screening for malignant neoplasm of prostate 12/13/2023 Hyperlipidemia LDL goal <100 Other and unspecified hyperlipidemia 12/13/2023 Chronic seromucinous otitis media of right ear 12/13/2023 Dilated cardiomyopathy (HCC) Other primary cardiomyopathies 12/13/2023 Primary osteoarthritis of left hip Primary localized osteoarthrosis, pelvic region and thigh 12/13/2023 Chronic systolic CHF (congestive heart failure), NYHA class 1 (HCC) Chronic systolic heart failure 12/13/2023 Routine general medical examination at a health care facility 12/13/2023 Atrial fibrillation, unspecified type (HCC) 02/04/2024 Hip pain, chronic, right 02/13/2024 Hip pain, chronic, right 02/13/2024 Onychomycosis Dermatophytosis of nail 02/13/2024 Right otitis media, unspecified otitis media type 02/13/2024 Essential hypertension 02/13/2024 Recurrent acute suppurative otitis media of right ear without spontaneous rupture of tympanic membrane 03/13/2024 Dilated cardiomyopathy (HCC) Other primary cardiomyopathies 03/13/2024 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) Other secondary aldosteronism 03/13/2024 Chronic seromucinous otitis media of right ear 03/13/2024 Secondary hypercoagulable state ([facility]HS) Secondary hypercoagulable state 03/13/2024 Myelomalacia (HCC) Other myelopathy 03/13/2024 New onset atrial fibrillation (HCC) Atrial fibrillation 03/13/2024 Chronic systolic CHF (congestive heart failure), NYHA class 1 (HCC) Chronic systolic heart failure 03/13/2024 Pain of left hip 04/02/2024 Pain of left hip 04/02/2024 Primary osteoarthritis of right hip Primary localized osteoarthrosis, pelvic region and thigh 04/02/2024 Status post left hip replacement Hip joint replacement by other means 04/02/2024 Left hip pain Pain in joint, pelvic region and thigh 04/06/2024 Left hip pain Pain in joint, pelvic region and thigh 04/06/2024 H/O total hip arthroplasty, left 04/06/2024 Left hip pain Pain in joint, pelvic region and thigh 04/13/2024 Essential hypertension 04/13/2024 Dilated cardiomyopathy (HCC) Other primary cardiomyopathies 04/13/2024 Left hip pain Pain in joint, pelvic region and thigh 04/20/2024 Left hip pain Pain in joint, pelvic region and thigh 05/07/2024 Left hip pain Pain in joint, pelvic region and thigh 05/07/2024 Chronic pain of left lower extremity 05/07/2024 Recurrent acute suppurative otitis media of right ear without spontaneous rupture of tympanic membrane 05/26/2024 Acute left-sided low back pain with left-sided sciatica 05/26/2024 Chronic pain of left lower extremity 06/09/2024 Bulging lumbar disc Displacement of lumbar intervertebral disc without myelopathy 06/11/2024 Spinal stenosis of lumbar region, unspecified whether neurogenic claudication present 06/11/2024 Goals Goal Patient Goal Type Associated Problems [...] includes whole-grain products, fish, poultry, and nuts. Care Teams Pourer Metal Relationship Specialty Start Date End Date Riaz Seals MD [address] [place] [phone] PCP - General Internal Medicine 07/14/19
== END 2024-06-12 13:31 | disposition home or self-care (01) ==
LOC: HO.HNS 12:45
PROVIDERS: Visit Provider Physician Assistant
DX: M51.26 Other intervertebral disc displacement, lumbar region (principal)
CPT/HCPCS: 99213

== ENCOUNTER → 2024-06-12 12:44 | Outpatient (BNVA) | payer MEDICARE, SELFPAY | PROVIDERS: Visit Provider Physician Assistant | DX: M51.26 Other intervertebral disc displacement, lumbar region (principal) | CPT/HCPCS: 99212 ==

== ENCOUNTER 2024-07-09 06:24 | Day surgery (SDC) | payer MEDICARE, SELFPAY ==
--- OUTSIDE RECORDS SUMMARY | 2024-07-02 15:49 | XMS_ITS | Encounter Summary ---
Author Organization [facility] Address [address] [place] [address] Care Team Providers Care Assistant Floor Covering Printer Name Role Phone Riaz Seals MD Primary Care Provider [phone] Encounter Details Date Type Department Care Team (Late st Contact Info) Description 08/23/2020 Orders Only [facility] [address] [place] [address] Riaz Seals MD [address] [place] [phone] Preop examination (Primary Dx) Social History Tobacco [...] Description 08/19/2024 12:15 PM EDT Hospital Encounter [facility] Endoscopy [address] [place] [address] Mckinley Tan MD [address] [place] [address] 08/19/2024 12:15 PM EDT - 08/19/2024 12:45 PM EDT Surgery [facility] Endoscopy [address] [place] [address] Mckinley Tan MD [address] [place] [address] COLONOSCOPY SCREENING, LOW RISK WITH POSSIBLE MODERATE SEDATION 09/02/2024 1:00 PM EDT Appointment [facility] Cardiac Ultrasound [address] [place] [address] Leandro Kent MD [address] [place], [place] [phone] 09/02/2024 2:00 PM EDT Follow-Up [facility] 4th floor Cardiology Medicine [address] [place] [address] Manager Drug Safety: Leandro Spear MD [address] [place] [address] Scheduled Procedures Name Priority Associated Diagnoses Date/Ti me COLONOSCOPY SCREENING, LOW RISK WITH POSSIBLE MODERATE SEDATION Screen for colon cancer 08/19/2024 12:15 PM EDT documented as of this encounter Results * Due to [place] state law, this organization might not be sharing negative HIV tests. 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 They have not been cleared or approved by the U.S. Food and Drug Administration (FDA). FDA Policy for Diagnostic Tests for Coronavirus Disease-2019 during the Public Health Emergency issued May 25, 2019, is followed. us Riaz Seals MD LAB BODY FLUIDS AND STOOLS ORDER DODIE Final Result [facility] [address] [place] [address], documented in this encounter Visit Diagnoses Diagnosis Preop examination- Primary Unspecified pre-operative examination Screen for colon cancer Special screening for malignant neoplasms, colon documented in this encounter Additional Health Concerns Infection Onset Date Last Indicated Resolved Time COVID-19 - Suspected infection 10/21/2022 10/21/2022 10/21/2022 12:21 PM EDT documented as of this encounter Care Teams Assistant Floor Covering Printer Relationship Specialty Start Date End Date Riaz Saels MD PCP - General Internal Medicine 02/12/20 documented as of this encounter"
--- OUTSIDE RECORDS SUMMARY | 2024-07-02 15:49 | XMS_ITS | Encounter Summary ---
Author Organization [facility] Address [address] [place] [address] [address] Care Team Providers Care Pyrometer Mechanic Name Role Phone Carlton De Jesus Md Primary Care Provider [phone] Carlton De Jesus Md Unavailable [phone] Reason for Visit * Reason Comments RX Renewal [facility] Encounter Details Date Type Department Care Team (Late st Contact Info) Description 07/06/2014 Telephone [facility] Adult Medicine [address] [place] [phone] Carlton De Jesus MD [facility] [address] [facility] [address] [place] [address] RX RENEWAL Social History Tobacco [...] 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 * Telephone Encounter - Jess Wiggins - 07/06/2014 4:30 PM EDT [facility] Ofloxacin 0.3% ear drops documented in this encounter Plan of Treatment Not on file documented as of this encounter Visit Diagnoses Not on filedocumented in this encounter Care Teams Pyrometer Mechanic Relationship Specialty Start Date End Date Carlton De Jesus MD PCP - General Internal Medicine 05/07/13 Carlton De Jesus MD PCP - Payer 05/29/13 documented as of this encounter
--- OUTSIDE RECORDS SUMMARY | 2024-07-02 15:49 | XMS_ITS | Encounter Summary ---
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
--- OUTSIDE RECORDS SUMMARY | 2024-07-02 15:49 | XMS_ITS | Clinical Summary ---
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 [place] [address] from Last 3 Months or Most Recently Relevant to Health Maintenance Care Teams Vine Fruit Farming Supervisor Relationship Specialty Start Date End Date Carlton De Jesus MD PCP - General Internal Medicine 05/07/13 Carlton De Jesus MD PCP - Payer 05/29/13
--- OUTSIDE RECORDS SUMMARY | 2024-07-02 15:49 | XMS_ITS | Encounter Summary ---
Author Organization [facility] Address [address] [place] [address] Care Team Providers Care Line Prep Cook Name Role Phone Carlton De Jesus MD Primary Care Provider Riaz Seals MD Primary Care Provider Neri Fonseca MD Primary Care Provider Riaz Seals MD Primary Care Provider Encounter Details Date Type Department Care Team (Late st Contact Info) Description 11/18/2015 Orders Only [facility] Adult Medicine [address] [place] [phone] Carlton De Jesus MD [address] [id number] Social History Tobacco Use Types Packs/Day Years [...] as of this encounter Plan of Treatment Not on file documented as of this encounter Results * Due to [place] state law, this organization might not be sharing negative HIV tests. * (ABNORMAL) BASIC METABOLIC PANEL WITH (GFR) (12/01/2015 9:39 AM EDT) Glucose 111(H) 65 - 99 mg/dl [facility] Urea Nitrogen Blood (BUN) 13 7 - 25 mg/dL [facility] Creatinine 0.86 0.50 - 1.20 mg/dL [facility] Sodium 141 136 - 145 mmo/L [facility] Potassium 4.7 3.5 - 5.3 mmol/L [facility] Chloride 103 98 - 107 mmo/L [facility] Carbon dioxide 24 23 - 33 mmol/L [facility] Calcium 9.4 8.5 - 10.4 mg/dL [facility] GFR 97 >60 ml/min [facility] Comment:If the patient is Af rican Macedonian, please multiply result by 1.210 12/01/2015 9:39 AM EDT 12/01/2015 9:39 AM EDT Narrative [facility] - 12/01/2015 3:35 PM EDT fasting Patient's primary care provider is: ??N/A Testing performed at: [facility], [address] [place] [address], [address], Food Services Manager: Marlin Son M.D. Carlton De Jesus MD LABORATORY Final Result Performing Organization Address [facility]/State/ZIP Co de Phone Number [address] [address] DIRECTOR MARLIN SON M.D. * VITAMIN D, 25-HYDROXY, TOTAL, IMMUNOASSAY (12/01/2015 9:39 AM EDT) VIT D, 25-OH, TOTAL 37 >29 ng/mL [facility] Comment: Vitamin D Status ??25-OH Vitamin D: Deficiency: ? <20 ng/mL Insufficiency: ? 20-29 ng/mL Optimal: ?> or = 30 ng/mL 12/01/2015 9:39 AM EDT 12/01/2015 9:39 AM EDT Narrative [facility] - 12/01/2015 3:35 PM EDT fasting Patient's primary care provider is: ??N/A Testing performed at: [facility], [address] [place] [address], [address], Food Services Manager: Marlin Son M.D. Carlton De Jesus MD LABORATORY Final Result Performing Organization Address [facility] Co de Phone Number [address] [address] DIRECTOR MARLIN SON M.D. * (ABNORMAL) LIPID [...] AM EDT 12/01/2015 9:39 AM EDT Narrative [facility] - 12/01/2015 3:35 PM EDT fasting Patient's primary care provider is: ??N/A Testing performed at: [facility], [address] [place] [address], [address], Food Services Manager: Marlin Son M.D. Carlton De Jesus MD LABORATORY Final Result Performing Organization Address [facility] de Phone Number [address] [address] DIRECTOR MARLIN SON M.D. * ALANINE AMINOTRANSFERASE (ALT), SERUM (12/01/2015 9:39 AM EDT) ALT (SGPT) 41 <67 U/L [facility] Tiny [facility] 12/01/2015 9:39 AM EDT 12/01/2015 9:39 AM EDT [facility] - 12/01/2015 3:35 PM EDT fasting Patient's primary care provider is: ??N/A Testing performed at: [facility], [address] [place] [address], [address], Food Services Manager: Marlin Son M.D. Carlton De Jesus MD LAB SAME DAY RESULT Final Resu lt Performing Organization Address [facility] de Phone Number [address] [address] DIRECTOR MARLIN OSN M.D. * ASPARTATE AMINOTRANSFERASE (AST), SERUM (12/01/2015 9:39 AM EDT) AST (SGOT) 36 <45 U/L [facility] 12/01/2015 9:39 AM EDT 12/01/2015 9:39 AM EDT [facility] - 12/01/2015 3:35 PM EDT fasting Patient's primary care provider is: ??N/A Testing performed at: [facility], [address] [place] [address], [address], Food Services Manager: Marlin Son M.D. Carlton De Jesus MD LAB SAME DAY RESULT Final Resu lt Performing Organization Address [facility] Co de Phone Number [address] [address] DIRECTOR MARLIN SON M.D. * CBC (H/H, RBC, INDICES,WBC, PLT) (12/01/2015 9:39 AM EDT) WBC 7.0 3.8 - 10.8 K/uL [facility] RBC 4.89 4.20 - 5.80 M/uL [facility] Hemoglobin 16.0 13.2 - 17.1 g/dL [facility] Hematocrit 47.9 38.5 - 50.0 % [facility] MCV 98.0 80.0 - 100.0 fl [facility] MCH 32.7 27.0 - 33.0 pg [facility] MCHC 33.4 32.0 - 36.0 g/dL [facility] RDW 13.4 11.0 - 15.0 % [facility] PLT 308 140 - 400 K/uL [facility] 12/01/2015 9:39 AM EDT 12/01/2015 9:39 AM EDT Narrative [facility] - 12/01/2015 10:34 AM EDT fasting Patient's primary care provider is: ??N/A Testing performed at: [facility], [address] [place] [address], [address], Food Services Manager: Marlin Son M.D. us Carlton De Jesus MD LAB SAME DAY RESULT Final Resu lt [address] [address] DIRECTOR MARLIN SON M.D. documented in this [...] documented as of this encounter Care Teams Line Prep Cook Relationship Specialty Start Date End Date Carlton De Jesus MD PCP - General 02/26/14 11/08/16 Riaz Seals MD [address] [place] [address] PCP - General Internal Medicine 11/09/16 04/10/19 Neri Fonseca MD [address] [place] [address] PCP - General Internal Medicine 04/11/19 07/13/19 Riaz Seals MD [address] [place] [address] PCP - General Internal Medicine 07/14/19 documented as of this encounter
--- OUTSIDE RECORDS SUMMARY | 2024-07-02 15:49 | XMS_ITS | Encounter Summary ---
Author Organization [facility] Address [address] [place] [address] Care Team Providers Care Automatic Pinsetter Mechanic Name Role Phone Carlton De Jesus MD Primary Care Provider [phone] Riaz Seals MD Primary Care Provider [phone] Neri Fonseca MD Primary Care Provider Riaz Seals MD Primary Care Provider Encounter Details Date Type Department Care Team (Late st Contact Info) Description 04/11/2016 Orders Only [facility] Adult Medicine [address] [place] [phone] 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 * ASPARTATE AMINOTRANSFERASE (AST), SERUM (04/11/2016 4:01 PM EST) AST (SGOT) 25 <45 [facility] 04/11/2016 4:01 PM EST 04/11/2016 4:01 PM EST Narrative [facility] - 04/11/2016 5:32 PM EST not fasting Patient's primary care provider is: ??N/A Testing performed at: [facility], [address] [place] [address], [address], Fire Tower Keeper: Marlin Son M.D. us Carlton De Jesus MD LAB SAME DAY RESULT Final Resu lt [address] [address] DIRECTOR MARLIN SON M.D. * ALANINE AMINOTRANSFERASE (ALT), SERUM (04/11/2016 4:01 PM EST) ALT (SGPT) 28 <67 U/L [facility] 04/11/2016 4:01 PM EST 04/11/2016 4:01 PM EST Narrative [facility] - 04/11/2016 5:32 PM EST not fasting Patient's primary care provider is: ??N/A Testing performed at: [facility], [address] [place] [address], [address], Fire Tower Keeper: Marlin Son M.D. Carlton De Jesus MD LAB SAME DAY RESULT Final Resu lt Performing Organization Address [facility] de Phone Number [address] [address] DIRECTOR MARLIN SON M.D. * (ABNORMAL) LIPID PANEL WITH REFLEX TO DIRECT LDL (04/11/2016 4:01 PM EST) Cholesterol 249(H) <200 mg/dL [facility] Triglyceride 87 <150 mg/dL [facility] HDL Cholesterol 101 >40 mg/dL [facility] Comment: NCEP GUIDELINES Desireable >60 mg/dL Borderline 40-59 mg/dL ?? Undesirable <40 mg/dL LDL Cholesterol 131(H) <130 mg/dL [facility] CHOL/HDL Ratio 2 0 - 5 CALC [facility] 04/11/2016 4:01 PM EST 04/11/2016 4:01 PM EST Narrative [facility] - 04/11/2016 5:32 PM EST not fasting Patient's primary care provider is: ??N/A Testing performed at: [facility], [address] [place] [address], [address], Fire Tower Keeper: Marlin Son M.D. Carlton De Jesus MD LABORATORY Final Result Performing Organization Address [facility] Co de Phone Number [address] [address] DIRECTOR MARLIN SON M.D. * BASIC METABOLIC PANEL WITH (GFR) (04/11/2016 4:01 PM EST) Glucose 96 65 - 99 mg/dl [facility] Urea Nitrogen Blood (BUN) 16 7 - 25 mg/dL [facility] Creatinine 0.86 0.50 - 1.20 mg/dL [facility] Sodium 142 136 - 145 mmo/L [facility] Potassium 4.3 3.5 - 5.3 mmol/L [facility] Chloride 102 98 - 107 mmo/L [facility] Carbon dioxide 28 23 - 33 mmol/L [facility] Calcium 9.7 8.5 - 10.4 mg/dL [facility] GFR 97 >60 ml/min [facility] Comment:If the patient is Af rican Trinidadian, please multiply result by 1.210 04/11/2016 4:01 PM EST 04/11/2016 4:01 PM EST Narrative [facility] - 04/11/2016 5:32 PM EST not fasting Patient's primary care provider is: ??N/A Testing performed at: [facility], [address] [place] [address], [address], Fire Tower Keeper: Marlin Son M.D. Carlton De Jesus MD LABORATORY Final Result [address] [address] DIRECTOR MARLIN SON M.D. documented in this encounter Visit Diagnoses Diagnosis Elevated blood sugar Other abnormal glucose High cholesterol Pure hypercholesterolemia documented in this encounter Additional Health Concerns Infection Onset Date Last Indicated Resolved Time COVID-19 Rule-Out 08/23/2020 08/23/2020 08/23/2020 9:26 PM EDT COVID-19 Rule-Out 10/25/2020 10/25/2020 10/25/2020 11:43 PM EDT documented as of this encounter Care Teams Automatic Pinsetter Mechanic Relationship Specialty Start Date End Date Carlton De Jesus MD PCP - General 02/26/14 11/08/16 Riaz Seals MD [address] [place] [phone] PCP - General Internal Medicine 11/09/16 04/10/19 Neri Fonseca MD [address] [place] [address] PCP - General Internal Medicine 04/11/19 07/13/19 Riaz Seals MD [address] [place] [address] PCP - General Internal Medicine 07/14/19 documented as of this encounter
--- OUTSIDE RECORDS SUMMARY | 2024-07-02 15:49 | XMS_ITS | Encounter Summary ---
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 Author Blood Pressure < 140/90 Blood Pressure 138/70(2024 11:24 AM EDT) No Ramon Titus Note: Above is your goal for blood [...] of this encounter Results * Due to [place] state law, this organization might not be [...] documented as of this encounter Care Teams Vtc Technician Relationship Specialty Start Date End Date Neri Fonseca MD [address] [place] [address] PCP - General Internal Medicine 04/11/19 07/13/19 Riaz Seals MD [address] [place] [address] PCP - General Internal Medicine 07/14/19 documented as of this encounter
--- OUTSIDE RECORDS SUMMARY | 2024-07-02 15:49 | XMS_ITS | Encounter Summary ---
Author Organization [facility] Address [address] [place] [address] Care Team Providers Care Fruit Thinner Name Role Phone Neri Fonseca MD Primary Care Provider Riaz Seals MD Primary Care Provider [phone] Reason for Visit * Reason Comments E-prescribing Refill Request Encounter Details Date Type Department Care Team (Late st Contact Info) Description 07/08/2019 Refill [facility] Adult Medicine [address] [place] [phone] Jasvir Turner MD [address] [place] [phone] E-prescribing Refill Request Social History Tobacco Use [...] 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 Faxed/E-prescribed medication renewal request(s) for Aaron [...] documented as of this encounter Care Teams Fruit Thinner Relationship Specialty Start Date End Date Neri Fonseca MD [address] [place] [address] PCP - General Internal Medicine 04/11/19 07/13/19 Riaz Seals MD [address] [place] [address] PCP - General Internal Medicine 07/14/19 documented as of this encounter
--- OUTSIDE RECORDS SUMMARY | 2024-07-02 15:49 | XMS_ITS | Referral Summary ---
Author Organization [facility] Address [address] [place] [address] Care Team Providers Care Finished Cloth Examiner Name Role Phone Riaz Seals MD Primary Care Provider [phone] Encounters Date Type Department Care Team Description 05/19/2024 Refill [facility] [address] [place] [address] Mckinley Tan MD Screen for colon cancer [...] Description 08/19/2024 12:15 PM EDT Hospital Encounter [facility] Endoscopy [address] [place] [address] Mckinley Tan MD [address] [place] [address] 08/19/2024 12:15 PM EDT - 08/19/2024 12:45 PM EDT Surgery [facility]oscopy [address] [place] [address] Mckinley Tan MD [address] [place] [address] COLONOSCOPY SCREENING, LOW RISK WITH POSSIBLE MODERATE SEDATION 09/02/2024 1:00 PM EDT Appointment [facility] Cardiac Ultrasound [address] [place] [address] Leandro Kent MD [address] [place] [address] 09/02/2024 2:00 PM EDT Follow-Up [facility] 4th floor Cardiology Medicine [address] [place] [address] Outpatient Case Manager: Leandro Spear MD [address] [place] [address] Scheduled Procedures Name Priority Associated Diagnoses Date/Ti me COLONOSCOPY SCREENING, LOW RISK WITH POSSIBLE MODERATE SEDATION Screen for colon cancer 08/19/2024 12:15 PM EDT Procedures * Due to [place] state law, this organization might not be sharing negative HIV tests. Procedure Name Priority Date/Time Associated Diagnosis Comments HEPATITIS C ANTIBODY W/REFLEX TO HCV RNA, QUANTITATIVE PCR STAT 10/21/2022 4:15 PM EDT COLONOSCOPY 06/18/2012 11:38 AM EDT from Last 3 Months or Most Recently Relevant to Health Maintenance Results * Due to [place] state law, this organization might not be sharing negative HIV tests. * Hepatitis C Antibody w/Reflex to HCV RNA, Quantitative PCR (10/21/2022 4:15 PM EDT) Hepatitis C Antibody NON-REACT GALEN NON-REACT GALEN 10/22/2022 7:53 PM EDT [employer] Comment: HCV antibody was non-reactive. There is no laboratory evidence of HCV infection. In most cases, no further action is required. However, if recent HCV exposure is suspected, a test for HCV RNA (test code 28231) is suggested. For additional information please refer to http://education.Hua Kang/faq/TOF00v3 (This link is being provided for informational/ educational purposes only.) Blood Structure of peripheral vein / Unknown Venipuncture / Unknown 10/21/2022 4:15 PM EDT 10/21/2022 4:28 PM EDT Narrative [facility] - 10/22/2022 7:53 PM EDT [facility] Received Date:[id number] Yary Palmer MD LAB BLOOD ORDERABLES Final Result Performing Organization Address City/State/[facility] Co de Phone Number [facility] [address] [facility] [address] [facility] [address], [place] [address], [place] [phone] [facility] [address] [facility] [address], [place] [address], [place] [phone] * COLONOSCOPY (06/18/2012 11:38 AM EDT) Narrative Procedure Note Mckinley Tan - 06/18/2012 11:38 AM EDT Patient Name: Aaron Hermosillo Procedure Date: 06/18/2012 11:38 AM Date of : 1960 Admit Type: Outpatient Age: 52 Room: Cyrus room 3 Gender: Male Note Status: Finalized [...] Hermosillo Brother Health Care Agent Care Teams Finished Cloth Examiner Relationship Specialty Start Date End Date Riaz Seals MD PCP - General Internal Medicine 02/12/20
--- OUTSIDE RECORDS SUMMARY | 2024-07-02 15:49 | XMS_ITS | Encounter Summary ---
Author Organization [facility] Address [address] [place] [address] Care Team Providers Care Dance Coach Name Role Phone Carlton De Jesus MD Primary Care Provider Riaz Seals MD Primary Care Provider Neri Fonseca MD Primary Care Provider [phone] Riaz Seals MD Primary Care Provider [phone] Encounter Details Date Type Department Care Team (Late st Contact Info) Description 04/11/2016 Orders Only [facility] Adult Medicine [address] [place] [phone] Carlton De Jesus MD [address] [phone] Social History Tobacco Use Types Packs/Day Years [...] 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 file Not on file Not on file documented as of this encounter Plan of Treatment Not on file documented as of this encounter Procedures * Due to [place] state law, this organization might not be [...] in this encounter Results * Due to [place] [employer] law, this organization might not be sharing [...] 11:59 PM EST Narrative Resulting Agency Comment [id number] us Carlton De Jesus MD LABORATORY Final Result [facility] [address] [place] [address] * HEPATITIS C AB WITH REFLEX TO RNA PCR, SERUM (04/11/2016 4:00 PM EST) Hepatitis C virus Ab NON-REACTI VE NON-REACT GALEN [facility] Hepatitis C virus Ab Signal/Cutoff 0.01 <1.00 [facility] 04/11/2016 4:00 PM EST 04/11/2016 11:59 PM EST Narrative Resulting Agency Comment [id number] Carlton De Jesus MD LABORATORY Final Result Performing Organization Address City/State/[facility] Co de Phone Number [facility] [address] [place] [address] documented in this encounter Visit Diagnoses Diagnosis [...] documented as of this encounter Care Teams Dance Coach Relationship Specialty Start Date End Date Carlton De Jesus MD PCP - General 02/26/14 11/08/16 Riaz Seals MD [address] [place] [address] PCP - General Internal Medicine 11/09/16 04/10/19 Neri Fonseca MD [address] [place] [address] PCP - General Internal Medicine 04/11/19 07/13/19 Riaz Seals MD [address] [place] [address] PCP - General Internal Medicine 07/14/19 documented as of this encounter
--- OUTSIDE RECORDS SUMMARY | 2024-07-02 15:49 | XMS_ITS | Encounter Summary ---
Author Organization [facility] Address [address] [place] [address] Care Team Providers Care Bench Hand Machine Name Role Phone Carlton De Jesus MD Primary Care Provider [phone] Riaz Seals MD Primary Care Provider [phone] Neri Fonseca MD Primary Care Provider [phone] Riaz Seals MD Primary Care Provider Encounter Details Date Type Department Care Team (Late st Contact Info) Description 12/27/2015 Orders Only [facility] Otolaryngology [address] [address] Laureano Tavarez MD [address] [place] [phone] Social History Tobacco Use Types Packs/Day Years [...] 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 * EAR CULTURE (RIGHT) (12/27/2015 11:27 AM EDT) Bacteria identified (Ear) SEE NOTE [facility] Comment: {CULTURE, EAR, EXTERNAL, RIGHT {[id number]) ??CULTURE, EAR, EXTERNAL, RIGHT ??MICRO NUMBER: ?[id number] ??TEST STATUS: ? FINAL ??SPECIMEN SOURCE: ?RIGHT EAR ??SPECIMEN QUALITY: ??ADEQUATE ??RESULT: ?Heavy growth of ? Yeast isolated. Please contact the laboratory ? within 3 days if further identification is ? desired. ??COMMENT: ? Skin gavi also present. 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 documented in this encounter Additional Health Concerns Infection Onset Date Last Indicated Resolved Time COVID-19 Rule-Out 08/23/2020 08/23/2020 08/23/2020 9:26 PM EDT COVID-19 Rule-Out 10/25/2020 10/25/2020 10/25/2020 11:43 PM EDT documented as of this encounter Care Teams Bench Hand Machine Relationship Specialty Start Date End Date Carlton De Jesus MD PCP - General 02/26/14 11/08/16 Riaz Seals MD [address] [place] [address] PCP - General Internal Medicine 11/09/16 04/10/19 Neri Fonseca MD [address] [place] [address] PCP - General Internal Medicine 04/11/19 07/13/19 Riaz Seals MD [address] [place] [address] PCP - General Internal Medicine 07/14/19 documented as of this encounter
--- OUTSIDE RECORDS SUMMARY | 2024-07-02 15:49 | XMS_ITS | Encounter Summary ---
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
--- OUTSIDE RECORDS SUMMARY | 2024-07-02 15:49 | XMS_ITS | Clinical Summary ---
Author Organization [facility] Address [address] [place] [address] Care Team Providers Care Flight Attendant Inflight Services Name Role Phone Riaz Seals MD Primary Care Provider [phone] Allergies Active Allergy Reactions Criticality Noted Date [...] Department Care Team Description 05/19/2024 Refill [facility] [address] [place] [address] Mckinley Tan MD Screen for colon cancer [...] Description 08/19/2024 12:15 PM EDT Hospital Encounter [facility] Endoscopy [address] [place] [address] Mckinley Tan MD [address] [place] [address] 08/19/2024 12:15 PM EDT - 08/19/2024 12:45 PM EDT Surgery [facility] Endoscopy [address] [place] [address] Mckinley Tan MD [address] [place] [address] COLONOSCOPY SCREENING, LOW RISK WITH POSSIBLE MODERATE SEDATION 09/02/2024 1:00 PM EDT Appointment [facility] Cardiac Ultrasound [address] [place] [address] Leandro Kent MD [address] [place] [address] 09/02/2024 2:00 PM EDT Follow-Up [facility] 4th floor Cardiology Medicine [address] [place] [address] Bar Steward: Leandro Spear MD [address] [place] [address] Scheduled Procedures Name Priority Associated Diagnoses Date/Ti [...] complete this topic Procedures * Due to [place] [employer] law, this organization might not be sharing negative HIV tests. Procedure Name Priority Date/Time Associated Diagnosis Comments HEPATITIS C ANTIBODY W/REFLEX TO HCV RNA, QUANTITATIVE PCR STAT 10/21/2022 4:15 PM EDT COLONOSCOPY 06/18/2012 11:38 AM EDT from Last 3 Months or Most Recently Relevant to Health Maintenance Results * Due to [place] [employer] law, this organization might not be sharing negative HIV tests. * Hepatitis C Antibody w/Reflex to HCV RNA, Quantitative PCR (10/21/2022 4:15 PM EDT) Hepatitis C Antibody NON-REACT GALEN NON-REACT GALEN 10/22/2022 7:53 PM EDT [facility] Comment: HCV antibody was non-reactive. There is no laboratory evidence of HCV infection. In most cases, no further action is required. However, if recent HCV exposure is suspected, a test for HCV RNA (test code 25583) is suggested. For additional information please refer to http://education.FitWithMe/faq/DHV14n1 (This link is being provided for informational/ educational purposes only.) Blood Structure of peripheral vein / Unknown Venipuncture / Unknown 10/21/2022 4:15 PM EDT 10/21/2022 4:28 PM EDT Narrative [facility] - 10/22/2022 7:53 PM EDT [facility] Received Date:[id number] Yary Palmer MD LAB BLOOD ORDERABLES Final Result [facility] [address] [facility] [place] 3rd Floor, [place] [address], [facility] [address] [place] [address], [place] [address], * COLONOSCOPY (06/18/2012 11:38 AM EDT) Narrative Procedure Note Mckinley Tan - 06/18/2012 11:38 AM EDT Patient Name: Aaron Hermosillo Procedure Date: 06/18/2012 11:38 AM Date of : 1960 Admit Type: Outpatient Age: 52 Room: [place] room 3 Gender: Male Note Status: Finalized [...] Relevant to Health Maintenance Insurance [employer] [facility] Advance Directives * Full Code (Latest Code Status on File) Date Activated Date Inactivated Comments 10/26/2022 4:30 PM 10/26/2022 9:50 PM * Full Code Date Activated Date Inactivated Comments 10/21/2022 6:44 PM 10/26/2022 4:30 PM Healthcare Agents on File Name Relationship Healthcare Agent Relationship Communication Nancy Jaimee Spouse Alternate Health Care Agent Raj Jaimee Brother Health Care Agent Care Teams Flight Attendant Inflight Services Relationship Specialty Start Date End Date Riaz Seals MD PCP - General Internal Medicine 02/12/20
--- OUTSIDE RECORDS SUMMARY | 2024-07-02 15:49 | XMS_ITS | Encounter Summary ---
Author Organization [facility] Address [address] [place] [address] [address] Care Team Providers Care Correspondence Review Clerk Name Role Phone Junito De Jesus Md Primary Care Provider [phone] Junito De Jesus Md Unavailable [phone] Reason for Visit * Reason Comments RX Renewal [facility] Encounter Details Date Type Department Care Team (Late st Contact Info) Description 07/05/2014 Telephone [facility] Adult Medicine [address] [place] [phone] Junito De Jesus MD [facility] [address] [phone] RX RENEWAL Social History Tobacco Use [...] 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
--- OUTSIDE RECORDS SUMMARY | 2024-07-02 15:49 | XMS_ITS | Encounter Summary ---
Author Organization [facility] Address [address] [place] [address] Care Team Providers Care Cell Installer Name Role Phone Riaz Seals MD Primary Care Provider Encounter Details Date Type Department Care Team (Late st Contact Info) Description 10/25/2020 Orders Only [facility] Lab [address] [place] [address] Riaz Seals MD [address] [place] [address] Pre-procedure lab exam (Primary Dx) Social History [...] Description 08/19/2024 12:15 PM EDT Hospital Encounter [facility] Endoscopy [address] [place] [address] Mckinley Tan MD 14 [place] [address] 08/19/2024 12:15 PM EDT - 08/19/2024 12:45 PM EDT Surgery [facility] Endoscopy [address] [place] [address] Mckinley Tan MD 14 [place] [address] COLONOSCOPY SCREENING, LOW RISK WITH POSSIBLE MODERATE SEDATION 09/02/2024 1:00 PM EDT Appointment [facility] Cardiac Ultrasound [address] [place] [address] Leandro Kent MD [address] [place] [address] 09/02/2024 2:00 PM EDT Follow-Up [facility] 4th floor Cardiology Medicine [address] [place] [address] Emergency Response Technician: Leandro Spear MD [address] [place] [address] Scheduled Procedures Name Priority Associated Diagnoses Date/Ti me COLONOSCOPY SCREENING, LOW RISK WITH POSSIBLE MODERATE SEDATION Screen for colon cancer 08/19/2024 12:15 PM EDT documented as of this encounter Results * Due to [place] state law, this organization might not be sharing negative HIV tests. * COVID-19 PCR, Pre-Procedure (Asymptomatic), BATTERY STACKER/OP/Saliva (10/25/2020 10:05 AM EDT) SARS CoV 2 RNA, RT PCR Not Detected Not Detected DAVE CRUZ STUDIO 10/25/2020 11:43 PM EDT [facility] Comment:A Not Detected (Nega [...] AM EDT 10/25/2020 10:05 AM EDT Narrative [facility] - 10/25/2020 11:43 PM EDT These tests were developed, validated, and their performance characteristics determined by the [facility] Laboratory at [facility] under CLIA [id number]. They have not been cleared or approved by the U.S. Food and Drug Administration (FDA). FDA Policy for Diagnostic Tests for Coronavirus Disease-2019 during the Public Health Emergency issued May 25, 2019, is followed. us Riaz Seals MD LAB BODY FLUIDS AND STOOLS ORDER DODIE Final Result [facility] [address] [place] [address], documented in this encounter Visit Diagnoses Diagnosis Pre-procedure lab exam- Primary Pre-procedural laboratory examination Screen for colon cancer Special screening for malignant neoplasms, colon documented in this encounter Additional Health Concerns Infection Onset Date Last Indicated Resolved Time COVID-19 - Suspected infection 10/21/2022 10/21/2022 10/21/2022 12:21 PM EDT documented as of this encounter Care Teams Cell Installer Relationship Specialty Start Date End Date Riaz Seals MD PCP - General Internal Medicine 02/12/20 documented as of this encounter
--- OUTSIDE RECORDS SUMMARY | 2024-07-02 15:49 | XMS_ITS | Encounter Summary ---
Author Organization [facility] Address [address] [place] [address] Care Team Providers Care Software Configuration Analyst Name Role Phone Carlton De Jesus MD Primary Care Provider Riaz Seals MD Primary Care Provider [phone] Neri Fonseca MD Primary Care Provider [phone] Riaz Seals MD Primary Care Provider [phone] Encounter Details Date Type Department Care Team (Late st Contact Info) Description 12/02/2015 Orders Only [facility] Adult Medicine [address] [place] [phone] Carlton De Jesus MD [address] [phone] Social History Tobacco Use Types Packs/Day Years [...] 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 Procedure Name Priority Date/Time Associated Diagnosis Comments HEMOGLOBIN A1C Routine 12/01/2015 9:39 AM EDT Elevated blood sugar documented in this encounter Results * Due to [place] [employer] law, this organization might not be sharing negative HIV tests. * HEMOGLOBIN A1C (12/01/2015 9:39 AM EDT) Hemoglobin A1C 5.5 <5.7 % Total [facility] Comment: For diagnostic purposes: <5.7 ?Decreased risk of diabetes 5.7 - 6.4 ?Increased risk of diabetes >6.5 ? Consistent with diabetes Diagnosis of diabetes should be confirmed by repeat testing. 12/01/2015 9:39 AM EDT 12/01/2015 9:39 AM EDT Narrative [facility] - 12/02/2015 2:20 PM EDT fasting Lab test HA1C added on by Provider Dr. Carlton De Jesus on 12/02/2015 1:13 PM by [facility] Patient's primary care provider is: ??N/A Testing performed at: [facility], [address] [place] [address], [id number], Couture Alterations Dressmaker: Marlin Son M.D. us Carlton De Jesus MD LABORATORY Final Result Performing Organization Address [facility]/State/[facility] Co de Phone Number [address] [address] DIRECTOR MARLIN SON M.D. documented in this encounter Visit Diagnoses Diagnosis Elevated blood sugar Other abnormal glucose documented in this encounter Additional Health Concerns Infection Onset Date Last Indicated Resolved Time COVID-19 Rule-Out 08/23/2020 08/23/2020 08/23/2020 9:26 PM EDT COVID-19 Rule-Out 10/25/2020 10/25/2020 10/25/2020 11:43 PM EDT documented as of this encounter Care Teams Software Configuration Analyst Relationship Specialty Start Date End Date Carlton De Jesus MD PCP - General 02/26/14 11/08/16 Riaz Seals MD [address] [place] [phone] PCP - General Internal Medicine 11/09/16 04/10/19 Neri Fonseca MD [address] [place] [address] PCP - General Internal Medicine 04/11/19 07/13/19 Riaz Seals MD [address] [place] [phone] PCP - General Internal Medicine 07/14/19 documented as of this encounter
--- OUTSIDE RECORDS SUMMARY | 2024-07-02 15:49 | XMS_ITS | Encounter Summary ---
Author Organization [facility] Address [address] [place] [address] Care Team Providers Care Reconnaissance Crewmember Name Role Phone Riaz Seals MD Primary Care Provider [phone] Encounter Details Date Type Department Care Team (Late st Contact Info) Description 11/05/2022 Orders Only [facility] Nuclear Medicine [address] [place], [place] [phone] Maxim Horn MD [address] [place], [place] [phone] Social History Tobacco Use Types Packs/Day Years [...] Description 08/19/2024 12:15 PM EDT Hospital Encounter [facility] Endoscopy [address] [place] [address] Mckinley Tan MD 14 [place] [address] 08/19/2024 12:15 PM EDT - 08/19/2024 12:45 PM EDT Surgery [facility] Endoscopy [address] [place] [address] Mckinley Tan MD [address] [place] [address] COLONOSCOPY SCREENING, LOW RISK WITH POSSIBLE MODERATE SEDATION 09/02/2024 1:00 PM EDT Appointment [facility] Cardiac Ultrasound [address] [place] [address] Leandro Kent MD [address] [place] [address] 09/02/2024 2:00 PM EDT Follow-Up [facility] 4th floor Cardiology Medicine [address] [place] [address] Continuous Pickling Line Pickler Helper: Leandro Spear MD [address] [place] [address] Scheduled Procedures Name Priority Associated Diagnoses Date/Ti me COLONOSCOPY SCREENING, LOW RISK WITH POSSIBLE MODERATE SEDATION Screen for colon cancer 08/19/2024 12:15 PM EDT documented as of this encounter Visit Diagnoses Not on filedocumented in this encounter Care Teams Reconnaissance Crewmember Relationship Specialty Start Date End Date Riaz Seals MD PCP - General Internal Medicine 02/12/20 documented as of this encounter
--- OUTSIDE RECORDS SUMMARY | 2024-07-02 15:49 | XMS_ITS | Encounter Summary ---
Author Organization [facility] Address [address] [place] [address] Care Team Providers Care Defect Cutter Name Role Phone Riaz Seals MD Primary Care Provider [phone] Reason for Visit * Reason Comments Ear Ache Encounter Details Date Type Department Care Team ([facility] st Contact Info) Description 08/21/2019 Telephone [facility] Adult Medicine [address] [place] [phone] Riaz Seals MD [address] [place] [phone] Ear Ache Social History Tobacco Use Types [...] Phone 08/21/19 4:40 PM Adalgisa Lemus NP [facility] Adult Medicine [phone] * Telephone Encounter - Craine Avendano - 08/21/2019 1:47 PM EDT Pt [...] documented as of this encounter Care Teams Defect Cutter Relationship Specialty Start Date End Date Riaz Seals MD [address] [place] [address] PCP - General Internal Medicine 07/14/19 documented as of this encounter
--- OUTSIDE RECORDS SUMMARY | 2024-07-02 15:49 | XMS_ITS | Encounter Summary ---
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 Loop Surveyt message sent. documented in this encounter Plan of Treatment Not on file documented as of this encounter Goals Goal Patient Goal Type Associated Problems Recent Progress Patient-Stated? Author Blood Pressure < 140/90 Blood Pressure 138/70(2024 11:24 AM EDT) Vanessa Ramon Titus Note: Above is your goal [...] this encounter Procedures * Due to [place] [employer] law, this organization might not be sharing negative HIV tests. Procedure Name Priority Date/Time Associated Diagnosis Comments PROSTATE SPECIFIC ANTIGEN (PSA) TOTAL, SERUM Routine 10/09/2022 12:00 PM EDT Screening for prostate cancer LIPID PANEL WITH REFLEX TO DIRECT LDL Routine 10/09/2022 12:00 PM EDT Hyperlipidemia LDL goal <100 documented in this encounter Results * Due to [place] [employer] law, this organization might not be sharing negative HIV tests. * (ABNORMAL) LIPID PANEL WITH REFLEX TO DIRECT LDL (10/09/2022 12:00 PM EDT) Cholesterol 194 <200 mg/dL [facility] Triglyceride 163(H) <150 mg/dL [facility] HDL Cholesterol 53 >40 mg/dL [facility] Comment: NCEP GUIDELINES Desirable >60 mg/dL Borderline 40-59 mg/dL ?? Undesirable <40 mg/dL LDL Cholesterol 109 <130 mg/dL [facility] CHOL/HDL Ratio 4 0 - 5 CALC [facility] 10/09/2022 12:0 0 PM EDT 10/09/2022 12:00 PM EDT [facility] - 10/09/2022 1:49 PM EDT Patient's primary care provider is: ??N/A Testing performed at: [facility], [address] [place] [address], [id number], Senior Php Developer: Sergio Le MD Riaz Seals MD LABORATORY Final Result Performing Organization Address [facility] Co de Phone Number [address] [address] DIRECTOR Sergio Le MD * PROSTATE SPECIFIC ANTIGEN (PSA) TOTAL, SERUM (10/09/2022 12:00 PM EDT) [facility] PSA 1.54 0.00 - 4.00 ng/mL [facility] Comment: PSA was performed using the Kailyn Jace Immunoassay method. Values obtained from different assay methods cannot be used interchangeably. PSA levels, regardless of value, should not be interpreted as absolute evidence of the presence or absence of disease. 10/09/2022 12:0 0 PM EDT 10/09/2022 12:00 PM EDT [facility] - 10/09/2022 1:49 PM EDT Patient's primary care provider is: ??N/A Testing performed at: [facility], [address] [place] [address], [id number], Senior Php Developer: Sergio Le MD Riaz Seals MD LABORATORY Final Result Performing Organization Address [facility] Co de Phone Number [address] [address] DIRECTOR Sergio Le MD documented in this encounter Visit Diagnoses Diagnosis Screening for prostate cancer Special screening for malignant neoplasm of prostate Hyperlipidemia LDL goal <100 Other and unspecified hyperlipidemia documented in this encounter Care Teams Scoring Machine Operator Relationship Specialty Start Date End Date Riaz Seals MD [address] [place] [address] PCP - General Internal Medicine 07/14/19 documented as of this encounter
--- OUTSIDE RECORDS SUMMARY | 2024-07-02 15:50 | XMS_ITS | Encounter Summary ---
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 Procedure Name Priority Date/Time Associated Diagnosis Comments EKG-TO BE READ & BILLED BY ADULT OR PEDIATRIC CARDIOLOGY Routine 01/28/2019 7:26 PM EST Hypertension, unspecified type documented in this encounter Results * Due to [place] [employer] law, this organization might not be sharing [...] aVf are present Confirmed by Carla Mcginnis ([id number]), field map editor ANABELLE ARZATE ([id number]) on 02/03/2019 8:19:42 AM [...] documented as of this encounter Care Teams Medical Affairs Manager Relationship Specialty Start Date End Date Riaz Seals MD [address] [place] [phone] PCP - General Internal Medicine 11/09/16 04/10/19 Neri Fonseca MD [address] [place] [address] PCP - General Internal Medicine 04/11/19 07/13/19 Riaz Seals MD [address] [place] [address] PCP - General Internal Medicine 07/14/19 documented as of this encounter
--- OUTSIDE RECORDS SUMMARY | 2024-07-02 15:50 | XMS_ITS | Encounter Summary ---
Author Organization [facility] Address [address] [place] [address] Care Team Providers Care Inbound Call Center Agent Name Role Phone Riaz Seals MD Primary Care Provider [phone] Neri Fonseca MD Primary Care Provider [phone] Riaz Seals MD Primary Care Provider [phone] Reason for Visit * Reason Comments E-prescribing Refill Request Encounter Details Date Type Department Care Team (Late st Contact Info) Description 08/20/2017 Refill [facility] Adult Medicine [address] [place] [phone] Riaz Seals MD [address] [place] [phone] E-prescribing Refill Request Social History Tobacco Use [...] 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 Faxed/E-prescribed medication renewal request(s) for Aaron Hermosillo 57 y.o. male received from pharmacy. Verified and Confirmed pharmacy for patient. Last CPE with this specialty: 02/14/2017 Last OV with this specialty: 07/26/2017 Next OV: Future Appointments Date Time Provider Department Phone 08/20/17 11:30 AM Krystyna Guy NP [facility] Pre-Admission Testing [address] 08/29/17 We will call Laureano Tavarez MD [facility] Otolaryngology [address] 10/01/17 11:30 AM Laureano Tavarez MD [facility] Otolaryngology [phone] Pertinent lab results: Lab Results Component Value [...] documented as of this encounter Care Teams Inbound Call Center Agent Relationship Specialty Start Date End Date Riaz Seals MD [address] [place] [address] PCP - General Internal Medicine 11/09/16 04/10/19 Neri Fonseca MD [address] [place] [address] PCP - General Internal Medicine 04/11/19 07/13/19 Riaz Seals MD [address] [place] [address] PCP - General Internal Medicine 07/14/19 documented as of this encounter
--- OUTSIDE RECORDS SUMMARY | 2024-07-02 15:50 | XMS_ITS | Encounter Summary ---
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
--- OUTSIDE RECORDS SUMMARY | 2024-07-02 15:50 | XMS_ITS | Encounter Summary ---
Author Organization [facility] Address [address] [place] [address] Care Team Providers Care Telescope Repairer Name Role Phone Riaz Seals MD Primary Care Provider [phone] Encounter Details Date Type Department Care Team (Late st Contact Info) Description 06/22/2022 Orders Only [facility] Pre-Admission Testing [address] 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 * PROTHROMBIN TIME (PT) (INR), BLOOD (06/22/2022 11:42 AM EDT) INR 1.0 [facility] Comment: Reference Range ? 0.9-1.1 Moderate-intensity Warfarin Therapy 2.0-3.0 Higher-intensity Warfarin Therapy ?? 3.0-4.0 PT 9.8 9.0 - 11.5 sec [facility] Comment: For additional information, please refer to http://education.[employer].com/faq/REF057 (This link is being provided for informational/ educational purposes only.) 06/22/2022 11:4 2 AM EDT 06/22/2022 4:39 PM EDT Narrative Resulting Agency Comment [id number] us Katiuska Berg NP LAB SAME DAY RESULT Final Resul t [facility] [address] [place] [address] * ACTIVATED PARTIAL THROMBOPLASTIN TIME (APTT), PLASMA (06/22/2022 11:42 AM EDT) Thromboplastin Time 25 23 - 32 sec [facility] Comment: This test has not been validated for monitoring unfractionated heparin therapy. For testing that is validated for this type of therapy, please refer to the Heparin Anti-Xa assay (test code 91969). For additional information, please refer to http://education.[employer]/faq/FSP442 (This link is being provided for informational/educational purposes only.) 06/22/2022 11:4 2 AM EDT 06/22/2022 4:39 PM EDT Narrative Resulting Agency Comment [id number] us Katiuska Berg NP LAB SAME DAY RESULT Final Resul t [facility] [address] [place] [address] * (ABNORMAL) COMPREHENSIVE METABOLIC PANEL WITH GFR [...] needs for GFR calculation. Resulting Agency Comment [id number] Katiuska Berg NP LABORATORY Final Result [facility] [address] [place] [address] * (ABNORMAL) MRSA CULTURE SCREEN, NASAL ONLY (06/22/2022 11:26 AM EDT) Methicillin Resistant Staphylococcus Aureus Screen SEE NOTE(A) [facility] Comment: ??MRSA CULTURE SCREEN ??Micro Number: ?[id number] ??Test Status: ? Final ??Specimen Source: ?? [...] 9:18 PM EDT Narrative Resulting Agency Comment [id number] Katiuska Berg HEAD START TEACHER LABORATORY Final Result Performing Organization Address City/State/[facility] Co de Phone Number [facility] [address] [place] [address] documented in this encounter Visit Diagnoses Diagnosis [...] ear documented in this encounter Care Teams Telescope Repairer Relationship Specialty Start Date End Date Riaz Seals MD [address] [place] [phone] PCP - General Internal Medicine 07/14/19 documented as of this encounter
--- OUTSIDE RECORDS SUMMARY | 2024-07-02 15:50 | XMS_ITS | Encounter Summary ---
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
--- OUTSIDE RECORDS SUMMARY | 2024-07-02 15:50 | XMS_ITS | Encounter Summary ---
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 [...] this encounter Results * Due to [place] state law, this organization might not be [...] GROUP RDW 12.8 11.0 - 15.0 % [facility] PLT 258 140 - 400 K/uL [facility] 06/27/2022 4:07 PM EDT 06/27/2022 4:07 PM EDT Narrative [facility] - 06/27/2022 4:38 PM EDT Patient's primary care provider is: ??N/A Testing performed at: [facility], [address] [place] [address], [address], [place]: Sergio Le MD us Katiuska Berg MANUFACTURING SHIFT SUPERVISOR LAB SAME DAY RESULT Final Resul t [address] [address] DIRECTOR Sergio Le MD documented in this encounter Visit Diagnoses Diagnosis Preoperative examination Preoperative examination, unspecified Primary osteoarthritis of left hip Primary localized osteoarthrosis, pelvic region and thigh Essential hypertension Preoperative examination Preoperative examination, unspecified Primary osteoarthritis of left hip Primary localized osteoarthrosis, pelvic region and thigh Essential hypertension documented in this encounter Care Teams Electronic Organ Technician Relationship Specialty Start Date End Date Riaz Seals MD [address] [place] [phone] PCP - General Internal Medicine 07/14/19 documented as of this encounter
--- OUTSIDE RECORDS SUMMARY | 2024-07-02 15:50 | XMS_ITS | Encounter Summary ---
Author Organization [facility] Address [address] [place] [address] Care Team Providers Care Mortuary Operations Manager Name Role Phone Riaz Seals MD Primary Care Provider [phone] Encounter Details Date Type Department Care Team (Late st Contact Info) Description 07/13/2021 Orders Only [facility] Pre-Admission Testing [address] [phone] Deyanira Mccray PA 123 [facility] [address] [place] [address] Social History Tobacco Use Types Packs/Day Years [...] of this encounter Procedures * Due to [place] [employer] law, this organization might not be sharing [...] in this encounter Results * Due to [place] state law, this organization might not be [...] Deyanira GIORDANO CARDIOVASCULAR-WITH INBSKT RTG Final Result [facility] * HEMOGLOBIN A1C (07/13/2021 10:06 AM EDT) Hemoglobin A1C 5.4 <5.7 % of total [...] diagnosis of diabetes in children. According to [place] Diabetes Association (ADA) guidelines, hemoglobin A1c <7.0% represents optimal control in non- diabetic patients. Different metrics may apply to specific patient populations. Standards of Medical Care in Diabetes(ADA). Estimated Average Glucose 115 mg/dL (calc) [facility] 07/13/2021 10:0 6 AM EDT 07/13/2021 10:48 PM EDT Narrative Resulting Agency Comment [id number] us Deyanira GIORDANO LABORATORY Final Resul t [facility] [address] [place] [address] * (ABNORMAL) CBC INCLUDES DIFFERENTIAL AND PLATELET COUNT (07/13/2021 10:06 AM EDT) WBC 5.4 3.8 - 10.8 Thousand/u L [...] 10:48 PM EDT Narrative Resulting Agency Comment [id number] Deyanira GIORDANO LAB SAME DAY RESULT Final R esult [facility] [address] [place] [address] documented in this encounter Visit Diagnoses Diagnosis [...] unspecified documented in this encounter Care Teams Mortuary Operations Manager Relationship Specialty Start Date End Date Riaz Seals MD [address] [place] [phone] PCP - General Internal Medicine 07/14/19 documented as of this encounter
--- OUTSIDE RECORDS SUMMARY | 2024-07-02 15:50 | XMS_ITS | Encounter Summary ---
Author Organization [facility] Address [address] [place] [address] Care Team Providers Care Dental Technology Advisor Name Role Phone Riaz Seals MD Primary Care Provider [phone] Neri Fonseca MD Primary Care Provider Riaz Seals MD Primary Care Provider Reason for Visit * Reason Onset Date Comments Referral Request 05/29/2017 Encounter Details Date Type Department Care Team (Late st Contact Info) Description 05/21/2017 Refill [facility] Adult Medicine [address] [place] [phone] Claudia Armando MD MPH Referral Request Social [...] TIMES A DAY AFTER MEALS NEEDED Order: [id number] . Faxed/E-prescribed medication renewal request(s) for Aaron Hermosillo 57 y.o. male received from pharmacy. Verified and Confirmed pharmacy for patient. Last CPE with this specialty: 02/14/2017 Last OV with this specialty: 05/13/2017 Next OV: Future Appointments Date Time Provider Department Phone 06/12/17 2:00 PM David Ji MD [facility] Orthopedic Surgery [phone] 07/30/17 8:30 AM Laureano Tavarez MD [facility] Otolaryngology [phone] Pertinent lab results: No labs suggested for [...] documented as of this encounter Care Teams Dental Technology Advisor Relationship Specialty Start Date End Date Riaz Seals MD [address] [place] [address] PCP - General Internal Medicine 11/09/16 04/10/19 Neri Fonseca MD [address] [place] [address] PCP - General Internal Medicine 04/11/19 07/13/19 Riaz Seals MD [address] [place] [address] PCP - General Internal Medicine 07/14/19 documented as of this encounter
--- OUTSIDE RECORDS SUMMARY | 2024-07-02 15:50 | XMS_ITS | Encounter Summary ---
Author Organization [facility] Address [address] [place] [address] Care Team Providers Care Extractor And Wringer Operator Name Role Phone Riaz Seals MD Primary Care Provider [phone] Neri Fonseca MD Primary Care Provider [phone] Riaz Seals MD Primary Care Provider [phone] Encounter Details Date Type Department Care Team (Late st Contact Info) Description 02/21/2017 Orders Only [facility] Orthopedic Surgery [address] [place] [phone] Chidi Kaufman, [address] [place] [address] Social History Tobacco Use Types Packs/Day Years [...] 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
--- OUTSIDE RECORDS SUMMARY | 2024-07-02 15:50 | XMS_ITS | Encounter Summary ---
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
--- OUTSIDE RECORDS SUMMARY | 2024-07-02 15:50 | XMS_ITS | Clinical Summary ---
Author Organization [facility] Address [address] [facility] [address] [place] [address] Phone Care Team Providers Care Loading Inspector Name Role Phone Riaz Seals MD Primary Care Provider Allergies No known active allergies Medications Medication [...] years) (1 of 1 - PCV) 2008 COVID-19 VACCINE ( - 2023-2 5 season) 2023 Adult Td,Tdap Booster 02/27/2031 02/27/2021 , 08/15/2010, 03/11/2000 RSV VACCINE (1 - 1-dose 75+ series) 2033 ZOSTER VACCINES Completed 02/12/2019, 12/03/2018 SMOKING STATUS SCREENING (On ce After 26 Yrs) Completed 02/25/2019 HEPATITIS A [...] Hermosillo Personal/Family Self 1960 [phone] (Work) [address] [place] [address] Aaron Hermosillo Personal/Family Self 1960 [phone] (Work) [address] [place] [address] Aaron Hermosillo Personal/Family Self 1960 [phone] (Work) [address] [place] [address] Aaron Hermosillo Personal/Family Self [address] [place] [address] Aaron Hermosillo Personal/Family Self [address] [place] [address] Aaron Hermosillo Personal/Family Self [address] [place] [address] Aaron Hermosillo Personal/Family Self 1960 [phone] (Work) [address] [place] [address] Aaron Hermosillo [employer] Liability Self 1960 [address] [place] [address] Care Teams Loading Inspector Relationship Specialty Start Date End Date Riaz Seals MD [address] [place] [address] PCP - General Internal Medicine 02/13/18 Additional Source Comments The information contained in this document represents components of the legal health record. It is not the complete legal health record.[facility]
--- OUTSIDE RECORDS SUMMARY | 2024-07-02 15:50 | XMS_ITS | Encounter Summary ---
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 * Telephone Encounter - Vidya [...] Propionate 50 MCG/ACT Nasal Suspension (FLONASE) Order: [id number] . Faxed/E-prescribed medication renewal request(s) for Aaron [...] as of this encounter Care Teams Business Investor Relationship Specialty Start Date End Date Riaz Seals MD [address] [place] [address] PCP - General Internal Medicine 07/14/19 documented as of this encounter
--- OUTSIDE RECORDS SUMMARY | 2024-07-02 15:50 | XMS_ITS | Encounter Summary ---
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 Procedure Name Priority Date/Time Associated Diagnosis Comments VENIPUNCTURE Routine 06/09/2021 10:36 AM EDT Hyperlipidemia LDL goal <100 BASIC METABOLIC PANEL WITH (GFR) Routine 06/09/2021 10:36 AM EDT Essential hypertension documented in this encounter Results * Due to [place] [employer] law, this organization might not be sharing negative HIV tests. * (ABNORMAL) BASIC METABOLIC PANEL WITH (GFR) (06/09/2021 10:36 AM EDT) Glucose 127(H) 65 - 99 mg/dl [facility] Urea Nitrogen Blood (BUN) 16 7 - 25 mg/dL [facility] Creatinine 0.84 0.50 - 1.20 mg/dL [facility] Sodium 141 135 - 146 mmo/L [facility] Potassium 4.4 3.5 - 5.3 mmol/L [facility] Chloride 103 98 - 107 mmo/L [facility] Carbon dioxide 26 23 - 33 mmol/L [facility] Calcium 9.6 8.5 - 10.4 mg/dL [facility] GFR 98 >60 ml/min [facility] Comment:If the patient is Af rican Georgian, please multiply result by 1.210 06/09/2021 10:3 6 AM EDT 06/09/2021 10:36 AM EDT Narrative [facility] - 06/09/2021 12:32 PM EDT Patient's primary care provider is: ??N/A Testing performed at: [facility], [address] [place] [address], [address], Manager Payer: Sergio Le MD Riaz Seals MD LABORATORY Final Result Performing Organization Address [facility] de Phone Number [address] [address] DIRECTOR Sergio Le MD * (ABNORMAL) LIPID [...] - 5 [facility] 06/09/2021 10:3 6 AM EDT 06/09/2021 10:36 AM EDT Narrative [facility] - 06/09/2021 12:32 PM EDT Patient's primary care provider is: ??N/A Testing performed at: [facility], [address] [place] [address], [address], Manager Payer: Sergio Le MD Riaz Seals MD LABORATORY Final Result Performing Organization Address [facility]/State/ZIP Co de Phone Number [facility] [address] [place] [address] DIRECTOR Sergio Le MD documented in this encounter Visit Diagnoses Diagnosis Hyperlipidemia LDL goal <100 Other and unspecified hyperlipidemia Essential hypertension documented in this encounter Care Teams Welder Setter Resistance Machine Relationship Specialty Start Date End Date Riaz Seals MD [address] [place] [address] PCP - General Internal Medicine 07/14/19 documented as of this encounter
--- OUTSIDE RECORDS SUMMARY | 2024-07-02 15:50 | XMS_ITS | Encounter Summary ---
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 Author Blood Pressure < 140/90 Blood Pressure 138/70(2024 11:24 AM EDT) Vanessa TachoRamon Note: Above is your goal for blood [...] of this encounter Procedures * Due to [place] [employer] law, this organization might not be sharing negative HIV tests. Procedure Name Priority Date/Time Associated Diagnosis Comments C-REACTIVE PROTEIN (CRP) - INFLAMMATION Routine 04/06/2024 8:59 AM EST Left hip pain ERYTHROCYTE SEDIMENTATION RATE (ESR) Routine 04/06/2024 8:59 AM EST Left hip pain documented in this encounter Results * Due to [place] [employer] law, this organization might not be sharing negative HIV tests. * (ABNORMAL) ERYTHROCYTE SEDIMENTATION RATE (ESR) (04/06/2024 8:59 AM EST) Sedimentation Rate [place] (ESR) 33(H) < OR = 20 mm/h [facility] 04/06/2024 8:59 AM EST 04/06/2024 3:45 PM EST Narrative Resulting Agency Comment [id number] Bertin Lima MD LAB SAME DAY RESULT Final Res ult Performing Organization Address City/[facility]/ZIP Co de Phone Number [facility] [address] [place] [address] * C-REACTIVE PROTEIN (CRP) - INFLAMMATION (04/06/2024 8:59 AM EST) C reactive protein 4.8 <8.0 mg/L [facility] 04/06/2024 8:59 AM EST 04/06/2024 3:45 PM EST Narrative Resulting Agency Comment [id number] us Bertin Lima MD LABORATORY Final Result Performing Organization Address [facility] Co de Phone Number [facility] [address] [place] [address] documented in this encounter Visit Diagnoses Diagnosis Left hip pain Pain in joint, pelvic region and thigh documented in this encounter Care Teams Systems Software Engineer Relationship Specialty Start Date End Date Riaz Seals MD [address] [place] [address] PCP - General Internal Medicine 07/14/19 documented as of this encounter
--- OUTSIDE RECORDS SUMMARY | 2024-07-02 15:50 | XMS_ITS | Encounter Summary ---
Author Organization [facility] Address [address] [place] [address] Care Team Providers Care Hospice Rn Name Role Phone Carlton De Jesus MD Primary Care Provider Riaz Seals MD Primary Care Provider Neri Fonseca MD Primary Care Provider Riaz Seals MD Primary Care Provider Reason for Visit * Reason Comments E-prescribing Refill Request Encounter Details Date Type Department Care Team (Late st Contact Info) Description 07/09/2016 Refill [facility] Adult Medicine [address] [place] [phone] Carlton De Jesus MD [address] [phone] E-prescribing Refill Request Social History Tobacco Use [...] 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 Order: [id number] ?? E-Prescribing Status: Receipt confirmed by pharmacy (04/11/2016 ??3:49 PM EST) Faxed/E-prescribed medication renewal request(s) for Aaron Hermosillo 56 y.o. male received from pharmacy. Last CPE with this specialty: 08/26/2014 Last OV with this specialty: 05/18/2016 Next OV: Future Appointments Date Time Provider Department Center 07/31/2016 8:45 AM Laureano Tavarez MD [facility] Pertinent lab results: No labs suggested for [...] documented as of this encounter Care Teams Hospice Rn Relationship Specialty Start Date End Date Carlton De Jesus MD PCP - General 02/26/14 11/08/16 Riaz Seals MD [address] [place] [phone] PCP - General Internal Medicine 11/09/16 04/10/19 Neri Fonseca MD [address] [place] [address] PCP - General Internal Medicine 04/11/19 07/13/19 Riaz Seals MD [address] [place] [phone] PCP - General Internal Medicine 07/14/19 documented as of this encounter
--- OUTSIDE RECORDS SUMMARY | 2024-07-02 15:50 | XMS_ITS | Encounter Summary ---
Author Organization [facility] Address [address] [place] [address] Care Team Providers Care Book Repairer Name Role Phone Riaz Seals MD Primary Care Provider [phone] Encounter Details Date Type Department Care Team (Late st Contact Info) Description 12/13/[address] 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 Selenokhod message sent. documented in this encounter Plan [...] PM EDT 12/13/2023 1:52 PM EDT Narrative [facility] - 12/13/2023 3:25 PM EDT Patient's primary care provider is: ??N/A Testing performed at: [facility], [address] [place] [address], [address], It Risk And Assurance Senior Manager: Sergio Le MD Riaz Seals MD LABORATORY Final Result Performing Organization Address City/State/[facility] Co de Phone Number [address] [address] DIRECTOR Sergio Le MD * BASIC METABOLIC PANEL WITH (GFR) (12/13/2023 1:52 PM EDT) Glucose 84 65 - 99 mg/dl [facility] Urea Nitrogen Blood (BUN) 16 7 - 25 mg/dL [facility] Creatinine 0.92 0.50 - 1.20 mg/dL [facility] Sodium 141 135 - 146 mmo/L [facility] Potassium 4.4 3.5 - 5.3 mmol/L [facility] Chloride 102 98 - 107 mmo/L [facility] Carbon dioxide 29 23 - 33 mmol/L [facility] Calcium 9.7 8.5 - 10.4 mg/dL [facility] GFR 88 >60 ml/min [facility] 12/13/2023 1:52 PM EDT 12/13/2023 1:52 PM EDT Narrative [facility] - 12/13/2023 3:25 PM EDT Patient's primary care provider is: ??N/A Testing performed at: [facility], [address] [place] [address], [address], It Risk And Assurance Senior Manager: Sergio Le MD Riaz Seals MD LABORATORY Final Result Performing Organization Address [facility] de Phone Number [address] [address] DIRECTOR Sergio Le MD * HEMOGLOBIN A1C (12/13/2023 1:52 PM EDT) Hemoglobin A1C 5.6 <5.7 % Total [facility] Comment: For diagnostic purposes: <5.7 ?Decreased risk of diabetes 5.7 - 6.4 ?Increased risk of diabetes >6.5 ? Consistent with diabetes Diagnosis of diabetes should be confirmed by repeat testing. Estimated Average Glucose 114 mg/dL(calc ) [facility] 12/13/2023 1:52 PM EDT 12/13/2023 1:52 PM EDT Narrative [facility] - 12/13/2023 2:46 PM EDT Patient's primary care provider is: ??N/A Testing performed at: [facility], [address] [place] [address], [address], It Risk And Assurance Senior Manager: Sergio Le MD Riaz Seals MD LABORATORY Final Result Performing Organization Address [facility] de Phone Number [address] [address] DIRECTOR Sergio Le MD * PROSTATE SPECIFIC ANTIGEN (PSA) TOTAL, SERUM (12/13/2023 1:52 PM EDT) PSA 1.66 0.00 - 4.00 ng/mL [facility] Comment: PSA was performed using the Kailyn Jace Immunoassay method. Values obtained from different assay methods cannot be used interchangeably. PSA levels, regardless of value, should not be interpreted as absolute evidence of the presence or absence of disease. 12/13/2023 1:52 PM EDT 12/13/2023 1:52 PM EDT Narrative [facility] - 12/13/2023 3:25 PM EDT Patient's primary care provider is: ??N/A Testing performed at: [facility], [address] [place] [address], [address], It Risk And Assurance Senior Manager: Sergio Le MD Riaz Seals MD LABORATORY Final Result [address] [address] DIRECTOR Sergio Le MD documented in this encounter Visit Diagnoses Diagnosis Screening for prostate cancer Special screening for malignant neoplasm of prostate Screening for endocrine disorder Hyperlipidemia LDL goal <100 Other and unspecified hyperlipidemia documented in this encounter Care Teams Book Repairer Relationship Specialty Start Date End Date Riaz Seals MD [address] [place] [phone] PCP - General Internal Medicine 07/14/19 documented as of this encounter
--- OUTSIDE RECORDS SUMMARY | 2024-07-02 15:50 | XMS_ITS | Encounter Summary ---
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 Procedure Name Priority Date/Time Associated Diagnosis Comments EKG-TO BE READ & BILLED BY ADULT OR PEDIATRIC CARDIOLOGY Same Day Results 07/03/2022 10:46 AM EDT Essential hypertension Gastroesophageal reflux disease without esophagitis Primary osteoarthritis of left hip Hyperlipidemia LDL goal <100 documented in this encounter Results * Due to [place] [employer] law, this organization might not be sharing [...] was found Confirmed by LUCIANO MENDOSA ([id number]), news copy editor LENIN FUNK ([id number]) on 07/04/2022 9:52:14 AM [facility] EKG SYSTEM 07/03/2022 10:4 6 AM EDT 07/04/2022 9:52 AM EDT us Katiuska Berg NP CARDIOVASCULAR-WITH INBSKT RTG Final Result [facility] EKG SYSTEM documented in this encounter Visit Diagnoses Diagnosis Essential hypertension Preoperative examination Preoperative examination, unspecified Gastroesophageal reflux disease without esophagitis Esophageal reflux Primary osteoarthritis of left hip Primary localized osteoarthrosis, pelvic region and thigh Hyperlipidemia LDL goal <100 Other and unspecified hyperlipidemia documented in this encounter Care Teams Publication Distributor Relationship Specialty Start Date End Date Riaz Seals MD [address] [place] [address] PCP - General Internal Medicine 07/14/19 documented as of this encounter
--- OUTSIDE RECORDS SUMMARY | 2024-07-02 15:50 | XMS_ITS | Encounter Summary ---
Author Organization [facility] Address [address] [place] [address] Care Team Providers Care Hide Cooking Operator Name Role Phone Riaz Seals MD Primary Care Provider [phone] Reason for Visit * Reason Comments Return Call Encounter Details Date Type Department Care Team (Late st Contact Info) Description 07/05/2022 Telephone [facility] Orthopedic Surgery [address] [facility] [address] [place] [phone] Bertin Lima MD 123 [facility] [address] [place] [phone] Return Call Social History Tobacco Use Types [...] 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 please assist callback is [phone] documented in this encounter Plan of Treatment [...] on filedocumented in this encounter Care Teams Hide Cooking Operator Relationship Specialty Start Date End Date Riaz Seals MD [address] [place] [phone] PCP - General Internal Medicine 07/14/19 documented as of this encounter
--- OUTSIDE RECORDS SUMMARY | 2024-07-02 15:50 | XMS_ITS | Encounter Summary ---
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
--- OUTSIDE RECORDS SUMMARY | 2024-07-02 15:50 | XMS_ITS | Continuity of Care Document ---
Author Organization [facility] Peral[facility] Address [address] [place] [address] Phone Care Team Providers Care Policy Specialist Name Role Phone Jennifer Cheng Res Unavailable [...] Diagnoses Date Provider Providers Copied on Encounter [facility], [address] [place] [address],[address], [place], [place], [id number], tel:[phone] Dental Encounter for dental exam and cleaning w/o abnormal findings 4 Annette Rodriguez. [address] [place], [address], [place]. tel:[phone] [facility], [address] [place] [address],[facility] [address], [place], [id number], tel:[phone] Dental Encounter for dental exam and cleaning w/o abnormal findings 4 Abouali Kalarhrenate. [address] [place], [address], [place]. tel:[phone] [facility], [address] [place] [address],[address], [place], [place], [id number], [place] tel:[phone] Dental Encounter for dental exam and cleaning w/o abnormal findings 4 Yesenia Linn. [address] [place], [place], [id number], [place]. tel:[phone] [facility], [address] [place] [address],[address], [place], [id number], [place] tel:[phone] Dental Encounter for dental exam and cleaning w/o abnormal findings 4 Faisaluali Kalarhrenate. [address] [place], [address], [place]. tel:[phone] [facility], [address] [facility] [place] [place] [address], [place], [place], [id number], [place] tel:[phone] [facility] Encounter for dental exam and cleaning w/o abnormal findings 0 1- 9 Nannette Paul. [address] [place], [place], [id number]. tel:[phone] [facility], [address] [facility] [facility] [place] [place] [address], [place], [place], [id number], [place] tel:[phone] [facility] Encounter for dental exam and cleaning w/o abnormal findings 8 Nannette Paul. [address] [place], [place], [id number]. tel:[phone] [facility], [address] [facility] [address], [place], [place], [id number], [place] tel:[phone] [facility] Encounter for dental exam and cleaning w/o abnormal findings 7 [facility] Sangeeta Villarreal. [address] [place], [place], [id number], [place]. tel:[phone] [facility], [address] [facility] [facility] [place] [place] [address], [place], [place], [id number], [place] tel:[phone] [facility] Encounter for dental exam and cleaning w/o abnormal findings 7 Peter Villarreal. [address] [place], [place], [id number], [place]. tel:[phone] [facility], [address] [facility] [facility] [place] [place] [address], [place], [place], [id number], [place] tel:[phone] [facility] Encounter for dental exam and cleaning w/o abnormal findings 0- 7 Peter Villarreal. [address] [place], [place], [id number], [place]. tel:[phone] [facility], [address], [place], [place], [id number], [place] tel:[phone] [facility] [facility] Encounter for dental exam and cleaning w/o abnormal findings July-0 - 7 [facility] Villarreal. [address] [place], [place], [id number], [place]. tel:[phone] [facility], [address] [facility] [facility] [place] [place] [address], [place], [place], [id number], [place] tel:[phone] [facility] Encounter for dental exam and cleaning w/o abnormal findings Jun-2 7 [facility] Villarreal. [address] [place], [place], [id number], [place]. tel:[phone] [facility], [address] [place], [place] [address], [place], [place], [id number], [place] tel:[phone] [facility] Encounter for dental exam and cleaning w/o abnormal findings Jun-03 13- 7 [facility] Villarreal. [address] [place], [place], [id number], [place]. tel:[phone] [facility], [address] [facility] [facility] [place] [address], [place], [place], [id number], [place] tel:[phone] [facility] Encounter for dental exam and cleaning w/o abnormal findings Jun-03 12- 7 [facility] Villarreal. [address] [place], [place], [id number], [place]. tel:[phone] [facility], [address] [facility] [facility] [place] [place] [address], [place], [place], [id number], [place] tel:[phone] [facility] [facility] Encounter for dental exam and cleaning w/o abnormal findings Jun-0 - 7 [facility] Villarreal. [address] [place], [place], [id number], [place]. tel:[phone] [facility], [address] [facility] [facility] [place] [place] [address], [place], [place], [id number], [place] tel:[phone] [facility] Encounter for dental exam and cleaning w/o abnormal findings May-3 1-201 7 Aldarawcheh Firas. [address] [place], [place], [id number]. tel:[phone] [facility], [address] [facility] [facility] [place] [place] [address], [place], [place], [id number], [place] tel:[phone] [facility] [facility] Dental examination July-2 0-201 4 No Information [facility], [address] [facility] [address], [place], [place], [id number], [place] tel:[phone] [facility] Dental examination Jun-0 9-201 4 No Information [facility], [address] [facility], [place], [place], [id number], [place] tel:[phone] [facility] Dental examination May-0 4-201 4 No Information [facility], [address] [facility] [facility] [place] [place] [address], [place], [place], [id number], [place] tel:[phone] [facility] Dental examination 2 2-201 4 No Information [facility], [address] [facility] [facility] [place] [place] [address], [place], [place], [id number], [place] tel:[phone] [facility] Dental examination Nov-0 5-201 3 No Information [facility], [address] [facility] [facility] [place] [place] [address], [place], [place], [id number], [place] tel:[phone] [facility] Dental examination Dec-0 2-201 3 Aldarawcheh Firas. [address] , [place], [place], [id number]. tel:[phone] [facility], [address] [facility] [place] [place] [address], [place], [place], [id number], [place] tel:[phone] [facility] Dental examination Dec-0 1-201 3 Aldarawcheh Firas. [address], [place], [place], [id number]. tel:[phone] Clay Franks [facility], [address] [facility] [address], [place], [place], [id number], [place] tel:[phone] [facility] Dental examination Nov- 3 Nannette Paul. [address] [place], [place], [id number]. tel:[phone] Clay [facility], [address] [facility] [address], [place], [place], [id number], [place] tel:[phone] [facility] Dental examination Nov- 3 No Information Clay Franks [facility], [address] [facility] [address], [place], [place], [id number], [place] tel:[phone] Dental examination 3 No Information Family History Family Member Type Diagnosis Age At Onset No Information Payers Payer name Insurance type Covered green party ID Len thorpe(s) Yony [facility] [id number] Social History Type Description Quantity Date Captured [...]
--- OUTSIDE RECORDS SUMMARY | 2024-07-02 15:50 | XMS_ITS | Encounter Summary ---
Author Organization [facility] Address [address] [place] [address] Care Team Providers Care Damper Worker Name Role Phone Riaz Seals MD Primary Care Provider [phone] Neri Fonseca MD Primary Care Provider [phone] Riaz Seals MD Primary Care Provider [phone] Reason for Visit * Reason Comments E-prescribing Refill Request Encounter Details Date Type Department Care Team (Late st Contact Info) Description 09/17/2017 Refill [facility] Adult Medicine [address] [place] [phone] Riaz Seals MD [address] [place] [phone] E-prescribing Refill Request Social History Tobacco Use [...] 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 Faxed/E-prescribed medication renewal request(s) for Aaron Hermosillo 57 y.o. male received from pharmacy. Verified and Confirmed pharmacy for patient. Last CPE with this specialty: 02/14/2017 Last OV with this specialty: 07/26/2017 Next OV: Future Appointments Date Time Provider Department Phone 10/01/17 11:30 AM Laureano Tavarez MD [facility] Otolaryngology [phone] 10/16/17 9:00 AM David Ji MD [facility] Orthopedic Surgery [phone] 03/18/18 10:00 AM Laureano Tavarez MD [facility] Otolaryngology [phone] Pertinent lab results: No labs suggested for [...] documented as of this encounter Care Teams Damper Worker Relationship Specialty Start Date End Date Riaz Seals MD [address] [place] [address] PCP - General Internal Medicine 11/09/16 04/10/19 Neri Fonseca MD [address] [place] [address] PCP - General Internal Medicine 04/11/19 07/13/19 Raiz Seals MD [address] [place] [address] PCP - General Internal Medicine 07/14/19 documented as of this encounter
--- OUTSIDE RECORDS SUMMARY | 2024-07-02 15:50 | XMS_ITS | Encounter Summary ---
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 Procedure Name Priority Date/Time Associated Diagnosis Comments BASIC METABOLIC PANEL WITH (GFR) Routine 07/26/2017 9:08 AM EDT Essential hypertension documented in this encounter Results * Due to [place] state law, this organization might not be sharing negative HIV tests. * (ABNORMAL) BASIC METABOLIC PANEL WITH (GFR) (07/26/2017 9:08 AM EDT) Glucose 113(H) 65 - 99 mg/dl [facility] Urea Nitrogen Blood (BUN) 13 7 - 25 mg/dL [facility] Creatinine 0.79 0.50 - 1.20 mg/dL [facility] Sodium 143 136 - 145 mmo/L [facility] Potassium 4.5 3.5 - 5.3 mmol/L [facility] Chloride 103 98 - 107 mmo/L [facility] Carbon dioxide 26 23 - 33 mmol/L [facility] Calcium 9.4 8.5 - 10.4 mg/dL [facility] GFR 107 >60 ml/min [facility] Comment:If the patient is Af rican Tristanian, please multiply result by 1.210 07/26/2017 9:08 AM EDT 07/26/2017 9:08 AM EDT Narrative [facility] - 07/26/2017 10:31 AM EDT fasting Patient's primary care provider is: ??N/A Testing performed at: [facility], [address] [place] [address], [address], Field Sales Representative: Ama Walker, Ph.D Romy Laienedina [facility] Final Result Performing Organization Address [facility]/State/ZIP Co de Phone Number [address] [address] DIRECTOR Ama Walker, Ph.D documented in this encounter Visit Diagnoses Diagnosis Essential hypertension documented in this encounter Additional Health Concerns Infection Onset Date Last Indicated Resolved Time COVID-19 Rule-Out 08/23/2020 08/23/2020 08/23/2020 9:26 PM EDT COVID-19 Rule-Out 10/25/2020 10/25/2020 10/25/2020 11:43 PM EDT documented as of this encounter Care Teams Barber Shop Manager Relationship Specialty Start Date End Date Riaz Seals MD [address] [place] [address] PCP - General Internal Medicine 11/09/16 04/10/19 Neri Fonseca MD [address] [place] [address] PCP - General Internal Medicine 04/11/19 07/13/19 Riaz Seals MD [address] [place] [address] PCP - General Internal Medicine 07/14/19 documented as of this encounter
--- OUTSIDE RECORDS SUMMARY | 2024-07-02 15:50 | XMS_ITS | Encounter Summary ---
Author Organization [facility] Address [address] [place] [address] Care Team Providers Care Potato Chip Packaging Machine Operator Name Role Phone Riaz Seals MD Primary Care Provider [phone] Neri Fonseca MD Primary Care Provider [phone] Riaz Seals MD Primary Care Provider [phone] Reason for Visit * Reason Onset Date Comments E-prescribing Refill Request Appointment 06/26/2018 Encounter Details Date Type Department Care Team (Late st Contact Info) Description 06/26/2018 Refill [facility] Adult Medicine [address] [place] [phone] Riaz Seals MD [address] [place] [phone] E-prescribing Refill Request; Appointment Social History Tobacco [...] mouth daily - Oral Class: Print Order: [id number] . Faxed/E-prescribed medication renewal request(s) for Aaron Hermosillo 58 y.o. male received from pharmacy. Verified and Confirmed pharmacy for patient. Last CPE with this specialty: 02/14/2017 Last OV with this specialty: 05/20/2018 Next OV: Future Appointments Date Time Provider Department Phone 07/04/18 2:00 PM Eron Flynn MD [facility] Orthopedic Surgery [phone] 09/16/18 8:45 AM Laureano Tavarez MD [facility] Otolaryngology [phone] 09/17/18 1:45 PM David Ji MD [facility] Orthopedic Surgery [phone] Pertinent lab results: Lab Results Component Value [...] documented as of this encounter Care Teams Potato Chip Packaging Machine Operator Relationship Specialty Start Date End Date Riaz Seals MD [address] [place] [phone] PCP - General Internal Medicine 11/09/16 04/10/19 Neri Fonseca MD [address] [place] [address] PCP - General Internal Medicine 04/11/19 07/13/19 Riaz Seals MD [address] [place] [phone] PCP - General Internal Medicine 07/14/19 documented as of this encounter
--- OUTSIDE RECORDS SUMMARY | 2024-07-02 15:50 | XMS_ITS | Encounter Summary ---
Author Organization [facility] Address [address] [place] [address] Care Team Providers Care Metal Temperer Name Role Phone Riaz Seals MD Primary Care Provider [phone] Encounter Details Date Type Department Care Team (Late st Contact Info) Description 06/27/2022 Orders Only [facility] Pre-Admission Testing [address] [place] [address] Katiuska Berg NP Medications Social History Tobacco [...] of this encounter Procedures * Due to [place] Smart[employer] law, this organization might not be sharing negative HIV tests. Procedure Name Priority Date/Time Associated Diagnosis Comments CBC INCLUDES DIFFERENTIAL AND PLATELET COUNT Routine 06/27/2022 4:07 PM EDT Preoperative examination Primary osteoarthritis of left hip Essential hypertension documented in this encounter Results * Due to [place] law, this organization might not be sharing [...] GROUP PLT 258 140 - 400 K/uL [facility] 06/27/2022 4:07 PM EDT 06/27/2022 4:07 PM EDT Narrative [facility] - 06/27/2022 4:38 PM EDT Patient's primary care provider is: ??N/A Testing performed at: [facility], [address] [place] [address], [id number], Configuration Consultant: Sergio Le MD us Katiuska Berg L[facility] PRESCRIPTION CLERK LAB SAME DAY RESULT Final Resul t [address] [address] DIRECTOR Sergio Le MD documented in this encounter Visit Diagnoses Diagnosis Preoperative examination Preoperative examination, unspecified Primary osteoarthritis of left hip Primary localized osteoarthrosis, pelvic region and thigh Essential hypertension documented in this encounter Care Teams Metal Temperer Relationship Specialty Start Date End Date Riaz Seals MD [address] [place] [phone] PCP - General Internal Medicine 07/14/19 documented as of this encounter
--- OUTSIDE RECORDS SUMMARY | 2024-07-02 15:50 | XMS_ITS | Encounter Summary ---
Author Organization [facility] Address [address] [place] [address] Care Team Providers Care Expander Machine Operator Name Role Phone Riaz Seals MD Primary Care Provider [phone] Encounter Details Date Type Department Care Team (Late st Contact Info) Description 07/04/2022 Orders Only [facility] Orthopedic Surgery [address] [facility] [address] [place] [phone] Laureano Rocha PA [address] [facility] [address] [place] [address] Medications Social History Tobacco Use Types Packs/Day [...] 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
--- OUTSIDE RECORDS SUMMARY | 2024-07-02 15:50 | XMS_ITS | Encounter Summary ---
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 * XRAY SHOULDER COMPLETE MIN 2 VWS - LEFT (DX: SHOULDER PAIN *NO INJURY* M25.512/ 719.41) FC (07/26/2022 12:41 PM EDT) Anatomical Region Laterality Modality UPPER EXTREMITY Radiographic Cira ging 07/26/2022 1:08 PM EDT Narrative 07/26/2022 1:08 PM EDT CONTRAST: 4 views left shoulder Comparison: CR/NV - XRAY SHOULDER COMPLETE MIN 2 VWS [...] 07/26/2022 CONTRAST: 4 views left shoulder Comparison: CR/NV - XRAY SHOULDER COMPLETE MIN 2 VWS [...] chronicity documented in this encounter Care Teams Structural Design Engineer Relationship Specialty Start Date End Date Riaz Seals MD [address] [place] [phone] PCP - General Internal Medicine 07/14/19 documented as of this encounter
--- OUTSIDE RECORDS SUMMARY | 2024-07-02 15:51 | XMS_ITS | Encounter Summary ---
Author Organization [facility] Address [address] [place] [address] Care Team Providers Care Heel Emery Buffer Name Role Phone Riaz Seals MD Primary Care Provider [phone] Reason for Visit * Reason Comments Labs/orders Encounter Details Date Type Department Care Team ([facility] st Contact Info) Description 04/08/2024 Telephone [facility] Orthopedic Surgery [address] [facility] [address] [place] [phone] Bretin Lima MD 123 [facility] [address] [place] [phone] Labs/orders Social History Tobacco Use Types Packs/Day [...] 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
--- OUTSIDE RECORDS SUMMARY | 2024-07-02 15:51 | XMS_ITS | Encounter Summary ---
Author Organization [facility] Address [address] [place] [address] Care Team Providers Care Account Service Representative Name Role Phone Riaz Seals MD Primary Care Provider [phone] Encounter Details Date Type Department Care Team (Late st Contact Info) Description 04/29/2023 Orders Only [facility] Orthopedic Surgery [address] [facility] [address] [place] [address] Bertin Lima MD 123 [facility] [address] [place] [address] Social History Tobacco Use Types Packs/Day Years [...] 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 Author Blood Pressure < 140/90 Blood Pressure 138/70(2024 11:24 AM EDT) No TachoRamon Note: Above is your goal for [...] views left hip with AP pelvis Comparison: CR/AR - XRAY HIP UNILAT; COMPLETE 2+ VIEWS [...] views left hip with AP pelvis Comparison: CR/AR - XRAY HIP UNILAT; COMPLETE 2+ VIEWS [...] left documented in this encounter Care Teams Account Service Representative Relationship Specialty Start Date End Date Riaz Seals MD [address] [place] [phone] PCP - General Internal Medicine 07/14/19 documented as of this encounter
--- OUTSIDE RECORDS SUMMARY | 2024-07-02 15:51 | XMS_ITS | Continuity of Care Document ---
Author Organization [facility] Address [address] [place] [address] Care Team Providers Care Import/Export Administrator Name Role Phone Riaz Seals MD Primary Care Provider [phone] Encounters Date Type Department Care Team Description 5 8:30 AM EDT Consult (Initial) [facility] Orthopedic Surgery [address] [place] [phone] Riaz Mendiola MD Failed back surgical syndrome (Primary Dx); Spinal stenosis of lumbar region with neurogenic claudication [address] [phone] Riaz Seals MD Referral Request 5 11:40 AM EDT Office Visit [facility] Orthopedic Surgery [address] [place] [phone] Bertin [place] MD Spinal stenosis of lumbar region, unspecified whether neurogenic claudication present (Primary Dx) 5 4:30 PM EDT Radiology [facility]. Magnetic Resonance Imaging [address] [place] [id number] Chronic pain of left lower extremity 5 10:40 AM EDT Office Visit [address] [phone] Maria Guadalupe Prajapati NP Recurrent acute suppurative otitis media of right ear without spontaneous rupture of tympanic membrane (Primary Dx); Acute left-sided low back pain with left-sided sciatica 5 Telephone [facility] Orthopedic Surgery [address] [address] Bertin [place] MD Patient Questions [address] [phone] Riaz Seals MD Sciatica 5 Telephone [facility] REFERRAL MGMT [address] [place] [address] Bertin [place] MD Appointment 5 9:00 AM EST Radiology [facility] Xray [address] [address] Left hip pain 5 8:20 AM EST Office Visit [facility] Orthopedic Surgery [address] [address] Bertin [place] MD Left hip pain (Primary Dx); Chronic pain of left lower extremity [address] [phone] Riaz Seals MD Med Change Request 5 Telephone [facility] Surgery [address] [address] Bertin [place] MD Appointment [address] [address] Riaz Seals MD Pain 5 2:00 PM EST Office Visit [address] [address] Riaz Seals MD Left hip pain (Primary Dx); Essential hypertension; Dilated cardiomyopathy [address] [phone] Riaz Seals MD Muscle spasm; Back Pain 5 Telephone [facility] Orthopedic Surgery [address] 123 [facility] [address] [place] [address] Bertin [place] MD Labs/orders 5 Orders Only [facility] Orthopedic Surgery [address] 123 [facility] [address] [place] [address] Bertin [place] MD 5 8:40 AM EST Consult (Initial) [facility] Orthopedic Surgery [address] [facility] [address] [place] [address] Bertin [place] MD Left hip pain (Primary Dx); H/O total hip arthroplasty, left [address] [address] Riaz Seals MD Refill Request 5 1:45 PM EST Radiology [facility] Xray [address] [place] [address] Pain of left hip 5 1:20 PM EST Consult (Initial) [facility] [address] [place] [address] Jarad Jane MD Pain of left hip (Primary Dx); Primary osteoarthritis of right hip; Status post left hip replacement [address] [address] Riaz Seals MD E-prescribing Refill Request 5 4:40 PM EST Office Visit [address] [address] Riaz Seals MD Recurrent acute suppurative otitis media of right ear without spontaneous rupture of tympanic membrane (Primary Dx); Dilated cardiomyopathy; 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); Chronic seromucinous otitis media of right ear; Secondary hypercoagulable state (HHS); Myelomalacia; New onset atrial fibrillation; Chronic systolic CHF (congestive heart failure), NYHA class [address] [address] Riaz Seals MD Ear Problem (/) 4 Consult (Initial) [facility] [address] [place] [address] Leandro Kent 4 Minor Procedure/Test [facility] [address] [place] [address] Leandro Kent [facility], Unknown Provider 4 2:15 PM EST Radiology [facility] [address] Hip pain, chronic, right 4 1:30 PM EST Office Visit [address] [phone] Katie Kasper NP Hip pain, chronic, right (Primary Dx); Onychomycosis; Right otitis media, unspecified otitis media type; Essential hypertension [address] [phone] Riaz Seals MD Hip Pain [address] [phone] Riaz Seals MD Referral Request (Referral to Dr. Leandro Kent, Cardiology, ) 4 Orders Only [address] [address] Riaz Seals MD 4 1:00 PM EDT CPE - Comprehensive Physical Exam [address] [address] Riaz Seals MD Routine general medical examination at a health care facility (Primary Dx); Screen for colon cancer; Screening for endocrine disorder; Screening for prostate cancer; Hyperlipidemia LDL goal <100; Chronic seromucinous otitis media of right ear; Dilated cardiomyopathy; Primary osteoarthritis of left hip; Chronic systolic CHF (congestive heart failure), NYHA class [address] [phone] Katie Kasper NP E-prescribing Refill Request 4 Refill [facility] [address] [place] [phone] Riaz Seals MD E-prescribing Refill Request [address] [phone] Riaz Seals MD Letter/form Request (Clearance for dental form ) [address] [phone] Riaz Seals MD Refill Request [address] [phone] Riaz Seals MD E-prescribing Refill Request [address] [phone] Riaz Seals MD Referral Request [address] Scan [address] [place] [address] Ayesha Pina NP 4 Consult (Initial) [address] [address] Thi Blanco NP 4 Minor Procedure/Test [address] [address] Thi Blanco NP [facility], Unknown Provider [address] Scan 5 [place] [address] Ayesha Pina NP Labs/orders (Creatinine Order for Radiology with Contrast) [address] [phone] Ayesha Pina NP Hematuria (/) 4 E-Consult [facility] Urology [address] [place] [phone] Angel Verdugo MD Gross hematuria 4 9:00 AM EST Radiology [facility] Xray 123 [facility] [address] [place] [address] Hip pain, chronic, left 4 Orders Only [facility] Orthopedic Surgery [address] [facility] [address] [place] [address] Bertin [place] MD 4 Orders Only [facility] Orthopedic Surgery [address] [facility] [address] [place] [address] Bertin [place] MD 4 8:20 AM EST Office Visit [facility] Orthopedic Surgery [address] [facility] [address] [place] [address] Bertin [place] MD Left hip pain (Primary Dx); H/O total hip arthroplasty, left [address] [phone] Ayesha Pina NP Hematuria 4 Orders Only [address] [phone] Ayesha Pina NP 4 9:00 AM EST Office Visit [address] [phone] Ayesha Pina NP Hematuria, unspecified type (Primary Dx); Myelomalacia; Secondary hyperaldosteronism; New onset atrial fibrillation; Dilated cardiomyopathy; Chronic systolic CHF (congestive heart failure), NYHA class 1; Secondary hypercoagulable state (HCC) [address] [phone] Riaz Seals MD Urinary Problems (Discoloration) [address] [phone] Katie Kasper NP E-prescribing Refill Request [address] [phone] Riaz Seals MD Refill Request [address] [phone] Riaz Seals MD Refill Request 3 Consult (Initial) [facility] [address] [place] [address] Thi Blanco NP 3 Minor Procedure/Test [address], Unknown Provider [address] [phone] Riaz Seals MD Otitis Media (Right) 3 Minor Procedure/Test [address], Unknown Provider [address] [phone] Riaz Seals MD Prescription Assistance; Refill Request 3 1:40 PM EDT Office Visit [address] [phone] Riaz Seals MD New onset atrial fibrillation (Primary Dx); Chronic systolic CHF (congestive heart failure), NYHA class 1 [address] [phone] Riaz Seals MD Referral Request 3 Telephone [facility] [address] [place] [phone] Blanca Roman MA Care Coordination Communication ; Hospital F/U 3 Patient Outreach [facility] [address] [place] [phone] Blanca Roman MA Care Coordination Communication 3 Consult (Initial) [facility] [address] [place] [address] Thi Blanco NP 3 Minor Procedure/Test [facility] [address] [place] [address] Thi Blanco NP [facility], Unknown Provider 3 Hospital/Inpatient [facility] [address] [place], [place] [phone] [place] [address], Unknown Provider 3 Consult (Initial) [facility] [address] [place], [place] [phone] [place] [address], Unknown Provider 3 Consult (Initial) [facility] [address] [place], [place] [phone] [place] [address], Unknown Provider 3 Hospital/Inpatient [facility] [address] [place] [address] 3 ER [facility] [address] [place], [place] [phone] [place] [address], Unknown Provider 3 Orders Only [address] [address] Riaz Seals MD 3 9:20 AM EDT Office Visit [address] [phone] Riaz Seals MD Hyperlipidemia LDL goal <100 (Primary Dx); Screening for prostate cancer; Olecranon bursitis of right elbow; Essential hypertension; Patient non adherence [address] [phone] Riaz Seals MD Ear Problem 3 Orders Only [address] [phone] Katie Kasper NP Medications [address] [phone] Riaz Seals MD Ear Problem ; Cough 3 2:30 PM EDT Office Visit [address] [phone] Katie Kasper NP Recurrent acute suppurative otitis media of right ear without spontaneous rupture of tympanic membrane (Primary Dx) 3 10:20 AM EDT Radiology [facility] Xray [address] [address] S/P hip replacement, left 3 10:30 AM EDT Office Visit [facility] Orthopedic Surgery [address] [place] [address] Bertin [place] MD Aftercare following left hip joint replacement surgery (Primary Dx) 3 10:45 AM EDT Minor Procedure/Test [facility] [address] [place] [phone] Ai Richey PTA Primary osteoarthritis of left hip PT (Primary Dx) 3 10:00 AM EDT Minor Procedure/Test [address] [address] Annia Morrison PT Primary osteoarthritis of left hip PT (Primary Dx) 3 12:45 PM EDT Radiology [facility] Xray [address] [place] [address] Left shoulder pain, unspecified chronicity 3 Orders Only [facility] [address] [place] [address] Jarad Jane MD 3 1:00 PM EDT Office Visit [facility] [address] [place] [address] Jarad Jane MD Complete tear of left rotator cuff, unspecified whether traumatic (Primary Dx); Strain of long head of left biceps 3 Orders Only [facility] Orthopedic Surgery [address] [place] [phone] Bertin [place] MD 3 10:00 AM EDT Minor Procedure/Test [address] [address] Ai Richey, [employer] Primary osteoarthritis of left hip PT (Primary Dx) 3 10:00 AM EDT Minor Procedure/Test [address] [address] Ai Richey, [employer] Primary osteoarthritis of left hip PT (Primary Dx) 3 Orders Only [address] [address] Annia Morrison, PT 3 10:45 AM EDT Minor Procedure/Test [address] [address] Annia Morrison, PT Primary osteoarthritis of left hip PT (Primary Dx) 3 10:00 AM EDT Consult (Initial) [address] [address] Annia Morrison, PT Primary osteoarthritis of left hip PT (Primary Dx) 3 10:45 AM EDT Office Visit [facility] [address] [place] [address] Laureano Tavarez MD Disorder of left mastoid (Primary Dx); Bilateral hearing loss, unspecified hearing loss type 3 10:00 AM EDT Minor Procedure/Test [facility] [address] [place] [address] Sergio Farley, AuD CCCA Mixed conductive and sensorineural hearing loss of both ears (Primary Dx) 3 Telephone [facility] [address] [place] [phone] Riaz Seals MD VNA Communication 3 Telephone [facility] Orthopedic Surgery [address] [place] [phone] Bertin [place] MD Return Call 3 Professional Billing [facility] Orthopedic Surgery [address] [place] [phone] Bertin [place] MD Primary osteoarthritis of left hip 04/26/202 3 Minor Procedure/Test [facility] Bertin [place] MD 3 Orders Only [facility] Orthopedic Surgery [address] [facility] [address] [place] [address] Laureano Rocha PA Medications 3 Telephone [facility] Pre-Admission Testing [address] [phone] Katiuska Berg NP Follow Up 3 Orders Only [facility] Cardiology [address] [facility] [address] [place] [address] Brandon Bates DO 3 Orders Only NON FC [facility] H [address] [place] [address] Bertin [place] MD 3 Orders Only [facility] Pre-Admission Testing [address] [address] Katiuska Berg NP 3 Telephone [facility] Pre-Admission Testing [address] [address] Katiuska Berg NP Follow Up 3 Telephone [facility] Pre-Admission Testing [address] [address] Katiuska Berg NP Follow Up 3 Orders Only [facility] Pre-Admission Testing [address] [address] Katiuska Berg NP Medications 3 3:20 PM EDT Office Visit [facility] [address] [place] [phone] Riaz Seals MD Spinal stenosis in cervical region (Primary Dx); Complete tear of left rotator cuff, unspecified whether traumatic; Disorder of mastoid, unspecified laterality; Chronic right shoulder pain PT; Chronic seromucinous otitis media of right ear 3 Telephone [facility] Pre-Admission Testing [address] [address] Katiuska Berg NP Labs/orders 3 Orders Only [facility] Pre[facility]Admission Testing 123 [facility] [address] [place] [address] Katiuska Berg NP [address] [phone] Riaz Seals MD Follow Up 3 Telephone [facility] Cardiology [address] [facility] [address] [place] [address] Katiuska Berg NP EKG 3 Orders Only [facility] Pre-Admission Testing [address] [address] Katiuska Berg NP 3 11:00 AM EDT Office Visit [facility] Pre-Admission Testing [address] [address] Katiuska Berg NP Preoperative examination (Primary Dx); Primary osteoarthritis of left hip; Essential hypertension; Hyperlipidemia LDL goal <100; Gastroesophageal reflux disease without esophagitis; Chronic bilateral low back pain with sciatica, sciatica laterality unspecified; Myelomalacia; Cervical disc disorder with myelopathy of mid-cervical region; Disorder of mastoid, unspecified laterality; Chronic seromucinous otitis media of right ear [address] [address] [facility], Unknown Provider [address] [address] Riaz Seals MD Ear Pain 3 9:45 AM EDT Office Visit [facility] [address] [facility] [address] [place] [address] Tanner Foley MD Right shoulder pain, unspecified chronicity (Primary Dx); Complete tear of right rotator cuff, unspecified whether traumatic; S/P rotator cuff repair 3 Orders Only [facility] Pre-Admission Testing 123 [facility] [address] [place] [address] Bertin [place] MD 3 Orders Only [facility] Pre-Admission Testing 123 [facility] [address] [place] [address] Bertin [place] MD 3 9:55 AM EST Radiology [facility] Xray 123 [facility] [address] [place] [address] Left hip pain 3 2:20 PM EST Office Visit [address] [address] Riaz Seals MD Chronic seromucinous otitis media of right ear (Primary Dx); Spinal stenosis in cervical region; Disorder of left mastoid; Hearing loss of left ear, unspecified hearing loss type; Myelomalacia [address] [address] Riaz Seals MD Ear Pain 3 10:00 AM EST Consult (Initial) [facility] Orthopedic Surgery [address] [facility] [address] [place] [address] Bertin [place] MD Primary osteoarthritis of left hip (Primary Dx) 3 Orders Only [facility] Orthopedic Surgery [address] [facility] [address] [place] [address] Bertin [place] MD [address] [address] Riaz Seals MD E-prescribing Refill Request [address] [address] Riaz Seals MD E-prescribing Refill Request 3 11:15 AM EST Minor Procedure/Test [facility] [address] [place] [phone] Annia Morrison, PT Chronic right shoulder pain PT (Primary Dx) 3 10:00 AM EST Minor Procedure/Test [address] [address] Sylvie Aguayo, [employer] Chronic right shoulder pain PT (Primary Dx) 3 10:15 AM EST Minor Procedure/Test [address] [address] Sylvie Aguayo, [employer] Chronic right shoulder pain PT (Primary Dx) 3 11:45 AM EST Minor Procedure/Test [address] [address] Sylvie Aguayo, [employer] Chronic right shoulder pain PT (Primary Dx) [address] [phone] Riaz Seals MD Ear Problem 3 Orders Only [address] [address] Annia Morrison, PT 3 11:00 AM EST Office Visit [facility]ics [address] [address] Tanner Foley MD Right shoulder pain, unspecified chronicity (Primary Dx); Complete tear of right rotator cuff, unspecified whether traumatic; S/P rotator cuff repair 3 11:15 AM EST Consult (Initial) [address] [address] Annia Morrison, PT Chronic right shoulder pain PT (Primary Dx) 2 10:40 AM EST Office Visit [address] [phone] Riaz Seals MD Chronic seromucinous otitis media of right ear (Primary Dx); Screening for colon cancer; Hyperlipidemia LDL goal <100; Primary osteoarthritis of left hip; Essential hypertension [address] [phone] Riaz Seals MD Ear Pain 2 3:30 PM EST Consult (Initial) [facility] [address] [place] [address] Tanner Foley MD Right shoulder pain, unspecified chronicity (Primary Dx); Complete tear of right rotator cuff, unspecified whether traumatic; S/P rotator cuff repair 2 2:45 PM EST Office Visit [facility] [address] [place] [address] Jarad Jane MD Rotator cuff strain, right, subsequent encounter (Primary Dx); Biceps strain, right, subsequent encounter; Complete tear of left rotator cuff, unspecified whether traumatic 2 10:30 AM EST Office Visit [facility] Otolaryngology [address] [facility] [address] [place] [address] Laureano Tavarez MD Chronic seromucinous otitis media, bilateral (Primary Dx); Allergic rhinitis due to pollen, unspecified seasonality 2 Telephone [facility] Otolaryngology [address] [facility] [address] [place] [address] Laureano Tavarez MD Appointment 2 10:40 AM EST Office Visit [facility] [address] [place] [phone] Katie Kasper NP Recurrent acute suppurative otitis media of right ear without spontaneous rupture of tympanic membrane (Primary Dx) 2 9:15 AM EST Minor Procedure/Test [facility] [address] [place] [address] David Ji MD Primary osteoarthritis of left hip (Primary Dx) 2 Telephone [facility] [address] [place] [phone] Riaz Seals MD Ear Pain 2 7:30 AM EST Radiology [facility]. [facility] [address] [place] [address] Right shoulder pain, unspecified chronicity 2 2:00 PM EST Radiology [facility] Xray [address] [place] [address] Rotator cuff strain, right, subsequent encounter 2 2:00 PM EST Office Visit [facility] [address] [place] [address] Jarad Jane MD Rotator cuff strain, right, subsequent encounter (Primary Dx); Complete tear of left rotator cuff, unspecified whether traumatic; Strain of long head of left biceps; Right shoulder pain, unspecified chronicity [address] [address] Riaz Seals MD E-prescribing Refill Request [address] [address] Riaz Seals MD Ear Pain 2 11:45 AM EDT Minor Procedure/Test [address] [address] Annia Morrison, PT Strain of tendon of left rotator cuff, subsequent encounter (Primary Dx) 2 9:45 AM EDT Minor Procedure/Test [address] [address] Sylvie Aguayo, [employer] Strain of tendon of left rotator cuff, subsequent encounter (Primary Dx) 2 10:30 AM EDT Minor Procedure/Test [address] [address] Sylvie Aguayo, [employer] Strain of tendon of left rotator cuff, subsequent encounter (Primary Dx) 2 10:30 AM EDT Minor Procedure/Test [address] [address] Annia Morrison, PT Strain of tendon of left rotator cuff, subsequent encounter (Primary Dx) 2 2:00 PM EDT Minor Procedure/Test [address] [address] Annia Morrison, PT Strain of tendon of left rotator cuff, subsequent encounter (Primary Dx) 2 10:45 AM EDT Office Visit [address] [address] Jero Cesar MD Right otitis media, unspecified otitis media type (Primary Dx) [address] [address] Riaz Seals MD Ear Problem 2 9:30 AM EDT Minor Procedure/Test [address] [address] Sylvie Aguayo, [employer] Strain of tendon of left rotator cuff, subsequent encounter (Primary Dx) 2 9:45 AM EDT Minor Procedure/Test [address] [address] Sylvie Aguayo, [employer] Strain of tendon of left rotator cuff, subsequent encounter (Primary Dx) 2 9:00 AM EDT Minor Procedure/Test [address] [address] Sylvie Aguayo, [employer] Strain of tendon of left rotator cuff, subsequent encounter (Primary Dx) 2 11:15 AM EDT Minor Procedure/Test [address] [address] Annia Morrison, PT Strain of tendon of left rotator cuff, subsequent encounter (Primary Dx) 2 4:15 PM EDT Minor Procedure/Test [address] [address] Sylvie Aguayo, [employer] Strain of tendon of left rotator cuff, subsequent encounter (Primary Dx) 2 8:45 AM EDT Minor Procedure/Test [address] [address] Sylvie Aguayo, [employer] Strain of tendon of left rotator cuff, subsequent encounter (Primary Dx) 2 11:15 AM EDT Minor Procedure/Test [address] [address] Annia Morrison, PT Strain of tendon of left rotator cuff, subsequent encounter (Primary Dx) 2 12:45 PM EDT Minor Procedure/Test [address] [address] Sylvie Aguayo, [employer] Strain of tendon of left rotator cuff, subsequent encounter (Primary Dx) 2 1:45 PM EDT Office Visit [facility] [address] [place] [address] Jarad Jane MD Complete tear of left rotator cuff, unspecified whether traumatic (Primary Dx); Strain of long head of left biceps 2 9:30 AM EDT Minor Procedure/Test [address] [address] Sylvie Aguayo, [employer] Strain of tendon of left rotator cuff, subsequent encounter (Primary Dx) 2 10:15 AM EDT Minor Procedure/Test [address] [address] Sylvie Aguayo, [employer] Strain of tendon of left rotator cuff, subsequent encounter (Primary Dx) 2 3:30 PM EDT Minor Procedure/Test [address] [address] Sylvie Agauyo, [employer] Strain of tendon of left rotator cuff, subsequent encounter (Primary Dx) 2 Refill [facility] [address] [place] [phone] Katie Kasper NP E-prescribing Refill Request 2 10:45 AM EDT Minor Procedure/Test [address] [address] Annia Morrison, PT Strain of tendon of left rotator cuff, subsequent encounter (Primary Dx) 2 10:30 AM EDT Minor Procedure/Test [address] [address] Sylvie Aguayo, [employer] Strain of tendon of left rotator cuff, subsequent encounter (Primary Dx) 2 10:30 AM EDT Minor Procedure/Test [address] [address] Sylvie Aguayo, [employer] Strain of tendon of left rotator cuff, subsequent encounter (Primary Dx) 2 10:30 AM EDT Minor Procedure/Test [address] [address] Sylvie Aguayo, [employer] Strain of tendon of left rotator cuff, subsequent encounter (Primary Dx) 2 11:15 AM EDT Minor Procedure/Test [address] [address] Sylvie Aguayo, [employer] Strain of tendon of left rotator cuff, subsequent encounter (Primary Dx) 2 Refill [facility] [address] [place] [phone] Riaz Seals MD E-prescribing Refill Request 2 10:30 AM EDT Minor Procedure/Test [address] [address] Sylvie Aguayo, [employer] Strain of tendon of left rotator cuff, subsequent encounter (Primary Dx) 2 10:30 AM EDT Minor Procedure/Test [address] [address] Annia Morrison, PT Strain of tendon of left rotator cuff, subsequent encounter (Primary Dx) 2 1:30 PM EDT Office Visit [facility] [address] [place] [address] Jarad Jane MD Complete tear of left rotator cuff, unspecified whether traumatic (Primary Dx); Strain of long head of left biceps 2 10:30 AM EDT Minor Procedure/Test [address] [address] Sylvie Aguayo, [employer] Strain of tendon of left rotator cuff, subsequent encounter (Primary Dx) 2 10:30 AM EDT Minor Procedure/Test [address] [address] Sylvie Aguayo, [employer] Strain of tendon of left rotator cuff, subsequent encounter (Primary Dx) 2 10:30 AM EDT Minor Procedure/Test [address] [address] Annia Morrison, PT Strain of tendon of left rotator cuff, subsequent encounter (Primary Dx) 2 10:30 AM EDT Minor Procedure/Test [address] [address] Sylvie Aguayo, [employer] Strain of tendon of left rotator cuff, subsequent encounter (Primary Dx) 2 10:30 AM EDT Minor Procedure/Test [address] [address] Sylvie Aguayo, [employer] Strain of tendon of left rotator cuff, subsequent encounter (Primary Dx) 2 10:15 AM EDT Office Visit [facility] [address] [place] [phone] Rina Beaver, OD Encounter for examination of eyes and vision with abnormal findings (Primary Dx); Presbyopia of both eyes; Regular astigmatism, bilateral; Hyperopia of both eyes 2 Orders Only [address] [address] Annia Morrison, PT 2 10:30 AM EDT Minor Procedure/Test [address] [address] Annia Morrison, PT Strain of tendon of left rotator cuff, subsequent encounter (Primary Dx) 2 10:30 AM EDT Consult (Initial) [address] [phone] Prince, Annia, PT Strain of tendon of left rotator cuff, subsequent encounter (Primary Dx) 2 1:30 PM EDT Office Visit [facility] [address] [place] [address] Jarad Jane MD Complete tear of left rotator cuff, unspecified whether traumatic (Primary Dx); Strain of long head of left biceps 2 Refill [facility] [address] [place] [phone] Riaz Seals MD E-prescribing Refill Request 2 Professional Billing [facility] Surgery [address] [address] Jarad Jane MD Complete tear of left rotator cuff, unspecified whether traumatic; Strain of long head of left biceps 2 Minor Procedure/Test [facility] Jarad Jane MD 2 Orders Only [facility] Surgery [address] [address] Jacobo Velazquez PA Medications 2 Orders Only [facility] Card[facility] [address] [address] Brandon Bates DO 2 Orders Only [facility] [address] [place] [phone] Riaz Seals MD 2 Telephone [facility] [address] [facility] [address] [place] [address] Deyanira Mccray PA EKG 2 Orders Only [facility] Pre-Admission Testing [address] [address] Deyanira Mccray PA 2 9:20 AM EDT Office Visit [facility] Pre-Admission Testing [address] [address] Deyanira Mccray PA Preoperative examination (Primary Dx); [...] ear, unspecified hearing loss type 2 Telephone [facility] Pre-Admission Testing 123 [facility] [address] [place] [address] Tayler Sherwood NP Pre Op Exam [address] [phone] Riaz Seals MD E-prescribing Refill Request [address] [phone] Riaz Seals MD Tick bite 2 8:45 AM EDT Consult (Initial) [facility] [address] [place] [address] Marcello Costa MD Primary osteoarthritis of left hip (Primary Dx); Lumbar spondylosis 2 Orders Only [address] [phone] Riaz Seals MD 2 11:00 AM EDT Office Visit [address] [phone] Riaz Seals MD Right ear pain (Primary Dx); Myelomalacia; Hypertension, unspecified type 2 9:45 AM EDT Office Visit [facility] [address] [place] [address] David Ji MD Primary osteoarthritis of left hip (Primary Dx) 2 Orders Only [facility] Surgery [address] [address] Jarad Jane MD 2 Refill [facility] [address] [place] [phone] Riaz Seals MD E-prescribing Refill Request 2 Refill [facility] [address] [place] [phone] Riaz Seals MD E-prescribing Refill Request 2 12:15 PM EST Minor Procedure/Test [address] [address] Annia Morrison, PT Chronic pain of left knee PT (Primary Dx) 2 11:45 AM EST Minor Procedure/Test [address] [address] Annia Morrison, PT Chronic pain of left knee PT (Primary Dx) 2 Orders Only [facility] Surgery [address] 123 [facility] [address] [place] [phone] Jarad Jane MD 2 Orders Only [facility] [address] [place] [address] Jarad Jane MD 2 3:00 PM EST Office Visit [facility] [address] [place] [address] Jarad Jane MD Rotator cuff strain, left, subsequent encounter (Primary Dx); Rotator cuff strain, right, subsequent encounter 2 10:30 AM EST Minor Procedure/Test [address] [address] Sylvie Aguayo, FE Chronic pain of left knee PT (Primary Dx) 2 11:45 AM EST Radiology [facility]. [facility] [address] [place] [address] Rotator cuff strain, left, initial encounter; Left shoulder pain, unspecified chronicity 2 12:30 PM EST Minor Procedure/Test [address] [address] Sylvie Aguayo, [employer] Chronic pain of left knee PT (Primary Dx) 2 Orders Only [address] [phone] Annia Morrison, PT [address] [phone] Mumtaz Walker, [facility] 2 2:15 PM EST Consult (Initial) [address] [phone] Annia Morrison, PT Chronic pain of left knee PT (Primary Dx) 1 2:15 PM EST Radiology [facility] [address] Left shoulder pain, unspecified chronicity 1 Telephone [facility] [address] [place] [phone] Riaz Seals MD Labs/orders (Physical therapy for left knee); Knee Pain 1 2:30 PM EST Consult (Initial) [facility] [address] [place] [address] Jarad Jane MD Rotator cuff strain, left, initial encounter (Primary Dx); Rotator cuff strain, right, initial encounter; Left shoulder pain, unspecified chronicity 1 11:15 AM EST Minor Procedure/Test [address] [address] Annia Morrison, PT Left hip pain (Primary Dx) 1 Orders Only [facility] [address] [place] [address] Jarad Jane MD 1 10:00 AM EST Minor Procedure/Test [address] [phone] Richey, Ai, [employer] Left hip pain (Primary Dx) 1 9:15 AM EST Radiology [facility] X[facility] [address] [place] [address] 1 8:40 AM EST Office Visit [address] [address] Riaz Seals MD Acute pain of left knee (Primary Dx); Need for vaccination 1 2:45 PM EST Minor Procedure/Test [facility] [address] [place] [address] David Ji MD Primary osteoarthritis of left hip (Primary Dx) 1 3:45 PM EST Consult (Initial) [facility] [address] [place] [address] Derek Duncan PA Arthritis of left hip (Primary Dx) 1 10:45 AM EST Radiology [facility] X[facility] [address] [place] [address] Left hip pain 1 10:15 AM EST Minor Procedure/Test [facility] [address] [place] [phone] Ai Richey, [employer] Left hip pain (Primary Dx) 1 Orders Only [facility] Orthopedic Surgery [address] [place] [address] [place] [phone] Marcello Costa MD 1 Orders Only [facility] [address] [place] [phone] Riaz Seals MD 1 9:30 AM EST Minor Procedure/Test [facility] [address] [place] [phone] Annia Morrison PT Left hip pain (Primary Dx) 1 10:30 AM EST Minor Procedure/Test [facility] [address] [place] [phone] Ai Richey, [employer] Left hip pain (Primary Dx) 1 10:15 AM EST Minor Procedure/Test [address] [address] Richey, Ai, [employer] Left hip pain (Primary Dx) 1 10:00 AM EST Minor Procedure/Test [address] [address] Annia Morrison, PT Left hip pain (Primary Dx) 1 8:45 AM EST Consult (Initial) [address] [address] Annia Morrison, PT Left hip pain PT (Primary Dx) 1 8:20 AM EDT Office Visit [address] [address] Riaz Seals MD Hyperlipidemia LDL goal <100 (Primary Dx); Neck pain; Essential hypertension; Chronic bilateral low back pain with sciatica, sciatica laterality unspecified; Disorder of left mastoid; Cervical disc disorder with myelopathy of mid-cervical region 1 Minor Procedure/Test NON FC SA NON FC UNK Provider, Unknown 1 3:00 PM EDT Office Visit [address] [address] Manuel Newton NP OM (otitis media), recurrent, right (Primary Dx) 1 Surgery/Major Procedure NEUROSURGERY UNSPEC Wisam Couch MD 1 Orders Only [address] [address] Riaz Seals MD 1 Minor Procedure/Test [address], Unknown Provider [address] [address] Riaz Seals MD Labs/orders [address] [phone] Riaz Seals MD E-prescribing Refill Request 1 11:00 AM EDT Office Visit [address] [address] Yvon Tolentino NP Muscle spasm (Primary Dx); Essential hypertension 1 Erroneous Encounter [address] [address] Riaz Seals MD 1 Surgery/Major Procedure NEPHRO UNSPECIFIED Wisam Couch MD [address] [address] Riaz Seals MD Tick bite 1 Minor Procedure/Test [place] [address] [place], [place] [phone] [place] [address], Unknown Provider [address] [phone] Riaz Seals MD Labs/orders 1 Travel 1 9:20 AM EDT Office Visit [address] [phone] Riaz Seals MD Spinal stenosis in cervical region (Primary Dx); Hearing loss of left ear, unspecified hearing loss type; Disorder of left mastoid; Hyperlipidemia LDL goal <100; Neck pain; Essential hypertension; Vaccine refused by parent 1 Telephone [facility] [address] [place] [address] Raul Reynolds MD Return Call 1 Telephone [facility] [address] [place] [phone] Raul Reynolds MD Letter/form Request ; Return Call 1 Consult (Initial) NEUROLOGY UNSPECIFIED Wisam Couch MD [address] [phone] Riaz Seals MD Knee Pain [address] [phone] Riaz Seals MD Referral Request 1 Consult (Initial) NEUROSURGERY UNSPEC Wisam Couch MD 1 Travel 1 9:15 AM EDT Consult (Initial) [facility] [address] [place] [address] [address] [place] [address] Raul Reynolds MD Traumatic complete tear of left rotator cuff, subsequent encounter (Primary Dx) [address] [address] Riaz Seals MD E-prescribing Refill Request [address] [address] Riaz Seals MD E-prescribing Refill Request 1 Travel 1 Orders Only [address] [address] Riaz Seals MD 1 11:00 AM EST Office Visit [address] [address] Riaz Seals MD Chronic seromucinous otitis media of right ear (Primary Dx); Essential hypertension; Myelomalacia; Hyperlipidemia LDL goal <100 [address] [address] Riaz Seals MD Ear Pain 1 Minor Procedure/Test [facility] [address], Unknown Provider 1 Consult (Initial) [facility] [address], Unknown Provider 1 Minor Procedure/Test [facility] [address] [place] [address] Sergio Grullon MD [facility], Unknown Provider [address] [address] Riaz Seals MD E-prescribing Refill Request 0 Travel 0 12:10 PM EST Office Visit [address] [address] Riaz Seals MD Bursitis of right knee, unspecified bursa (Primary Dx); Elevated blood-pressure reading without diagnosis of hypertension; Hyperlipidemia LDL goal <100; Disorder of left mastoid 0 12:00 PM EST Radiology [facility] Xray [address] [facility] [address] [place] [address] Cervical myelopathy; Myelomalacia; Chronic neck pain 0 Travel 0 11:20 AM EST Office Visit [facility] Surgery [address] 123 [facility] [address] [place] [address] Eron Flynn MD Cervical myelopathy (Primary Dx); Myelomalacia; Foraminal stenosis of cervical region; Neck pain; Chronic neck pain; Chronic midline low back pain with bilateral sciatica; Lumbosacral stenosis with neurogenic claudication (HCC); Facet arthritis of lumbar region; Foraminal stenosis of lumbar region [address] [address] Riaz Seals MD Appointment [address] [address] Riaz Seals MD Bruising 0 9:10 AM EST Office Visit [address] [address] Riaz Seals MD Bruising (Primary Dx) 0 Travel [address] [address] Riaz Seals MD Hospital F/U ; Appointment 0 ER [facility] [address] [place] [address] Lena Botello [facility], Unknown Provider 12/04/202 0 Orders Only [facility] [address] [place] [address] Lena Botello 0 Travel 0 5:45 PM EST Radiology [facility] [address] [place] [address] Chronic midline low back pain with bilateral sciatica 0 5:00 PM EST Radiology [facility] [address] [place] [address] Chronic neck pain 0 Travel 0 3:15 PM EST [facility] Xray [address] [place] [address] Neck pain; Chronic midline low back pain with bilateral sciatica 0 Travel 0 1:40 PM EST Office Visit [address] [phone] Riaz Seals MD Otalgia, unspecified laterality (Primary Dx); Need for immunization against influenza; Hyperlipidemia LDL goal <130 [address] [phone] Riaz Seals MD Ear Pain 0 3:00 PM EST Office Visit [facility] [address] [place] [address] Eron Flynn MD Neck pain (Primary Dx); Chronic neck pain; Chronic midline low back pain with bilateral sciatica; Myelomalacia; Foraminal stenosis of cervical region; Kyphosis, unspecified kyphosis type, unspecified spinal region; Foraminal stenosis of lumbar region; Hyperreflexia; Low back pain of over 3 months duration; Stenosis of lateral recess of lumbar spine; Lumbosacral stenosis with neurogenic claudication (HCC) [address] [phone] Riaz Seals MD E-prescribing Refill Request [address] [phone] Riaz Seals MD E-prescribing Refill Request [address] [phone] Riaz Seals MD E-prescribing Refill Request [address] [phone] Riaz Seals MD E-prescribing Refill Request 0 9:15 AM EDT Office Visit [address] [phone] Nava Akbar MD Otalgia, right ear (Primary Dx); Eustachian tube dysfunction, right; Elevated BP without diagnosis of hypertension [address] [phone] Riaz Seals MD Ear Ache 0 9:30 AM EDT Office Visit [address] [phone] Riaz Seals MD Chronic seromucinous otitis media of right ear [address] [phone] Jasvir Turner MD E-prescribing Refill Request [address] [phone] Yvon Tolentino NP E-prescribing Refill Request; Refill Request 0 Telephone [facility] Otolaryngology [address] [place] [phone] Laureano Tavarez MD FYI [address] [phone] Jasvir Turner MD E-prescribing Refill Request 0 Refill [facility] [address] [place] [phone] Jasvir Turner MD E-prescribing Refill Request 0 12:45 PM EDT Office Visit Rohit [address] [place] [phone] Susi Barrett PA Non-recurrent acute suppurative otitis media of right ear without spontaneous rupture of tympanic membrane (Primary Dx) 0 Travel 0 Telephone [facility] [address] [place] [address] Neri Fonseca MD Ear Pain 0 2:30 PM EDT Office Visit [address] [address] Jero Cesar MD Right otitis media, unspecified otitis media type 0 Travel [address] [phone] Neri Fonseca MD Ear Pain [address] [phone] Riaz Seals MD E-prescribing Refill Request 0 11:00 AM EST Office Visit [address] [address] Yvon Tolentino NP Right otitis media, unspecified otitis media type (Primary Dx); Cough 0 4:30 PM EST Office Visit [facility] [address] [place] [address] [place] [phone] Laureano Tavarez MD Chronic seromucinous otitis media, bilateral 0 2:00 PM EST Office Visit [address] [address] Maxim Casas MD Acute right otitis media (Primary Dx) [address] [place] [phone] Neri Fonseca MD Ear Pain; Follow Up 0 Orders Only [facility] [address] [place] [address] Raul Reynolds MD 0 2:00 PM EST Office Visit [facility] [address] [place] [phone] Ana Morin NP Non-recurrent acute suppurative otitis media of right ear without spontaneous rupture of tympanic membrane (Primary Dx) [address] [phone] Riaz Seals MD Ear Pain 0 2:15 PM EST Office Visit [address] [place] [address] Graciela Chen NP Chronic mucoid otitis media of right ear (Primary Dx) 9 2:30 PM EST Consult (Initial) [facility] [address] [place] [address] Raul Reynolds MD Traumatic complete tear of left rotator cuff, initial encounter (Primary Dx) 9 Consult (Initial) OTOLARYNG UNSPECIFIED Ganga Mondragon MD [address] [phone] Riaz Seals MD E-prescribing Refill Request 9 10:30 AM EST Office Visit [address] [phone] Riaz Seals MD Primary osteoarthritis of left hip (Primary Dx); Need for vaccination; Back pain, unspecified back location, unspecified back pain laterality, unspecified chronicity; Neck pain; Essential hypertension [address] [phone] Claudia Armando MD MPH Results ; Appointment 9 Orders Only [facility]iology [address] [place] [address] Carla Mcginnis DO 9 Orders Only [facility] [address] [place] [phone] Claudia Armando MD MPH 9 6:45 PM EST Office Visit [facility] [address] [place] [phone] Claudia Armando MD MPH Bronchitis (Primary Dx); Uncontrolled hypertension; Right otitis media, unspecified otitis media type 9 Telephone [facility] [address] [place] [phone] Riaz Seals MD Cough 9 3:15 PM EST Minor Procedure/Test [facility] [address] [place] [address] David Ji MD Chronic left hip pain (Primary Dx) 9 Telephone [facility] [address] [place] [address] Chidi Kaufman DO Results 9 10:15 AM EDT Radiology [facility] [address] [place] [address] Left shoulder pain, unspecified chronicity 9 1:10 PM EDT Office Visit [facility] [address] [place] [address] Eron Flynn MD Pain of left hip joint (Primary Dx); Lumbar back pain with radiculopathy affecting left lower extremity; Spondylolisthesis of lumbar region; Left shoulder pain, unspecified chronicity; Hyperreflexia; Myelomalacia; Foraminal stenosis of cervical region; Kyphosis, unspecified kyphosis type, unspecified spinal region; Foraminal stenosis of lumbar region 9 Orders Only [facility] [address] [place] [address] Chidi Kaufman DO 9 8:30 AM EDT Consult (Initial) [facility] [address] [place] [address] Chidi Kaufman DO Left shoulder pain, unspecified chronicity (Primary Dx); Traumatic tear of left rotator cuff, unspecified tear extent, initial encounter [address] [address] Riaz Seals MD Labs/orders 9 Orders Only [address] [phone] Riaz Seals MD 9 3:40 PM EDT CPE - Comprehensive Physical Exam [address] [phone] Riaz Seals MD Need for vaccination (Primary [...] cuff, unspecified whether traumatic; Myelomalacia [address] [phone] Riaz Seals MD E-prescribing Refill Request [address] [phone] Riaz Seals MD Refill Request 9 10:15 AM EDT [facility] Visit [facility] [address] [place] [address] Laureano Tavarez MD Chronic seromucinous otitis media, bilateral (Primary Dx) 9 12:45 PM EDT Office Visit [address] [phone] Blanca Cuellar, GIULIANA Acute right otitis media (Primary Dx); Acute swimmer's ear of right side 9 11:15 AM EDT Office Visit Rohit Guardado [address] [facility] [address] [place] [address] Quin Daniels PA Right acute otitis media (Primary Dx); Acute swimmer's ear of right side [address] [phone] Riaz Seals MD Ear Problem 9 2:30 PM EDT Minor Procedure/Test [facility] [address] [place] [address] David Ji MD Lumbar back pain with radiculopathy affecting left lower extremity (Primary Dx) [address] [phone] Riaz Seals MD Referrals [address] [phone] Riaz Seals MD BP Monitoring 9 10:30 AM EDT Office Visit [address] [phone] Riaz Seals MD Chronic seromucinous otitis media of right ear (Primary Dx); Back pain, unspecified back location, unspecified back pain laterality, unspecified chronicity; Neck pain; Otitis externa, unspecified chronicity, unspecified laterality, unspecified type; Essential hypertension 9 11:15 AM EDT Office Visit Rohit Guardado [address] [facility] [address] [place] [address] Vicky Kiser PA Acute swimmer's ear of right side (Primary Dx) [address] [phone] Riaz Seals MD Ear Problem [address] [phone] Riaz Seals MD E-prescribing Refill Request; Appointment 9 2:00 PM EDT Office Visit [facility] [address] [place] [address] Eron Flynn MD Cervical spinal stenosis (Primary Dx); Hyperreflexia; Myelomalacia; Foraminal stenosis of cervical region; Kyphosis, unspecified kyphosis type, unspecified spinal region 9 Letter/Form [address] [phone] Riaz Seals MD [address] [address] Riaz Seals MD E-prescribing Refill Request; Appointment [address] [phone] Riaz Seals MD Tick bite 9 10:30 AM EDT Office Visit [facility] Otolaryngology [address] [place] [phone] Laureano Tavarez MD Chronic seromucinous otitis media of right ear (Primary Dx) 9 1:30 PM EDT Minor Procedure/Test [facility] [address] [place] [address] David Ji MD Lumbar back pain with radiculopathy affecting left lower extremity (Primary Dx) [address] [phone] Riaz Seals MD E-prescribing Refill Request [address] [address] Riaz Seals MD Refill Request 9 8:00 AM EDT Office Visit [address] [phone] Adalgisa Lemus NP Right acute otitis media (Primary Dx) [address] [phone] Riaz Seals MD Ear Pain 9 2:30 PM EST Office Visit [address] [phone] Riaz Seals MD Essential hypertension (Primary Dx); Back pain, unspecified back location, unspecified back pain laterality, unspecified chronicity; Neck pain; Chronic bilateral low back pain with sciatica, sciatica laterality unspecified; Chronic seromucinous otitis media of right ear; Disorder of left mastoid [address] [phone] Riaz Seals MD Letter/form Request (social security forms sent to medical records for completion) 9 9:00 AM EST Office Visit [address] [phone] Romy Lai NP Right otitis media, unspecified otitis media type (Primary Dx); Hypertension, unspecified type 9 3:30 PM EST Office Visit [facility] Otolaryngology [address] [place] [phone] Laureano Tavarez MD Chronic seromucinous otitis media of right ear (Primary Dx) 9 3:00 PM EST Office Visit [address] [phone] Romy aLi NP Chronic ear infection, right (Primary Dx); Back pain, unspecified back location, unspecified back pain laterality, unspecified chronicity; Neck pain 9 Telephone [facility] [address] [place] [address] David Ji MD Prior Authorization Request 9 2:00 PM EST Minor Procedure/Test [facility] [address] [place] [address] David Ji MD Lumbar back pain with radiculopathy affecting left lower extremity (Primary Dx) 9 10:00 AM EST Office Visit [facility] [address] [facility] [address] [place] [address] Laureano Tavarez MD Disorder of left mastoid (Primary Dx); Chronic seromucinous otitis media of right ear; Hearing loss of right ear, unspecified hearing loss type 8 Consult (Initial) OTOLARYNG UNSPECIFIED Ganga Mondragon MD [address] [phone] Riaz Seals MD E-prescribing Refill Request [address] [phone] Riaz Seals MD E-prescribing Refill Request 8 7:15 AM EDT Radiology [facility] [address] [place] [address] Hyperreflexia; Myelomalacia; Cervical spinal stenosis; Spondylolisthesis of lumbar region; Stenosis of lateral recess of lumbar spine; Facet arthritis of lumbar region (HCC); Lumbar disc herniation 8 2:20 PM EDT Office Visit [facility] Orthopedic Surgery [address] [place] [address] [place] [phone] Eron Flynn MD Hyperreflexia (Primary Dx); Myelomalacia; Cervical spinal stenosis; Spondylolisthesis of lumbar region; Foraminal stenosis of lumbar region; Lumbar back pain with radiculopathy affecting left lower extremity; Facet arthritis of lumbar region (HCC) 8 4:15 PM EDT Nurse Visit [address] [phone] Blanca Reeves RN Need for vaccination (Primary Dx) 8 11:45 AM EDT Office Visit [address] [phone] Riaz Seals MD Back pain, unspecified back location, unspecified back pain laterality, unspecified chronicity (Primary Dx); Chronic right shoulder pain; Neck pain 8 2:45 PM EDT Minor Procedure/Test [facility] [address] [place] [address] David Ji MD Lumbar back pain with radiculopathy affecting left lower extremity (Primary Dx) 8 3:45 PM EDT Radiology [facility] Xray [address] [place] [address] Hyperreflexia; Myelomalacia; Cervical spinal stenosis; Spondylolisthesis of lumbar region; Stenosis of lateral recess of lumbar spine; Facet arthritis of lumbar region (HCC); Lumbar disc herniation 8 2:30 PM EDT Office Visit [facility] Surgery [address] [facility] [address] [place] [address] Eron Flynn MD Hyperreflexia (Primary Dx); Myelomalacia; Cervical spinal stenosis; Spondylolisthesis of lumbar region; Stenosis of lateral recess of lumbar spine; Facet arthritis of lumbar region (HCC); Lumbar disc herniation 8 2:00 PM EDT Minor Procedure/Test [facility] [address] [place] [address] David Ji MD Primary osteoarthritis of left hip (Primary Dx) 8 12:00 PM EDT Office Visit [facility] [address] [facility] 1 [place] [address] Laureano Tavarez MD Chronic seromucinous otitis media, right (Primary Dx) 8 Telephone [facility] [address] [facility] [address] [place] [address] Laureano Tavarez MD Patient Questions 8 10:45 AM EDT Office Visit [facility] [address] [place] [phone] Riaz Seals MD Foreign body in forearm, right, initial encounter (Primary Dx); Other recurrent acute nonsuppurative otitis media of right ear 8 Telephone [facility] [address] [facility] [address] [place] [address] Laureano Tavarez MD Patient Questions 8 4:15 PM EDT Office Visit [address] [phone] Riaz Seals MD OM (otitis media), recurrent, right (Primary Dx); Chronic right shoulder pain; Back pain, unspecified back location, unspecified back pain laterality, unspecified chronicity; Neck pain [address] [phone] Riaz Seals MD Ear Problem [address] [phone] Riaz Seals MD E-prescribing Refill Request 8 Telephone [facility] [address] [address] David Ji MD Appointment 8 3:20 PM EDT Office Visit [facility] [address] [address] Eron Flynn MD Stenosis of lateral recess of lumbar spine (Primary Dx); Facet arthritis of lumbar region (HCC); Spondylolisthesis of lumbar region; Foraminal stenosis of lumbar region; Lumbar back pain with radiculopathy affecting left lower extremity 8 2:30 PM EDT Office Visit [facility] Ot[facility] [address] [phone] Laureano Tavarez MD Chronic seromucinous otitis media of right ear (Primary Dx) 8 Telephone [facility] [address] [facility] [address] [place] [address] Laureano Tavarez MD Patient Questions 8 Surgery/Major Procedure OTOLARYNG UNSPECIFIED Laureano Tavarez MD 8 3:00 PM EDT Office Visit [facility] Pre-Admission Testing [address] [facility] [address] [place] [phone] Sahra Foy MD Preoperative examination (Primary Dx); Chronic seromucinous otitis media of right ear; Spinal stenosis in cervical region; Facet arthritis of lumbar region (HCC); Mixed hyperlipidemia; Gastroesophageal reflux disease without esophagitis 8 Refill [facility] [address] [place] [phone] Riaz Seals MD E-prescribing Refill Request 8 Telephone [facility] [address] [place] [address] Eron Flynn MD Follow Up; EMG 8 9:00 AM EDT Office Visit [facility] [address] [place] [phone] Stacie Coot NP Ear congestion, right (Primary Dx) [address] [phone] Riaz Seals MD Ear Pain 8 3:00 PM EDT Minor Procedure/Test [facility] Neurology [address] [facility] [address] [place] [address] Ganga Menchaca MD Pain of left lower extremity (Primary Dx) [address] [phone] Romy Lai NP Results 8 8:30 AM EDT Office Visit [facility] [address] [place] [address] 1 [place] [address] Laureano Tavarez MD Chronic seromucinous otitis media of right ear (Primary Dx); Disorder of left mastoid 8 Orders Only [address] [phone] Romy Lai NP 8 8:40 AM EDT Office Visit [address] [phone] Romy Lai, MARQUES Recurrent acute serous otitis media of right ear (Primary Dx); Essential hypertension [address] [phone] Riaz Seals MD Ear Pain 8 10:15 AM EDT Nurse Visit [address] [phone] Riaz Saels MD Hypertension, unspecified type (Primary Dx) 8 2:15 PM EDT Office Visit [place] [address] Gail Gamboa MD OME (otitis media with effusion), right (Primary Dx) 8 10:15 AM EDT Office Visit [address] [phone] Riaz Seals MD Back pain, unspecified back location, unspecified back pain laterality, unspecified chronicity (Primary Dx); Hypertension, unspecified type; Chronic right shoulder pain; Neck pain 8 9:25 AM EDT Office Visit [facility] [address] [place] [phone] Annia Staton OD Encounter for ophthalmic examination and evaluation (Primary Dx); Amblyopia of eye, right; Disorder of refraction 8 2:40 PM EDT Consult (Initial) [facility] [address] [place] [address] Eron Flynn MD Spondylolisthesis of lumbar region (Primary Dx); Stenosis of lateral recess of lumbar spine; Facet arthritis of lumbar region (HCC); Foraminal stenosis of lumbar region 8 2:00 PM EDT Office Visit [facility] [address] [place] [address] David Ji MD Lumbar back pain with radiculopathy affecting left lower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 [facility] ([id number])) 8 Consult (Initial) [facility] [address] [place] [phone] Annia Staton OD Examination of Eyes and Vision 8 Office Visit [facility] [address] [place] [phone] RigoErvin pike Precordial Pain; Pure Hypercholesterolemia [address] [phone] Dwight Manzanares Other ; Provider (DWIGHT MANZANARES MD (Medical Doctor,Internal Medicine A-[id number]) [facility] ([id number])) 8 CPE - Comprehensive Physical Exam [address] [phone] Dwight Manzanares Unspecified Hearing Loss; Routine General Medical Examination at a Health Care Facility; Unspecified Chest Pain; Special Screening for Malignant Neoplasms, Colon 7 Orders Only [facility] [address] [place] [phone] Dwight Manzanares [address] [phone] Dwight Manzanares 6 Orders Only [facility] [address] [place] [phone] Dwight Manzanares 5 Orders Only [facility] [address] [place] [phone] Dwight Manzanares Medications 5 Orders Only [facility] [address] [place] [phone] Dwight Manzanares Allergies Active Allergy Reactions Criticality [...] package. 1 each 5 07/06/19 25 Active GaviLyte-G 236 g solution Take 240 mL by mouth 1 (one) time. 5 Active Losartan Potassium (COZAAR) 25 MG tablet Take 25 mg by mouth 1 (one) time each day. 5 Active Active Problems Problem Noted Date Diagnosed Date Secondary hypercoagulable state ([facility]) 12/12/2022 Overview (12/12/2022): Due to the diagnosis of Atrial Fib and the use of Eliquis. 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) 12/11/2022 Overview (12/11/2022): Due to the diagnosis of CHF and the use of Furosemide. Dilated cardiomyopathy 11/20/2022 Overview (11/20/2022): 11/01/2022 [facility] Cardiology encounter ASSESSMENT AND PLANS: Dilated cardiomyopathy [...] Alive Social History Smoking Status as of 07/02/2024 Tobacco Use Types Packs/Day Years Used Date [...] 12/13/2023 12:59 PM EDT Plan of Treatment Not on file Procedures * Due to [place] state law, this [...] 2:21 PM EDT Results * Due to [place] state law, [...] CONTRAST: MR lumbar spine without gadolinium Comparison: ??MR/OT/VT - LUMBAR SPINE WO CONTRAST MRI - [...] sac. There is facet hypertrophy. There is wuxzdpss-pz-wwitdh spinal canal stenosis with blid-lw-ghemyfjl left and mild right foraminal stenosis. L3-L4: Facet hypertrophy. There is some deficiency of the left lamina, question prior laminotomy. There is disc desiccation with disc bulging deforming the ventral thecal sac with dzaycnqo-on-hmlpjw spinal canal narrowing. There is a superimposed [...] severe spinal canal stenosis. Severe right and viua-yh-eqxvzlav left foraminal stenosis. L5-S1: Facet hypertrophy. Disc [...] CONTRAST: MR lumbar spine without gadolinium Comparison: MR/OT/VT - LUMBAR SPINE WO CONTRAST MRI - 02/10/20 17:18 EST Findings: Lumbar alignment is normal. Vertebral heights are maintained. Marrow signal is normal. Spinal cord signal intensity is uniform. L1-L2: There is disc desiccation with nominal bulging. No significantstenosis. L2-L3: There is disc desiccation with disc height loss and flattening ofthe ventral margin of the thecal sac. There is facet hypertrophy. There gdrfnpewor-zn-dgmriq spinal canal stenosis with wcaz-bu-rpoqtczc left andmild right foraminal stenosis. L3-L4: Facet hypertrophy. There is some deficiency of the left lamina,question prior laminotomy. There is disc desiccation with disc bulgingdeforming the ventral thecal sac with wjhqixtq-kc-kcsccl spinal canalnarrowing. There is a superimposed left subarticular disc extrusion which extends superiorly from the disc alongthe posterior margin of L3. This contributes to thecal sac effacement andmass effect upon the descending left L3. Severe left foraminal stenosis.Mild right foraminal stenosis. L4-L5: Facet hypertrophy. Disc desiccation with disc bulging eccentric tothe right. Moderate to severe spinal canal stenosis. Severe right zcxdmkj-iw-mhqjuhjy left foraminal stenosis. L5-S1: Facet hypertrophy. Disc [...] History: CONTRAST: 2 ??views lumbar spine Comparison: ??MR/OT/VT - LUMBAR SPINE WO CONTRAST MRI - 02/10/20 17:18 EST CR/VT - LS SPINE COMPL W/BEND - 01/22/20 [...] History: CONTRAST: 2 views lumbar spine Comparison: MR/OT/VT - LUMBAR SPINE WO CONTRAST MRI - 02/10/20 17:18 EST CR/VT - LS SPINE COMPL W/BEND - 01/22/20 [...] 3:45 PM EST Narrative Resulting Agency Comment [id number] Bertin Lima MD LABORATORY Final Result Performing Organization Address [facility] Co de Phone Number [facility] [address] [place] [address] * (ABNORMAL) ERYTHROCYTE SEDIMENTATION RATE (ESR) (04/06/2024 8:59 AM EST) Sedimentation Rate [place] (ESR) 33(H) < OR = 20 mm/h [facility] 04/06/2024 8:59 AM EST 04/06/2024 3:45 PM EST Narrative Resulting Agency Comment [id number] Bertin Lima MD LAB SAME DAY RESULT Final Res ult Performing Organization Address [facility] de Phone Number [facility] [address] [place] [address] * XRAY HIP, UNILAT; COMPLETE, 2 OR [...] 3 view, pelvis and right hip Comparison: CR/VT - XRAY HIP UNILAT; COMPLETE 2+ VIEWS [...] 3 view, pelvis and right hip Comparison: CR/VT - XRAY HIP UNILAT; COMPLETE 2+ VIEWS [...] of the right hip. us Katie Kasper AIX ADMINISTRATOR IMG XRAY NO CONTRAST ORDERABLES Final Result * PROSTATE SPECIFIC ANTIGEN (PSA) TOTAL, SERUM (12/13/2023 1:52 PM EDT) Only the most recent of3 resultswithin the time period is included. PSA 1.66 0.00 - 4.00 ng/mL [facility] Comment: PSA was performed using the Kailyn Jace Immunoassay method. Values obtained from different assay methods cannot be used interchangeably. PSA levels, regardless of value, should not be interpreted as absolute evidence of the presence or absence of disease. 12/13/2023 1:52 PM EDT 12/13/2023 1:52 PM EDT [facility] - 12/13/2023 3:25 PM EDT Patient's primary care provider is: ??N/A Testing performed at: [facility], [address] [place] [address], [id number], Assistant Professor Of Anthropology: Sergio Le MD Riaz Seals MD LABORATORY Final Result [address] [address] DIRECTOR Sergio Le MD * HEMOGLOBIN A1C (12/13/2023 1:52 PM EDT) Only the most recent of3 resultswithin the time period is included. Hemoglobin A1C 5.6 <5.7 % Total [facility] Comment: For diagnostic purposes: <5.7 ?Decreased risk of diabetes 5.7 - 6.4 ?Increased risk of diabetes >6.5 ? Consistent with diabetes Diagnosis of diabetes should be confirmed by repeat testing. Estimated Average Glucose 114 mg/dL(calc ) [facility] 12/13/2023 1:52 PM EDT 12/13/2023 1:52 PM EDT Narrative [facility] - 12/13/2023 2:46 PM EDT Patient's primary care provider is: ??N/A Testing performed at: [facility], [address] [place] [address], [id number], Assistant Professor Of Anthropology: Sergio Le MD Riaz Seals MD LABORATORY Final Result [address] [address] DIRECTOR Sergio Le MD * (ABNORMAL) LIPID PANEL WITH REFLEX TO DIRECT LDL (12/13/2023 1:52 PM EDT) Only the most recent of7 resultswithin the time period is included. Cholesterol 239(H) <200 mg/dL [facility] Triglyceride 183(H) <150 mg/dL [facility] [...] care provider is: ??N/A Testing performed at: [facility], [address] [place] [address], [id number], Assistant Professor Of Anthropology: Sergio Le MD Riaz Seals MD LABORATORY Final Result Performing Organization Address [facility] de Phone Number [address] [address] DIRECTOR Sergio Le MD * BASIC METABOLIC PANEL WITH (GFR) (12/13/2023 1:52 PM EDT) Only the most recent of8 resultswithin the time period is included. [facility] Glucose 84 65 - 99 mg/dl [facility] Urea Nitrogen Blood (BUN) 16 7 - 25 mg/dL [facility] Creatinine 0.92 0.50 - 1.20 mg/dL [facility] Sodium 141 135 - 146 mmo/L [facility] Potassium 4.4 3.5 - 5.3 mmol/L [facility] Chloride 102 98 - 107 mmo/L [facility] Carbon dioxide 29 23 - 33 mmol/L [facility] Calcium 9.7 8.5 - 10.4 mg/dL [facility] GFR 88 >60 ml/min [facility] 12/13/2023 1:52 PM EDT 12/13/2023 1:52 PM EDT Narrative [facility] - 12/13/2023 3:25 PM EDT Patient's primary care provider is: ??N/A Testing performed at: [facility], [address] [place] [address], [address], Assistant Professor Of Anthropology: Sergio Le MD Riaz Seals MD LABORATORY Final Result Performing Organization Address [facility] de Phone Number [address] [address] DIRECTOR Sergio Le MD * XRAY HIP, UNILAT; COMPLETE, 2+ VIEWS - LEFT (DX: HIP PAIN *NO INJURY*) (04/29/2023 8:48 AM EST) Only the most recent of4 resultswithin the time period is included. Anatomical Region Laterality Modality LOWER EXTREMITY Radiographic Cira ging 04/30/2023 8:01 AM EST Narrative 04/30/2023 8:01 AM EST CONTRAST: 2 views left hip with AP pelvis Comparison: CR/VT - XRAY HIP UNILAT; COMPLETE 2+ VIEWS [...] views left hip with AP pelvis Comparison: CR/VT - XRAY HIP UNILAT; COMPLETE 2+ VIEWS [...] DIAGNOSTICS Comment: ??CULTURE, URINE, ROUTINE Micro Number: ?[id number] Test Status: ? Final Specimen Source: ?? Urine Specimen Quality: ??Adequate ??Result: ?No Growth 04/26/2023 10:0 1 AM EST 04/26/2023 10:01 AM EST Narrative [facility] - 04/29/2023 10:11 AM EST Patient's primary care provider is: ??N/A Testing performed at: [facility], [address] [place] [address], [phone], Assistant Professor Of Anthropology: BALWINDER BREEN MD us Ayesha Pina NP LABORATORY Final Resul t Performing Organization Address City/State/[facility] Co de Phone Number [facility] [address] [place] [address] * (ABNORMAL) URINALYSIS, COMPLETE INCLUDES DIPSTICK AND [...] AM EST 04/26/2023 10:01 AM EST Narrative [facility] - 04/26/2023 10:58 AM EST Patient's primary care provider is: ??N/A Testing performed at: [facility], [address] [place] [address], [address], Assistant Professor Of Anthropology: Sergio Le MD Ayesha Pina AIX ADMINISTRATOR LAB SAME DAY RESULT Final R esult [address] [address] DIRECTOR Sergio Le MD * (ABNORMAL) CBC [...] GROUP PLT 197 140 - 400 K/uL [facility] 04/26/2023 9:45 AM EST 04/26/2023 9:45 AM EST Narrative [facility] - 04/26/2023 10:48 AM EST Patient's primary care provider is: ??N/A Testing performed at: [facility], [address] [place] [address], [address], Assistant Professor Of Anthropology: Sergio Le MD Ayesha Pina AIX ADMINISTRATOR LAB SAME DAY RESULT Final R esult [address] [address] DIRECTOR Sergio Le MD * TRANSTHORACIC ECHO (TTE) COMPLETE (02/25/2023 10:51 AM EST) 02/25/2023 10:5 1 AM EST Narrative [facility] - 02/25/2023 10:51 AM EST - ??Mildy [...] the original result were not included. ? [facility] Cardiac Ultrasound [address] [place] [address] Performing Provider: ?? Interpreting Can Carrier: Mary Foster MD Technologist: Nette Ramos RDCS Supporting Staff: ?? Referring Provider: Thi Story Fellow: ?? Patient: Aaron Rosario :1960 [facility]#: [id number] Study:Transthoracic Echo (TTE) Complete Date: 02/25/2023 Patient Class: Outpatient Patient Information ?? Name MRN Description Aaron Rosario [id number] 62 y.o. male Procedures Performed ?? Code Procedure Name [id number] Transthoracic echo (TTE) complete Reason for Exam [...] EF 42.34 % ?(%) ?? Data set: Dorothy Z-score normal range: +/-2 BSA formula: [facility] [...] Type Modifiers Echo Heart Xthoracic,Complete W Doppler 40594 Automatic Professional 26 HC Echo 2d W/Doppler/Color Flow [[id number]] 82435 Automatic Technical ?? Echo Heart Xthoracic,Complete W Doppler 36481 Automatic Global ?? [place] Myocardial Strain Img Using Speckle Trck-Drvd Ass Myocrd Mechanics 73525 Context Professional ?? 3d Rendering W/Interp ??T ??Postprocess Supervision 19011 Context Professional 26 Procedure Note [facility], Unknown Provider - 02/25/2023 - Mildy reduced [...] from the original result were not included. [facility] CardiacUltrasound [address] [place] [address] Performing Provider: Interpreting Can Carrier: Mary Foster MD Technologist: Nette Ramos RDCS Supporting Staff: Referring Provider: Thi Blanco Reading Fellow: Patient: Aaron Rosario :1960 [facility]#: [id number] Study:Transthoracic Echo (TTE) Complete Date: 02/25/2023 Patient Class: Outpatient Patient Information Name MRN Description Aaron Rosario [id number] 62 y.o. male Procedures Performed Code Procedure Name [id number] Transthoracic echo (TTE) complete Reason for Exam [...] (mL) EF 42.34 % (%) Data set: Dorothy Z-score normal range: +/-2 BSA formula: [facility] 2D Measurements Dimensions LVIDD 4.8 cm [...] Type Modifiers Echo Heart Xthoracic,Complete W Doppler 02226 Automatic Professional 26 HC Echo 2d W/Doppler/Color Flow [[id number]] 17102 Automatic Technical Echo Heart Xthoracic,Complete W Doppler 28974 Automatic Global VT Myocardial Strain Img Using Speckle Trck-Drvd Ass Myocrd Dcnideicu59951 Context Professional 3d Rendering W/Interp T Postprocess Supervision 13166 ContextProfessional 26 us Thi Blanco AIX ADMINISTRATOR CARDIOVASCULAR-NO INBASKET RTG Final Result [facility] [address] [place] [address] * NM EXERCISE MYOCARDIAL PERFUSION SPECT (STRESS AND REST) (01/25/2023 2:29 PM EST) 01/25/2023 2:29 PM EST Narrative [facility] - 01/25/2023 2:29 PM EST EXAMINATION: Exercise [...] with no convincing scan evidence of prior NH or myocardium at risk for ischemia despite [...] obtain the completed interpretation. ? Workstation ID: [id number]' [id number] 162 Procedure Note [facility], Unknown Provider - 01/25/2023 EXAMINATION: Exercise myocardial [...] test with no convincing scanevidence of prior NH or myocardium at risk for ischemia despite [...] possible to obtain thecompleted interpretation. Workstation ID: [id number]' [id number] 162 us Unknown Provider [facility] CARDIOVASCULAR IMAGING-RASHIDA SS Final Result [facility] [employer] [facility] [address] [place] [address] * ELECTROPHYSIOLOGY PROCEDURE STUDY (10/26/2022 4:50 PM EDT) Only the most recent of3 resultswithin the time period is included. 10/26/2022 4:50 PM EDT Narrative [facility] - 10/26/2022 4:50 PM EDT [facility] Heart [...] the original result were not included. ?? [facility] Interventional Lab [address] [place] [address] Phone: ?? Ordering Provider: Scott Castle Reading Provider: GIULIANA Reeder MD PhD Technologist: ?? [facility]1960 [id number] Study:Electrophysiology Procedure Date: 10/26/2022 Patient Class: Inpatient Physicians ?? Panel Physicians Referring Physician Case Authorizing Physician Steven Lal MD PhD (Primary) ??MD Massimo Hdez PA (Assisting) ?? Procedures ?? Cardioversion Indications ?? Atrial fibrillation (CMS/HCC) (HCC) [I48.91 (ICD-10-CM)] Conclusion ?? [facility] Invasive Laboratory Electrophysiology Procedure Report Patient Information: Name: Aaron Rosario : 1960 Age: 62 y.o. Gender: male Study Date: 10/26/2022 Staff: Surgeon(s): Steven Lal MD PhD GIULIANA Reeder X-Ray Technologist: RT Catrina(Héctor) Documenter: Annia Gutiérrez RN Patient History: The [...] Signed ?? at 1650 EDT Procedure Note [facility], Unknown Provider - 10/26/2022 [facility] Heart [...] was atrial fibrillation with ventricular rate in [id number]. Once adequate sedation was achieved cardioversion was [...] from the original result were not included. [facility] [address] [place] [address] Phone: Ordering Provider: Scott Castle Reading Provider: GIULIANA Reeder MD PhD Technologist: Patient: Aaron Rosario :1960 Study:Electrophysiology Procedure Date: 10/26/2022 Patient Class: Inpatient Physicians Panel Physicians Referring Physician Case Authorizing Physician Steven Lal MD PhD (Primary) MD Massimo Hdez PA (Assisting) Procedures Cardioversion Indications Atrial fibrillation (CMS/HCC) (HCC) [I48.91 (ICD-10-CM)] Conclusion [facility] Heart [...] was atrial fibrillation with ventricular rate in [id number]. Once adequate sedation was achieved cardioversion was [...] No implant documentation for this case. Signed [id number] EDT us Unknown Provider [facility] CARDIOVASCULAR-NO INBASKET RTG Final Result [facility] [employer] [facility] [address] [place] [address] * CT CARDIAC A-FIB (10/26/2022 2:42 PM EDT) 10/26/2022 2:42 PM EDT Narrative [facility] - 10/26/2022 2:[address] CARDIAC [...] obtain the completed interpretation. ? Workstation ID: [id number] Up-to-date CT equipment and radiation dose reduction techniques were employed. CTDIvol: 1.9 - 51.9 mGy. DLP: 1788 mGy-cm. Procedure Note [facility], Unknown Provider - 10/26/2022 CT CARDIAC A-FIB [...] appendage. 3. Mild cardiomegaly with biatrial enlargement. I, Nahomi Gujrathi, have reviewed the examination and concur with thefindings as reported or so edited. Resident/Fellow:Charlotte Thomas If this radiology report contains a blank impression section, it is anincomplete radiology report. Please contact the interpreting radiologistor applicable radiology division as soon as possible to obtain thecompleted interpretation. Workstation ID: [id number] Up-to-date CT equipment and radiation dose reduction techniques wereemployed. CTDIvol: 1.9 - 51.9 mGy. DLP: 1788 mGy-cm. us Unknown Provider [facility] CARDIOVASCULAR IMAGING-RASHIDA SS Final Result Performing Organization Address City/[facility]/ZIP Co de Phone Number [facility] [employer] [facility] [address] [place] [address] * MAGNESIUM (10/24/2022 6:08 AM EDT) Only the most recent of4 resultswithin the time period is included. [facility] Magnesium 2.0 1.6 - 2.4 mg/dL [facility] 10/24/2022 6:08 AM EDT us Unknown Provider [facility] LABORATORY Final Resu lt Performing Organization Address [facility]/ZIP Co de Phone Number [facility] [employer] [facility] [address] [place] [address] * (ABNORMAL) HEPATIC FUNCTION PANEL (10/24/2022 6:08 AM EDT) Only the most recent of2 resultswithin the time period is included. [facility] Protein Total (Serum) 6.2 6.0 - 8.0 g/dL [facility] Albumin 3.5 3.5 - 4.8 g/dL [facility] Bilirubin Total 1.1 0.3 - 1.2 mg/dL [facility] Bilirubin Direct 0.2 <=0.4 mg/dL [facility] Alkaline phosphatase 72 30 - 115 U/L [facility] AST (SGOT) 33 10 - 40 U/L [facility] ALT (SGPT) 53(H) 10 - 40 U/L [facility] 10/24/2022 6:08 AM EDT us Unknown Provider [facility] LABORATORY Final Resu lt [facility] [employer] [facility] [address] [place] [address] * (ABNORMAL) BASIC METABOLIC PANEL (10/24/2022 6:08 AM EDT) Only the most recent of5 resultswithin the time period is included. Sodium 139 135 - 145 mmol/L [facility] Potassium 4.1 3.5 - 5.3 mmol/L [facility] Chloride 107 97 - 110 mmol/L [facility] Bicarbonate 24 24 - 32 mmol/L [facility] Urea Nitrogen Blood (BUN) 18 7 - 23 mg/dL [facility] Creatinine 0.85 0.60 - 1.30 mg/dL [facility] Glucose 102(H) 70 - 99 mg/dL [facility] Calcium 8.6(L) 8.7 - 10.7 mg/dL [facility] Anion gap 8 5 - 15 [facility] EGFR >90 >=60 mL/min/1.7 3m2 [facility] Comment: The estimated glomerular filtration rate (eGFR) is calculated using a new formula developed by the NKF-ASN task force to eliminate race-based correction factors. The new formula uses serum/plasma creatinine, age, and gender to determine eGFR. A value below 60mls/min might indicate kidney disease and will be flagged. For additional information, see Thompson et al, Am J Kidney Dis. 2021;79(2):268-288, A Unifying Approach for GFR estimation: Recommendations of the NKF-ASN Task Force on Reassessing the Inclusion of Race in Diagnosing Kidney Disease . 10/24/2022 6:08 AM EDT us Unknown Provider [facility] LABORATORY Final Resu lt [facility] [employer] [facility] [address] [place] [address] * TRANSTHORACIC ECHO (TTE) (10/23/2022 9:24 AM EDT) 10/23/2022 9:24 AM EDT Narrative [facility] - 10/23/2022 9:24 AM EDT - [...] the original result were not included. ? [facility] [address] [address] Performing Provider: ?? Interpreting Can Carrier: Maurice Calabrese II, MD Technologist: Ayesha Valdez Supporting Staff: ?? Referring Provider: Alisia Ortiz Reading Fellow: Izzy Briceño MD Patient: Aaron Rosario :1960 Study:Transthoracic echo (TTE) Date: 10/23/2022 Patient Class: Inpatient Patient Information ?? Name MRN Description Aaron Rosario [id number] 62 y.o. male Procedures Performed ?? Code Procedure Name [id number] Transthoracic echo (TTE) complete Reason for Exam [...] ?(%) LV mass 167 ? Data set: Dorothy Z-score normal range: +/-2 BSA formula: [facility] Measurements ?? Dimensions LVIDD 4.8 cm [...] Type Modifiers Echo Heart Xthoracic,Complete W Doppler 72193 Automatic Professional 26 Echo 2d W/Doppler/Color Flow [[id number]] 24673 Automatic Technical ?? Echo Heart Xthoracic,Complete W Doppler 61457 Automatic Global ?? [place] Myocardial Strain Img Using Speckle Trck-Drvd Ass Myocrd Mechanics 43485 Context Professional ?? 3d Rendering W/Interp ??T ??Postprocess Supervision 86996 Context Professional 26 Procedure Note [facility], Unknown Provider - 10/23/2022 - Moderately reduced left ventricular systolic function. Estimated LVEF35%. Diffuse hypokinesis with regional variations. - Dilated right ventricle with reduced systolic function. - Biatrial enlargement. - Mild mitral and tricuspid regurgitation. A prior echocardiogram was not available for direct comparison. Table formatting from the original result was not included. Images from the original result were not included. [facility] [address] [place] [address] Performing Provider: Interpreting Can Carrier: Maurice Calabrese II, MD Technologist: Ayesha Valdez Supporting Staff: Referring Provider: Alisia Ortiz Reading Fellow: Izzy Briceño MD Patient: Aaron Rosario :1960 [facility]#: [id number] Study:Transthoracic echo (TTE) Date: 10/23/2022 Patient Class: Inpatient Patient Information Name MRN Description Aaron Rosario [id number] 62 y.o. male Procedures Performed Code Procedure Name [id number] Transthoracic echo (TTE) complete Reason for Exam [...] % (%) LV mass 167 Data set: Dorothy Z-score normal range: +/-2 BSA formula: [facility] 2D Measurements Dimensions LVIDD 4.8 cm [...] Type Modifiers Echo Heart Xthoracic,Complete W Doppler 27242 Automatic Professional 26 HC Echo 2d W/Doppler/Color Flow [[id number]] 70091 Automatic Technical Echo Heart Xthoracic,Complete W Doppler 58207 Automatic Global VT Myocardial Strain Img Using Speckle Trck-Drvd Ass Myocrd Iobbwvivr17748 Context Professional 3d Rendering W/Interp T Postprocess Supervision 54594 ContextProfessional 26 us Alisia Ortiz CARDIOVASCULAR-NO INBASKET RTG F inal Result [facility] [employer] ONE [address] [place] [address] * TSH REFLEX FREE T4 (10/21/2022 5:39 PM EDT) Pathologist [facility] TSH 1.474 0.280 - 3.890 uIU/mL [facility] 10/21/2022 5:39 PM EDT Alisia Ortiz LABORATORY Final Result [facility] [employer] [facility] [address] [place] [address] * HEPATITIS C ANTIBODY W/REFLEX TO HCV RNA, QUANTITATIVE PCR (10/21/2022 4:15 PM EDT) Pathologist [facility] Hepatitis C virus Ab NON-REACTI VE NON-REACT [facility] Comment: HCV antibody was non-reactive. There is no laboratory evidence of HCV infection. In most cases, no further action is required. However, if recent HCV exposure is suspected, a test for HCV RNA (test code 81481) is suggested. For additional information please refer to http://education.Lottay/faq/GLJ92a5 (This link is being provided for informational/ educational purposes only.) 10/21/2022 4:15 PM EDT Narrative [facility] - 10/22/2022 7:53 PM EDT [facility] Received Date: Unknown Provider [facility] LABORATORY Final Resu lt [facility] [employer] ONE [address] [place] [address] * CBC AUTO DIFFERENTIAL (10/21/2022 4:15 PM EDT) Only the most recent of2 resultswithin the time period is included. Pathologist [facility] WBC 6.2 4.3 - 10.8 10*3/uL [facility] RBC 5.08 4.20 - 5.80 10*6/uL [facility] Hemoglobin 17.1 13.2 - 17.1 g/dL [facility] Hematocrit 49.5 39.0 - 52.0 % [facility] MCV 97.6 80.0 - 100.0 fL [facility] MCH 33.7 27.0 - 34.0 pg [facility] MCHC 34.5 29.0 - 36.0 g/dL [facility] RDW 14.7 11.0 - 15.0 % [facility] PLT 193 140 - 440 10*3/uL [facility] Platelet mean volume 10.3 7.6 - 11.6 fL [facility] Neutrophils % 63.3 % [facility] Lymphocytes % 19.4 % [facility] Monocytes % 13.4 % [facility] Eosinophils % 2.8 % [facility] Basophils % 1.1 % [facility] Neutrophils # 3.93 1.60 - 7.50 10*3/uL [facility] Lymphocytes # 1.2 0.9 - 3.4 10*3/uL [facility] Monocytes # 0.8 0.0 - 1.2 10*3/uL [facility] Eosinophils # 0.2 0.0 - 0.6 10*3/uL [facility] Basophils # 0.1 0.0 - 0.3 10*3/uL [facility] SMEAR REVIEW NEEDED No [facility] 10/21/2022 4:15 PM EDT us Unknown Provider [facility] LABORATORY Final Resu lt Performing Organization Address City/[facility]/ZIP Co de Phone Number [facility] [employer] [facility] [address] [place] [address] * TROPONIN I (10/21/2022 4:15 PM EDT) Troponin I 0.01 0.01 - 0.04 ng/mL [facility] 10/21/2022 4:15 PM EDT us Unknown Provider [facility] LABORATORY Final Resu lt [facility] [employer] [facility] [address] [place] [address] * (ABNORMAL) BRAIN NATRIURETIC PEPTIDE (10/21/2022 4:15 PM EDT) Natriuretic peptide.B 285(H) <100 pg/mL [facility] Comment:BNP concentrations c an vary with age and sex. Results >100 pg/mL are suggestive of CHF. 10/21/2022 4:15 PM EDT us Unknown Provider [facility] LABORATORY Final Resu lt [facility] [employer] [facility] [address] [place] [address] * XR CHEST PA AND LAT (10/21/2022 [...] obtain the completed interpretation. ? Workstation ID: [id number] Procedure Note [facility], Unknown Provider - 10/21/2022 COMPARISON: None available. [...] possible to obtain thecompleted interpretation. Workstation ID: [id number] us Unknown Provider [facility] IMAGING-[facility] Final Resu lt * RAPID??COVID-19??GONZALO??(ED) (10/21/2022 11:28 AM EDT) SARS-COV-2 RNA Not Detected Not Detected [facility] Comment: A Not Detected (Negative) test result [...] considered. 10/21/2022 11:2 8 AM EDT Narrative [facility] - 10/21/2022 12:21 PM EDT This test was developed, validated and its performance characteristics determined by [facility] Clinical Labs. This test has not been cleared or approved by the U.S. Food and Drug Administration (FDA). FDA Policy for Diagnostic Tests for Coronavirus Disease-2019 during the Public Health Emergency issued May 25, 2019, is followed. us Unknown Provider [facility] LABORATORY Final Resu lt [facility] [employer] [facility] [address] [place] [address] * XRAY SHOULDER COMPLETE MIN 2 VWS - LEFT (DX: SHOULDER PAIN *NO INJURY* M25.512/ 719.41) FC (07/26/2022 12:41 PM EDT) Only the most recent of2 resultswithin the time period is included. Anatomical Region Laterality Modality UPPER EXTREMITY Radiographic Cira ging 07/26/2022 1:08 PM EDT Narrative 07/26/2022 1:08 PM EDT CONTRAST: 4 views left shoulder Comparison: CR/VT - XRAY SHOULDER COMPLETE MIN 2 VWS [...] 07/26/2022 CONTRAST: 4 views left shoulder Comparison: CR/VT - XRAY SHOULDER COMPLETE MIN 2 VWS [...] ENT OTORHINOLARYNGOLOGICAL TEST/PROCEDURE, UNSPECIFIED (07/10/2022) us Sergio Farley AuD [facility]CCA PROCEDURES Final R esult * OPERATIVE REPORT (07/04/2022 8:30 AM EDT) Narrative Procedure Note Bertin Lima MD - 07/04/2022 11:00 AM EDT [facility] [address] [place] [address] Name: AARON ROSARIO : 1960 (62yr) DOS: 07/04/2022 External Address: [address] [place] [address] DATE OF PROCEDURE: 07/04/2022 PRE-OPERATIVE DIAGNOSIS: Degenerative disease, left hip POST-OPERATIVE DIAGNOSIS: Degenerative disease, left hip PROCEDURE: Left total hip arthroplasty SURGEON: Bertin Lima MD FAN BLADE ALIGNER: GIULIANA Perry ANESTHESIA: general ESTIMATED BLOOD LOSS: [...] preoperatively that the left lower extremity was [id number] shorter than the contralateral lower extremity. The [...] 30 degrees of adduction as well as [id number] degrees of pure flexion. The hip was [...] removed and the canal was thoroughlyirrigated. A [employer] M/L Taper femoral stem, size 9 with [...] NoteGenerated by: Bertin Lima - 07/04/2022 10:59 Bertin Lima MD SURGICAL Final Result * [...] was found Confirmed by BRANDON BATES ([id number]), editorial intern LENIN FUNK ([id number]) on 07/04/2022 9:52:14 AM [facility] 07/03/2022 10:4 6 AM EDT 07/04/2022 9:52 AM EDT us Katiuska Berg NP CARDIOVASCULAR-WITH INBSKT RTG Final Result [facility] * BLOOD TYPE AND ANTIBODY SCREEN (07/03/2022 10:30 AM EDT) BLOOD GROUP ABO A [facility] RH-(D) Positive [facility] ANTIBODY SCREEN Negative Negative [facility] 07/03/2022 10:3 0 AM EDT 07/03/2022 10:30 AM EDT us Bertin Lima MD LABORATORY Final Result Performing Organization Address [facility] de Phone Number [facility] [address] [place] [address] * CBC INCLUDES DIFFERENTIAL AND PLATELET COUNT (06/27/2022 4:07 PM EDT) Only the most recent of2 resultswithin the time period is included. WBC 6.5 3.8 - 10.8 K/uL [employer] [...] GROUP PLT 258 140 - 400 K/uL [facility] 06/27/2022 4:07 PM EDT 06/27/2022 4:07 PM EDT Narrative [facility] - 06/27/2022 4:38 PM EDT Patient's primary care provider is: ??N/A Testing performed at: [facility], [address] [place] [address], [address], Assistant Professor Of Anthropology: Sergio Le MD us Katiuska Berg NP LAB SAME DAY RESULT Final Resul t [address] [address] DIRECTOR Sergio Le MD * ACTIVATED PARTIAL THROMBOPLASTIN TIME (APTT), PLASMA (06/22/2022 11:42 AM EDT) [facility] Signature Thromboplastin Time 25 23 - 32 sec [facility] Comment: This test has not been validated for monitoring unfractionated heparin therapy. For testing that is validated for this type of therapy, please refer to the Heparin Anti-Xa assay (test code 13022). For additional information, please refer to http://education.Renrendai/faq/EEG522 (This link is being provided for informational/educational purposes only.) 06/22/2022 11:4 2 AM EDT 06/22/2022 4:39 PM EDT Narrative Resulting Agency Comment [id number] Katiuska Berg NP LAB SAME DAY RESULT Final Resul t Performing Organization Address [facility] de Phone Number [facility] [address] [place] [address] * PROTHROMBIN TIME (PT) (INR), BLOOD (06/22/2022 11:42 AM EDT) INR 1.0 [facility] Comment: Reference Range ? 0.9-1.1 Moderate-intensity Warfarin Therapy 2.0-3.0 Higher-intensity Warfarin Therapy ?? 3.0-4.0 PT 9.8 9.0 - 11.5 sec [facility] Comment: For additional information, please refer to http://education.Lottay/faq/TTV464 (This link is being provided for informational/ educational purposes only.) 06/22/2022 11:4 2 AM EDT 06/22/2022 4:39 PM EDT Narrative Resulting Agency Comment [id number] Katiuska Berg NP LAB SAME DAY RESULT Final Resul t Performing Organization Address [facility] de Phone Number [facility] [address] [place] [address] * (ABNORMAL) COMPREHENSIVE METABOLIC PANEL WITH GFR [...] needs for GFR calculation. Resulting Agency Comment [id number] Katiuska Berg NP LABORATORY Final Result [facility] [address] [place] [address] * (ABNORMAL) MRSA CULTURE SCREEN, NASAL ONLY (06/22/2022 11:26 AM EDT) Methicillin Resistant Staphylococcus Aureus Screen SEE NOTE(A) [facility] Comment: ??MRSA CULTURE SCREEN ??Micro Number: ?[id number] ??Test Status: ? Final ??Specimen Source: ?? [...] 9:18 PM EDT Narrative Resulting Agency Comment [id number] us Katiuska Berg AIX ADMINISTRATOR LABORATORY Final Result [facility] [address] [place] [address] * CT L-SPINE WITHOUT CONTRAST (06/21/2022 2:22 [...] obtain the completed interpretation. ? Workstation ID: [id number] Up-to-date CT equipment and radiation dose reduction techniques were employed. CTDIvol: 27.7 mGy. DLP: 896 mGy-cm. Up-to-date CT equipment and radiation dose reduction techniques were employed. CTDIvol: 25.1 mGy. DLP: 654 mGy-cm. Procedure Note [facility], Unknown Provider - 06/21/2022 COMPARISON: Lumbar spine [...] possible to obtain thecompleted interpretation. Workstation ID: [id number] Up-to-date CT equipment and radiation dose reduction techniques wereemployed. CTDIvol: 27.7 mGy. DLP: 896 mGy-cm. Up-to-date CT equipment and radiation dose reduction techniques wereemployed. CTDIvol: 25.1 mGy. DLP: 654 mGy-cm. us Unknown Provider [facility] Final Resu lt * CT T-SPINE [...] obtain the completed interpretation. ? Workstation ID: [id number] Up-to-date CT equipment and radiation dose reduction techniques were employed. CTDIvol: 27.7 mGy. DLP: 896 mGy-cm. Up-to-date CT equipment and radiation dose reduction techniques were employed. CTDIvol: 25.1 mGy. DLP: 654 mGy-cm. Procedure Note [facility], Unknown Provider - 06/21/2022 COMPARISON: Lumbar spine [...] possible to obtain thecompleted interpretation. Workstation ID: [id number] Up-to-date CT equipment and radiation dose reduction techniques wereemployed. CTDIvol: 27.7 mGy. DLP: 896 mGy-cm. Up-to-date CT equipment and radiation dose reduction techniques wereemployed. CTDIvol: 25.1 mGy. DLP: 654 mGy-cm. us Unknown Provider [facility] Final Resu lt * CT C-SPINE [...] obtain the completed interpretation. ? Workstation ID: [id number] Up-to-date CT equipment and radiation dose reduction techniques were employed. CTDIvol: 50.1 mGy. DLP: 1087 mGy-cm. Procedure Note [facility], Unknown Provider - 06/21/2022 COMPARISON: Cervical spine [...] possible to obtain thecompleted interpretation. Workstation ID: [id number] Up-to-date CT equipment and radiation dose reduction techniques wereemployed. CTDIvol: 50.1 mGy. DLP: 1087 mGy-cm. us Unknown Provider [facility] Final Resu lt * XR HIP [...] obtain the completed interpretation. ? Workstation ID: [id number] Procedure Note [facility], Unknown Provider - 06/21/2022 INDICATION: Left hip [...] possible to obtain thecompleted interpretation. Workstation ID: [id number] us Unknown Provider [facility] Final Resu lt * MRI SHOULDER W/O CONTRAST - RIGHT FC (01/31/2022 8:22 AM EST) Anatomical Region Laterality Modality UPPER EXTREMITY Magnetic Resonan ce 02/02/2022 12:0 3 PM EST Narrative 02/04/2022 4:59 AM EST CONTRAST: ADDENDUM: Agree with original report below. MRI right shoulder without contrast COMPARISON: CR/VT - XRAY SHOULDER COMPLETE MIN 2 VWS- [...] below. MRI right shoulder without contrast COMPARISON: CR/VT - XRAY SHOULDER COMPLETE MIN 2 VWS- [...] Bustillo MD on :59:15 Jarad Jane MD IMG MR NO CONTRAST OR DERABLES Final Result [...] bony abnormality. Degenerative and postsurgical changes asdescribed. us Jarad Jane MD IMG XRAY NO CONTRAST ORDERABLES Final Result * OPERATIVE REPORT (07/21/2021 7:30 AM EDT) Narrative Procedure Note Jarad Jane MD - 07/21/2021 9:49 AM EDT [facility] [address] [place] [address] Name: AARON ROSARIO [facility] #: [id number] : 1960 (61yr) DOS: 07/21/2021 Address: [address] [place] [address] Proc: and Biceps Tenodesis; Subacromial Decompression; ShoulderArthroscopy [...] head of the biceps tenotomy, and debridement. FAN BLADE ALIGNER: GIULIANA Cavazos ANESTHETIC: General with Block COMPLICATIONS: [...] and the head was securedwith a foam head of commission department. An examination under anesthesia was performed.The left [...] subdeltoidbursitis. 6. Moderate glenohumeral effusion with synovitis us Jarad Jane MD IMG MR NO CONTRAST OR DERABLES Final Result [...] included. SARS-COV-2 RNA Not Detected Not Detected [facility] Comment: A Not Detected (Negative) test [...] considered. 10/25/2020 10:0 5 AM EDT Narrative [facility] - 10/25/2020 11:43 PM EDT These tests were developed, validated, and their performance characteristics determined by the Molecular Virology Laboratory at [facility] under CLIA 13Q0939351. They have not been cleared or approved by the U.S. Food and Drug Administration (FDA). FDA Policy for Diagnostic Tests for Coronavirus Disease- 2019 during the Public Health Emergency issued May 25, 2019, is followed. Riaz Seals MD LABORATORY Final Result [facility] [employer] [address] [place] [address] * UNSPECIFIED MAJOR PROCEDURE (08/26/2020) Wisam Couch MD PROCEDURES Final Res ult * XRAY SPINE, CERVICAL; 3 VIEWS OR LESS FC (02/19/2020 12:00 PM EST) Only the most recent of2 resultswithin the time period is included. Anatomical Region Laterality Modality Spine Radiographic Cira ging 02/22/2020 7:05 AM EST Narrative 02/22/2020 7:05 AM EST 2 view cervical spine Comparison: ??CR VT ??- SPINE CERVICAL-AP / LAT XRAY ??- 01/22/2020 03:36 PM EST Findings: Flexion and extension lateral images are obtained. There is reversal of upper cervical lordosis. No abnormal translational motion on flexion or extension. Moderate to severe multilevel degenerative change. Prevertebral soft tissues normal. Impression: 1. No abnormal translational motion. Procedure Note Lilly Bustillo MD - 02/22/2020 2 view cervical spine Comparison: CR VT - SPINE CERVICAL-AP / LAT XRAY - [...] of the proximal fibular metaphysis, likely chronic. [id number] Procedure Note [facility], Unknown Provider - 02/12/2020 COMPARISON:None available FINDINGS AND IMPRESSION: No acute fracture or dislocation. No joint effusion. Mild prepatellar softtissue swelling. Small density anterior to the inferior patellar pole, mayrepresent soft tissue calcification or other etiology. The underlyingpatellar cortex is smooth and intact. Cortical thickening of the proximal fibular metaphysis, likelychronic. [id number] us Unknown Provider [facility] Final Resu lt * US RIGHT LOWER DOPPLER VEINS (02/12/2020 10:18 AM EST) 02/12/2020 10:1 8 AM EST Narrative [facility] - 02/12/2020 10:18 AM EST COMPARISON: None [...] venous thrombosis in the right lower extremity. [id number] Procedure Note [facility], Unknown Provider - 02/12/2020 COMPARISON: None available [...] venous thrombosis in the right lower extremity. [id number] us Unknown Provider [facility] CARDIOVASCULAR IMAGING-[facility] SS Final Result Performing Organization Address City/[facility]/ZIP Co de Phone Number [facility] [employer] [address] [place] [address] * (ABNORMAL) SMEAR REVIEW (02/12/2020 8:59 AM EST) Platelet morphology finding Adequate Adequate [facility] LARGE PLATELETS Present(A) Not Present [facility] Platelet clump 1+(A) Not Present [facility] Erythrocyte morphology finding Present(A) Normal [facility] Anisocytosis 1+(A) Not Present [facility] 02/12/2020 8:59 AM EST us Lena Botello LABORATORY Final Result Performing Organization Address [facility] Co de Phone Number [facility] [employer] [address] [place] [address] * MRI LUMBAR SPINE W/O CONTRAST FC [...] CERVICAL SPINE WITHOUT CONTRAST: COMPARISON: MR OT VT ??- CERVICAL SPINE WO CONTRAST MRI ??- [...] CERVICAL SPINE WITHOUT CONTRAST: COMPARISON: MR OT VT - CERVICAL SPINE WO CONTRAST MRI - [...] Impression: 1. Lumbar degenerative changes described above. Eron Flynn MD IMG XRAY NO CONTRAST [...] is included. ALT (SGPT) 28 <67 U/L [facility] 04/11/2016 4:01 PM EST 04/11/2016 4:01 PM EST Narrative [facility] - 04/11/2016 5:32 PM EST not fasting Patient's primary care provider is: ??N/A Testing performed at: [facility], [address] [place] [address], [phone], Assistant Professor Of Anthropology: Marlin Christiansen M.D. us Junito Morgan MD LAB SAME DAY RESULT Final Resu lt [address] [address] DIRECTOR MARLIN CHRISTIANSEN M.D. * ASPARTATE AMINOTRANSFERASE (AST), SERUM (04/11/2016 4:01 PM EST) Only the most recent of2 resultswithin the time period is included. AST (SGOT) 25 <45 U/L [facility] 04/11/2016 4:01 PM EST 04/11/2016 4:01 PM EST Narrative [facility] - 04/11/2016 5:32 PM EST not fasting Patient's primary care provider is: ??N/A Testing performed at: [facility], [address] [place] [address], [id number], Assistant Professor Of Anthropology: Marlin Christiansen M.D. us Junito Morgan MD LAB SAME DAY RESULT Final Resu lt Performing Organization Address City/State/[facility] Co de Phone Number [address] [address] DIRECTOR MARLIN CHRISTIANSEN M.D. * PAIN MANAGEMENT [...] 11:59 PM EST Narrative Resulting Agency Comment [id number] Junito Morgan MD LABORATORY Final Result Performing Organization Address City/[facility]/ZIP Co de Phone Number [facility] [address] [place] [address] * HEPATITIS C AB WITH REFLEX TO RNA PCR, SERUM (04/11/2016 4:00 PM EST) Hepatitis C virus Ab NON-REACTI VE NON-REACT GALEN [facility] Hepatitis C virus Ab Signal/Cutoff 0.01 <1.00 [facility] 04/11/2016 4:00 PM EST 04/11/2016 11:59 PM EST Narrative Resulting Agency Comment [id number] Junito Morgan MD LABORATORY Final Result Performing Organization Address [facility] Co de Phone Number [facility] [address] [place] [address] * CT ORBIT SELL P FOS EAR W/O CONTRAST THEN WITH CONTRAST AND MORE SECTIONS (01/25/2016) 01/25/2016 Narrative Transcriptions Laureano Tavarez MD - 02/01/2016 12:00 AM EST Laureano Tavarez MD CONTRAST STUDY- OTHER Final Res ult * EAR CULTURE (RIGHT) (12/27/2015 11:27 AM EDT) Bacteria identified (Ear) SEE NOTE [facility] Comment: {CULTURE, EAR, EXTERNAL, RIGHT {[id number]) ??CULTURE, EAR, EXTERNAL, RIGHT ??MICRO NUMBER: ?[id number] ??TEST STATUS: ? FINAL ??SPECIMEN SOURCE: ?RIGHT [...] RIGHT EAR, AEROBIC, FUNGAL Resulting Agency Comment [id number] us Laureano Tavarez MD LABORATORY Final Result Performing Organization Address City/State/[facility] Co de Phone Number [facility] [address] [place] [address] * MRI UPPER EXTREMITY OTHER THAN JOINT [...] healing. No acute displaced fracture or dislocation. Junito Morgan MD IMG XRAY NO CONTRAST ORDERABLE S Final Result * VITAMIN D, 25-HYDROXY, TOTAL, IMMUNOASSAY (12/01/2015 9:39 AM EDT) VIT D, 25-OH, TOTAL 37 >29 ng/mL [facility] Comment: Vitamin D Status ??25-OH Vitamin D: Deficiency: ? <20 ng/mL Insufficiency: ? 20-29 ng/mL Optimal: ?> or = 30 ng/mL 12/01/2015 9:39 AM EDT 12/01/2015 9:39 AM EDT Narrative [facility] - 12/01/2015 3:35 PM EDT fasting Patient's primary care provider is: ??N/A Testing performed at: [facility], [address] [place] [address], [id number], Assistant Professor Of Anthropology: Marlin Christiansen M.D. Junito Morgan MD LABORATORY Final Result [address] [address] DIRECTOR MARLIN CHRISTIANSEN M.D. * UNSPECIFIED MAJOR [...] TM. ??HIstory [facility] left radical mastoid [facility] at [facility]. ??Known HL left. ??See ENT note [...] Blanca Cruz - 08/04/2015 12:00 AM EDT [facility] Final Result * MANDIBLE CT W/O [...] 12:00 AM EDT) 10/18/2010 10/18/2010 us Dwight L Rodberg EVALUATION AND MGMT Final Result * ENT CONSULTATION (10/03/2010 12:00 AM EDT) 10/03/2010 10/03/2010 us Dwight L Rodberg EVALUATION AND MGMT Final Result * ANKLE AND FOOT XRAY (09/25/2010 12:00 AM EDT) ATTACHED DOCUMENT 09/25/2010 12:00 AM EDT Anatomical Region Laterality Modality Other 09/25/2010 09/25/2010 Narrative Transcriptions Dwight Manzanares - 09/04/2014 12:00 AM EDT us Dwight Manzanares IMAGING-[facility] Final Result * NEUROSURGERY CONSULTATION (04/18/2010 12:00 AM EST) 04/18/2010 04/18/2010 us Dwight L Rodzulema EVALUATION AND MGMT Final Result * LUMBAR SPINE XRAY 3 VIEWS (04/15/2010 12:00 AM EST) ATTACHED DOCUMENT 04/15/2010 12:00 AM EST Anatomical Region Laterality Modality Other 04/15/2010 04/15/2010 Narrative Transcriptions Dwight Manzanares - 09/04/2014 12:00 AM EDT us Dwight Manzanares IMAGING - NO INBASKET RTG Final Result * CERVICAL SPINE XRAY 2-3 VIEWS (04/15/2010 12:00 AM EST) ATTACHED DOCUMENT 04/15/2010 12:00 AM EST Anatomical Region Laterality Modality Other 04/15/2010 04/15/2010 Narrative Transcriptions Juan DanielDwight poloe Edu - 09/06/2014 12:00 AM EDT us Dwight [...] CONSULTATION (08/23/2008 12:00 AM EDT) 08/23/2008 08/23/2008 us Dwight Manzanares EVALUATION AND MGMT Final Result * RADIOLOGY TEST (01/25/2008) ATTACHED DOCUMENT 01/25/2008 12:00 AM EST Anatomical Region Laterality Modality Other 01/25/2008 01/25/2008 Narrative Transcriptions Dwight Manzanares - 09/03/2014 12:00 AM EDT us Dwight Manzanares [facility] Final Result * SPINE CT- (01/25/2008) ATTACHED DOCUMENT 01/25/2008 12:00 AM EST Anatomical Region Laterality Modality Other 01/25/2008 01/25/2008 Narrative Transcriptions Dwight Manzanares - 09/03/2014 12:00 AM EDT us Dwight Manzanares [facility] Final Result * EXERCISE STRESS TEST (04/08/2007 12:00 AM EST) 04/08/2007 04/08/2007 Narrative 04/08/2007 12:00 [place] [id number] Ervin Guillermo CARDIOVASCULAR-NO INBASKET RTG Final Result * MYOCARDIAL PERFUSION IMAGING; SPECT, MULTIPLE STUDIES, REST &/OR STRESS & REDISTRIBUTION (04/08/2007 12:00 AM EST) 04/08/2007 04/08/2007 Narrative 04/08/2007 12:00 AM EST ERVIN GUILLERMO M.D., F.A.C.C. [address] [place] [address] GATED MYOVIEW EXERCISE TOLERANCE TEST REPORT NAME: AARON ROSARIO ?? DATE: 04/07/2007 : ??1960 (46) Medical Rec. # [id number] HEIGHT: ??5'8 WEIGHT: ??158 lbs. REFERRING PHYSICIAN: [...] None PRIOR EXERCISE TEST: None ECG INTERPRETATION: WN PROTOCOL: ??Prince STAGE TIME SPEED ELEVATION METS [...] with the patient. Ervin Guillermo M.D., F.A.C.C. RSB/dm #[id number] Typed: 04/07/2007 M us Ervin Guillermo CARDIOVASCULAR-WITH INBSKT RTG Final Result * EKG (03/21/2007) ATTACHED DOCUMENT 03/21/2007 12:00 AM EST 03/21/2007 03/21/2007 Narrative Transcriptions Dwight Manzanares - 09/03/2014 12:00 AM EDT Dwight Manzanares CARDIOVASCULAR-NO INBASKET RTG F inal Result * COMPREHENSIVE METABOLIC PROFILE (09/17/2006 3:43 PM EDT) Only the most recent of2 resultswithin the time period is included. Pathologist [facility] Glucose Fasting 97 65 - 99 mg/dL 09/18/2006 8:09 AM EDT [facility] Urea Nitrogen Blood (BUN) 15 7 - 25 MG/DL 09/18/2006 8:09 AM EDT [facility] Creatinine 1.0 0.5 - 1.2 MG/DL 09/18/2006 8:09 AM EDT [facility] BUN/Creatinine Ratio 15 6 - 25 RATIO 09/18/2006 8:09 AM EDT [facility] Sodium 142 135 - 146 MEQ/L 09/18/2006 8:09 AM EDT [facility] Potassium 4.9 3.5 - 5.3 MEQ/L 09/18/2006 8:09 AM EDT [facility] Chloride 104 98 - 110 MEQ/L 09/18/2006 8:09 AM EDT [facility] Calcium 9.5 8.5 - 10.4 MG/DL 09/18/2006 8:09 AM EDT [facility] Protein Total (Serum) 7.1 6.0 - 8.3 G/DL 09/18/2006 8:09 AM EDT [facility] Albumin 3.9 3.5 - 4.9 G/DL 09/18/2006 8:09 AM EDT [facility] Globulin 3 2 - 4 G/DL 09/18/2006 8:09 AM EDT [facility] A/G Ratio 1.2 0.8 - 2.0 (CALC) 09/18/2006 8:09 AM EDT [facility] Bilirubin, Total 0.7 0.2 - 1.5 MG/DL 09/18/2006 8:09 AM EDT [facility] Alkaline Phosphatase 74 20 - 125 U/L 09/18/2006 8:09 AM EDT [facility] AST (SGOT) 42 3 - 50 U/L 09/18/2006 8:09 AM EDT [facility] Carbon Dioxide 27 21 - 33 MEQ/L 09/18/2006 8:09 AM EDT [facility] ALT (SGPT) 48 3 - 60 U/L 09/18/2006 8:09 AM EDT [facility] 09/17/2006 3:43 PM EDT 09/17/2006 3:43 PM EDT Dwight Manzanares LABORATORY Final Result [facility] * HEMOGRAM (CBC) W AUTO DIFF RFLX MAN DIFF (09/17/2006 3:43 PM EDT) Leukocytes 7.1 3.8 - 10.8 K/uL 09/17/2006 4:52 PM EDT [facility] Neutrophils # 4.2 2.0 - 6.9 K/uL 09/17/2006 4:52 PM EDT [facility] Lymphocytes # 1.9 0.6 - 3.4 K/uL 09/17/2006 4:52 PM EDT [facility] Monocytes # 0.7 0.0 - 0.9 K/uL 09/17/2006 4:52 PM EDT [facility] Eosinophils # 0.2 0.0 - 0.7 K/uL 09/17/2006 4:52 PM EDT [facility] Basophils # 0.1 0.0 - 0.2 K/uL 09/17/2006 4:52 PM EDT [facility] Neutrophils % 59.7 37.0 - 80.0 % 09/17/2006 4:52 PM EDT [facility] Lymphocytes % 26.5 10.0 - 50.0 % 09/17/2006 4:52 PM EDT [facility] Monocytes/100 Leukocytes 9.6 0.0 - 12.0 % 09/17/2006 4:52 PM EDT [facility] Eosinophils/100 leukocytes 2.5 0.0 - 7.0 % 09/17/2006 4:52 PM EDT [facility] Basophils/100 leukocytes 1.8 0.0 - 2.5 % 09/17/2006 4:52 PM EDT [facility] Erythrocytes 4.66 4.20 - 5.80 M/uL 09/17/2006 4:52 PM EDT [facility] Hemoglobin 14.9 13.2 - 17.1 g/dL 09/17/2006 4:52 PM EDT [facility] Hematocrit 44.5 38.5 - 50.0 % 09/17/2006 4:52 PM EDT [facility] Mean Corpuscular Volume 95.6 80.0 - 100.0 fl 09/17/2006 4:52 PM EDT [facility] Mean Corpuscular Hemoglobin 32.1 27.0 - 33.0 pg 09/17/2006 4:52 PM EDT [facility] Mean Corpuscular Hemoglobin Conc 33.6 32.0 - 36.0 % 09/17/2006 4:52 PM EDT [facility] RDW 12.3 11.0 - 15.0 % 09/17/2006 4:52 PM EDT [facility] Platelets 252 140 - 400 K/uL 09/17/2006 4:52 PM EDT [facility] 09/17/2006 3:43 PM EDT 09/17/2006 3:43 PM EDT Dwight Manzanares LABORATORY Final Result Performing Organization Address [facility] de Phone Number [facility] * URIC ACID SERUM (11/07/2005 8:52 AM EDT) Uric Acid 3.8 2.7 - 8.2 MG/DL 11/08/2005 10:05 AM EDT [facility] Comment: ?? [facility] COMMENTS: NON-FASTING 11/07/2005 8:52 AM EDT 11/07/2005 8:52 AM EDT Narrative [facility] - 11/08/2005 10:05 AM EDT Testing performed at: [facility], [address] [place] [address], [id number], Assistant Professor Of Anthropology: BALWINDER BREEN M.D., CLIA ID# [id number] Dwight Sorensen Juan Danielzulema LABORATORY Final Result Performing Organization Address [facility] de Phone Number [facility] * CREATINE KINASE ISOENZYMES PROFILE (08/02/2004 2:21 PM EDT) CK-MM 100.0 SEE BELOW % 08/04/2004 10:39 AM EDT [facility] CK-MB 0.0 % 08/04/2004 10:39 AM EDT [facility] CK-BB 0.0 % 08/04/2004 10:39 AM EDT [facility] CPK 113 0 - 200 IU/L 08/04/2004 10:39 AM EDT [facility] 08/02/2004 2:21 PM EDT 08/02/2004 2:21 PM EDT Narrative [facility] - 08/04/2004 10:39 AM EDT Testing performed at: [facility], [address] [place] [address], [id number], Assistant Professor Of Anthropology: BALWINDER BREEN M.D., CLIA ID# [id number] Dwight Sorensen Juan Danielzulema LABORATORY Final Result Performing Organization Address [facility] Co de Phone Number [facility] Visit Diagnoses Diagnosis Start Date [...] to health 10/09/2022 Atrial fibrillation, unspecified type (HCC) 11/08/2022 HFrEF (heart failure with reduced ejection fraction) (HCC) 11/08/2022 Cardiomyopathy, unspecified type (HCC) 11/08/2022 New onset atrial fibrillation (HCC) Atrial fibrillation 11/14/2022 Chronic systolic CHF (congestive heart failure), NYHA class 1 (HCC) Chronic systolic heart failure 11/14/2022 Gross hematuria [...] region, unspecified whether neurogenic claudication present 06/11/2024 Failed back surgical syndrome Other unspecified back disorder 06/15/2024 Spinal stenosis of lumbar region with neurogenic claudication Spinal stenosis, lumbar region, with neurogenic claudication 06/15/2024 Goals Goal Patient Goal Type Associated Problems [...] products, fish, poultry, and nuts. Care Teams Import/Export Administrator Relationship Specialty Start Date End Date Riaz Seals MD [address] [place] [phone] PCP - General Internal Medicine 07/14/19
--- OUTSIDE RECORDS SUMMARY | 2024-07-02 15:51 | XMS_ITS | Encounter Summary ---
Author Organization [facility] Address [address] [place] [address] Care Team Providers Care Director Of Recruitment Name Role Phone Riaz Seals MD Primary Care Provider [phone] Encounter Details Date Type Department Care Team (Late st Contact Info) Description 03/07/2021 Orders Only 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
--- OUTSIDE RECORDS SUMMARY | 2024-07-02 15:51 | XMS_ITS | Encounter Summary ---
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
--- OUTSIDE RECORDS SUMMARY | 2024-07-02 15:51 | XMS_ITS | Encounter Summary ---
Author Organization [facility] Address [address] [place] [address] Care Team Providers Care Carpenter Maintenance Name Role Phone Riaz Seals MD Primary Care Provider [phone] Encounter Details Date Type Department Care Team (Late st Contact Info) Description 06/18/2023 Telephone [facility]. CT Scan [address] [place] [address] Ayesha Pina, TACTICAL/MOBILE WATCH OFFICER [address] [place] [phone] Social History Tobacco Use Types Packs/Day Years [...] time. We will cancel your order in [facility] on 08/10/2023 Please submit a new order [...] on filedocumented in this encounter Care Teams Carpenter Maintenance Relationship Specialty Start Date End Date Riaz Seals MD [address] [place] [phone] PCP - General Internal Medicine 07/14/19 documented as of this encounter
--- OUTSIDE RECORDS SUMMARY | 2024-07-02 15:51 | XMS_ITS | Encounter Summary ---
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 * CULTURE, URINE, ROUTINE (04/26/2023 10:01 AM EST) Bacteria Identified (Urine) SEE NOTE [facility] Comment: ??CULTURE, URINE, ROUTINE Micro Number: ?[id number] Test Status: ? Final Specimen Source: ?? Urine Specimen Quality: ??Adequate ??Result: ?No Growth 04/26/2023 10:0 1 AM EST 04/26/2023 10:01 AM EST Narrative [facility] - 04/29/2023 10:11 AM EST Patient's primary care provider is: ??N/A Testing performed at: [facility], [address] [place] [address], [phone] Supervisor: BALWINDER BREEN MD us Ayesha Pina NP LABORATORY Final Resul t Performing Organization Address City/State/[facility] Co de Phone Number [facility] [address] [place] [address] * (ABNORMAL) URINALYSIS, COMPLETE INCLUDES DIPSTICK AND [...] AM EST 04/26/2023 10:01 AM EST Narrative [facility] - 04/26/2023 10:58 AM EST Patient's primary care provider is: ??N/A Testing performed at: [facility], [address] [place] [address], [id number] Supervisor: Sergio Le MD Ayesah Pina CFA LAB SAME DAY RESULT Final R esult [address] [address] DIRECTOR Sergio Le MD * (ABNORMAL) CBC [...] GROUP PLT 197 140 - 400 K/uL [facility] 04/26/2023 9:45 AM EST 04/26/2023 9:45 AM EST Narrative [facility] - 04/26/2023 10:48 AM EST Patient's primary care provider is: ??N/A Testing performed at: [facility], [address] [place] [address], [id number] Supervisor: Sergio Le MD Ayesha Pina CFA LAB SAME DAY RESULT Final R esult Performing Organization Address [facility] de Phone Number [address] [address] DIRECTOR Sergio Le MD * (ABNORMAL) BASIC METABOLIC PANEL WITH (GFR) (04/26/2023 9:45 AM EST) Glucose 144(H) 65 - 99 mg/dl [facility] Urea Nitrogen Blood (BUN) 14 7 - 25 mg/dL [facility] Creatinine 0.86 0.50 - 1.20 mg/dL [facility] Sodium 142 135 - 146 mmo/L [facility] Potassium 4.5 3.5 - 5.3 mmol/L [facility] Chloride 103 98 - 107 mmo/L [facility] Carbon dioxide 29 23 - 33 mmol/L [facility] Calcium 9.4 8.5 - 10.4 mg/dL [facility] GFR 95 >60 ml/min [facility] 04/26/2023 9:45 AM EST 04/26/2023 9:45 AM EST Narrative [facility] - 04/26/2023 11:49 AM EST Patient's primary care provider is: ??N/A Testing performed at: [facility], [address] [place] [address], [address] Supervisor: Sergio Le MD Ayesha Pina CFA LABORATORY Final Resul t Performing Organization Address [facility] de Phone Number [address] [address] DIRECTOR Sergio Le MD documented in this encounter Visit Diagnoses Diagnosis Hematuria, unspecified type documented in this encounter Care Teams Electron Gun Inspector Relationship Specialty Start Date End Date Riaz Seals MD [address] [place] [phone] PCP - General Internal Medicine 07/14/19 documented as of this encounter
[2024-07-06 10:10] VITALS: BP 154/92; PULSE 83; RESP 16; O2SAT 97; BMI 26.2
[2024-07-06 12:02] LABS: Anion Gap 14 (12-20); Blood Urea Nitrogen 12 mg/dL (9-16); Calcium 9.7 mg/dL (8.4-10.2); Carbon Dioxide 28 mmol/L (22-29); Chloride 105 mmol/L (96-108); Creatinine Clr Calc Pharmacy 89.3; Estimated Glomerular Filt Rate > 60; Glucose Random 100 mg/dL (60-115); Potassium 4.5 mmol/L (3.3-5.1); Sodium 142 mmol/L (135-145)
[2024-07-06 12:21] LABS: Hematocrit 49.1 % (42.0-52.0); Hemoglobin 16.2 g/dl (14.0-18.0); Mean Corpuscular Hemoglobin 33.1 pg (27.0-33.0); Mean Corpuscular Volume 100.4 fL (80.0-98.0); Mean Platelet Volume 10.9 fL (9.4-12.4); Platelet Count 216 X10*3/uL (160-400); Red Blood Count 4.89 X10*6/uL (4.60-5.80); Red Cell Distribution Width 13.5 % (11.0-16.0); White Blood Count 6.3 X10*3/uL (4.8-10.8)
--- NOTE | ~2024-07-09 | FL_ITS ---
EXAMINATION: FL GUIDANCE ONLY HISTORY: L3-4 MLD left COMPARISON: None available. TECHNIQUE: Fluoroscopy time: Less than 1 minute. Cumulative Dose: 4.76 mGy. DAP: 1.009 mGym2 Images: 5. FINDINGS: Images demonstrate a probe directed toward the L3-4 intervertebral disc space. FL/FL guidance in OR IMPRESSION: Fluoroscopy during procedure. Please see procedure report for additional information. Electronically signed by: Maxim Clarke MD 07/09/2024 11:27 AM EDT
[2024-07-09 06:42] VITALS: BMI 25.7
[2024-07-09] MEDS: Gabapentin 300 MG CAPSULE PO (06:48)
[2024-07-09] MEDS: methocarbamoL 750 MG TABLET PO (06:49)
[2024-07-09] MEDS: Lactated Ringers 1,000 ML 100 ML IVCONT (07:00)
--- NOTE | 2024-07-09 07:07 | MHC.SHP ---
Pre-Procedural Eval Section A - 24 Hr Update-Section A only Date of Service: 07/09/24 The patient is an INPATIENT: No Changes since office visit: No Cold of Flu in the past 2 weeks, No New Medical Problems, No Changes in Medication and No Patient answered all questions The patient has been examined within 24 hours of the surgical procedure. The History & Physical has been completed within 30 days and I have reviewed it.: No Section B - Complete if H&P > 30 days Chief Complaint: Other intervertebral disc displacement, lumbar reg Allergies: Allergies Allergy/AdvReac Type Severity Reaction Status Date / Time cat dander Allergy Anaphylaxis Verified 07/03/24 08:34 lisinopril Allergy Cough Verified 07/06/24 10:40 morphine Allergy Vomiting Verified 07/06/24 10:38 Review of Systems Sugical H&P ROS: Negative: Constitution, Cardiovascular, Respiratory, Neurological, Psychiatric, Hem-Onc, Allergic/Immunologic, Gastrointestinal, Genitourinary, Musculoskeletal, Integumentary, Endocrine and Eyes/Ears/Nose/Throat Exam Surgical H&P Exam: Normal: HEENT, Normal: Heart, Normal: Lungs, Normal: Extremities, Normal: Abdomen, Normal: Skin and Normal: Neurological (Awake alert oriented x3) Plan Diagnosis/Plan: Unchanged left L3-4 microdiskectomy Time Spent With Patient Time: Total time managing care of this patient today __5__ minutes.
--- NOTE | 2024-07-09 07:08 | P.DS_ITS ---
DS: Providers Provider Date of Service: 07/09/24 Date of discharge: 07/09/24 Primary care physician: Unknown Physician Admitting clinician: Martin Couch DS: Diagnosis Discharge Diagnosis (1) Lumbar disc herniation: Status: Acute DS: Summary Time Attestation Discharge Coordination Time (in mins): 5 Quality: Safe Use of Opioids Does Pt have an Active Cancer Diagnosis on the Problem List?: No Quality: Stroke Does the patient have a stroke diagnosis?: No Physical Exam Vital Signs: Vital Signs: Last Vital Signs Pulse 83 07/06/24 10:10 Resp 16 07/06/24 10:10 BP 154/92 H 07/06/24 10:10 Pulse Ox 97 07/06/24 10:10 O2 Del Method Room Air 07/06/24 10:10 BMI result Body Mass Index 25.7 Discharge Plan Discharge Patient Disposition: Home, Self-Care Referrals: Physician,Unknown J [Primary Care Provider] - 1 Week Discharge Medications: New docusate sodium [Colace] 100 mg capsule 100 mg PO BID Qty: 20 0RF oxycodone 5 mg tablet 5 mg PO Q4H PRN (Reason: pain) Qty: 20 0RF Rx Instructions: Partial Fill upon patient request. Continued metoprolol succinate 50 mg tablet extended release 24 hr 50 mg PO DAILY losartan 25 mg tablet 25 mg PO DAILY cefuroxime axetil 500 mg tablet 500 mg PO BID Held Eliquis 5 mg tablet 5 mg PO BID Hold Instructions: Resume on 07/12/24. you may resume eliquis 3 days after surgery Discharge Orders: Discharge Order (Routine); Ordered 07/09/24 Ordered By: Sergio Rosales Diet: Advance to usual diet Activity on Discharge: As tolerated Activity Restrictions/Additional Instructions: After your spinal surgery we ask you to observe the following restrictions/gu idelines: Activity: It is normal to feel some discomfort as you increase your activity, but that will improve with time. We ask you avoid heavy lifting or acitivities that cause pain. As a general rule, 8lbs is a safe limit for lifting right after surgery. Walk as much as you feel comfortable but not to exhaustion. You will feel extra tired the first few days after surgery. Stay well hydrated. It is OK to walk up and down stairs You may return to driving when you are off narcotics (such as vicodin, oxycodone, dilaudid, etc), and you are back to normal functional capacity. If you have any concerns please check with office before driving. Return to work is specific to each patient and each surgery, so please speak with your doctor/PA at first follow up. Please bring paperwork such as FMLA at that time if you need it filled out. Medications: You may resume elliquis 3 days after surgery For optimum pain control, it is best to start with a combination of 500 mg of Tylenol every 4 hours with 600 mg of Motrin every 8 hours, and use narcotics as needed in between for breakthrough pain. We will give you a short supply of narcotics after surgery (usually one weeks worth). If you need more please call the office but do not use more than prescribed. You will need to give our office 48 hours notice if you need narcotics refilled and we do not fill narcotics on weekends or evenings. If you are on a narcotic, it is a good idea to take a stool softener such as colace or senna to avoid constipation If you take blood thinner such as aspirin, Plavix, Coumadin, Effient, Eliquis etc for conditions such as Afib, DVT, Pulmonary embolus, coronary disease, stents etc please speak with your surgeon about specific details as to when you can resume these medications. You can resume NSAIDs on post op day 1 (eg: Motrin, Naproxen, etc). Follow up: Please call the office, , after surgery to arrange a 3 week follow up for wound check. Wound Care: You may remove your dressing on the first day after surgery. ?You may ?leave open to air. Please do not remove the steri strips underneath. they will fall off on their own in one week. IT IS NORMAL FOR THE WOUND TO OOZE OR BE BLOODY FOR A FEW DAYS AFTER SURGERY. ?IF THIS HAPPENS JUST PLACE NEW DRESSING OVER IT TO AVOID STAINING CLOTHES. You may shower on post op day # 1 We ask that you do not let the water soak the wound. If it does get wet, just towel dry lightly. Please do not scrub your incision or place any type of chemical/ointment on the wound. No tub baths, pools or jacuzzis for one month. If you have any leaking or redness from your wound, or fevers, please call office Print Language: Gibraltarian
--- NOTE | 2024-07-09 07:17 | MHC.SHP ---
Pre-Procedural Eval Section A - 24 Hr Update-Section A only Date of Service: 07/09/24 The patient is an INPATIENT: No Changes since office visit: No Cold of Flu in the past 2 weeks, No New Medical Problems, No Changes in Medication and No Patient answered all questions The patient has been examined within 24 hours of the surgical procedure. The History & Physical has been completed within 30 days and I have reviewed it.: No Section B - Complete if H&P > 30 days Chief Complaint: Other intervertebral disc displacement, lumbar reg Allergies: Allergies Allergy/AdvReac Type Severity Reaction Status Date / Time cat dander Allergy Anaphylaxis Verified 07/03/24 08:34 lisinopril Allergy Cough Verified 07/06/24 10:40 morphine Allergy Vomiting Verified 07/06/24 10:38 Review of Systems Sugical H&P ROS: Negative: Constitution, Cardiovascular, Respiratory, Neurological, Psychiatric, Hem-Onc, Allergic/Immunologic, Gastrointestinal, Genitourinary, Musculoskeletal, Integumentary, Endocrine and Eyes/Ears/Nose/Throat Exam Surgical H&P Exam: Normal: HEENT, Normal: Heart, Normal: Lungs, Normal: Extremities, Normal: Abdomen, Normal: Skin and Normal: Neurological (Awake alert oriented x3) Plan Diagnosis/Plan: Unchanged Left L3-4 microdiskectomy Time Spent With Patient Time: Total time managing care of this patient today __4__ minutes.
--- NOTE | 2024-07-09 07:46 | P.CONAN_ITS ---
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 Last office visit 02/2024 - stable and good activity tolerance. OK for 6 month f/u. 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 PMFSH Active Problems Active Problems: All Active Problems Lumbar disc herniation (Acute) Cervical myelopathy (Acute) Past Medical History Medical History (Updated 07/06/24 @ 10:07 by Nava Hayden RN) History of perforated ear drum Secondary hypercoagulable state Secondary hyperaldosteronism Bilateral hearing loss Environmental allergies Hearing loss in left ear Myelomalacia GERD (gastroesophageal reflux disease) Facet arthritis of lumbar region Neck pain Complete rotator cuff tear of left shoulder Right shoulder pain Colon polyps Disorder of left mastoid Cleft palate Spinal stenosis in cervical region Back pain Chronic systolic CHF (congestive heart failure), NYHA class 1 Osteoarthritis of left hip Dilated cardiomyopathy Hyperlipidemia Abnormal nuclear stress test On anticoagulant therapy Atrial fibrillation History of recurrent ear infection HTN (hypertension) History of cardioversion Family History Family history of problems with anesthesia: No Surgical History Surgical History (Updated 07/06/24 @ 10:07 by Nava Hayden RN) History of back surgery Hx of cervical spine surgery Hx of inguinal hernia repair History of total left hip replacement Hx of repair of rotator cuff History of nasal surgery Hx of oral surgery H/O colonoscopy History of Problems with Anesthesia: No Social History Social History Are you a primary health care facilities inspector to a significant other at home: No Do you presently have visiting nurse or other home services: No Patient Tobacco Use Status: Never used Tobacco Use of substances other than those prescribed or required for medical reasons: Yes Substance Use Type Other:: gummies Substance Use Frequency: Occasionally Have you been hit, kicked, punched, or otherwise hurt by someone within the past year? If so, by whom?: No Are you DNR?: No Advance Directives: No Advance Directives Information Provided: Yes Advance Directives on File: No Poor oral hygiene: Yes Meds Allergies Allergy/AdvReac Type Severity Reaction Status Date / Time cat dander Allergy Anaphylaxis Verified 07/03/24 08:34 lisinopril Allergy Cough Verified 07/06/24 10:40 morphine Allergy Vomiting Verified 07/06/24 10:38 Home Medications ?Medication ?Instructions ?Recorded ?Confirmed ?Last Taken ?Type apixaban 5 mg tablet (Eliquis) 5 mg PO BID 07/03/24 07/06/24 Unknown History losartan 25 mg tablet 25 mg PO DAILY 07/03/24 07/03/24 Unknown History metoprolol succinate 50 mg 50 mg PO DAILY 07/03/24 07/03/24 Unknown History tablet,extended release 24 hr cefuroxime axetil 500 mg tablet 500 mg PO BID 07/06/24 07/06/24 Unknown History Exam Height,Weight and Vital Signs: Height 5 ft 7 in Weight 75.75 kg Last Vital Signs Pulse 83 07/06/24 10:10 Resp 16 07/06/24 10:10 BP 154/92 H 07/06/24 10:10 Pulse Ox 97 07/06/24 10:10 O2 Del Method Room Air 07/06/24 10:10 Pertinent Lab Results Pertinent Lab Results: Lab Results 07/06/24 Range/Units 11:09 WBC 6.3 (4.8-10.8) X10*3/uL RBC 4.89 (4.60-5.80) X10*6/uL Hgb 16.2 (14.0-18.0) g/dl Hct 49.1 (42.0-52.0) % MCV 100.4 H (80.0-98.0) fL MCH 33.1 H (27.0-33.0) pg MCHC 33.0 (31.0-36.0) g/dl RDW 13.5 (11.0-16.0) % Plt Count 216 (160-400) X10*3/uL MPV 10.9 (9.4-12.4) fL Absolute Nucleated RBC 0.000 (0.0-0.012) X10*3/uL Nucleated RBC % (auto) 0.0 (0.0-0.2) /100WBC Sodium 142 (135-145) mmol/L Potassium 4.5 (3.3-5.1) mmol/L Chloride 105 (96-108) mmol/L Carbon Dioxide 28 (22-29) mmol/L Anion Gap 14 (12-20) BUN 12 (9-16) mg/dL Creatinine 0.76 (0.5-1.4) mg/dL Estim Creat Clear Calc 89.3 Estimated GFR > 60 Random Glucose 100 (60-115) mg/dL Calcium 9.7 (8.4-10.2) mg/dL Narrative Narrative: EKG 02/2024 NSR @ 73 ECHO 02/2023 Mild reduced LV sys function. LVEF 45%. Mild global hypokinesis. Nml RV size. Low nml RV sys function Mild aortic regurg Mild tricuspid regurg Airway Mallampati Class: III Neck ROM: Limited Partial: Upper Loose/Missing/Broken Teeth: Yes (crown) Heart: RRR Lungs: CTAB Assessment and Plan Assessment Anesthesia Assessment: Anesthesia Plan Discussed and PAT Visit Final Anesthetic Review Family History of Problems with Anesthesia: No History of Problems with Anesthesia: No Documented by User: Mayr Dixon DO 07/09/24 07:47 [facility] Past Medical History Medical History (Updated 07/06/24 @ 10:07 by Nava Hayden RN) History of perforated ear drum Secondary hypercoagulable state Secondary hyperaldosteronism Bilateral hearing loss Environmental allergies Hearing loss in left ear Myelomalacia GERD (gastroesophageal reflux disease) Facet arthritis of lumbar region Neck pain Complete rotator cuff tear of left shoulder Right shoulder pain Colon polyps Disorder of left mastoid Cleft palate Spinal stenosis in cervical region Back pain Chronic systolic CHF (congestive heart failure), NYHA class 1 Osteoarthritis of left hip Dilated cardiomyopathy Hyperlipidemia Abnormal nuclear stress test On anticoagulant therapy Atrial fibrillation History of recurrent ear infection HTN (hypertension) History of cardioversion Family History Family history of problems with anesthesia: No Surgical History Surgical History (Updated 07/06/24 @ 10:07 by Nava Hayden RN) History of back surgery Hx of cervical spine surgery Hx of inguinal hernia repair History of total left hip replacement Hx of repair of rotator cuff History of nasal surgery Hx of oral surgery H/O colonoscopy History of Problems with Anesthesia: No Social History Social History Are you a primary health care facilities inspector to a significant other at home: No Do you presently have visiting nurse or other home services: No Patient Tobacco Use Status: Never used Tobacco Use of substances other than those prescribed or required for medical reasons: Yes Substance Use Type Other:: gummies Substance Use Frequency: Occasionally Have you been hit, kicked, punched, or otherwise hurt by someone within the past year? If so, by whom?: No Are you DNR?: No Advance Directives: No Advance Directives Information Provided: Yes Advance Directives on File: No Poor oral hygiene: Yes Meds Allergies Allergy/AdvReac Type Severity Reaction Status Date / Time cat dander Allergy Anaphylaxis Verified 07/03/24 08:34 lisinopril Allergy Cough Verified 07/06/24 10:40 morphine Allergy Vomiting Verified 07/06/24 10:38 Home Medications ?Medication ?Instructions ?Recorded ?Confirmed ?Last Taken ?Type apixaban 5 mg tablet (Eliquis) 5 mg PO BID 07/03/24 07/06/24 Unknown History losartan 25 mg tablet 25 mg PO DAILY 07/03/24 07/03/24 Unknown History metoprolol succinate 50 mg 50 mg PO DAILY 07/03/24 07/03/24 Unknown History tablet,extended release 24 hr cefuroxime axetil 500 mg tablet 500 mg PO BID 07/06/24 07/06/24 Unknown History Exam Exam Date and Time: 07/09/24 0745 Height,Weight and Vital Signs: Height 5 ft 7 in Weight 75.75 kg Last Vital Signs Pulse 83 07/06/24 10:10 Resp 16 07/06/24 10:10 BP 154/92 H 07/06/24 10:10 Pulse Ox 97 07/06/24 10:10 O2 Del Method Room Air 07/06/24 10:10 Vital Signs Pulse Rate 83 07/06/24 10:10 Respiratory Rate 16 07/06/24 10:10 Blood Pressure 154/92 H 07/06/24 10:10 Pulse Oximetry 97 07/06/24 10:10 Oxygen Delivery Method Room Air 07/06/24 10:10 Pulse Rate 83 07/06/24 10:10 Respiratory Rate 16 07/06/24 10:10 Blood Pressure 154/92 H 07/06/24 10:10 Pulse Oximetry 97 07/06/24 10:10 Oxygen Delivery Method Room Air 07/06/24 10:10 Airway Mallampati Class: II TM Dist: <=3cm Neck ROM: Limited Partial: Upper Heart: S1S2 Assessment and Plan Assessment Anesthesia Assessment: Anesthesia Plan Discussed and Chart Reviewed Final Anesthetic Review Family History of Problems with Anesthesia: No History of Problems with Anesthesia: No NPO: Yes ASA Class: III Final Preanesthetic Review: No Changes in Pt Med Stat, Meds/Allgs Chart Reviewed, Consent Obtained/Reviewed and Anes Risks/Benef Reviewed Patient Risk: Intermediate Procedure Risk: Intermediate Anesthetic Plan Anesthetic Plan: GA and Agree w/ Assess. and Plan Disposition: Standard PACU
[2024-07-09] MEDS: ceFAZolin Sodium/Dextrose,Iso 2 GM/50 ML PIGGYBACK IV (08:55)
[2024-07-09] MEDS: Acetaminophen 1,000 MG/100 ML PIGGYBACK 400 MG IV (09:00)
[2024-07-09 10:45] VITALS: BP 111/72; PULSE 98; RESP 20; TEMP 36.9; O2SAT 96
[2024-07-09 10:50] VITALS: BP 129/69; PULSE 97; RESP 20; O2SAT 96
[2024-07-09 10:55] VITALS: BP 117/70; PULSE 91; RESP 20; O2SAT 93
[2024-07-09 11:00] VITALS: BP 112/66; PULSE 92; RESP 20; O2SAT 93
[2024-07-09 11:15] VITALS: BP 114/73; PULSE 98; RESP 20; TEMP 36.8; O2SAT 94
--- NOTE | 2024-07-09 14:05 | P.OP_ITS ---
Operative Note Operative Note Date of Service: 07/09/24 Narrative: Preoperative diagnosis: Left lumbar radiculopathy due to disc herniation Postoperative diagnosis: Same Procedure: Attempted left L3-4 lumbar microdiskectomy with microscope Surgeon: Martin Couch MD, PhD [employer] Operator: rony Salinas This 64-year-old male underwent an L3-4 and L4 5 decompression in the past This patient is now suffering from a left leg pain with the MRI showing a left cystic mass, most likely representing a disc herniation, compressing the left L3 nerve root. The patient was offered a lumbar microdiskectomy to decompress the nerve root. The procedure complications were explained. The patient was consented. The patient was brought to the operating room and endotracheally intubated. The patient was turned in a prone position on the Terrell frame. Prepping and draping was done followed by time-out. The previous mid lumbar incision was partially opened to expose the left L3-4 laminae of the left side. An intraoperative x-rays obtained to confirm the correct level. The microscope was brought in. The previous L3 laminotomy was extended cranially. The flavum ligament was opened and underlying dura was exposed. I was unable to retract the thecal sac and exiting nerve root medially most likely due to scar tissue. I drilled more off of the facet joint but this did not result in mobilization of the thecal sac and nerve root. In other words I was unable to identify were expose the herniated disc and it was felt that further exploration would put the patient at risk for a spinal fluid leak. Overall a good decompression was obtained and therefore I decided to and the surgery.. Hemostasis was done. The microscope was removed. Marcaine was injected intramuscularly.The incision was closed in two layers. Steri-Strips used to approximate the incision. An op-site were taken there was used to cover the incision. All sponge and needle counts were correct. Patient was extubated and transported in stable condition to recovery room. this procedure was done with the aid of a physician medical assistant secretary who performed the initial exposure until the microscope was brought in and performed the closure of the incision. Anesthesia: General Blood loss: 10 mL Complications: None Specimen: None Surgical time: 60 minutes Disposition: Discharge home
== END 2024-07-09 11:58 | disposition home or self-care (01) ==
PROVIDERS: Nurse Practitioner; Visit Provider Neurological Surgery
PROC: (CPT 63047; principal; 2024-07-09 08:30)
DX: M51.26 Other intervertebral disc displacement, lumbar region (principal); M51.16 Intervertebral disc disorders with radiculopathy, lumbar region; M79.605 Pain in left leg; R26.89 Other abnormalities of gait and mobility; I10 Essential (primary) hypertension; I48.91 Unspecified atrial fibrillation; Z79.01 Long term (current) use of anticoagulants; Z79.899 Other long term (current) drug therapy
CPT/HCPCS: 63047; 36415; 80048; 85027; J0131; J0690; J1100; J1885; J2003; J2371; J2405; J2704; J3010

== ENCOUNTER → 2024-07-09 06:24 | Outpatient (BNV) | payer MEDICARE, SELFPAY | PROVIDERS: Visit Provider Physician Assistant | DX: M51.16 Intervertebral disc disorders with radiculopathy, lumbar region (principal) | CPT/HCPCS: 63030; 99499 ==